=== PATIENT | female | born 1945 | race Caucasian/White ===

== ENCOUNTER 2018-02-19 10:26 | Emergency (ER) | payer OTHER, SELFPAY ==
[2018-02-19 10:33] VITALS: BP 135/74; PULSE 87; RESP 16; TEMP 36.6; O2SAT 93
--- NOTE | 2018-02-19 11:09 | W.ED.GENAD ---
Discharge Plan Disposition Patient Disposition: HOME Condition: Serious Discharge Details Chief Complaint: EyeProblem Clinical Impression: Herpes zoster ophthalmicus of right eye Primary Care Provider: Destiney Motley ED Provider: Lovely Downey Home Meds and New Rx's Prescriptions: New valacyclovir 500 mg tablet 1,000 mg PO TID Qty: 42 RF: 0 Continue acetaminophen [Tylenol Extra Strength] 500 MG tablet 1,000 mg PO Q6H PRN RF: 0 CPAP RF: 0 cholecalciferol (vitamin D3) 5,000 UNIT capsule 5,000 unit PO DAILY Qty: 100 RF: 4 inhalational spacing device [Aerochamber Mini] 1 EACH spacer 1 ea Miscellaneous as directed Qty: 1 RF: 1 alendronate 70 MG tablet 70 mg PO weekly Qty: 12 RF: 4 fluticasone-salmeterol [Advair Diskus] 1 EACH blister with device 1 puff Inhalation BID Qty: 3 RF: 4 amlodipine 10 MG tablet 10 mg PO QAM Qty: 90 RF: 4 clotrimazole-betamethasone 15 GM cream 1 applic Topical BID PRN Qty: 15 RF: 5 furosemide 20 MG tablet 20 mg PO DAILY Qty: 90 RF: 4 albuterol sulfate [ProAir HFA] 8.5 GM HFA aerosol inhaler 2 puff Inhalation Q4H PRN Qty: 3 RF: 4 lisinopril 40 MG tablet 40 mg PO DAILY Qty: 90 RF: 4 Discharge Instructions Instructions: Shingles (ED) Additional Instructions: Please take valacyclovir as prescribed, 1,000 milligrams 3 times per day. Please keep appointment with [facility] 3:10 PM today. Please follow-up with primary care in the beginning of next week for reevaluation. If you develop new or worsening symptoms please seek care urgently once again [facility]: Referrals: Destiney Motley, EDIE [Primary Care Provider] - Medical Decision Making Patient is a 72-year-old female, accompanied by significant other, with chief complaint of swelling and rash around the right eye that began yesterday evening. reports that he noted swelling around the right eye yesterday and the patient was having some mild discomfort in the lid. She denies any pain, particular no skin pain. She reports that she is been feeling fatigued for the past few days and overall fairly unwell. No fevers or chills. No upper respiratory symptoms. On exam, she is defined right-sided vesicular rash consistent with herpes zoster ophthalmicus. No Mabry sign. Despite the lack of this, as well as the lack of discomfort, I remain concerned that this is herpes zoster ophthalmicus as the rash just began today. I am concerned that as this progresses a Mabry sign will present. The eye is injected. I did the eye and evaluate with slit lamp, did not see any dendritic lesions at this point. She has full extraocular movements. No eye pain with these movements. No fevers or chills. Patient appears nontoxic. Patient is not immunocompromised. Will treat with valacyclovir, patient will be given her first dose here. I did contact [facility] eye today to schedule appointment and was able to obtain an appointment for this afternoon at 3 PM. I discussed this plan with the patient and her . We did discuss the risk associated with this diagnosis and my concerns. They voiced understanding and are in agreement with upcoming appointment and will take medication as prescribed. We discussed new/worsening symptoms once he care urgently once again. I also advised follow-up with primary care, they will contact primary care today. All the questions and concerns were addressed and they are in agreement with this plan. [facility] General Mode of arrival: ambulatory. Date/Time Provider Initiated Documentation: 02/19/18 10:27. Limitations to Documentation: no limitations. Information obtained by: patient and family. History of Present Illness 72 year old F presents to the emergency department with the chief complaint of right eye swelling, described as mild (denies any pain), and is localized to the head and face (notes rash on the right side of her upper face into her hair line. Rash is new as of this morning). Patient reports no radiation. Patient started experiencing this day(s) (began yesterday afternoon) and it has been constant. No relieving factors improve symptom(s), No exacerbating factors reported . Patient notes malaise and rash; denies confusion, chest pain, cough, fever/chills, headaches, nausea/vomiting, shortness of breath and weakness. Patient did receive the following treatments prior to arrival, cold therapy Related Data Home Medications Medication Instructions Recorded Confirmed acetaminophen [Tylenol Extra 1,000 mg PO Q6H PRN tab-cap 07/20/13 02/19/18 Strength] cholecalciferol (vitamin D3) 5,000 unit PO DAILY #100 tab-cap 07/06/15 02/19/18 inhalational spacing device #1 ea 08/10/15 [Aerochamber Mini] alendronate 70 mg PO weekly #12 tab-cap 05/18/17 02/19/18 albuterol sulfate [ProAir HFA] 2 puff INHALATION Q4H PRN #3 09/01/17 02/19/18 inhaler amlodipine 10 mg PO QAM #90 tab 09/01/17 02/19/18 clotrimazole-betamethasone 1 applic TOPICAL BID PRN #15 gm 09/01/17 02/19/18 fluticasone-salmeterol [Advair 1 puff INHALATION BID #3 disk 09/01/17 02/19/18 Diskus] furosemide 20 mg PO DAILY #90 tab-cap 09/01/17 02/19/18 lisinopril 40 mg PO DAILY #90 tab-cap 09/01/17 02/19/18 valacyclovir 1,000 mg PO TID #42 tab 02/19/18 Previous Rx's Medication Instructions Recorded alendronate 70 mg PO weekly #12 tab-cap 05/18/17 albuterol sulfate [ProAir HFA] 2 puff INHALATION Q4H PRN #3 09/01/17 inhaler amlodipine 10 mg PO QAM #90 tab 09/01/17 clotrimazole-betamethasone 1 applic TOPICAL BID PRN #15 gm 09/01/17 fluticasone-salmeterol [Advair 1 puff INHALATION BID #3 disk 09/01/17 Diskus] furosemide 20 mg PO DAILY #90 tab-cap 09/01/17 lisinopril 40 mg PO DAILY #90 tab-cap 09/01/17 valacyclovir 1,000 mg PO TID #42 tab 02/19/18 Allergies Allergy/AdvReac Type Severity Reaction Status Date / Time ibuprofen AdvReac Mild RECTAL Unverified 02/19/18 10:37 BLEEDING levothyroxine sodium AdvReac Unknown Unverified 02/19/18 10:37 General Stated Complaint: EyeProblem NEELAM: 3 Review of Systems Constitutional Reports as per HPI Eyes Reports as per HPI, Reports blurry vision (unable to see from the right eye secondary to swelling to the right lid), Denies diplopia, Reports eye discharge (has noted white discharge, none at this time), Denies dry eyes, Denies floaters, Denies itchy eyes, Denies eye pain and Denies photophobia Cardiovascular Reports as per HPI, Denies chest pain, Denies dyspnea and Denies dyspnea on exertion Respiratory Reports as per HPI, Denies chest congestion, Denies cough, Denies dyspnea and Denies dyspnea on exertion Gastrointestinal Denies abdominal pain, Denies nausea and Denies vomiting Integumentary/Breasts Reports as per HPI, Reports new lesions, Reports erythema, Reports rash and Denies skin swelling Allergic/Immunologic Denies itchy eyes PFSH Family History Mother Diabetes Essential hypertension Neoplasm Asthma Father MVA (motor vehicle accident) Sister Neoplasm Sister Essential hypertension Neoplasm Grandfather Diabetes Essential hypertension Heart disease Cerebrovascular accident Asthma Grandfather Heart disease Cerebrovascular accident Grandmother Heart disease Asthma Grandmother Neoplasm Son No problems noted. Daughter No problems noted. Social History Smoking/Tobacco Use Status: Former Tobacco Use Surgical History Breast, Lumpectomy (~09/2012) Cholecystectomy (~1994) Fracture, Open Treatment (~05/2005) Exam Const General: cooperative, healthy appearing, comfortable, no acute distress, well developed and well groomed Nutritional Appearance: well nourished and overweight Orientation: alert, awake and oriented x3 HENMT Head: abnormal to inspection (Patient has a vesicular rash on the right side of her forehead with definitive demarcation down the midline consistent with shingles. Negative Mabry sign. Right eye is swollen and lid is nearly closed secondary to swelling), no palpable skull fracture and not normocephalic (Rash extends into the right side of the hairline over the right ear.) Ears: hearing grossly normal bilaterally, external ears normal (Rash does not extend into the canal), TM's normal bilaterally and mastoids normal General nose exam: external nose normal and nares normal Face and sinus: abnormal facial exam (Rash as above) Face images: 1. area of rash Mouth: oral mucosae normal, lip normal, tongue normal, oropharynx normal and moist mucous membranes Eyes Alignment and Position: alignment normal Periorbital: periorbital findings abnormal (Right eyelid is erythematous and swollen both upper and lower lid to the point the patient is unable to open her eye) Conjunctivae: conjunctival abnormality right conjunctival injection diffuse and discharge mucoid Pupils: PERRL EOM: EOM intact bilaterally (no pain with EOM) and No nystagmus Neck Neck: normal visual inspection and no lymphadenopathy Resp Effort & Inspection: normal respiratory effort, able to speak in complete sentences and no respiratory distress Auscultation: clear to auscultation bilaterally, no rales, no rhonchi and no wheezes Cardio Rate: regular rate Rhythm: regular rhythm Heart Sounds: S1 normal and S2 normal Skin General skin exam: erythema (erythema and rash as above) Hair: hair abnormal (rash extends into hair) Neuro General: alert, awake and oriented x3 Cranial Nerves: no nystagmus Cognition: normal cognition Speech: speech normal Gait: normal gait Extrem General: normal to inspection Psych Appearance: grossly normal and well kempt Mental Status: mental status grossly normal Speech and Movement: speech and movement normal Mood: congruent mood Course Vital Signs Temperature 36.6 C 02/19/18 10:33 Pulse 87 02/19/18 10:33 Respiratory Rate 16 02/19/18 10:33 Blood Pressure 135/74 02/19/18 10:33 Pulse Oximetry 93 L 02/19/18 10:33 Temperature 36.6 C 02/19/18 10:33 Temperature Source Skin 02/19/18 10:33 Pulse 87 02/19/18 10:33 Respiratory Rate 16 02/19/18 10:33 Respiratory Effort Short of Breath 02/19/18 10:33 Blood Pressure 135/74 02/19/18 10:33 Blood Pressure Position Sitting 02/19/18 10:33 Pulse Oximetry 93 L 02/19/18 10:33 Oxygen Delivery Method Room Air 02/19/18 10:33 Oxygen Flow Rate 0 02/19/18 10:33 Pain Level 0 02/19/18 10:33
--- NOTE | 2018-02-19 12:13 | ED.GENADUL_ITS ---
Discharge Plan Disposition Patient Disposition: HOME Condition: Serious Discharge Details Chief Complaint: EyeProblem Clinical Impression: Herpes zoster ophthalmicus of right eye Primary Care Provider: Destiney Motley ED Provider: Lovely Downey Home Meds and New Rx's Prescriptions: New valacyclovir 500 mg tablet 1,000 mg PO TID Qty: 42 RF: 0 Continue acetaminophen [Tylenol Extra Strength] 500 MG tablet 1,000 mg PO Q6H PRN RF: 0 CPAP RF: 0 cholecalciferol (vitamin D3) 5,000 UNIT capsule 5,000 unit PO DAILY Qty: 100 RF: 4 inhalational spacing device [Aerochamber Mini] 1 EACH spacer 1 ea Miscellaneous as directed Qty: 1 RF: 1 alendronate 70 MG tablet 70 mg PO weekly Qty: 12 RF: 4 fluticasone-salmeterol [Advair Diskus] 1 EACH blister with device 1 puff Inhalation BID Qty: 3 RF: 4 amlodipine 10 MG tablet 10 mg PO QAM Qty: 90 RF: 4 clotrimazole-betamethasone 15 GM cream 1 applic Topical BID PRN Qty: 15 RF: 5 furosemide 20 MG tablet 20 mg PO DAILY Qty: 90 RF: 4 albuterol sulfate [ProAir HFA] 8.5 GM HFA aerosol inhaler 2 puff Inhalation Q4H PRN Qty: 3 RF: 4 lisinopril 40 MG tablet 40 mg PO DAILY Qty: 90 RF: 4 Discharge Instructions Instructions: Shingles (ED) Additional Instructions: Please take valacyclovir as prescribed, 1,000 milligrams 3 times per day. Please keep appointment with [facility] 3:10 PM today. Please follow- up with primary care in the beginning of next week for reevaluation. If you develop new or worsening symptoms please seek care urgently once again [facility]: Referrals: Destiney Motley, EDIE [Primary Care Provider] - Medical Decision Making Patient is a 72-year-old female, accompanied by significant other, with chief complaint of swelling and rash around the right eye that began yesterday evening. reports that he noted swelling around the right eye yesterday and the patient was having some mild discomfort in the lid. She denies any pain , particular no skin pain. She reports that she is been feeling fatigued for the past few days and overall fairly unwell. No fevers or chills. No upper respiratory symptoms. On exam, she is defined right-sided vesicular rash consistent with herpes zoster ophthalmicus. No Mabry sign. Despite the lack of this, as well as the lack of discomfort, I remain concerned that this is herpes zoster ophthalmicus as the rash just began today. I am concerned that as this progresses a Mabry sign will present. The eye is injected. I did the eye and evaluate with slit lamp, did not see any dendritic lesions at this point. She has full extraocular movements. No eye pain with these movements. No fevers or chills. Patient appears nontoxic. Patient is not immunocompromised. Will treat with valacyclovir, patient will be given her first dose here. I did contact [facility] today to schedule appointment and was able to obtain an appointment for this afternoon at 3 PM. I discussed this plan with the patient and her . We did discuss the risk associated with this diagnosis and my concerns. They voiced understanding and are in agreement with upcoming appointment and will take medication as prescribed. We discussed new/worsening symptoms once he care urgently once again. I also advised follow-up with primary care, they will contact primary care today. All the questions and concerns were addressed and they are in agreement with this plan. [facility] General Mode of arrival: ambulatory . Date/Time Provider Initiated Documentation: 02/19/18 10:27 . Limitations to Documentation: no limitations . Information obtained by: patient and family . History of Present Illness 72 year old F presents to the emergency department with the chief complaint of right eye swelling, described as mild (denies any pain), and is localized to the head and face (notes rash on the right side of her upper face into her hair line. Rash is new as of this morning). Patient reports no radiation. Patient started experiencing this day(s) (began yesterday afternoon) and it has been constant. No relieving factors improve symptom(s), No exacerbating factors reported . Patient notes malaise and rash; denies confusion, chest pain, cough, fever/chills, headaches, nausea/vomiting, shortness of breath and weakness. Patient did receive the following treatments prior to arrival, cold therapy Related Data Home Medications Medication Instructions Recorded Confirmed acetaminophen [Tylenol Extra 1,000 mg PO Q6H PRN tab-cap 07/20/13 02/19/18 Strength] cholecalciferol (vitamin D3) 5,000 unit PO DAILY #100 tab-cap 07/06/15 02/19/18 inhalational spacing device #1 ea 08/10/15 [Aerochamber Mini] alendronate 70 mg PO weekly #12 tab-cap 05/18/17 02/19/18 albuterol sulfate [ProAir HFA] 2 puff INHALATION Q4H PRN #3 09/01/17 02/19/18 inhaler amlodipine 10 mg PO QAM #90 tab 09/01/17 02/19/18 clotrimazole-betamethasone 1 applic TOPICAL BID PRN #15 gm 09/01/17 02/19/18 fluticasone-salmeterol [Advair 1 puff INHALATION BID #3 disk 09/01/17 02/19/18 Diskus] furosemide 20 mg PO DAILY #90 tab-cap 09/01/17 02/19/18 lisinopril 40 mg PO DAILY #90 tab-cap 09/01/17 02/19/18 valacyclovir 1,000 mg PO TID #42 tab 02/19/18 Previous Rx's Medication Instructions Recorded alendronate 70 mg PO weekly #12 tab-cap 05/18/17 albuterol sulfate [ProAir HFA] 2 puff INHALATION Q4H PRN #3 09/01/17 inhaler amlodipine 10 mg PO QAM #90 tab 09/01/17 clotrimazole-betamethasone 1 applic TOPICAL BID PRN #15 gm 09/01/17 fluticasone-salmeterol [Advair 1 puff INHALATION BID #3 disk 09/01/17 Diskus] furosemide 20 mg PO DAILY #90 tab-cap 09/01/17 lisinopril 40 mg PO DAILY #90 tab-cap 09/01/17 valacyclovir 1,000 mg PO TID #42 tab 02/19/18 Allergies Allergy/AdvReac Type Severity Reaction Status Date / Time ibuprofen AdvReac Mild RECTAL Unverified 02/19/18 10:37 BLEEDING levothyroxine sodium AdvReac Unknown Unverified 02/19/18 10:37 General Stated Complaint: EyeProblem NEELAM: 3 Review of Systems Constitutional Reports as per HPI Eyes Reports as per HPI, Reports blurry vision (unable to see from the right eye secondary to swelling to the right lid), Denies diplopia, Reports eye discharge (has noted white discharge, none at this time), Denies dry eyes, Denies floaters , Denies itchy eyes, Denies eye pain and Denies photophobia Cardiovascular Reports as per HPI, Denies chest pain, Denies dyspnea and Denies dyspnea on exertion Respiratory Reports as per HPI, Denies chest congestion, Denies cough, Denies dyspnea and Denies dyspnea on exertion Gastrointestinal Denies abdominal pain, Denies nausea and Denies vomiting Integumentary/Breasts Reports as per HPI, Reports new lesions, Reports erythema, Reports rash and Denies skin swelling Allergic/Immunologic Denies itchy eyes PFSH Family History Mother Diabetes Essential hypertension Neoplasm Asthma Father MVA (motor vehicle accident) Sister Neoplasm Sister Essential hypertension Neoplasm Grandfather Diabetes Essential hypertension Heart disease Cerebrovascular accident Asthma Grandfather Heart disease Cerebrovascular accident Grandmother Heart disease Asthma Grandmother Neoplasm Son No problems noted. Daughter No problems noted. Social History Smoking/Tobacco Use Status: Former Tobacco Use Surgical History Breast, Lumpectomy (~09/2012) Cholecystectomy (~1994) Fracture, Open Treatment (~05/2005) Exam Const General: cooperative, healthy appearing, comfortable, no acute distress, well developed and well groomed Nutritional Appearance: well nourished and overweight Orientation: alert, awake and oriented x3 HENMT Head: abnormal to inspection (Patient has a vesicular rash on the right side of her forehead with definitive demarcation down the midline consistent with shingles. Negative Mabry sign. Right eye is swollen and lid is nearly closed secondary to swelling), no palpable skull fracture and not normocephalic (Rash extends into the right side of the hairline over the right ear.) Ears: hearing grossly normal bilaterally, external ears normal (Rash does not extend into the canal), TM's normal bilaterally and mastoids normal General nose exam: external nose normal and nares normal Face and sinus: abnormal facial exam (Rash as above) Face images: 2 1. area of rash Mouth: oral mucosae normal, lip normal, tongue normal, oropharynx normal and moist mucous membranes Eyes Alignment and Position: alignment normal Periorbital: periorbital findings abnormal (Right eyelid is erythematous and swollen both upper and lower lid to the point the patient is unable to open her eye) Conjunctivae: conjunctival abnormality right conjunctival injection diffuse and discharge mucoid Pupils: PERRL EOM: EOM intact bilaterally (no pain with EOM) and No nystagmus Neck Neck: normal visual inspection and no lymphadenopathy Resp Effort & Inspection: normal respiratory effort, able to speak in complete sentences and no respiratory distress Auscultation: clear to auscultation bilaterally, no rales, no rhonchi and no wheezes Cardio Rate: regular rate Rhythm: regular rhythm Heart Sounds: S1 normal and S2 normal Skin General skin exam: erythema (erythema and rash as above) Hair: hair abnormal (rash extends into hair) Neuro General: alert, awake and oriented x3 Cranial Nerves: no nystagmus Cognition: normal cognition Speech: speech normal Gait: normal gait Extrem General: normal to inspection Psych Appearance: grossly normal and well kempt Mental Status: mental status grossly normal Speech and Movement: speech and movement normal Mood: congruent mood Course Vital Signs Temperature 36.6 C 02/19/18 10:33 Pulse 87 02/19/18 10:33 Respiratory Rate 16 02/19/18 10:33 Blood Pressure 135/74 02/19/18 10:33 Pulse Oximetry 93 L 02/19/18 10:33 Temperature 36.6 C 02/19/18 10:33 Temperature Source Skin 02/19/18 10:33 Pulse 87 02/19/18 10:33 Respiratory Rate 16 02/19/18 10:33 Respiratory Effort Short of Breath 02/19/18 10:33 Blood Pressure 135/74 02/19/18 10:33 Blood Pressure Position Sitting 02/19/18 10:33 Pulse Oximetry 93 L 02/19/18 10:33 Oxygen Delivery Method Room Air 02/19/18 10:33 Oxygen Flow Rate 0 02/19/18 10:33 Pain Level 0 02/19/18 10:33
== END 2018-02-19 11:22 | disposition home or self-care (01) ==
PROVIDERS: Emergency Provider Physician Assistant; PCP Nurse Practitioner Family
DX: B02.39 Other herpes zoster eye disease (principal)
CPT/HCPCS: 99283

== ENCOUNTER 2018-06-12 16:36 | Outpatient (CLI) | payer OTHER, SELFPAY ==
--- NOTE | 2018-06-12 15:45 | DI.RAD_ITS ---
SYMPTOM/DIAGNOSIS: WORSENING SOB, PNEUMONIA ON EXAM, ? PULMONARY EDEMA, EXAC OF COPD, J18.9, J44.1 PA AND LATERAL CHEST: Comparison is made with 08/30/17. Heart size is within normal limits. Pulmonary vasculature appears stable. No focal consolidating infiltrates or effusions are seen. The lungs appear hyperinflated consistent with underlying COPD. The bones show degenerative changes. There is an old compression fracture of the L 1 vertebral bodym IMPRESSION: No acute pulmonary process.
--- NOTE | 2018-06-12 16:18 | DI.VRAD_ITS ---
EXAM: XR Chest, 2 Views EXAM DATE/TIME: 06/12/2018 4:07 PM CLINICAL HISTORY: 72 years old, female; Signs and symptoms; Shortness of breath; Patient HX: SOB x1 week, increasing SOB upon exertion. Ex smoker, HX of copd. TECHNIQUE: XR of the chest, 2 views. COMPARISON: CR CHEST 2 VIEWS PA,LAT 08/30/2017 4:37 PM FINDINGS: Lungs: There is no new airspace consolidation or overt CHF. Pleural space: There is possible trace left pleural fluid or pleural thickening. Large effusion or pneumothorax is not seen. Heart/Mediastinum: Heart is upper limits of normal in size. Vasculature: The aorta is mildly ectatic and tortuous. Bones/joints: The bony structures are osteopenic. Degenerative changes are seen in the spine. There is no acute bony abnormality. IMPRESSION: No lobar consolidation or overt CHF Dictated and Authenticated by: Liliya Cifuentes MD. Ordering:ANAI Cabello MD
[2018-06-12 16:40] LABS: Abs Immature Grans 0.02 k/cumm (0.0-0.09); Absolute Basophil Count 0.06 k/cumm (0.0-0.2); Absolute Eosinophil Count 0.56 k/cumm (0.0-0.7); Absolute Lymphocyte Count 2.31 k/cumm (1.2-3.4); Basophils % 0.5; Eosinophils % 4.7; HCT 48.6 % (36.0-46.0); HGB 16.1 g/dL (12.0-15.5); Immature Grans % 0.2; Lymphocytes % 19.4; Mean Corp. HGB Concentration 33.1 g/dL (32.0-36.0); Mean Corpuscular Hemoglobin 32.2 pg (27.0-33.0); Mean Corpuscular Volume 97.2 fL (80-95); Mean Platelet Volume 8.8 fL (8.0-11.0); Monocytes % 9.1; Neutrophils % 66.1; Platelet Count 302 x1000/uL (130-400); RBC Distribution Width 13.9 % (11.7-14.6); White Blood Cell Count 11.93 k/cumm (4.4-10.8)
[2018-06-12 16:42] LABS: Absolute Monocyte Count 1.09 k/cumm (0.11-0.7); Absolute Neutrophil Count 7.89 k/cumm (1.2-6.7)
[2018-06-12 17:20] LABS: D-Dimer 821 ng/mlFEU (<500)
[2018-06-12 17:31] LABS: ALT 56 U/L (12-78); AST 41 U/L (15-37); Albumin 3.9 g/dL (3.4-5.0); Alkaline Phosphatase 64 U/L (46-116); Anion Gap 13.2 mmol/L (3-11); BUN 20 mg/dL (7-18); Bilirubin, Total 1.7 mg/dL (0.2-1.0); CO2 25.8 mmol/L (21.0-32.0); Calcium 11.1 mg/dL (8.5-10.1); Chloride 104 mmol/L (98-107); Estimated GFR 40.04 (mL/min/1.73m2); Glucose 105 mg/dL (70-100); NT-proBNP 91 pg/mL; Sodium 143 mmol/L (136-145); Total Protein 7.7 g/dL (6.4-8.2)
== END 2018-06-12 16:56 ==
PROVIDERS: PCP Nurse Practitioner Family; Visit Provider Nurse Practitioner Family
DX: R06.02 Shortness of breath (principal); J44.1 Chronic obstructive pulmonary disease with (acute) exacerbation; J18.9 Pneumonia, unspecified organism
CPT/HCPCS: 36415; 80053; 71046; 83880; 85025; 85379

== ENCOUNTER 2018-07-03 07:16 | Day surgery (SDC) | payer OTHER, SELFPAY ==
--- NOTE | 2018-07-02 19:01 | W.PIPPEYE ---
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 She has noted progressive decreased vision over the past several years. She notes glare with headlights and bright sunlight. On examination she was noted to have visual acuity of 20/50 in the right eye, 20/400 in the left eye and the presence of moderate nuclear cataract in the right eye with more advanced nuclear cataract in the left eye. Moderate cortical cataracts are present OU. In addition, she has evidence of atrophic macular degeneration. The option of cataract surgery was offered to the patient including that postoperative visual acuity is likely to be limited by the pre-existing retinopathy. She wished to proceed. NOTE: The Chief Complaint, HPI, Past Medical History, Past Surgical History, Family History, Social History, Medications, and complete Ophthalmic Exam with detailed Assessment and Plan have already been documented in the patient's outpatient ophthalmic record and are not covered again in detail here. [facility] Social History household members: spouse current occupational status: retired frequency: does not exercise Smoking and Tabacco status: Former Tobacco Use quit date: 04/28/99 alcohol intake: never substance use type: does not use macie/muslim: Pentecostal special macie needs: No Female Reproductive History Menstrual Menopause type: natural Date of menopause: 04/28/93 History History 3 Para Hx # Term Pregnancies Multiple births Hx # Pregnancies Ectopic pregnancies AB induced Hx Number of Living Children 2 AB spontaneous 1 Meds Home Medications Medication Instructions Recorded Confirmed Type cholecalciferol (vitamin D3) 5,000 unit PO DAILY #100 tab-cap 07/06/15 06/30/18 History Advair Diskus 1 puff INHALATION BID #3 disk 09/01/17 06/30/18 Rx albuterol sulfate [ProAir HFA] 2 puff INHALATION Q4H PRN #3 09/01/17 06/30/18 Rx inhaler amlodipine 10 mg PO QAM #90 tab 09/01/17 06/30/18 Rx clotrimazole-betamethasone 1 applic TOPICAL BID PRN #15 gm 09/01/17 06/30/18 Rx lisinopril 40 mg PO DAILY #90 tab-cap 09/01/17 06/30/18 Rx alendronate 70 mg tablet 70 mg PO weekly #12 tab-cap 06/07/18 06/30/18 Rx furosemide 20 mg tablet 40 mg PO DAILY #180 tab-cap 06/19/18 06/30/18 Rx Allergies Allergy/AdvReac Type Severity Reaction Status Date / Time ibuprofen AdvReac Mild RECTAL Verified 06/19/18 14:25 BLEEDING levothyroxine sodium AdvReac Unknown Verified 06/19/18 14:25 Exam OCULAR EXAM:: Most recent ocular examination is significant for best corrected vision of 20/40 OD, 2400 OS. Intraocular pressure is 13 OD, 14 OS. Extraocular motility is normal. Pupils equal, round, and reactive without afferent pupillary defect slit-lamp examination is significant for pupils dilating to 6 mm OU. 2-3+ nuclear with 1+ cortical cataract OD. 3+ yellow brown nuclear cataract OS with 2+ cortical cataract. Funduscopic examination is significant for disc cupping of 0.4 OU with good color. RPE changes and drusen are present OU. There is some patchy geographic atrophy in the left macula. Peripheral retina and vitreous is normal. BRIGHTNESS ACUITY TESTING (BAT):: Brightness acuity testing of the left eye off is 20/400. Low is 20/400. Medium is less than 20/400. High is less than 20/400. Assessment and Plan (1) Nuclear sclerotic cataract of left eye: Current visit: No Status: Acute Assessment: Visually significant cataract, left eye. Plan: Cataract extraction with intraocular lens implantation, left eye (2) Cortical cataract of left eye: Current visit: No Status: Acute Assessment: Visually significant cataract, left eye. Plan: Cataract extraction with intraocular lens implantation, left eye Note: NOTE:: The details of the planned surgery, including the risks, indications,limitations,expectations,outcome and possible complications were explained to the patient. The patient understands the complications including, but not limited to: infection, hemorrhage, posterior dislocation of the lens or nuclear fragments which may require the intervention of a vitreoretinal surgeon, possible loss of the eye, or from anesthetic complications. The patient has been made aware of the option of not having surgery, that vision following surgery may not be equal to that prior to surgery, and that the planned surgery may not achieve the intended results. Following this discussion, which the patient appeared to understand, the patient wishes to proceed with cataract surgery with lens implantation of the affected eye to improve and maximize vision.
--- NOTE | 2018-07-03 07:12 | W.PM.DSUDISC ---
Discharge Plan Disposition Patient Disposition: HOME Condition: Stable Discharge Details Attending Provider: Mohsen Sorenson Primary Care Provider: Destiney Motley Home Meds and New Rx's Prescriptions: No Action alendronate 70 mg tablet 70 mg PO weekly Qty: 12 RF: 4 furosemide 20 mg tablet 40 mg PO DAILY Qty: 180 RF: 4 cholecalciferol (vitamin D3) 5,000 UNIT capsule 5,000 unit PO DAILY Qty: 100 RF: 4 fluticasone propion-salmeterol [Advair Diskus] 1 EACH blister with device 1 puff Inhalation BID Qty: 3 RF: 4 amlodipine 10 MG tablet 10 mg PO QAM Qty: 90 RF: 4 clotrimazole-betamethasone 15 GM cream 1 applic Topical BID PRN Qty: 15 RF: 5 albuterol sulfate [ProAir HFA] 8.5 GM HFA aerosol inhaler 2 puff Inhalation Q4H PRN Qty: 3 RF: 4 lisinopril 40 MG tablet 40 mg PO DAILY Qty: 90 RF: 4 Discharge Instructions Stand Alone Forms: Post-op Topical Cataract, Nick Websterey (DSU) Discharge Orders Discharge Orders: Discharge Order (Routine); Ordered 07/03/18 Ordered By: Mohsen Sorenson DS: Diagnosis Discharge Diagnosis (1) Status post cataract extraction and insertion of intraocular lens of left eye: Status: Chronic
[2018-07-03 07:57] VITALS: BP 134/61; PULSE 69; RESP 16; TEMP 36.1; O2SAT 94
[2018-07-03] MEDS: Tropicam./Phenyleph. (1/2.5%) 5 ML BTL OS ×3 (08:05→08:18)
[2018-07-03] MEDS: Tetracaine 0.5% 4 ML BTL OS ×4 (08:05→09:01)
[2018-07-03] MEDS: Trypan Blue 0.06% 0.5 ML SYR (09:01)
[2018-07-03] MEDS: Lidocaine 2% Jelly 6 ML SYR (09:01)
[2018-07-03] MEDS: Balanced Salt Soln.-PLUS 500 ML BAG (09:05)
[2018-07-03] MEDS: Lidocaine 1% Pres-Free 5 ML VIAL (09:05)
[2018-07-03] MEDS: Duovisc Viscoelastic System EACH 1 EACH (09:05)
[2018-07-03] MEDS: Povidone-Iodine Ophth 30 ML BTL (09:30)
--- NOTE | 2018-07-03 09:37 | W.PM.OP ---
Date of service: 07/03/18 Time of Service: 09:38 Operative Note PRE-OP DIAGNOSIS: Cataract, left eye, with poor red reflex POST-OP DIAGNOSIS: same PROCEDURE: Cataract extraction using phacoemulsification with intraocular lens implant, left eye, using capsular staining with Vision Blue SURGEON: Mohsen Sorenson ANESTHESIA: MAC (with local sub-tenon's anesthetic injection) COMPLICATIONS: None Patient was transported to: same day Patient's condition: stable Implants: Alin and Alin / [employer] Tecnis [id number] Indications: Progressive decreased vision due to cataract, left eye, with poor red reflex Procedure Description: CATARACT SURGERY OPERATIVE REPORT PREOPERATIVE DIAGNOSIS: 1. Dense nuclear/cortical cataract, left eye 2. Poor red reflex secondary to #1 POSTOPERATIVE DIAGNOSIS: Same OPERATION: 1. Cataract extraction using phacoemulsification with posterior chamber intraocular lens implant, left eye. 2. Capsular staining with Vision Blue IOL: IOL Newspaper Clipper/Model: Alin & Alin / JESUS Tecnis [id number] IOL Power: + 22.0 diopters IOL Serial Number: [id number] Optic Diameter: 6.0 mm Haptic/Overall Diameter: 13.0 mm PHACO INFO: James Friendemicurion Vision System with OZil and Active Fluidics Cumulative Dispersed Energy (CDE): 24.94 seconds SURGEON: Mohsen Sorenson MD, GILSON ANESTHESIA: Monitored A [facility] Care (MAC), with local sub-tenon's anesthetic infiltration COMPLICATIONS: None SPECIMENS: None INDICATIONS FOR PROCEDURE: Patient is a 72-year-old lady with history of macular degeneration who has developed significant bilateral nuclear and cortical cataracts, left eye greater than right. The option of cataract surgery was offered to the patient and she wished to proceed. She understands that postoperative visual acuity will be limited by the presence of her pre-existing maculopathy PROCEDURE: The correct surgical eye was identified and marked as the left eye and the pupil was dilated in the preoperative area using mydriatics and cycloplegics. The dilated pupil size was 7.0 mm. No oral sedation was given. The patient was brought to the operating room where cardiopulmonary monitoring was instituted and surgical time-out was performed, confirming the correct operative eye and IOL power. Topical anesthesia was administered and ophthalmic povidone-iodine 5% was instilled into the conjunctival fornices. Lidocaine gel was applied to the cornea and the gasper-ocular area was prepped with Betadine 10% solution and draped in the usual sterile fashion for intraocular surgery, including an aperture drape. A Tegaderm transparent film dressing was cut in half and used to cover the lashes and lid margins. Care was taken to sequester the lashes and lid margins under the Tegaderm dressing. A lid speculum was placed between the lids of the operative eye and the Isabel-Adriana operating microscope was maneuvered into position. Pedro scissors were then used to make a conjunctival buttonhole approximately 6mm posterior to the limbus in the inferonasal quadrant. Blunt dissection was carried out to expose bare sclera, and a blunt-tipped sub-tenon?s anesthesia cannula was introduced and passed posteriorly along the globe where non-preserved plain lidocaine was injected into posterior sub-Tenon?s space. A sideport knife was used to make a paracentesis port at the 12:00 position. Air was injected into the anterior chamber, followed by Vision Blue, which was painted over the anterior capsule and then irrigated out using BSS. The anterior chamber was filled with Viscoat. A 2.4mm keratome knife was used to create a half-thickness groove at the limbus and then to construct a three-plane near-clear corneal tunnel extending 2.0mm into clear cornea at the 3:00 position. A flap was raised on the anterior capsule and capsulorhexis forceps were used to complete a continuous curvilinear capsulorhexis of 5.5 mm. Balanced salt solution was then used to perform cortical cleaving hydrodissection and nuclear hydrodelineation until the lens could be freely rotated within the capsular bag. The lens nucleus was then disassembled and removed within the capsular bag and iris plane using phacoemulsification. Residual cortical material was removed using the 45-degree angled silicone I/A tip with 0.3mm port. The posterior capsule was carefully polished to remove as much residual lens epithelial cells as safely possible. The capsular bag was then inflated and the anterior chamber deepened with Provisc. The lens implant described above was inserted into the capsular bag using the JESUS [place] Injector. A Kuglen hook was used to dial the IOL into position. Residual viscoelastic was then removed first from posterior to the IOL, then from the anterior chamber using the I/A handpiece. The lens implant was noted to center nicely within the capsular bag. The incisions were stromally hydrated, and the anterior chamber was reformed using BSS. Then 0.4cc of moxifloxacin 1.5mg/ml were injected into the capsular bag and anterior chamber. The incisions were checked with a Weck spear and found to be secure. Several drops of ophthalmic povidone-iodine 5% were then applied to the eye followed by two drops of Imprimis combination moxifloxacin/dexamethasone solution. The drapes were removed and a clear plastic protective eye shield was placed over the eye. The patient was then returned to Same Day Surgery in stable condition.
--- NOTE | 2018-07-03 09:40 | ROE_ITS ---
Date of service: 07/03/18 Time of Service: 09:38 Operative Note PRE-OP DIAGNOSIS: Cataract, left eye, with poor red reflex POST-OP DIAGNOSIS: same PROCEDURE: Cataract extraction using phacoemulsification with intraocular lens implant, left eye, using capsular staining with Vision Blue SURGEON: Mohsen Sorenson ANESTHESIA: MAC (with local sub-tenon's anesthetic injection) COMPLICATIONS: None Patient was transported to: same day Patient's condition: stable Implants: Alin and Alin / [employer] Opt[employer] Tecnis [id number] Indications: Progressive decreased vision due to cataract, left eye, with poor red reflex Procedure Description: CATARACT SURGERY OPERATIVE REPORT PREOPERATIVE DIAGNOSIS: 1. Dense nuclear/cortical cataract, left eye 2. Poor red reflex secondary to #1 POSTOPERATIVE DIAGNOSIS: Same OPERATION: 1. Cataract extraction using phacoemulsification with posterior chamber intraocular lens implant, left eye. 2. Capsular staining with Vision Blue IOL: IOL Recycling Director/Model: Alin & Alin / JESUS Tecnis [id number] IOL Power: + 22.0 diopters IOL Serial Number: [id number] Optic Diameter: 6.0 mm Haptic/Overall Diameter: 13.0 mm PHACO INFO: James Retslyurion Vision System with OZil and Active Fluidics Cumulative Dispersed Energy (CDE): 24.94 seconds SURGEON: Mohsen Sorenson MD, GILSON ANESTHESIA: Monitored [facility] (MAC), with local sub-tenon's anesthetic infiltration COMPLICATIONS: None SPECIMENS: None INDICATIONS FOR PROCEDURE: Patient is a 72-year-old lady with history of macular degeneration who has developed significant bilateral nuclear and cortical cataracts, left eye greater than right. The option of cataract surgery was offered to the patient and she wished to proceed. She understands that postoperative visual acuity will be limited by the presence of her pre-existing maculopathy PROCEDURE: The correct surgical eye was identified and marked as the left eye and the pupil was dilated in the preoperative area using mydriatics and cycloplegics. The dilated pupil size was 7.0 mm. No oral sedation was given. The patient was brought to the operating room where cardiopulmonary monitoring was instituted and surgical time-out was performed, confirming the correct operative eye and IOL power. Topical anesthesia was administered and ophthalmic povidone-iodine 5% was instilled into the conjunctival fornices. Lidocaine gel was applied to the cornea and the gasper-ocular area was prepped with Betadine 10% solution and draped in the usual sterile fashion for intraocular surgery, including an aperture drape. A Tegaderm transparent film dressing was cut in half and used to cover the lashes and lid margins. Care was taken to sequester the lashes and lid margins under the Tegaderm dressing. A lid speculum was placed between the lids of the operative eye and the Isabel-Adriana operating microscope was maneuvered into position. Pedro scissors were then used to make a conjunctival buttonhole approximately 6mm posterior to the limbus in the inferonasal quadrant. Blunt dissection was carried out to expose bare sclera, and a blunt-tipped sub-tenon?s anesthesia cannula was introduced and passed posteriorly along the globe where non- preserved plain lidocaine was injected into posterior sub-Tenon?s space. A sideport knife was used to make a paracentesis port at the 12:00 position. Air was injected into the anterior chamber, followed by Vision Blue, which was painted over the anterior capsule and then irrigated out using BSS. The anterior chamber was filled with Viscoat. A 2.4mm keratome knife was used to create a half-thickness groove at the limbus and then to construct a three-plane near-clear corneal tunnel extending 2.0mm into clear cornea at the 3:00 position. A flap was raised on the anterior capsule and capsulorhexis forceps were used to complete a continuous curvilinear capsulorhexis of 5.5 mm. Balanced salt solution was then used to perform cortical cleaving hydrodissection and nuclear hydrodelineation until the lens could be freely rotated within the capsular bag. The lens nucleus was then disassembled and removed within the capsular bag and iris plane using phacoemulsification. Residual cortical material was removed using the 45-degree angled silicone I/A tip with 0.3mm port. The posterior capsule was carefully polished to remove as much residual lens epithelial cells as safely possible. The capsular bag was then inflated and the anterior chamber deepened with Provisc. The lens implant described above was inserted into the capsular bag using the JESUS [place] Injector. A Kuglen hook was used to dial the IOL into position. Residual viscoelastic was then removed first from posterior to the IOL, then from the anterior chamber using the I/A handpiece. The lens implant was noted to center nicely within the capsular bag. The incisions were stromally hydrated, and the anterior chamber was reformed using BSS. Then 0.4cc of moxifloxacin 1.5mg/ml were injected into the capsular bag and anterior chamber. The incisions were checked with a Weck spear and found to be secure. Several drops of ophthalmic povidone-iodine 5% were then applied to the eye followed by two drops of Imprimis combination moxifloxacin/dexamethasone solution. The drapes were removed and a clear plastic protective eye shield was placed over the eye. The patient was then returned to Same Day Surgery in stable condition.
== END 2018-07-03 10:00 | disposition home or self-care (01) ==
LOC: SUR 07:17
PROVIDERS: PCP Nurse Practitioner Family; Visit Provider Ophthalmology
PROC: (CPT 66982; principal; 2018-07-03 10:00)
DX: H25.812 Combined forms of age-related cataract, left eye (principal); H35.89 Other specified retinal disorders; J44.9 Chronic obstructive pulmonary disease, unspecified; I10 Essential (primary) hypertension; G47.33 Obstructive sleep apnea (adult) (pediatric)
CPT/HCPCS: 66982; V2632

== ENCOUNTER 2018-07-17 06:52 | Day surgery (SDC) | payer OTHER, SELFPAY ==
--- NOTE | 2018-07-16 12:46 | POEE_ITS ---
History of Present Illness Chief Complaint: Progressive decreased vision, right eye Narrative: The patient is a 72-year old lady with history of diminished visual acuity in both eyes at both distance and near, right eye worse than left. On examination she was noted to have significant bilateral nuclear and cortical cataracts with visual acuity of 20/50 OD, 2400 OS. The option of cataract surgery was offered to the patient and she underwent surgery OS on 07/03/2018. Postoperatively she has regained best corrected vision of 20/80 in the left eye, limited by the presence of pre-existing atrophic macular degeneration. She is happy with the improvement in her vision in the left eye and now presents for cataract surgery in the right eye. NOTE: The Chief Complaint, HPI, Past Medical History, Past Surgical History, Family History, Social History, Medications, and complete Ophthalmic Exam with detailed Assessment and Plan have already been documented in the patient's outpatient ophthalmic record and are not covered again in detail here. PFSH Medical History Essential hypertension (Chronic 07/19/13) Obstructive sleep apnea (Chronic 02/03/14) CKD (chronic kidney disease) (Chronic) COPD (chronic obstructive pulmonary disease) (Chronic) Hyperparathyroidism (Chronic) Varicose veins of lower extremity (Chronic) Osteoporosis (Chronic 03/04/14) Obesity (Chronic) Cortical cataract of left eye (Resolved) Herpes zoster ophthalmicus of right eye (Resolved ~01/2018) Nuclear sclerotic cataract of left eye (Resolved) Subclinical hypothyroidism (Resolved) Vitamin D deficiency (Resolved 03/30/15) Tubular adenoma of colon (Inactive ~2012) Surgical History Status post cataract extraction and insertion of intraocular lens of left eye (Chronic 07/03/18) Breast, Lumpectomy (~09/2012) Cholecystectomy (~1994) Fracture, Open Treatment (~05/2005) Social History Smoking/Tobacco Use Status: Former Tobacco Use Quit Date: 04/28/99 Alcohol Intake: never Drug use: Never Substance use type: does not use Household members: spouse Frequency: does not exercise Luz/Voodoo: Jehovah'S Witness Special luz needs: No Do you feel safe in your relationship?: Yes Female Reproductive History Menstrual Menopause type: natural Date of menopause: 04/28/93 History History 3 Para Hx # Term Pregnancies Multiple births Hx # Pregnancies Ectopic pregnancies AB induced Hx Number of Living Children 2 AB spontaneous 1 Meds Home Medications Medication Instructions Recorded Confirmed Type cholecalciferol (vitamin D3) 5,000 unit PO DAILY #100 tab-cap 07/06/15 07/03/18 History albuterol sulfate [ProAir HFA] 2 puff INHALATION Q4H PRN #3 09/01/17 06/30/18 Rx inhaler amlodipine 10 mg PO QAM #90 tab 09/01/17 07/03/18 Rx clotrimazole-betamethasone 1 applic TOPICAL BID PRN #15 gm 09/01/17 07/03/18 Rx fluticasone propion-salmeterol 1 puff INHALATION BID #3 disk 09/01/17 07/03/18 Rx [Advair Diskus] lisinopril 40 mg PO DAILY #90 tab-cap 09/01/17 07/03/18 Rx alendronate 70 mg tablet 70 mg PO weekly #12 tab-cap 06/07/18 07/03/18 Rx furosemide 20 mg tablet 40 mg PO DAILY #180 tab-cap 06/19/18 07/03/18 Rx Allergies Allergy/AdvReac Type Severity Reaction Status Date / Time ibuprofen AdvReac Mild RECTAL Verified 07/03/18 07:48 BLEEDING levothyroxine sodium AdvReac Unknown Verified 07/03/18 07:48 Exam OCULAR EXAM:: Most recent ocular examination revealed best corrected vision of 20/40 OD, 20/80 OS. Intraocular pressure is 13 OD, 14 OS. Extraocular motility is normal. Pupils equal, round, and reactive without afferent pupillary defect slit-lamp examination is significant for 2-3+ nuclear with 1+ cortical cataract OD. Pupils dilate to 6 mm OU. Well-positioned PCIOL OS with clear posterior capsule. Dilated funduscopic examination shows disc cupping of 0.4 OU with normal vessels. In the right macula there are pigmentary changes and drusen. In the left eye there are RPE changes with patchy geographic atrophy. Peripheral retina and vitreous are normal. BRIGHTNESS ACUITY TESTING (BAT):: Brightness acuity testing of the right eye off is 20/40. Low is 20/60. Medium is 20/100. High is less than 20/400 Assessment and Plan (1) Nuclear sclerotic cataract of right eye: Current visit: No Status: Acute Assessment: Visually significant cataract, right eye. Plan: Cataract extraction with intraocular lens implantation, right eye (2) Cortical cataract of right eye: Current visit: No Status: Acute Assessment: Visually significant cataract, right eye. Plan: Cataract extraction with intraocular lens implantation, right eye Note: NOTE:: The details of the planned surgery, including the risks, ind ications,limitations,expectations,outcome and possible complications were explained to the patient. The patient understands the complications including, but not limited to: infection, hemorrhage, posterior dislocation of the lens or nuclear fragments which may require the intervention of a vitreoretinal surgeon, possible loss of the eye, or from anesthetic complications. The patient has been made aware of the option of not having surgery, that vision following surgery may not be equal to that prior to surgery, and that the planned surgery may not achieve the intended results. Following this discussion, which the patient appeared to understand, the patient wishes to proceed with cataract surgery with lens implantation of the affected eye to improve and maximize vision.
[2018-07-17 07:27] VITALS: BP 131/68; PULSE 63; RESP 16; TEMP 26.4; O2SAT 92
[2018-07-17 07:34] VITALS: BP 131/68; PULSE 63; RESP 16; TEMP 26.4; O2SAT 92
[2018-07-17] MEDS: Tetracaine 0.5% 4 ML BTL OD ×4 (07:44→08:48)
[2018-07-17] MEDS: Tropicam./Phenyleph. (1/2.5%) 5 ML BTL OD ×3 (07:44→07:50)
[2018-07-17] MEDS: Balanced Salt Soln.-PLUS 500 ML BAG (08:48)
[2018-07-17] MEDS: Duovisc Viscoelastic System EACH 1 EACH (08:48)
[2018-07-17] MEDS: Lidocaine 1% Pres-Free 5 ML VIAL (08:48)
[2018-07-17] MEDS: Povidone-Iodine Ophth 30 ML BTL (08:48)
[2018-07-17] MEDS: Lidocaine 2% Jelly 6 ML SYR (08:48)
--- NOTE | 2018-07-17 09:19 | W.PM.DSUDISC ---
Discharge Plan Disposition Patient Disposition: HOME Condition: Stable Discharge Details Attending Provider: Mohsen Sorenson Primary Care Provider: Destiney Motley Home Meds and New Rx's Prescriptions: No Action alendronate 70 mg tablet 70 mg PO weekly Qty: 12 RF: 4 furosemide 20 mg tablet 40 mg PO DAILY Qty: 180 RF: 4 cholecalciferol (vitamin D3) 5,000 UNIT capsule 5,000 unit PO DAILY Qty: 100 RF: 4 fluticasone propion-salmeterol [Advair Diskus] 1 EACH blister with device 1 puff Inhalation BID Qty: 3 RF: 4 amlodipine 10 MG tablet 10 mg PO QAM Qty: 90 RF: 4 clotrimazole-betamethasone 15 GM cream 1 applic Topical BID PRN Qty: 15 RF: 5 albuterol sulfate [ProAir HFA] 8.5 GM HFA aerosol inhaler 2 puff Inhalation Q4H PRN Qty: 3 RF: 4 lisinopril 40 MG tablet 40 mg PO DAILY Qty: 90 RF: 4 Discharge Instructions Stand Alone Forms: Post-op Topical Cataract, Nick Angela ([facility]U) Discharge Orders Discharge Orders: Discharge Order (Routine); Ordered 07/17/18 Ordered By: Mohsen Sorenson DS: Diagnosis Discharge Diagnosis (1) Nuclear sclerotic cataract of right eye: Status: Acute (2) Cortical cataract of right eye: Status: Resolved (3) Status post cataract extraction and insertion of intraocular lens of right eye: Status: Chronic
--- NOTE | 2018-07-17 09:21 | W.PM.OP ---
Date of service: 07/17/18 Time of Service: 09:21 Operative Note PRE-OP DIAGNOSIS: Cataract, right eye PROCEDURE: Cataract extraction using phacoemulsification with intraocular lens implant, right eye SURGEON: Mohsen Sorenson ANESTHESIA: MAC and local (sub-tenon's anesthetic infiltration) ESTIMATED BLOOD LOSS: 0 PATHOLOGY: none sent COMPLICATIONS: None Patient was transported to: same day Patient's condition: stable Implants: [employer] / [employer] Tecnis ZCB00 intraocular lens Indications: Progressive decreased vision due to cataract, right eye Procedure Description: CATARACT SURGERY OPERATIVE REPORT PREOPERATIVE DIAGNOSIS: Nuclear cataract, right eye POSTOPERATIVE DIAGNOSIS: Same OPERATION: Cataract extraction using phacoemulsification with posterior chamber intraocular lens implant, right eye. IOL: IOL Ammonia Operator/Model: [employer] / JESUS Tecnis ZCB00 IOL Power: + 22.0 diopters IOL Serial Number: [id number] Optic Diameter: 6.0mm Haptic/Overall Diameter: 13.0mm PHACO INFO: James Enomalyurion Vision System with OZil and [employer] Cumulative Dispersed Energy (CDE): 11.45 seconds SURGEON: Mohsen Sorenson MD, GILSON ANESTHESIA: Monitored Anesthesia Care (MAC), with local sub-tenon's anesthetic infiltration COMPLICATIONS: None SPECIMENS: None INDICATIONS FOR PROCEDURE: The patient is a 72-year-old lady with history of diminished visual acuity in both eyes secondary to the development of bilateral nuclear and cortical cataracts. She has already undergone cataract surgery in her left eye on 07/03/2018 and is doing well postoperatively. She now presents for cataract surgery of the right eye. PROCEDURE: The correct surgical eye was identified and marked as the right eye and the pupil was dilated in the preoperative area using mydriatics and cycloplegics. The dilated pupil size was 7.0 mm. No sedation was given. The patient was brought to the operating room where cardiopulmonary monitoring was instituted and surgical time-out was performed, confirming the correct operative eye and IOL power. Topical anesthesia was administered and ophthalmic povidone-iodine 5% was instilled into the conjunctival fornices. Lidocaine gel was applied to the cornea and the gasper-ocular area was prepped with Betadine 10% solution and draped in the usual sterile fashion for intraocular surgery, including an aperture drape. A Tegaderm transparent film dressing was cut in half and used to cover the lashes and lid margins. Care was taken to sequester the lashes and lid margins under the Tegaderm dressing. A lid speculum was placed between the lids of the operative eye and the Isabel-Adriana operating microscope was maneuvered into position. Pedro scissors were then used to make a conjunctival buttonhole approximately 6mm posterior to the limbus in the inferonasal quadrant. Blunt dissection was carried out to expose bare sclera, and a blunt-tipped sub-tenon?s anesthesia cannula was introduced and passed posteriorly along the globe where non-preserved plain lidocaine was injected into posterior sub-Tenon?s space. A sideport knife was used to make a paracentesis port inferiortemporally, and the anterior chamber was filled with Healon GV. A 2.4mm keratome knife was used to create a half-thickness groove at the limbus and then to construct a three-plane near-clear corneal tunnel extending 2.0mm into clear cornea in the superiortemporal position. . A flap was raised on the anterior capsule and capsulorhexis forceps were used to complete a continuous curvilinear capsulorhexis of 5.0 mm. The eye was fixated with forceps during capsulorrhexis due to constant eye movement. Balanced salt solution was then used to perform cortical cleaving hydrodissection and nuclear hydrodelineation until the lens could be freely rotated within the capsular bag. The lens nucleus was then disassembled and removed within the capsular bag and iris plane using phacoemulsification. Residual cortical material was removed using the I/A handpiece. The posterior capsule was carefully polished to remove as much residual lens epithelial cells as safely possible. The capsular bag was then inflated and the anterior chamber deepened with viscoelastic. The lens implant described above was inserted into the capsular bag using the JESUS [place] Injector. A Kuglen hook was used to dial the IOL into position. Residual viscoelastic was then removed first from posterior to the IOL, then from the anterior chamber using the I/A handpiece. The lens implant was noted to center nicely within the capsular bag. The incisions were stromally hydrated, and the anterior chamber was reformed using BSS. Then 0.4cc of moxifloxacin 1.5mg/ml were injected into the capsular bag and anterior chamber. The incisions were checked with a Weck spear and found to be secure. Several drops of ophthalmic povidone-iodine 5% were then applied to the eye followed by two drops of Imprimis combination moxifloxacin/dexamethasone solution. The drapes were removed and a clear plastic protective eye shield was placed over the eye. The patient was then returned to [facility] in stable condition.
== END 2018-07-17 09:50 | disposition home or self-care (01) ==
PROVIDERS: PCP Nurse Practitioner Family; Visit Provider Ophthalmology
PROC: (CPT 66984; principal; 2018-07-17 08:30)
DX: H25.11 Age-related nuclear cataract, right eye (principal); Z98.42 Cataract extraction status, left eye; Z96.1 Presence of intraocular lens; J44.9 Chronic obstructive pulmonary disease, unspecified; I10 Essential (primary) hypertension; G47.33 Obstructive sleep apnea (adult) (pediatric)
CPT/HCPCS: 66984; V2632

== ENCOUNTER 2018-09-29 07:47 | Outpatient (CLI) | payer OTHER, SELFPAY ==
[2018-09-29 08:56] LABS: ALT 42 U/L (12-78); AST 33 U/L (15-37); Albumin 3.7 g/dL (3.4-5.0); Alkaline Phosphatase 63 U/L (46-116); Anion Gap 9.9 mmol/L (3-11); BUN 15 mg/dL (7-18); Bilirubin, Total 2.3 mg/dL (0.2-1.0); CO2 27.1 mmol/L (21.0-32.0); CREATININE 1.13 mg/dL (0.55-1.02); Calculated LDL 89; Chloride 105 mmol/L (98-107); Cholesterol 154 mg/dL (50-200); Estimated GFR 47.07 (mL/min/1.73m2); Glucose 87 mg/dL (70-100); HDL Cholesterol 52 mg/dL (40-60); Potassium 3.7 mmol/L (3.5-5.1); Sodium 142 mmol/L (136-145); Total Protein 7.4 g/dL (6.4-8.2); Triglyceride 65 mg/dL (30-150)
[2018-09-30 15:35] LABS: Parathyroid Hormone,Intact 266 pg/ml (19-88)
[2018-10-01 06:24] LABS: Vitamin D 25 Total 66.2 ng/ml (30-100)
== END 2018-09-29 08:07 ==
PROVIDERS: PCP Nurse Practitioner Family; Visit Provider Nurse Practitioner Family
DX: E21.3 Hyperparathyroidism, unspecified (principal); I10 Essential (primary) hypertension
CPT/HCPCS: 36415; 80053; 80061; 82306; 83721; 83970

== ENCOUNTER 2018-10-06 00:49 | Outpatient (CLI) | payer OTHER, SELFPAY ==
--- NOTE | 2018-10-06 13:57 | DI.RAD_ITS ---
SYMPTOMS/DIAGNOSIS: OSTEOPOROSIS, ON 5 YEARS OF ALENDRONATE, M81.0 DEXA SCAN: Routine examination. There is an old compression deformity of L1 noted on the lateral view of the spine. Evaluation of the left hip shows a total T score of -2.0 and a Z score of -0.3. This is consistent with osteopenia and an increased fracture risk. This compares with a total T score of -1.2 from 2014. Evaluation of the lumbar spine shows a total T score of -2.1 and Z score of 0.4. This is consistent with osteopenia and an increased fracture risk. This compares with a total T score of -2.5 from 2014. IMPRESSION: Osteopenia in the lumbar spine and left hip.
--- NOTE | 2018-10-06 15:23 | DI.MAMMO_ITS ---
SYMPTOMS/DIAGNOSIS: SCREENING, Z12.31 MAMMOGRAMS: Mammograms were interpreted according to the usual protocol including computer analysis with CAD system, tomosynthesis and C view imaging. The breast tissue is primarily of fatty radiodensity. There is no dominant mass. There are no suspicious calcifications and there has been no significant interval change when compared with the prior images. SUMMARY: No evidence of malignancy, category 1. Yearly screening mammography is recommended. Breast density category A. MQSA ASSESSMENT OF FINDINGS: Negative. Category 1. Patient will receive a letter notifying them of these results. BI-RAD category A. The breasts are almost entirely fatty.
== END 2018-10-06 01:09 ==
PROVIDERS: PCP Nurse Practitioner Family; Visit Provider Nurse Practitioner Family
DX: Z12.31 Encounter for screening mammogram for malignant neoplasm of breast (principal); M85.852 Other specified disorders of bone density and structure, left thigh; M85.88 Other specified disorders of bone density and structure, other site
CPT/HCPCS: 77063; 77067; 77080

== ENCOUNTER 2019-09-10 19:23 | Outpatient (REF) | payer OTHER, SELFPAY ==
[2019-09-10 19:53] LABS: Anion Gap 8.4 mmol/L (3-11); BUN 27 mg/dL (7-18); CO2 26.6 mmol/L (21.0-32.0); Chloride 103 mmol/L (98-107); Estimated GFR 31.42 (mL/min/1.73m2); Glucose 118 mg/dL (74-106); Potassium 3.5 mmol/L (3.5-5.1); Sodium 138 mmol/L (136-145)
[2019-09-10 20:05] LABS: Calcium 12.3 mg/dL (8.5-10.1)
== END 2019-09-10 19:43 ==
LOC: LBN 19:23
PROVIDERS: PCP Nurse Practitioner Family; Visit Provider Nurse Practitioner Family
DX: N18.9 Chronic kidney disease, unspecified (principal)
CPT/HCPCS: 80048

== ENCOUNTER 2019-09-14 03:05 | Outpatient (CLI) | payer OTHER, SELFPAY ==
[2019-09-14 13:52] LABS: Bilirubin Negative (Negative); Blood Moderate (Negative); Clarity Clear (Clear); Glucose Negative (Negative); Ketones Negative (Negative); Leukocyte Esterase Small (Negative); Nitrite Negative (Negative); Urobilinogen 0.2 EU/dL (Up TO 0.2)
[2019-09-14 14:04] LABS: Bacteria Rare HPF (Negative); C & S Indicated? Yes; Casts Negative LPF (Negative); Crystals Negative HPF (Negative); Epithelial Cells Few HPF (Negative); Mucus Negative (Negative); Other Cells Rare Renal (Negative); WBC 20-50 HPF (0-5)
[2019-09-14 14:40] LABS: COMMENT (LAB VIEW ONLY) 105.63 mg/dL
[2019-09-14 14:41] LABS: Microalb ug/mg Crea 160.9 ug/mg Cr
[2019-09-14 15:08] LABS: ALT 86 U/L (14-59); AST 59 U/L (15-37); Albumin 3.9 g/dL (3.4-5.0); Alkaline Phosphatase 64 U/L (46-116); Anion Gap 10.6 mmol/L (3-11); BUN 21 mg/dL (7-18); Bilirubin, Total 1.8 mg/dL (0.2-1.0); CO2 28.4 mmol/L (21.0-32.0); CREATININE 1.61 mg/dL (0.55-1.02); Chloride 102 mmol/L (98-107); Glucose 109 mg/dL (74-106); Sodium 141 mmol/L (136-145); Total Protein 7.5 g/dL (6.4-8.2)
[2019-09-14 15:25] LABS: Calcium 12.7 mg/dL (8.5-10.1)
[2019-09-15 12:23] LABS: Parathyroid Hormone,Intact 315 pg/mL (19-88)
[2019-09-16 06:44] LABS: Vitamin D 25 Total 78.4 ng/ml (30-100)
== END 2019-09-14 03:25 ==
PROVIDERS: PCP Nurse Practitioner Family; Visit Provider Nurse Practitioner Family
DX: E21.3 Hyperparathyroidism, unspecified (principal); N18.9 Chronic kidney disease, unspecified; R82.998 Other abnormal findings in urine
CPT/HCPCS: 36415; 80053; 82306; 81003; 81015; 82043; 82570; 83970; 87086

== ENCOUNTER 2019-09-21 01:53 | Outpatient (CLI) | payer OTHER, SELFPAY ==
[2019-09-21 14:53] LABS: ALT 92 U/L (14-59); AST 66 U/L (15-37); Albumin 3.8 g/dL (3.4-5.0); Alkaline Phosphatase 51 U/L (46-116); Anion Gap 6.2 mmol/L (3-11); BUN 31 mg/dL (7-18); Bilirubin, Total 1.9 mg/dL (0.2-1.0); CO2 30.8 mmol/L (21.0-32.0); CREATININE 1.66 mg/dL (0.55-1.02); Chloride 101 mmol/L (98-107); Estimated GFR 30.12 (mL/min/1.73m2); Glucose 99 mg/dL (74-106); Potassium 3.2 mmol/L (3.5-5.1); Sodium 138 mmol/L (136-145)
[2019-09-21 14:57] LABS: Calcium 11.9 mg/dL (8.5-10.1)
== END 2019-09-21 02:13 ==
PROVIDERS: PCP Nurse Practitioner Family; Visit Provider Family Medicine
DX: E21.3 Hyperparathyroidism, unspecified (principal)
CPT/HCPCS: 36415; 80053

== ENCOUNTER 2019-10-08 02:17 | Outpatient (CLI) | payer OTHER, SELFPAY ==
--- NOTE | 2019-10-08 08:45 | DI.NM_ITS ---
CLINICAL HISTORY: PRIMARY HYPERPARARATHYROIDISM,E21.0. COMPARISON: No exams were available for comparison EXAMINATION: Injected Dose: 25 mCi Tc-99m sestamibi Initial Images: 15 minutes Delayed images: 2.5 hours SPECT imaging was performed. FINDINGS: Initial imaging demonstrates symmetric thyroid uptake. Delayed images show persistent uptake bilatera lly in the thyroid bed. The uptake appears to lie over the inferior portions of the thyroid gland. No ectopic parathyroid uptake is identified. IMPRESSION: 1. Persistent uptake over the inferior aspect of the thyroid gland suspicious for bilateral parathyro id adenomas.
== END 2019-10-08 02:37 ==
PROVIDERS: PCP Nurse Practitioner Family; Visit Provider Internal Medicine Endocrinology, Diabetes & Metabolism
DX: E21.0 Primary hyperparathyroidism (principal); D34 Benign neoplasm of thyroid gland
CPT/HCPCS: 78070

== ENCOUNTER 2019-10-11 01:05 | Outpatient (CLI) | payer OTHER, SELFPAY ==
--- NOTE | 2019-10-11 12:45 | DI.MAMMO_ITS ---
EXAM: MAMMO SCREENING CLINICAL HISTORY: screening, Z12.39 TECHNIQUE: Mammograms were interpreted according to the usual protocol including computer analysis w ith CAD system, tomosynthesis and C-view imaging. COMPARISON: 2011 through 2018 FINDINGS: The breasts are composed of scattered fibroglandular densities, Breast Density category B. No suspicious masses or suspicious microcalcifications are seen. No skin thickening or abnormal axillary lymph nodes are seen. There has been no significant change from prior exams. IMPRESSION: BI-RADS category 1, yearly screening mammography is recommended. Breast density category B, scattered fibroglandular densities.
== END 2019-10-11 01:25 ==
PROVIDERS: PCP Nurse Practitioner Family; Visit Provider Nurse Practitioner Family
DX: Z12.31 Encounter for screening mammogram for malignant neoplasm of breast (principal)
CPT/HCPCS: 77063; 77067

== ENCOUNTER 2019-11-01 02:12 | Outpatient (CLI) | payer OTHER, SELFPAY ==
[2019-11-01 10:58] LABS: ALT 43 U/L (14-59); AST 33 U/L (15-37); Albumin 3.6 g/dL (3.4-5.0); Alkaline Phosphatase 55 U/L (46-116); Anion Gap 11.1 mmol/L (3-11); BUN 16 mg/dL (7-18); Bilirubin, Total 1.7 mg/dL (0.2-1.0); CO2 29.9 mmol/L (21.0-32.0); CREATININE 1.47 mg/dL (0.55-1.02); Chloride 101 mmol/L (98-107); Estimated GFR 34.65 (mL/min/1.73m2); Glucose 104 mg/dL (74-106); Potassium 3.6 mmol/L (3.5-5.1); Sodium 142 mmol/L (136-145); Total Protein 6.9 g/dL (6.4-8.2)
[2019-11-02 10:43] LABS: Parathyroid Hormone,Intact 158 pg/mL (19-88)
== END 2019-11-01 02:32 ==
PROVIDERS: PCP Nurse Practitioner Family; Visit Provider Nurse Practitioner Family
DX: E21.3 Hyperparathyroidism, unspecified (principal)
CPT/HCPCS: 36415; 80053; 83970

== ENCOUNTER 2020-04-14 02:33 | Outpatient (CLI) | payer OTHER, SELFPAY ==
[2020-04-14 10:38] LABS: Calcium 8.9 mg/dL (8.5-10.1)
[2020-04-17 09:41] LABS: Parathyroid Hormone,Intact 57 pg/mL (19-88)
== END 2020-04-14 02:53 ==
PROVIDERS: PCP Nurse Practitioner Family; Visit Provider Surgery
DX: E21.0 Primary hyperparathyroidism (principal)
CPT/HCPCS: 36415; 82310; 83970

== ENCOUNTER 2020-09-11 03:30 | Outpatient (CLI) | payer OTHER, SELFPAY ==
[2020-09-11 08:28] LABS: HCT 45.1 % (36.0-46.0); HGB 15.7 g/dL (11.2-15.7); MCH 33.3 pg (27.0-33.0); MCHC 34.8 % (32.0-36.0); MCV 95.6 fL (80-95); MPV 8.5 fL (8.0-11.0); Platelet Count 299 10^3/uL (130-400); RBC 4.72 10^6/uL (3.93-5.22); RDW 12.5 % (11.7-14.6); RDW-SD 44.5 fL; WBC 12.18 10^3/uL (4.4-10.8)
[2020-09-11 09:10] LABS: ALT 45 U/L (14-59); AST 32 U/L (15-37); Albumin 3.6 g/dL (3.4-5.0); Alkaline Phosphatase 67 U/L (46-116); Anion Gap 10.3 mmol/L (3-11); BUN 27 mg/dL (7-18); Bilirubin, Total 2.2 mg/dL (0.2-1.0); CO2 29.7 mmol/L (21.0-32.0); CREATININE 1.4 mg/dL (0.55-1.02); Calcium 9.5 mg/dL (8.5-10.1); Calculated LDL 85 mg/dL (<100); Chloride 103 mmol/L (98-107); Cholesterol 152 mg/dL (<200); Estimated GFR 36.56 (mL/min/1.73m2); Glucose 115 mg/dL (74-106); HDL Cholesterol 49 mg/dL (40-60); Potassium 3.6 mmol/L (3.5-5.1); Sodium 143 mmol/L (136-145); Total Protein 7.3 g/dL (6.4-8.2); Triglyceride 92 mg/dL (<150)
[2020-09-12 09:03] LABS: Parathyroid Hormone,Intact 43 pg/mL (19-88)
== END 2020-09-11 03:31 | disposition home or self-care (01) ==
LOC: LBO 03:30
PROVIDERS: PCP Nurse Practitioner Family; Visit Provider Nurse Practitioner Family
DX: I10 Essential (primary) hypertension (principal); N18.9 Chronic kidney disease, unspecified; E05.90 Thyrotoxicosis, unspecified without thyrotoxic crisis or storm; G47.33 Obstructive sleep apnea (adult) (pediatric)
CPT/HCPCS: 36415; 80053; 80061; 85027; 83970

== ENCOUNTER 2020-09-26 02:56 | Outpatient (CLI) | payer OTHER, SELFPAY ==
[2020-09-26 11:32] LABS: Bilirubin, Direct 0.3 mg/dL (0.0-0.2)
== END 2020-09-26 02:57 | disposition home or self-care (01) ==
LOC: LBO 02:56
PROVIDERS: PCP Nurse Practitioner Family; Visit Provider Nurse Practitioner Family
DX: E80.6 Other disorders of bilirubin metabolism (principal)
CPT/HCPCS: 36415; 82248

== ENCOUNTER 2020-10-12 00:36 | Outpatient (CLI) | payer OTHER, SELFPAY ==
--- NOTE | 2020-10-12 11:10 | DI.MAMMO_ITS ---
Exam(s) MAMMO SCREENING EXAM: MAMMO SCREENING CLINICAL HISTORY: screening,Z12.39. TECHNIQUE: Bilateral full field digital CC and MLO mammographic images were obtained with 3D tomosyn thesis and utilizing computer aided detection (CAD). COMPARISON: Prior mammograms dating back to 2011, the most recent being September 2019. FINDINGS: There are no new significant radiograph findings in the right breast. Small partially calcified nodu le in the right breast remains unchanged. In the left breast there is a small stable group of microcalcifications located posteriorly. However , anterior to this on the CC view is another group of microcalcifications which was not previously pr esent. Spot Mag view recommended. There is no significant architectural distortion nor skin thickening-retraction. IMPRESSION: No radiographic evidence of malignancy in the right breast. Left breast microcalcification group which require 2D spot Mag view. This is located 16 cm in from t he nipple on the CC view. BI-RADS Category 0 - Assessment Incomplete: Need additional imaging evaluation Breast Density - Category B - Scattered areas of fibroglandular density Breast density Category C or D implies that the patient has dense breast tissue. Dense breast tissue can make it harder to find cancer on a mammogram. Dense breast tissue is also associated with an incr eased risk of breast cancer. This information about the result of the mammogram report was provided to the patient to raise their awareness. Use this report when you speak with the patient about their risks for breast cancer, which includes their family history. At that time, you may recommend additional screening tests (Ultrasoun d or MRI) as these tests may add significant information. A negative radiographic report should not delay biopsy if a dominant or clinically suspicious mass is present. Up to ten percent of cancers are not identified on mammography. A negative report may reinforce clinical impression. Adenosis and dense breasts may obscure an underlying neoplasm. False positive reports average 6 to 10%. Patient will receive a letter notifying them of these results.
== END 2020-10-12 00:56 ==
PROVIDERS: PCP Nurse Practitioner Family; Visit Provider Nurse Practitioner Family
DX: Z12.31 Encounter for screening mammogram for malignant neoplasm of breast (principal); R92.0 Mammographic microcalcification found on diagnostic imaging of breast; R92.8 Other abnormal and inconclusive findings on diagnostic imaging of breast
CPT/HCPCS: 77063; 77067

== ENCOUNTER 2020-10-20 04:03 | Outpatient (CLI) | payer OTHER, SELFPAY ==
--- NOTE | 2020-10-20 | DI.MAMMO_ITS ---
Exam(s) MAMMO SCREEN CALL BACK UNI EXAM: MAMMO SCREEN CALL BACK UNI CLINICAL HISTORY: F/U MAMMO, NEW GROUP OF MICROCALCIFICATIONS ANTERIORLY ON CC VIEW TECHNIQUE: Spot compression magnification CC view was performed. COMPARISON: 12 October 2020 and exams back to 2014 FINDINGS: The calcifications in question have a rounded, benign appearance. There is no associated mass or arc hitectural distortion. IMPRESSION: BI-RADS Category 2 - Benign Findings Yearly screening mammography is recommended. Breast Density - Category B, scattered fibroglandular densities.
== END 2020-10-20 04:23 ==
PROVIDERS: PCP Nurse Practitioner Family; Visit Provider Nurse Practitioner Family
DX: Z12.31 Encounter for screening mammogram for malignant neoplasm of breast (principal); R92.8 Other abnormal and inconclusive findings on diagnostic imaging of breast; R92.0 Mammographic microcalcification found on diagnostic imaging of breast
CPT/HCPCS: 77063; 77067

== ENCOUNTER 2020-11-08 18:17 | Emergency (ER) | payer OTHER, SELFPAY ==
[2020-11-08 18:24] VITALS: BP 136/69; PULSE 88; RESP 16; TEMP 36.7; O2SAT 94
[2020-11-08 19:08] LABS: Abs Immature Grans 0.04 10^3/uL (0.0-0.06); Absolute Eosinophil Count 0.29 10^3/uL (0.0-0.7); Absolute Lymphocyte Count 1.96 10^3/uL (1.2-3.4); Absolute Monocyte Count 1.04 10^3/uL (0.1-0.8); Basophils % 0.6; Eosinophils % 2.7; HCT 45.6 % (36.0-46.0); HGB 15.4 g/dL (11.2-15.7); Immature Grans % 0.4; Lymphocytes % 18.1; MCH 32.6 pg (27.0-33.0); MCHC 33.8 % (32.0-36.0); MCV 96.4 fL (80-95); MPV 8.5 fL (8.0-11.0); Monocytes % 9.6; Neutrophils % 68.6; Nucleated RBC 0 %; Platelet Count 293 10^3/uL (130-400); RBC 4.73 10^6/uL (3.93-5.22); RDW 12.2 % (11.7-14.6); RDW-SD 43.7 fL; WBC 10.81 10^3/uL (4.4-10.8)
[2020-11-08 19:09] LABS: Absolute Basophil Count 0.06 10^3/uL (0.0-0.2); Absolute Neutrophil Count 7.42 10^3/uL (1.2-6.7)
[2020-11-08 19:27] LABS: ALT 36 U/L (14-59); AST 30 U/L (15-37); Albumin 3.4 g/dL (3.4-5.0); Alkaline Phosphatase 59 U/L (46-116); Anion Gap 9.3 mmol/L (3-11); BUN 23 mg/dL (7-18); Bilirubin, Total 2.2 mg/dL (0.2-1.0); CO2 28.7 mmol/L (21.0-32.0); CREATININE 1.3 mg/dL (0.55-1.02); Calcium 9.1 mg/dL (8.5-10.1); Chloride 102 mmol/L (98-107); Estimated GFR 39.82 (mL/min/1.73m2); Glucose 110 mg/dL (74-106); Potassium 3.5 mmol/L (3.5-5.1); Sodium 140 mmol/L (136-145); Total Protein 7.7 g/dL (6.4-8.2)
--- NOTE | 2020-11-08 19:39 | DI.RAD_ITS ---
Exam(s) XR FOOT LT COMPLETE EXAM: XR FOOT LT COMPLETE CLINICAL HISTORY: pain/swelling. TECHNIQUE: 2D digital imaging was performed. COMPARISON: No exams were available for comparison FINDINGS: There is generalized osteopenia. No evidence of acute fracture or diastasis of the Lisfranc joint. Soft tissue swelling is noted dorsally but no obvious fracture sites. No radiographic evidence of os teomyelitis. No radiopaque foreign bodies seen. Some degenerative changes at the midfoot level join ts between the metatarsal bases and cuneiform is are noted. Also noted is calcification in the soft tissues immediately adjacent to the medial aspect of the head of the great toe metatarsal. Possibly related to prior trauma or gout. However, there are no erosions. Small inferior calcaneal spur is noted. IMPRESSION: DATA REPOSITORY: RADIATION DOSE DELIVERED:
--- NOTE | 2020-11-08 19:59 | W.ED.GENAD ---
Discharge Plan Disposition Patient Disposition: HOME Condition: Stable Discharge Details Clinical Impression: Foot pain, left Primary Care Provider: Destiney Motley ED Provider: Thierry Gary Home Meds and New Rx's Prescriptions: New cephalexin 500 mg capsule 500 mg PO TID 10 Days Qty: 30 RF: 0 Continued Restore Eye Supplement 1 cap PO DAILY RF: 0 cholecalciferol (vitamin D3) 5,000 UNIT capsule 5,000 unit PO DAILY Qty: 100 RF: 4 lisinopril 40 mg tablet 40 mg PO DAILY Qty: 90 RF: 4 Spiriva with HandiHaler 18 mcg capsule, w/inhalation device 1 cap IH DAILY Qty: 360 RF: 4 hydrochlorothiazide 25 mg tablet 25 mg PO DAILY Qty: 90 RF: 4 albuterol sulfate [ProAir HFA] 90 mcg/actuation HFA aerosol inhaler 2 puff Inhalation Q4H PRN Qty: 54 RF: 4 clotrimazole-betamethasone 1-0.05 % cream 1 applic Topical BID PRN Qty: 15 RF: 5 fluticasone propion-salmeterol [Advair Diskus] 250-50 mcg/dose blister with device 1 inh Inhalation BID Qty: 180 RF: 4 triamcinolone acetonide 0.5 % ointment 1 applic TP DAILY PRN (Reason: dermatitis) Qty: 80 RF: 2 magnesium 500 mg Tablet 500 mg PO DAILY RF: 0 Discharge Instructions Instructions: Cellulitis (ED) Additional Instructions: At this time I am providing a prescription of Keflex to treat you for a mild cellulitis. I am setting you up for an ultrasound tomorrow morning, contact the radiology department first thing when they open to set up your appointment. After the ultrasound you will return to the ER for results. Rest, elevate, continue your compression stockings as you typically would, warm soaks and/or compresses every 2 hours for 20 minutes. Please watch for new or worsening symptoms and return to the ER for any concerns. I do recommend reaching out your primary care provider tomorrow to discuss your symptoms and need for outpatient reevaluation Discharge Data Discharge Date/Time-TO BE ENTERED AT DEPARTURE: 11/08/20 20:19 Medical Decision Making 74-year-old female with chronic bilateral lower extremity edema presents complaining of slightly worse edema and discomfort on the left side. This is been present since Mohan, denies obvious injury, fever, illness. Examination is not consistent with any bony point tenderness, gout, and based upon the presentation, low suspicion for DVT. Minimal erythema is present, patient reports this feels similar to previous cellulitis. There is no point tenderness that would be consistent with a bone spur nor is the examination consistent with plantar fasciitis. Would like to obtain CBC, CMP, x-ray, and we will set the patient up for ultrasound tomorrow morning. X-ray read by radiology as There is generalized osteopenia. No evidence of acute fracture or diastasis of the Lisfranc joint. Soft tissue swelling is noted dorsally but no obvious fracture sites. No radiographic evidence of osteomyelitis. No radiopaque foreign bodies seen. Some degenerative changes at the midfoot level joints between the metatarsal bases and cuneiform is are noted. Also noted is calcification in the soft tissues immediately adjacent to the medial aspect of the head of the great toe metatarsal. Possibly related to prior trauma or gout. However, there are no erosions. Small inferior calcaneal spur is noted White blood cell count minimally elevated at 10.81, absolute neutrophils 7.42, creatinine 1.3 with a GFR of 39.82, this appears to be baseline. At this time plan is to treat for presumptive early cellulitis, will give a single dose of Keflex now and provide a prescription. We will set the patient up for an ultrasound tomorrow of the left lower extremity, venous, to rule out DVT. We did discuss if her symptoms persist then eventual follow-up with either a case preparer and liner or orthopedic is likely necessary. Patient was offered a cane or walker, she declined states that she has both of these at home, but does not feel as though she needs them, feels as though she can ambulate steadily. Patient and family are comfortable with this plan and have no additional questions or concerns. This documentation was generated using [employer]ikonation system, please disregard any oddities of phrase or misspellings. Medical Records Medical records reviewed: Yes I reviewed the patient's medical records. Imaging Data Radiologic Study: Attestation: I personally reviewed and interpreted this imaging study as follows: Imaging: X-Ray Radiologist's impression: Exam: XR Left Foot Exam date and time: 11/08/2020 6:46 PM Age: 74 years old Clinical indication: Pain; Foot; Left TECHNIQUE: Imaging protocol: XR Left foot. Views: 3 or more views. COMPARISON: No relevant studies available. FINDINGS: Bones/joints: The bones are demineralized. No evidence for a fracture or other osseous lesion. Alignment is anatomic. There is joint space narrowing of the interphalangeal joints. There is mild hallux valgus. Soft tissues: Mild soft tissue swelling. IMPRESSION: 1. Mild soft tissue swelling. 2. Osteoarthritis. 3. Mild hallux valgus. Lab Data Lab results reviewed: Yes I reviewed the patient's lab results. Labs: Laboratory Tests Range/Units 11/08/20 11/08/20 19:05 19:05 WBC (4.4-10.8) 10^3/uL 10.81 H RBC (3.93-5.22) 10^6/uL 4.73 Hgb (11.2-15.7) g/dL 15.4 Hct (36.0-46.0) % 45.6 MCV (80-95) fL 96.4 H MCH (27.0-33.0) pg 32.6 MCHC (32.0-36.0) % 33.8 RDW (11.7-14.6) % 12.2 Plt Count (130-400) 10^3/uL 293 MPV (8.0-11.0) fL 8.5 Immature Gran % 0.4 Neutrophils % 68.6 Lymphocytes % 18.1 Monocytes % 9.6 Eosinophils % 2.7 Basophils % 0.6 Nucleated RBC % % 0 Absolute Neutrophils (1.2-6.7) 10^3/uL 7.42 H Absolute Lymphocytes (1.2-3.4) 10^3/uL 1.96 Absolute Monocytes (0.1-0.8) 10^3/uL 1.04 H Absolute Eosinophils (0.0-0.7) 10^3/uL 0.29 Absolute Basophils (0.0-0.2) 10^3/uL 0.06 Sodium (136-145) mmol/L 140 Potassium (3.5-5.1) mmol/L 3.5 Chloride (98-107) mmol/L 102 Carbon Dioxide (21.0-32.0) mmol/L 28.7 Anion Gap (3-11) mmol/L 9.3 BUN (7-18) mg/dL 23 H Creatinine (0.55-1.02) mg/dL 1.3 H Estimated GFR/1.73 m2 (mL/min/1.73m2) 39.82 Glucose (74-106) mg/dL 110 H Calcium (8.5-10.1) mg/dL 9.1 Total Bilirubin (0.2-1.0) mg/dL 2.2 H AST (15-37) U/L 30 ALT (14-59) U/L 36 Alkaline Phosphatase (46-116) U/L 59 Total Protein (6.4-8.2) g/dL 7.7 Albumin (3.4-5.0) g/dL 3.4 HPI General Mode of arrival: ambulatory. Date/Time Provider Initiated Documentation: 11/08/20 18:29. Limitations to Documentation: no limitations. Information obtained by: patient. HPI Narrative: This is a 74-year-old female with past medical history of osteopenia, hypothyroidism, hypertension, CKD, COPD, varicose veins of lower extremities, chronic bilateral lower extremity edema, obesity, presented to the ER for left foot pain. Patient states that on Friday she had pain with ambulation across the arch of her foot, felt as though the top of her foot was slightly more swollen than baseline, and may be even slightly warm. She feels that her legs are the same size, denies additional pain or swelling in her legs. Patient denies history of DVT, chest pain, shortness of breath, fever. Patient states that several years ago she had a similar episode in her right foot, had a mild infection was placed on antibiotics. Patient states that she typically ambulates on her own without assistance but does have a walker and cane at home if needed. Patient cannot recall anything on Friday such as overt trauma, stepping awkwardly, or overuse. Related Data Home Medications Medication Instructions Recorded Confirmed cholecalciferol (vitamin D3) 5,000 unit PO DAILY #100 tab-cap 07/06/15 11/08/20 Restore Eye Supplement 1 cap PO DAILY 01/27/19 11/08/20 lisinopril 40 mg tablet 40 mg PO DAILY #90 tab-cap 10/05/19 11/08/20 tiotropium bromide 18 mcg capsule 1 cap IH DAILY #360 inh 12/14/19 11/08/20 with inhalation device hydrochlorothiazide 25 mg tablet 25 mg PO DAILY #90 tab 12/22/19 11/08/20 albuterol sulfate 90 mcg/actuation 2 puff INHALATION Q4H PRN #54 gm 05/17/20 11/08/20 aerosol inhaler clotrimazole-betamethasone 1 1 applic TOPICAL BID PRN #15 gm 05/17/20 11/08/20 %-0.05 % topical cream fluticasone 250 mcg-salmeterol 50 1 inh INHALATION BID #180 each 05/17/20 11/08/20 mcg/dose blistr powdr for inhalation triamcinolone acetonide 0.5 % 1 applic TP DAILY PRN #80 gm 05/17/20 11/08/20 topical ointment cephalexin 500 mg PO TID 10 Days #30 cap 11/08/20 magnesium 500 mg PO DAILY 11/08/20 11/08/20 Previous Rx's Medication Instructions Recorded lisinopril 40 mg tablet 40 mg PO DAILY #90 tab-cap 10/05/19 tiotropium bromide 18 mcg capsule 1 cap IH DAILY #360 inh 12/14/19 with inhalation device hydrochlorothiazide 25 mg tablet 25 mg PO DAILY #90 tab 12/22/19 albuterol sulfate 90 mcg/actuation 2 puff INHALATION Q4H PRN #54 gm 05/17/20 aerosol inhaler clotrimazole-betamethasone 1 1 applic TOPICAL BID PRN #15 gm 05/17/20 %-0.05 % topical cream fluticasone 250 mcg-salmeterol 50 1 inh INHALATION BID #180 each 05/17/20 mcg/dose blistr powdr for inhalation triamcinolone acetonide 0.5 % 1 applic TP DAILY PRN #80 gm 05/17/20 topical ointment cephalexin 500 mg PO TID 10 Days #30 cap 11/08/20 Allergies Allergy/AdvReac Type Severity Reaction Status Date / Time ibuprofen AdvReac Mild RECTAL Verified 11/08/20 18:28 BLEEDING levothyroxine sodium AdvReac Unknown Verified 11/08/20 18:28 General Stated Complaint: Orthopedic NEELAM: 3 Review of Systems Constitutional Constitutional: Denies fever(s) and Denies weakness Cardiovascular Cardiovascular: Denies chest pain and Denies dyspnea Respiratory Respiratory: Denies dyspnea Musculoskeletal Musculoskeletal: Denies arthralgias, Denies numbness, Reports stiffness and Denies tingling Integumentary/Breasts Skin/Breast: Reports erythema Neurologic Neurologic: Denies numbness, Denies tingling and Denies weakness [facility] Medical History 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 S/p mitch 1994. Negative ERCP 2011. No hemolytic anemia or jaundice episodes Hyperparathyroidism S/p left upper parathyroidectomy Obesity Obstructive sleep apnea Declines CPAP therapy and further sleep study consults Osteopenia Dexa 2018. Fosamax 2013 to 2020 Osteoporosis Fosamax 2013 -2020 Subclinical hypothyroidism Tubular adenoma of colon Varicose veins of lower extremity Vitamin D deficiency (03/30/15) Surgical History S/P cholecystectomy (~1994) S/P ERCP (10/14/11) S/P ORIF (open reduction internal fixation) fracture (~05/2005) Right wrist S/P parathyroidectomy (03/20/20) Left upper parathyroidectomy Status post cataract extraction and insertion of intraocular lens of left eye (07/03/18) Status post cataract extraction and insertion of intraocular lens of right eye (07/17/18) Status post left breast lumpectomy (~09/2012) Family History Mother , At 88 Diabetes Essential hypertension Asthma Uterine cancer In her 80s Father , of 56 of MVA MVA (motor vehicle accident) Sister , at 54 of uterine cancer Uterine cancer Sister Essential hypertension Skin cancer Atrial fibrillation Son No problems noted. Daughter No problems noted. Maternal Grandfather Essential hypertension Heart disease Diabetes Asthma Stroke Maternal Grandmother Heart disease Asthma Paternal Grandfather , at 65 Heart disease Stroke Paternal Grandmother Breast cancer Social History Smoking/Tobacco Use Status: Former Tobacco Use Quit Date: 04/28/99 Smoking risk assessment performed?: Yes Alcohol Intake: never Drug use: Never Substance use type: does not use Caregiver/Support person: No Household members: spouse Housing: house Communication Needs: None Do you need help understanding health information?: Rarely Pets and animals: No Sexually active: No Do you think of yourself as: straight/heterosexual Current gender identity: female What is your relationship status?: How often do you talk on the phone with friends or family?: decline to answer How often do you get together with friends or relatives?: decline to answer How often do you attend roman catholic or yarsani services?: decline to answer Do you belong to any clubs or organized social groups?: no Panel score (0-1 are the most socially isolated patients): 1 What type of physical activity do you participate in: none Frequency: does not exercise Luz/Shinto: Pentecostalism Special luz needs: No Seatbelt use: always Helmet use: No Drive intox or ride w/intox motor coach bus driver: No Do you feel safe in your relationship?: Yes Female Reproductive History Menstrual Menopause type: natural Date of menopause: 04/28/93 History History 3 Para Hx # Term Pregnancies Multiple births Hx # Pregnancies Ectopic pregnancies AB induced Hx Number of Living Children 2 AB spontaneous 1 Exam Const General: cooperative, healthy appearing, comfortable and no acute distress Orientation: alert and awake HENMT Head: normal to inspection, normocephalic and atraumatic Eyes General: appearance normal, both eyes and all related structures Conjunctivae: conjunctivae normal Neck Neck: normal visual inspection, trachea midline and supple Resp Effort & Inspection: normal respiratory effort and able to speak in complete sentences Auscultation: clear to auscultation bilaterally Cardio Rate: regular rate Rhythm: regular rhythm Skin Lesions: no lesions Neuro General: patient alert, patient awake, moves all extremities and no focal motor deficits Cognition: normal cognition Speech: speech normal Gait: normal gait Motor: muscle tone normal throughout Sensory Exam: no sensory deficits noted Extrem General: full ROM, capillary refill normal, no calf tenderness, normal gait and pedal edema bilaterally pitting and 2+ Other: Bilateral lower extremities with what appears to be chronic venous stasis changes. Negative Homans' sign bilaterally. When comparing the 2 feet, specifically across the dorsal aspect the left foot has slightly more edema and has a small amount of erythema over the central metatarsal region. Skin is intact. There is no discomfort to palpation across the plantar aspect, patient reports increased pain with ambulation. There is no bony point tenderness, weeping, drainage, lymphangitic streaking. Normal capillary refill and dorsalis pedal pulses bilaterally Psych Appearance: grossly normal Mental Status: mental status grossly normal Course Vital Signs Vital signs: Vital Signs Temperature 36.7 C 11/08/20 18:24 Pulse 88 11/08/20 18:24 Respiratory Rate 16 11/08/20 18:24 Blood Pressure 136/69 11/08/20 18:24 Pulse Oximetry 94 11/08/20 18:24 Temperature 36.7 C 11/08/20 18:24 Temperature Source Skin 11/08/20 18:24 Pulse 88 11/08/20 18:24 Respiratory Rate 16 11/08/20 18:24 Respiratory Effort 11/08/20 18:24 Blood Pressure 136/69 11/08/20 18:24 Blood Pressure Position Sitting 11/08/20 18:24 Pulse Oximetry 94 11/08/20 18:24 Oxygen Delivery Method Room Air 11/08/20 18:24 Oxygen Flow Rate 0 11/08/20 18:24 Pain Level 5 11/08/20 18:32 Lab/Test Results Lab/Test Results: Laboratory Tests Range/Units 11/08/20 11/08/20 19:05 19:05 WBC (4.4-10.8) 10^3/uL 10.81 H RBC (3.93-5.22) 10^6/uL 4.73 Hgb (11.2-15.7) g/dL 15.4 Hct (36.0-46.0) % 45.6 MCV (80-95) fL 96.4 H MCH (27.0-33.0) pg 32.6 MCHC (32.0-36.0) % 33.8 RDW (11.7-14.6) % 12.2 Plt Count (130-400) 10^3/uL 293 MPV (8.0-11.0) fL 8.5 Immature Gran % 0.4 Neutrophils % 68.6 Lymphocytes % 18.1 Monocytes % 9.6 Eosinophils % 2.7 Basophils % 0.6 Nucleated RBC % % 0 Absolute Neutrophils (1.2-6.7) 10^3/uL 7.42 H Absolute Lymphocytes (1.2-3.4) 10^3/uL 1.96 Absolute Monocytes (0.1-0.8) 10^3/uL 1.04 H Absolute Eosinophils (0.0-0.7) 10^3/uL 0.29 Absolute Basophils (0.0-0.2) 10^3/uL 0.06 Sodium (136-145) mmol/L 140 Potassium (3.5-5.1) mmol/L 3.5 Chloride (98-107) mmol/L 102 Carbon Dioxide (21.0-32.0) mmol/L 28.7 Anion Gap (3-11) mmol/L 9.3 BUN (7-18) mg/dL 23 H Creatinine (0.55-1.02) mg/dL 1.3 H Estimated GFR/1.73 m2 (mL/min/1.73m2) 39.82 Glucose (74-106) mg/dL 110 H Calcium (8.5-10.1) mg/dL 9.1 Total Bilirubin (0.2-1.0) mg/dL 2.2 H AST (15-37) U/L 30 ALT (14-59) U/L 36 Alkaline Phosphatase (46-116) U/L 59 Total Protein (6.4-8.2) g/dL 7.7 Albumin (3.4-5.0) g/dL 3.4
--- NOTE | 2020-11-08 20:02 | DI.VRAD_ITS ---
PROCEDURE INFORMATION: Exam: XR Left Foot Exam date and time: 11/08/2020 6:46 PM Age: 74 years old Clinical indication: Pain; Foot; Left TECHNIQUE: Imaging protocol: XR Left foot. Views: 3 or more views. COMPARISON: No relevant studies available. FINDINGS: Bones/joints: The bones are demineralized. No evidence for a fracture or other osseous lesion. Alignment is anatomic. There is joint space narrowing of the interphalangeal joints. There is mild hallux valgus. Soft tissues: Mild soft tissue swelling. IMPRESSION: 1. Mild soft tissue swelling. 2. Osteoarthritis. 3. Mild hallux valgus. Dictated and Authenticated by: Geoffrey Pritchett MD. Ordering:SARAVANAN Guadarrama MD
[2020-11-08] MEDS: Cephalexin 500 MG CAP PO (20:06)
[2020-11-08 20:18] VITALS: BP 136/69; PULSE 88; RESP 16; TEMP 36.7; O2SAT 94
== END 2020-11-08 20:19 | disposition home or self-care (01) ==
PROVIDERS: Emergency Provider Physician Assistant; PCP Nurse Practitioner Family
DX: M25.572 Pain in left ankle and joints of left foot (principal); L03.116 Cellulitis of left lower limb; R60.0 Localized edema
CPT/HCPCS: 36415; 80053; 99284; 73630; 85025

== ENCOUNTER 2020-11-09 11:50 | Emergency (ER) | payer OTHER, SELFPAY ==
[2020-11-09 11:53] VITALS: BP 131/78; PULSE 72; RESP 18; TEMP 36.4; O2SAT 98
--- NOTE | 2020-11-09 12:29 | ED.GENADUL_ITS ---
Discharge Plan Disposition Patient Disposition: HOME Condition: Good Discharge Details Clinical Impression: Foot pain, left Primary Care Provider: Destiney Motley ED Provider: An Falcon Home Meds and New Rx's Prescriptions: Continued Restore Eye Supplement 1 cap PO DAILY RF: 0 cholecalciferol (vitamin D3) 5,000 UNIT capsule 5,000 unit PO DAILY Qty: 100 RF: 4 lisinopril 40 mg tablet 40 mg PO DAILY Qty: 90 RF: 4 Spiriva with HandiHaler 18 mcg capsule, w/inhalation device 1 cap IH DAILY Qty: 360 RF: 4 hydrochlorothiazide 25 mg tablet 25 mg PO DAILY Qty: 90 RF: 4 albuterol sulfate [ProAir HFA] 90 mcg/actuation HFA aerosol inhaler 2 puff Inhalation Q4H PRN Qty: 54 RF: 4 clotrimazole-betamethasone 1-0.05 % cream 1 applic Topical BID PRN Qty: 15 RF: 5 fluticasone propion-salmeterol [Advair Diskus] 250-50 mcg/dose blister with device 1 inh Inhalation BID Qty: 180 RF: 4 triamcinolone acetonide 0.5 % ointment 1 applic TP DAILY PRN (Reason: dermatitis) Qty: 80 RF: 2 magnesium 500 mg Tablet 500 mg PO DAILY RF: 0 cephalexin 500 mg capsule 500 mg PO TID 10 Days Qty: 30 RF: 0 Discharge Instructions Instructions: Leg Pain (ED) Additional Instructions: Complete your antibiotic Elevate, compression stocking Follow-up with primary care physician in 48 to 72 hours Return earlier should you develop streaking redness, fever, chills, or with any new or worsening complaints Your ultrasound today does not show evidence of blood clot, should you have persistent swelling in your leg that is changed, recommend repeat ultrasound in 1 week Discharge Data Discharge Date/Time-TO BE ENTERED AT DEPARTURE: 11/09/20 12:41 Medical Decision Making I reviewed patient's x-ray and ultrasound, x-rays from yesterday does not show acute abnormality Ultrasound does not show evidence of DVT Repeat ultrasound in 1 week recommended if persistent symptoms Should patient have spreading redness, fever, worsening pain, she is instructed to return to the emergency room She is also instructed to use her compression stocking Patient discharged home on Keflex Return precautions discussed and patient expressed understanding Medical Records Medical records reviewed: Yes I reviewed the patient's medical records. HPI General Mode of arrival: ambulatory . Date/Time Provider Initiated Documentation: 11/09/20 11:59 . Limitations to Documentation: no limitations . Information obtained by: patient . HPI Narrative: This 74-year-old female presents for follow-up on her ultrasound. Patient denies any chest pain or shortness of breath. She denies any dizziness or weakness. She had her foot ev aluated yesterday and was told that she likely has cellulitis but because of her peripheral edema a ultrasound was ordered. States the redness and pain have improved since initiating antibiotics. Related Data Home Medications Medication Instructions Recorded Confirmed cholecalciferol (vitamin D3) 5,000 unit PO DAILY #100 tab-cap 07/06/15 11/09/20 Restore Eye Supplement 1 cap PO DAILY 01/27/19 11/09/20 lisinopril 40 mg tablet 40 mg PO DAILY #90 tab-cap 10/05/19 11/09/20 tiotropium bromide 18 mcg capsule 1 cap IH DAILY #360 inh 12/14/19 11/09/20 with inhalation device hydrochlorothiazide 25 mg tablet 25 mg PO DAILY #90 tab 12/22/19 11/09/20 albuterol sulfate 90 mcg/actuation 2 puff INHALATION Q4H PRN #54 gm 05/17/20 11/09/20 aerosol inhaler clotrimazole-betamethasone 1 1 applic TOPICAL BID PRN #15 gm 05/17/20 11/09/20 %-0.05 % topical cream fluticasone 250 mcg-salmeterol 50 1 inh INHALATION BID #180 each 05/17/20 11/09/20 mcg/dose blistr powdr for inhalation triamcinolone acetonide 0.5 % 1 applic TP DAILY PRN #80 gm 05/17/20 11/09/20 topical ointment cephalexin 500 mg PO TID 10 Days #30 cap 11/08/20 11/09/20 magnesium 500 mg PO DAILY 11/08/20 11/09/20 Previous Rx's Medication Instructions Recorded lisinopril 40 mg tablet 40 mg PO DAILY #90 tab-cap 10/05/19 tiotropium bromide 18 mcg capsule 1 cap IH DAILY #360 inh 12/14/19 with inhalation device hydrochlorothiazide 25 mg tablet 25 mg PO DAILY #90 tab 12/22/19 albuterol sulfate 90 mcg/actuation 2 puff INHALATION Q4H PRN #54 gm 05/17/20 aerosol inhaler clotrimazole-betamethasone 1 1 applic TOPICAL BID PRN #15 gm 05/17/20 %-0.05 % topical cream fluticasone 250 mcg-salmeterol 50 1 inh INHALATION BID #180 each 05/17/20 mcg/dose blistr powdr for inhalation triamcinolone acetonide 0.5 % 1 applic TP DAILY PRN #80 gm 05/17/20 topical ointment cephalexin 500 mg PO TID 10 Days #30 cap 11/08/20 Allergies Allergy/AdvReac Type Severity Reaction Status Date / Time ibuprofen AdvReac Mild RECTAL Verified 11/09/20 11:59 BLEEDING levothyroxine sodium AdvReac Unknown Verified 11/09/20 11:59 General Stated Complaint: Recheck NEELAM: 5 Review of Systems All systems reviewed & are unremarkable except as noted in HPI and below PFSH Medical History 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 S/p mitch 1994. Negative ERCP 2011. No hemolytic anemia or jaundice episodes Hyperparathyroidism S/p left upper parathyroidectomy Obesity Obstructive sleep apnea Declines CPAP therapy and further sleep study consults Osteopenia Dexa 2018. Fosamax 2013 to 2020 Osteoporosis Fosamax 2013 -2020 Subclinical hypothyroidism Tubular adenoma of colon Varicose veins of lower extremity Vitamin D deficiency (03/30/15) Surgical History S/P cholecystectomy (~1994) S/P ERCP (10/14/11) S/P ORIF (open reduction internal fixation) fracture (~05/2005) Right wrist S/P parathyroidectomy (03/20/20) Left upper parathyroidectomy Status post cataract extraction and insertion of intraocular lens of left eye ( 07/03/18) Status post cataract extraction and insertion of intraocular lens of right eye (07/17/18) Status post left breast lumpectomy (~09/2012) Family History Mother , At 88 Diabetes Essential hypertension Asthma Uterine cancer In her 80s Father , of 56 of MVA MVA (motor vehicle accident) Sister , at 54 of uterine cancer Uterine cancer Sister Essential hypertension Skin cancer Atrial fibrillation Son No problems noted. Daughter No problems noted. Maternal Grandfather Essential hypertension Heart disease Diabetes Asthma Stroke Maternal Grandmother Heart disease Asthma Paternal Grandfather , at 65 Heart disease Stroke Paternal Grandmother Breast cancer Social History Smoking/Tobacco Use Status: Former Tobacco Use Quit Date: 04/28/99 Smoking risk assessment performed?: Yes Alcohol Intake: never Drug use: Never Substance use type: does not use Caregiver/Support person: No Household members: spouse Housing: house Communication Needs: None Do you need help understanding health information?: Rarely Pets and animals: No Sexually active: No Do you think of yourself as: straight/heterosexual Current gender identity: female What is your relationship status?: How often do you talk on the phone with friends or family?: decline to answer How often do you get together with friends or relatives?: decline to answer How often do you attend buddhist or restorationist services?: decline to answer Do you belong to any clubs or organized social groups?: no Panel score (0-1 are the most socially isolated patients): 1 What type of physical activity do you participate in: none Frequency: does not exercise Luz/Sabianist: Christianity Special luz needs: No Seatbelt use: always Helmet use: No Drive intox or ride w/intox vibratory pile driver: No Do you feel safe in your relationship?: Yes Female Reproductive History Menstrual Menopause type: natural Date of menopause: 04/28/93 History History 3 Para Hx # Term Pregnancies Multiple births Hx # Pregnancies Ectopic pregnancies AB induced Hx Number of Living Children 2 AB spontaneous 1 Exam Const General: cooperative Other: Chronically ill-appearing Resp Effort & Inspection: normal respiratory effort Cardio Rate: regular rate Skin Other: Mild erythema to the left distal great toe, no crepitus, neurovascularly intact, no tenderness to affected, no evidence of metatarsophalangeal involvement, no clinical evidence of septic joint Neuro General: patient alert and patient oriented x3 Course Vital Signs Vital signs: Vital Signs Temperature 36.4 C L 11/09/20 11:53 Pulse 72 11/09/20 11:53 Respiratory Rate 18 11/09/20 11:53 Blood Pressure 131/78 11/09/20 11:53 Pulse Oximetry 98 11/09/20 11:53 Temperature 36.4 C L 11/09/20 11:53 Temperature Source Temporal Artery Scan 11/09/20 11:53 Pulse 72 11/09/20 11:53 Respiratory Rate 18 11/09/20 11:53 Respiratory Effort Non-Labored 11/09/20 11:58 Blood Pressure 131/78 11/09/20 11:53 Blood Pressure Position Sitting 11/09/20 11:53 Pulse Oximetry 98 11/09/20 11:53 Oxygen Delivery Method Room Air 11/09/20 11:53 Oxygen Flow Rate 0 11/09/20 11:53 Pain Level 0 11/09/20 11:53
== END 2020-11-09 12:41 | disposition home or self-care (01) ==
PROVIDERS: Emergency Provider Physician Assistant; PCP Nurse Practitioner Family
DX: Z71.2 Person consulting for explanation of examination or test findings (principal); M79.672 Pain in left foot

== ENCOUNTER 2020-11-09 13:52 | Outpatient (CLI) | payer OTHER, SELFPAY ==
--- NOTE | 2020-11-09 | DI.US_ITS ---
Exam(s) US LOWER EXTREMITY VENOUS LT EXAM: US LOWER EXTREMITY VENOUS LT CLINICAL HISTORY: LT FOOT PAIN TECHNIQUE: Grayscale, color, and doppler imaging of the deep venous system of the left lower extremi ty was performed. COMPARISON: US LEFT BREAST ULTRASOUND from 09/26/2016 FINDINGS: There is no evidence of intraluminal thrombus and there is normal compression and augmentation demons trated within the common femoral vein, femoral vein, and popliteal vein. In the ipsilateral calf the interrogated veins also exhibit normal compression/ augmentation properti es. The ipsilateral saphenofemoral junction is patent. IMPRESSION: 1. No evidence of DVT in the left lower extremity. 2. DATA REPOSITORY:
== END 2020-11-09 14:12 ==
PROVIDERS: PCP Nurse Practitioner Family; Visit Provider Physician Assistant
DX: M79.672 Pain in left foot (principal)
CPT/HCPCS: 93971

== ENCOUNTER → 2022-02-22 00:59 | Outpatient (CLI) | payer OTHER, SELFPAY ==
--- OUTSIDE RECORDS SUMMARY | 2022-02-22 01:01 | XMS_ITS | Encounter Summary ---
:1945 Author Organization [facility] [place] [address] Care Team Providers Name Role Phone Violeta Rivera MD Primary Care Provider Reason for Visit Reason Onset Date Comments Results 10/18/2011 Encounter Details Date Type Department Care Team Description 10/18/2011 Telephone [place]ology [place] [facility] [place] Ese Lazaro APRN Results [facility] [place] [id number] GASTROENTEROLOGY [phone] DEPT. [place], [place] [address] Social History Tobacco Use Types Packs/Day Years Used Date Former Smoker 1 42 Quit: 01/25/20 00 Smokeless Tobacco: Former User Alcohol Use Standard Drinks/Week Comments No 0 (1 standard drink = 0.6 oz pure alcoho l) rare use Alcohol Habits Answer Date Recorded How often do you have a drink containing alcohol? Not asked How many drinks containing alcohol do you have on a typical Not asked day when you are drinking? How often do you have six or more drinks on one occasion? No t asked Comment: rare use 01/24/2011 Sex Assigned at Date Recorded Not on file documented as of this encounter Miscellaneous Notes Telephone Encounter - Ese Lazaro APRN - 10/18/2011 10:05 AM EDT Spoke with patient who is feeling well, her EUS was negative and revealed a mild dilatation of the CBD likely secondary to cholecystomy She continues to have evidence of fatty infiltration of the liver Will plan to follow up with her next year in liver clinic in regards to the fatty liver documented in this encounter Plan of Treatment Not on filedocumented as of this encounter Visit Diagnoses Not on filedocumented in this encounter Care Teams Editing Clerk Relationship Specialty Start Date End Date Violeta Rivera MD PCP - General 10/05/11 09/15/19 [address] [place] [address] documented as of this encounter
--- OUTSIDE RECORDS SUMMARY | 2022-02-22 01:01 | XMS_ITS | Encounter Summary ---
:1945 [place] [address] Care Team Providers Name Role Phone Sarah Gregory APRN Primary Care Provider Encounter Details Date Type Department Care Team Description 08/26/[address] Scan [place] [facility] DR GALINA Aviles liver [facility] Yves Juarez MD [facility] [place] [address] [place] [address] Social History Tobacco Use Types Packs/Day Years [...] on file documented as of this encounter Medications at Time of Discharge Medication Sig Dispensed Refills Start Date End Date lisinopril Take 40 mg by mouth 0 (PRINIVIL;ZESTRIL) 40 mg daily. tablet albuterol (PROVENTIL Inhale 2 puffs into 0 HFA;VENTOLIN HFA) 90 the lungs every 4 mcg/Actuation inhaler hours as needed. Use with spacer acetaminophen (TYLENOL) Take 1,000 mg by 0 500 mg tablet mouth every 6 hours as needed. fluticasone-salmeterol 1 Disk(s), Inh, 0 06/24/19 07 (ADVAIR DISKUS) 250-50 Twice daily mcg/dose diskus inhaler furosemide (LASIX) 20 mg Take 20 mg by mouth 0 01/13/2020 tablet daily as needed. amlodipine (NORVASC) 5 mg Take 5 mg by mouth 0 01/13/2020 tablet daily as needed. diphenoxylate-atropine Take 1 tablet by 0 01/13/2020 (LOMOTIL) 2.5-0.025 mg per mouth daily as tablet needed. documented as of this encounter Plan of Treatment Not on filedocumented as of this encounter Procedures Procedure Name Priority Date/Time Associated Diagnosis Comme nts CT ABDOMEN W Routine 08/26/2011 2:49 PM Other abnormal blood R esults for this CONTRAST EDT chemistry procedure are i n the results section. documented in this encounter Results CT ABDOMEN WITH CONTRAST (08/26/2011 2:49 PM EDT) Anatomical Region Laterality Modality Abdomen Computed Tomography Specimen (Source) Anatomical Collection Method Collection Time Re ceived Time Location / / Volume Laterality 08/26/2011 2:49 PM EDT Narrative 08/26/2011 5:[address] ABDOMEN WITH CONTRAST, 08/26/11: CLINICAL INDICATION: ??Dilated biliary d uct/pancreatic protocol. COMPARISON: ??Prior ultrasound, 08/26/11 . TECHNIQUE: ??CT scan of the abdomen was performed following the intravenous administration of 110 cc of Omnipaque-35 0 in both the arterial and portal venous phases. Coronal and sagittal refo rmatted images in both phases were also reviewed. CONTRAST: ??110 cc of Omnipaque-350. FINDINGS: ??The intrahepatic and extrahe patic bile ducts are abnormally dilated measuring up to 14 mm in greatest diamet er. The cystic duct remnant in this post cholecystectomy patient is also dil ated. There are no radiopaque intraductal filling defects. ??Pancreati c head appears normal and no pancreatic ductal dilitation is present. Numerous hepatic hypodensities are prese nt, many of which are subcentimeter and too small to characterize. Other small h epatic hypodensities measuring just over 1 cm are consistent with hepatic cy sts, the largest measures 2 cm in the right hepatic lobe (series #2, image #12 3). ??No abdominal ascites or abdominal lymphadenopathy. There is a nodular appe arance to the left adrenal gland. The right adrenal gland is normal. Multiple bilateral renal hypodensities are noted, many of which are subcentimeter a nd too small to characterize. Several other hypodensities measure simple fluid measuring just over 1 cm representing renal cysts. The largest is present with in the left renal mid pole measuring 13 mm in greatest diameter. Left renal para pelvic cysts are also noted. Kidneys are otherwise normal. The abdominal aort a has a normal caliber with scattered atherosclerotic calcifications. There ar e numerous diverticula along the transverse through distal descending col on, but no adjacent inflammatory changes. The stomach and visualized smal l bowel in the upper abdomen are normal. Degenerative disc disease is not ed within the lower thoracic and upper lumbar spine. IMPRESSIONS: 1. Biliary ductal dilatation described i n detail above. Exact etiology is uncertain but the differential considera tions include distal biliary stricture, non-radiopaque choledocholith, or small periampullary mass not able to be resolved on CT. 2. Multiple small hepatic hypodensities, some of which are consistent with simple cysts, others of which are too sm all to characterize. 3. Bilateral small renal hypodensities, many of which likely represent small cysts, others of which are too small to accurately characterize. 4. Nodular appearance to the left adrena l gland. 5. Post cholecystectomy changes. 6. Colonic diverticulosis. Film and interpretation reviewed by the attending Procedure Note Mylene Colorado MD - 08/26/2011Formatt ing of this note might be different from the original. CT ABDOMEN WITH CONTRAST, 08/26/11: CLINICAL INDICATION: Dilated biliary dharmesh t/pancreatic protocol. COMPARISON: Prior ultrasound, 08/26/11. TECHNIQUE: CT scan of the abdomen was pe rformed following the intravenous administration of 110 cc of Omnipaque-35 0 in both the arterial and portal venous phases. Coronal and sagittal refo rmatted images in both phases were also reviewed. CONTRAST: 110 cc of Omnipaque-350. FINDINGS: The intrahepatic and extrahepa tic bile ducts are abnormally dilated measuring up to 14 mm in greatest diamet er. The cystic duct remnant in this post cholecystectomy patient is also dil ated. There are no radiopaque intraductal filling defects. Pancreatic head appears normal and no pancreatic ductal dilitation is present. Numerous hepatic hypodensities are prese nt, many of which are subcentimeter and too small to characterize. Other small h epatic hypodensities measuring just over 1 cm are consistent with hepatic cy sts, the largest measures 2 cm in the right hepatic lobe (series #2, image #12 3). No abdominal ascites or abdominal lymphadenopathy. There is a nodular appe arance to the left adrenal gland. The right adrenal gland is normal. Multiple bilateral renal hypodensities are noted, many of which are subcentimeter a nd too small to characterize. Several other hypodensities measure simple fluid measuring just over 1 cm representing renal cysts. The largest is present with in the left renal mid pole measuring 13 mm in greatest diameter. Left renal para pelvic cysts are also noted. Kidneys are otherwise normal. The abdominal aort a has a normal caliber with scattered atherosclerotic calcifications. There ar e numerous diverticula along the transverse through distal descending col on, but no adjacent inflammatory changes. The stomach and visualized smal l bowel in the upper abdomen are normal. Degenerative disc disease is not ed within the lower thoracic and upper lumbar spine. IMPRESSIONS: 1. Biliary ductal dilatation described i n detail above. Exact etiology is uncertain but the differential considera tions include distal biliary stricture, non-radiopaque choledocholith, or small periampullary mass not able to be resolved on CT. 2. Multiple small hepatic hypodensities, some of which are consistent with simple cysts, others of which are too sm all to characterize. 3. Bilateral small renal hypodensities, many of which likely represent small cysts, others of which are too small to accurately characterize. 4. Nodular appearance to the left adrena l gland. 5. Post cholecystectomy changes. 6. Colonic diverticulosis. Film and interpretation reviewed by the attending Yves Juarez MD IMG CT ORDERABLES documented in this encounter Visit Diagnoses Diagnosis Elevated liver function tests Other abnormal blood chemistry documented in this encounter Administered Medications Inactive Administered Medications - up to 3 most recent administrations Medication Order MAR Action Action Date Dose Rate Site iohexol (OMNIPAQUE) 350 mg/mL Given 08/26/2011 2:38 PM EDT 38,50 0 mg injection 38,500 mg 38,500 mg (110 mL), Intravenous, ONCE PRN, 1 dose, Starting on 08/26/11 at 1437, Until Fri08/26/11 at 1438, Per Protocol, Routine documented in this encounter Care Teams Clinical Program Director Relationship Specialty Start Date End Date Koshowski, Sarah, COOK DESSERT PCP - General 01/29/11 10/04/11 [address] [place] [address] documented as of this encounter
--- OUTSIDE RECORDS SUMMARY | 2022-02-22 01:01 | XMS_ITS | Encounter Summary ---
:1945 Author Organization [facility] [place] [address] Care Team Providers Name Role Phone Violeta Rivera MD Primary Care Provider Encounter Details Date Type Department Care Team Description 08/13/2012 External Results [place]Ray at [facility] [place] Violeta Rivera MD [address] [place] [address] Dr [address] [place] [address] [place], [place] [phone] (Wo rk) Social History Tobacco Use Types Packs/Day Years [...] on file documented as of this encounter Plan of Treatment Not on filedocumented as of this encounter Procedures Procedure Name Priority Date/Time Associated Diagnosis Comme nts MAMMOGRAM SCAN Routine 08/11/2012 MAMMOGRAM SCAN Routine 08/03/2012 MAMMOGRAM SCAN Routine 08/01/2011 MAMMOGRAM SCAN Routine 02/15/2009 MAMMOGRAM SCAN Routine 09/14/2003 documented in this encounter Results Scan Doc: Mammogram (08/11/2012) Anatomical Region Laterality Modality Other Narrative This result has an attachment that is no t available. Violeta Rivera MD MEDIA MGR SCAN EXT ORDR/RSLT Scan Doc: Mammogram (08/03/2012) Anatomical Region Laterality Modality Other Narrative This result has an attachment that is no t available. Violeta Rivera MD MEDIA MGR SCAN EXT ORDR/RSLT Scan Doc: Mammogram (08/01/2011) Anatomical Region Laterality Modality Other Narrative This result has an attachment that is no t available. Violeta Rivera MD MEDIA MGR SCAN EXT ORDR/RSLT Scan Doc: Mammogram (02/15/2009) Anatomical Region Laterality Modality Other Narrative This result has an attachment that is no t available. Scanning Provider MEDIA MGR SCAN EXT ORDR/RSLT Scan Doc: Mammogram (09/14/2003) Anatomical Region Laterality Modality Other Narrative This result has an attachment that is no t available. Scanning Provider MEDIA MGR SCAN EXT ORDR/RSLT documented in this encounter Visit Diagnoses Not on filedocumented in this encounter Care Teams Director Of Events Relationship Specialty Start Date End Date Violeta Rivera MD PCP - General 10/05/11 09/15/19 [address] [place] [address] documented as of this encounter
--- OUTSIDE RECORDS SUMMARY | 2022-02-22 01:01 | XMS_ITS | Encounter Summary ---
:1945 Author Organization [facility] [place] [address] Care Team Providers Name Role Phone Violeta Rivera MD Primary Care Provider Reason for Visit Reason Comments Benign Breast Encounter Details Date Type Department Care Team Description 10/07/2012 Office Visit Hematology and Valentino Mcnally Abnormal mammogram Oncology at [facility] MD Kaylin (Primary Dx) [facility] [address] [place] [facility] [address] [place] [address] [phone] Social History Tobacco Use Types Packs/Day Years Used Date Former Smoker 1 42 Quit: 01/25/20 Smokeless Tobacco: Former User Alcohol Use Standard [...] on file documented as of this encounter Last Filed Vital Signs Vital Sign Reading Time Taken Comments Blood Pressure 137/63 10/07/2012 9:23 AM EDT Pulse 61 10/07/2012 9:23 AM EDT Temperature 36.4 ??C (97.5 ??F) 10/07/2012 9:23 AM EDT Respiratory Rate 16 10/07/2012 9:23 AM EDT Oxygen Saturation - - Inhaled Oxygen Concentration - - Weight 111.7 kg (246 lb 4.1 oz) 10/07/2012 9:23 AM EDT Height 167.6 cm (5' 5.98) 10/07/2012 9:23 AM EDT Body Mass Index 39.77 10/07/2012 9:23 AM EDT documented in this encounter Progress Notes Valentino Mcnally MD - 10/07/2012 9:50 AM EDT Diagnosis: Abnormal left breast mammogram. Reason for Evaluation: This patient was referred for surgical opinion regarding above by her primary care physician, Violeta Rivera M.D. History of Present Illness: The patient is a 66-year-old woman with no prior history of any breast complaints. She came in for her routine screening mammography, which was done elsewhere and I reviewed all of her films today with Radiology. She has an abnormality in her left breast that is characterized by a density with some internal microcalcifications. This appeared to be somewhat new in terms of her previous mammograms and measured approximately 11 mm at 2 o'clock position in the upper outer quadrant of the left breast, approximately 5 cm from the nipple. Because this was new and mildly suspicious she underwent a stereotactic left breast biopsy performed here. 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 The recommendation was for wide excision for more definitive diagnosis. The patient denies any self-palpated breast abnormalities. Of note, she also has a density in the right breast approximately 7 mm at 8 o'clock; however this appears to be stable over the last several years and was not deemed to be radiographically suspicious. Of note, in the patient's history, she has had a previously cholecystectomy approximately 10 years ago. She also was noted to have slightly abnormal liver function tests with elevated transaminases. She has been worked up extensively for this. It does not appear to be associated with hepatitis B chronic infection. She also had an endoscopic ultrasound which showed some mildly dilated extra hepatic bile ducts, probably consistent with postcholecystectomy situation. Her bilirubin has been normal, as well as coags. The only other surgical history is a repair of a fracture of the wrist. On examination she is a well-developed, well-nourished female in no apparent distress. She is oriented x3. Vital signs are per the nursing notes. Examination of the head and neck: Pupils are equal and reactive. Sclerae are nonicteric. No gross abnormalities of ear, nose, or throat. Lymphatics: No palpable cervical, supraclavicular, or axillary adenopathy. Upper extremities have full range of motion without evidence of lymphedema. Breast exam: The breasts are pendulous. There are no skin or nipple changes noted. There is no palpable abnormality noted in either breast. 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 Plan: I spent approximately 35 out of the 40 minutes today going over the patient's options for diagnostic procedures at this point including my review of her pathology and her mammograms. We discussed wire localized left breast biopsy and the possibility of finding any additional significant pathologic features. The patient agrees to undergo a wire localized left breast biopsy. This will be done as an outpatient under MAC anesthesia. She does not require any PATs. She is aware of potential complications of surgery including bleeding, infection, and seroma. Pending the final pathology report further workup and evaluation may be indicated. documented in this encounter Plan of Treatment Not on filedocumented as of this encounter Visit Diagnoses Diagnosis Abnormal mammogram - Primary Abnormal mammogram, unspecified documented in this encounter Care Teams Mds Rn Relationship Specialty Start Date End Date Violeta Rivera MD PCP - General 10/05/11 09/15/19 [address] [place] [address] documented as of this encounter
--- OUTSIDE RECORDS SUMMARY | 2022-02-22 01:01 | XMS_ITS | Clinical Summary ---
:1945 Author Organization [facility] [place] [address] Care Team Providers Name Role Phone Solisaiden Destiney ALSTON Primary Care Provider Allergies Active Allergy Reactions Severity Noted Date Comments Adhesive Tape 01/13/2020 Red, burning s kin Levothyroxine Sodium Other (See Comments) 09/10/2019 Hair fell out Ibuprofen 01/24/2011 Rectal bleeding Rice Medium 01/13/2020 vomiting Medications Medication Sig Dispensed Refills Start Date End Date Status fluticasone-salmeterol 1 Disk(s), Inh, 0 06/24/2006 Active (ADVAIR DISKUS) 250-50 Twice daily mcg/dose diskus inhaler lisinopril Take 40 mg by 0 Activ e (PRINIVIL;ZESTRIL) 40 mg mouth daily. tablet albuterol (PROVENTIL Inhale 2 puffs 0 Active HFA;VENTOLIN HFA) 90 into the lungs mcg/Actuation inhaler every 4 hours as needed. Use with spacer acetaminophen (TYLENOL) Take 1,000 mg 0 Active 500 mg tablet by mouth every 6 hours as needed. hydroCHLOROthiazide Take 25 mg by 0 07/20/2019 Active (Hydrodiuril) 25 mg mouth daily. Tablet Spiriva with HandiHaler 0 07/20/2019 Active 18 mcg Capsule, w/Inhalation Device UNABLE TO FIND Take 1 capsule 0 01/27/2019 Active by mouth daily. Medication: Restore capsules alendronate (Fosamax) 70 Take 70 mg by 0 09/10/2019 Active mg Tablet mouth once a week. Cholecalciferol, Vitamin Take 5,000 0 07/06/2015 Active D3, 125 mcg (5,000 unit) Units by mouth Capsule daily. clotrimazole-betamethason Apply to 0 12/07/2018 Active e (LOTRISONE) 1-0.05 % affected area Cream as needed triamcinolone Apply to 0 01/27/2019 Activ e (ARISTOCORT) 0.5 % bilateral legs Ointment once a day as needed loperamide (IMODIUM A-D) Take 4 mg by 0 Active 2 mg Tablet mouth as needed for Diarrhea. Maximum 16 mg in 24 hours polysorbate 80/glycerin Apply to eye as 0 Active (REFRESH DRY EYE THERAPY needed. OPHT) Active Problems Problem Noted Date Morbid obesity with BMI of 40.0-44.9, adult 03/16/2020 Osteoporosis 03/16/2020 Former smoker, stopped smoking many years ago 03/16/20 Hypertension COPD (chronic obstructive pulmonary disease) Resolved Problems Problem Noted Date Resolved Date Abnormal mammogram 10/07/2012 03/16/2020 Overview: Left breast Elevated liver function tests 01/24/2011 03/16/2020 Family History Medical History Relation Comments Cancer Mother uterine Diabetes Mother Hypertension Mother Thyroid Disease Mother Cancer Sister 3 uterine Hypertension Sister 4 Relation Status Comments Father Mother Sister 1 Sister 2 Alive Sister 3 Sister 4 Social History Tobacco Use Types Packs/Day Years Used Date Former Smoker 1 42 Quit: 01/25/20 00 Smokeless Tobacco: Never Used Alcohol Use Standard Drinks/Week Comments No 0 [...] Assigned at Date Recorded Not on file Last Filed Vital Signs Vital Sign Reading Time Taken Comments Blood Pressure 122/76 03/20/2020 2:00 PM EST Pulse 75 03/20/2020 1:20 PM EST Temperature 36.2 ??C (97.2 ??F) 03/20/2020 12:00 PM EST Respiratory Rate 18 03/20/2020 2:00 PM EST Oxygen Saturation 92% 03/20/2020 2:00 PM EST Inhaled Oxygen Concentration - - Weight 110.2 kg (243 lb) 03/20/2020 8:57 AM EST Height 160 cm (5' 3) 03/20/2020 8:57 AM EST Body Mass Index 43.05 03/20/2020 8:57 AM EST Plan of Treatment Health Maintenance Due Date Last Done Comments Covid-19 Vaccine (#1) 06/25/1946 Pneumoccocal Vaccine: 65+ (1 - PCV) 12/23/1949 Hepatitis C Screening 12/23/1961 Tdap adult 12/23/1962 Tetanus vaccine 12/23/1962 Zoster vaccine (1 of 2) 12/23/1993 Bone Density Scan 12/23/2008 Influenza (Flu) vaccine (1 of 1 - Influenza standard 12/27/2021 series) Insurance Payer Benefit Plan Subscriber ID Effective Dates Phone Address Type / Group [place] [id number] 2019-Minesh [phone] [address] [address] [address] [place] [address] Advance Directives Documents on File Type Date Recorded 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
--- OUTSIDE RECORDS SUMMARY | 2022-02-22 01:01 | XMS_ITS | Encounter Summary ---
:1945 Author Organization [place] [address] Care Team Providers Name Role Phone Sarah Gregory GAMALIEL Primary Care Provider Reason for Visit Reason Onset Date Comments Follow-up 09/12/2011 Encounter Details Date Type Department Care Team Description 09/12/2011 Telephone Gastroenterology at [facility] Ese Lazaro APRN Follow-up [facility] [place] [address] GASTROENTEROLOGY [phone] DEPT. 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 She is agreeable. Will plan to schedule this test and follow up in clinicafter the EUS. documented in this encounter Plan of Treatment Not on filedocumented as of this encounter Visit Diagnoses Not on filedocumented in this encounter Care Teams Medicaid Analyst Relationship Specialty Start Date End Date Sarah Gregory APRN PCP - General 01/29/11 10/04/11 [place] [address] documented as of this encounter
--- OUTSIDE RECORDS SUMMARY | 2022-02-22 01:01 | XMS_ITS | Encounter Summary ---
:1945 [place] [address] Care Team Providers Name Role Phone Destiney Motley APRN Primary Care Provider Encounter Details Date Type Department Care Team Description 09/24/2019 Orders Only Endocrinology at [facility] Fabrizio Tristan, [facility] hyperparathyroidism [facility] [address] ENDOCRINOLOGY [phone] [place] [address] Social History Tobacco Use Types Packs/Day Years [...] as of this encounter Visit Diagnoses Diagnosis Primary hyperparathyroidism documented in this encounter Care Teams Import Export Coordinator Relationship Specialty Start Date End Date Destiney Motley APRN PCP - General Family Medicine 09/16/[address] [place] [address] documented as of this encounter
--- OUTSIDE RECORDS SUMMARY | 2022-02-22 01:01 | XMS_ITS | Encounter Summary ---
:1945 Author Organization [facility] Address [facility] [place] [address] Care Team Providers Name Role Phone Violeta Rivera MD Primary Care Provider Encounter Details Date Type Department Care Team Description 09/16/2012 Hospital Encounter Mammography at [facility] Abnormal mammogram, [facility] unspecifi ed (Primary Drive Dx) [place] [address] Social History Tobacco Use Types Packs/Day Years [...] Name Priority Date/Time Associated Diagnosis Comme nts MAMMO US VACUUM Routine 09/16/2012 11:13 AM Resul ts for this ASSISTED BIOPSY EDT procedure ar e in the results section. SPECIMEN TO Routine 09/16/2012 10:48 AM Abnormal mammogram, R esults for this PATHOLOGY EDT unspecified procedure are i n the results section. documented in this encounter Results Mammo- US vacuum assisted biopsy (09/16/2012 11:13 AM EDT) Anatomical Region Laterality Modality Breast N/A Mammography Specimen (Source) Anatomical Collection Method Collection Time Re ceived Time Location / / Volume Laterality 09/16/2012 11:13 AM EDT Impressions 09/17/2012 5:16 PM EDT Impression: ??Concordant result Recommendation: Sugical excision ?? I was present with the resident, Dr. Ivonne ramey, for the taylor component(s) of the procedure and otherwise remained immedia tely available for the duration of the procedure. I attest to having personally viewed the images/test and approve the above interpretation. Home phone: [phone] Film and interpretation reviewed by the attending Narrative 09/17/2012 5:16 PM EDT VACUUM ASSISTED ULTRASOUND GUIDED BIOPSY OF THE LEFT BREAST ON 09/16/12: Informed consent was obtained. Using briseida rile technique and 1% Lidocaine used for local anesthesia, a skin incision wa s made and a biopsy was performed using Ultrasound for image guidance. Clinical indication: Left breast 11mm ma ss in the upper, outer quadrant at 0200, 5cm from the nipple. 13-gauge Mammotome Elite device 5 core biopsy specimens obtained. ?? A 14-gauge Mammo Star 1402 marker clip w as placed. Cranio-caudal and lateral digital mammography performed to determi ne biopsy marker placement, which was shown to be at the biopsy site. Satisfactory sampling was obtained. There were no procedural complications. Imaging diagnosis: Fibroadenoma versus I DC versus papilloma. Pathologic diagnosis: Fibroadenoma with ADH and ALH Procedure Note Aimee Islas MD - 09/17/2012Formattin g of this note might be different from the original. VACUUM ASSISTED ULTRASOUND GUIDED BIOPSY OF THE LEFT BREAST ON 09/16/12: Informed consent was obtained. Using briseida rile technique and 1% Lidocaine used for local anesthesia, a skin incision wa s made and a biopsy was performed using Ultrasound for image guidance. Clinical indication: Left breast 11mm ma ss in the upper, outer quadrant at 0200, 5cm from the nipple. 13-gauge Mammotome Elite device 5 core biopsy specimens obtained. A 14-gauge Mammo Star 1402 marker clip w as placed. Cranio-caudal and lateral digital mammography performed to determi ne biopsy marker placement, which was shown to be at the biopsy site. Satisfactory sampling was obtained. There were no procedural complications. Imaging diagnosis: Fibroadenoma versus I DC versus papilloma. Pathologic diagnosis: Fibroadenoma with ADH and ALH IMPRESSION Impression: Concordant result Recommendation: Sugical excision I was present with the resident, Dr. Ivonne ramey, for the taylor component(s) of the procedure and otherwise remained immedia tely available for the duration of the procedure. I attest to having personally viewed the images/test and approve the above interpretation. Home phone: [phone] Film and interpretation reviewed by the attending Aimee Islas MD IMG MAMMO ORDERABLES Specimen to Pathology (surgical or derm) (09/16/2012 10:48 AM EDT) Specimen Anatomical Collection Method Collection Time Receive d Time (Source) Location / / Volume Laterality AP Specimen 09/16/2012 10:48 09/16/2012 AM EDT 10:48 AM EDT Narrative [facility] - 09/16/2012 10:48 AM EDT Specimen requisition ordered. ??Separate Pathology report to follow Aimee Islas MD PATHOLOGY/CYTOLOGY ORDERABLE S Performing Organization Address City/State/[place] [address] [facility] documented in this encounter Visit Diagnoses Diagnosis Abnormal mammogram, unspecified - Primar y documented in this encounter Care Teams Mosaic Tiler Relationship Specialty Start Date End Date Violeta Rivera MD PCP - General 10/05/11 09/15/19 [address] [place] [address] documented as of this encounter
--- OUTSIDE RECORDS SUMMARY | 2022-02-22 01:01 | XMS_ITS | Encounter Summary ---
:1945 Author Organization [facility] [place] [address] Care Team Providers Name Role Phone Violeta Rivera MD Primary Care Provider Encounter Details Date Type Department Care Team Description 10/14/2011 Hospital Encounter Gastroenterology at [facility] Kristopher Cade, [facility] [place] [address] [facility] [phone] CENTER GASTROENTEROLOGY DEPT. [place], [place] [address] Social History Tobacco Use Types [...] Sign Reading Time Taken Comments Blood Pressure 144/84 10/14/2011 4:51 PM EDT Pulse 80 10/14/2011 4:51 PM EDT Temperature - - Respiratory Rate 16 10/14/2011 4:51 PM EDT Oxygen Saturation 95% 10/14/2011 4:51 PM EDT Inhaled Oxygen Concentration - - Weight - - Height - - Body Mass Index - - documented in this encounter Discharge Instructions Patient InstructionsKristopher Cade MD - 10/14/2011 4:57 PM EDT Please see Recommendations in the Provation procedure report which is documented in the procedural note in E-DH. AttachmentsThe following attachments cannot be sent through Care Everywhere. ENDOSCOPIC ULTRASOUND (ORAL): WHAT TO EXPECT AT HOME (YAKUT)documented in this encounter Medications at Time of Discharge [...] tablet needed. documented as of this encounter Progress Notes Nikki Chacon RN - 10/14/2011 5:[address] cade in to explain findings and plan. documented in this encounter H&P Notes Kristopher Cade MD - 10/14/2011 4:02 PM EDT Gastroenterology and Hepatology Pre-Procedure History and Physical Exam Procedure: EUS: /ERCP Indication: Dilated CBD on USG and CT. See OPD notes. Patient Active Problem List Diagnoses Code ??? Elevated liver function tests 790.6AZ EXAM: HEENT: Airway examined, oropharynx clear LUNGS: Clear to auscultation HEART: Regular rate and rhythm, normal S1, S2 ABDOMEN: Normal bowel sounds, soft, non tender, non distended, A/P Proceed with the planned endoscopic procedure. Risks and benefits of the procedure explained to the patient. Consent signed. documented in this encounter Miscellaneous Notes Miscellaneous - Provider, Scanning - 10/15/2011 3:11 AM EDT Op Note - Kristopher Cade MD - 10/14/2011 4:42 PM EDT [facility] Operative Note Patient Name: Dominique Robbins : [id number] MR#: [id number] Case Date: 10/14/2011 Surgeon: Surgeon(s) and Role: * KRISTOPHER CADE MD - Primary Preoperative diagnosis: ductal dilatation Postoperative diagnosis: * No post-op diagnosis entered * Procedure(s): UPPER EUS- ENDOSCOPIC ULTRASOUND ERCP Full procedure note is documented under the Procedure section of eDH. Miscellaneous - Provider, Scanning - 10/14/2011 2:52 PM EDT documented in this encounter Plan of Treatment Not on filedocumented as of this encounter Procedures Procedure Name Priority Date/Time Associated Comments Diagnosis ERCP 10/14/2011 4:18 PM Biliary disease EDT UPPER EUS- 10/14/2011 4:18 PM Biliary disease ENDOSCOPIC EDT ULTRASOUND UPPER EUS-ENDOSCOPIC Routine 10/14/2011 4:07 PM R esults for this ULTRASOUND EDT procedure are i n the results section. documented in this encounter Results UPPER EUS-ENDOSCOPIC ULTRASOUND (10/14/2011 4:07 PM EDT) Component Value Ref Test Analysis Performed At [facility] Method Time Signature UPPER [facility] ENDOSCOPIC Endoscopy ULTRASOUND _ Patient Name: Doimnique Itzel ? Procedure Date: 10/14/2011 4:07 PM ? Date of : 1945 ? Age: 65 ? Order #: [id number] ? Procedure: ? Upper EUS Indications: ? Common bile duct dilation (acquired ) ? seen on CT scan Providers: ? Kristopher Cade MD, Liz Noguera ? Sherly, RN, Barrington Ortiz, Camille Rosen MD: ?Violeta Rivera MD, Ese robert, ? MD Medicines: ? Midazolam 4.5 mg IV, Meperidine 12 5 ? mg IV Complications: ? No immediate complications. Procedure: ? Pre-Anesthesia Assessment: ? - Prior to the procedure, a H istory ? and Physical was performed, a nd ? patient medications, allergie s and ? sensitivities have been revie wed. The ? patient's tolerance of previo us ? anesthesia has been reviewed. ? - The risks and benefits of t he ? procedure and the sedation op tions ? and risks were discussed with the ? patient. All questions were a nswered ? and informed consent was obta ined. ? - ASA Grade Assessment: II - A ? patient with mild systemic di sease. ? The procedure, indications, b enefits, ? risks and alternatives were e xplained ? to the patient. Specifically ? discussed were potential ? complications including, but not ? limited to, bleeding, perfora tion, ? infection, missing a cancer, and ? adverse medication reactions. The ? Endosonoscope was introduced through ? the mouth, and advanced to th e second ? part of duodenum. The patient ? tolerated the procedure fairl y well. ? Findings: ? The examined esophagus was endoscopically normal. The ? entire examined stomach was endoscopically normal. ? The examined duodenum was endoscopically normal. The ? ampulla was normal. There was dilation in the common ? bile duct which measured up to 10 mm at CHD but ? tapered normally at ampulla. There was no evidence ? for stricture, mass or stoneThe gallbladder is ? surgically absent.There was no sign of significant ? endosonographic abnormality in the entire pancreas. ? No lymphadenopathy seen. There was abnormal ? echogenicity in the entire examined liver (limited ? exam). This area was hyperechoic. ? Impression: ?- Mild CBD dilation without strict ure ? or stone. This is likely rela dusty to ? prior cholecystectomy and is ? clinically insignificant ? - Probable fatty liver. Recommendation: ?- Observe patient's clinical course. ? Kristopher Cade MD 10/14/2011 4:56 PM ? Number of Addenda: 0 Note Initiated On: 10/14/2011 4:07 PM Specimen (Source) Anatomical Collection Method Collection Time Re ceived Time Location / / Volume Laterality 10/14/2011 4:07 PM EDT Violeta Rivera MD GENERAL SURGICAL ORDERABLES Performing Organization Address City/State/ZIP Code Phon e Number [employer] documented in this encounter Visit Diagnoses Not on filedocumented in this encounter Active and Recently Administered Medications Times are shown in EDT. PRN Medication Order 10/12/2011 10/13/2011 10/14/2011 meperidine (PF) (DEMEROL) 100 mg/mL carpuject (CANCELED) 1621 (Given - Provider: Liz Dubois RN)1627 (Given - Provider: Liz Dubois, JOHN)1634 (Given - Provider: Liz Dubois RN) ONCE PRN, Starting 10/14/11 at 1621, Until Fri10/14/11 at 1956, Pain, Intra- Operative (Intra-Procedure), Routine midazolam (VERSED) injection (CANCELED) 1621 (Given - Provider: Liz Dubois RN)1627 (Given - Provider: Liz Dubois RN)1634 (Given - Provider: Liz Dubois RN)1635 (Given - Provider: Liz Dubois RN) ONCE PRN, Starting 10/14/11 at 1621, Until Fri10/14/11 at 1956, Sleep, Intra- Operative (Intra-Procedure), Routine documented in this encounter Care Teams Air Cargo Agent Relationship Specialty Start Date End Date Violeta Rivera MD PCP - General 10/05/11 09/15/19 [address] [place] [address] documented as of this encounter
--- OUTSIDE RECORDS SUMMARY | 2022-02-22 01:01 | XMS_ITS | Encounter Summary ---
:1945 [place] [address] Care Team Providers Name Role Phone Violeta Rivera MD Primary Care Provider Encounter Details Date Type Department Care Team Description 10/12/2012 Hospital Encounter Same Day Program at [facility] normal mammogram Lazara Ewing MD [facility] [address] [facility] [place] [phone] Social History Tobacco Use Types Packs/Day Years Used Date Former Smoker 1 42 Quit: 01/25/20 Smokeless Tobacco: Never Used Alcohol Use Standard [...] Sign Reading Time Taken Comments Blood Pressure 131/65 10/12/2012 10:48 AM EDT Pulse 58 10/12/2012 11:00 AM EDT Temperature 37.1 ??C (98.8 ??F) 10/12/2012 10:18 AM EDT Respiratory Rate 18 10/12/2012 11:00 AM EDT Oxygen Saturation 95% 10/12/2012 8:56 AM EDT Inhaled Oxygen Concentration - - Weight 111.6 kg (246 lb) 10/12/2012 8:56 AM EDT Height 167.6 cm (5' 6) 10/12/2012 8:56 AM EDT Body Mass Index 39.71 10/12/2012 8:56 AM EDT documented in this encounter Discharge Instructions Discharge InstructionsBeverly Prather RN - 10/12/2012 10:28 AM EDT Wound infection may occur at any time, but it is evident more often 4-7 days after surgery. Signs and symptoms may involve one or more of the followin. Temperature elevation of more than 2 degrees or greater than 100.5 degrees F 2. Swelling and redness in or around the incision. 3. Increasing pain or discomfort in or around the incision. 4. Red streaks in the skin near the incision. 5. Pus or other foul drainage from the incision. 6. Foul smell from the incision. 7. Generalized body chills or fever. 8. Severe pain. If you suspect an incisional infection is present, are having problems, or have additional questionsor concerns, please call. POST ANESTHESIA INSTRUCTIONS Go home, rest, use caution on stairs. Change positions slowly. Do not smoke if you are alone. Diet light to regular as tolerated today. If nausea occurs start with clear liquids and progress slowly. No driving, operating machinery, alcoholic beverages and no important decisions for 24 hours. Monitor IV site for signs and symptoms of infection: increasing redness, swelling, foul drainage, ifoccurs contact M.D. Patients who have had endotrachial tubes (this tube, used by anesthesia department, is passed down your throat after you are asleep, to ensure safe air passage during your operation). A sore throat is normal due to the tube. Cold liquids or soothing lozenges will help ease the discomfort. The generalized muscle aches are due to the medication given to you just before the tube is inserted. As the medication wears off, you may develop muscle soreness, which usually goes away in 12-24 hours. Patient InstructionsApoorva Posey MD - 10/12/2012 9:03 AM EDT Instructions following Breast Surgery Wound Care: Keep dressing on incision for the next 3-4 days, then you may remove and leave open to air. You may shower tomorrow morning, but do not scrub area vigorously for the next 2 weeks. Do not soak incision(s) under water for the next 2 weeks (i.e. soaking in bath or swimming) as this may promote a wound infection. You may remove dressing if it becomes saturated/wet and replace with dry gauze as needed for seepage/comfort. If there are pieces of tape directly on the incision (steri-strips or butterflys), please leave them on until they fall off on their own. You may trim them back as they begin to peel up. ICE: You may apply ice to incision during the first 48 hours following surgery to help limit swelling, bruising, and discomfort. You may also find wearing a bra for the first two days following surgerywill help with discomfort, although this is not absolutely necessary. Your stitches will dissolve and do not need to be removed. Activity: As tolerated by your comfort level. Call Doctor for: Please call if you notice worsening redness or drainage from incision(s) lasting longer than 5 days after your surgery, any foul-smelling drainage from the incision, pain not controlled by pain medications, persistent nausea and vomiting, or for any fevers greater than 101.3 F. The number for questions is [phone] before 5 PM weekdays and [phone] after 5 PM and weekends. Pain Medication: No driving for 8 hours after any dose of opioid pain medication if one was prescribed for you. You may use ibuprofen (motrin, advil) in addition to this medication if your pain is not totally controlled by the opioid. Follow-up: Follow-up appointment will be scheduled with Dr. Valdez in 1-2 weeks. Appointment willbe mailed to you. Please call [phone] (clinic number for appointments) to confirm date and timeof your appointment if you do not receive your apointment in 1 week. documented in this encounter Medications at Time of [...] DISKUS) 250-50 Twice daily mcg/dose diskus inhaler hydroCODone-acetaminophen Take 1 tablet by 15 tablet 0 09/2601/13/2020 (VICODIN ES) 7.5-750 mg mouth every 6 hours per tablet as needed for Pain. furosemide (LASIX) 20 mg Take 20 mg by mouth 0 01/13/2020 tablet daily as needed. amlodipine (NORVASC) 5 mg Take 5 mg by mouth 0 01/13/2020 tablet daily as needed. diphenoxylate-atropine Take 1 tablet by 0 01/13/2020 (LOMOTIL) 2.5-0.025 mg per mouth daily as tablet needed. documented as of this encounter Progress Notes Beverly Prather RN - 10/12/2012 11:32 AM EDT Patient denies any pain or nausea.Given script for po vicodin and told to tear up if she didn't needany pain medication. Beverly Prather RN - 10/12/2012 11:13 AM EDT Patient doing well taking clears and eating crackers. documented in this encounter H&P Notes Apoorva Posey MD - 10/12/2012 9:00 AM EDT Patient Name: Zack Robbins Patient Age: 66 y.o. Birthdate: 1945 Admit date: 10/12/2012 Attending Physician: Vonnie Valdez MD No interval change in history since clinic visit on 10/07. Mammography assisted needle localization completed this morning. Has been NPO since MN OK to proceed with procedure. APOORVA POSEY MD documented in this encounter Miscellaneous Notes Miscellaneous - Provider, Scanning - 10/12/2012 10:02 PM EDT Op Note - Vonnie Valdez MD - 10/12/2012 10:[address] [facility] Operative Note Patient Name: Zack Robbins : [id number] MR#: [id number] Case Date: 10/12/2012 Surgeon: Surgeon(s) and Role: * Vonnie Valdez MD - Primary * Apoorva Posey MD - Resident-Surgeon Fransisco Preoperative diagnosis: ABNORMAL MAMMO Postoperative diagnosis: ABNORMAL MAMMO Procedure(s): EXCISION LESION, BREAST W/ PREOP.MARKER (NEEDLE LOC.) MAC Estimated Blood Loss: minimal Drains: none HPI/Surgical Indications: Surgical Indications: The patient presented to the clinic with an abnormal left breast mammogram characterized by a density in the lateral aspect of the left breast. 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 The recommendation was for a more complete breast biopsy. Therefore, she was scheduled for a wire localized left breast biopsy. Procedure Description:Surgical Procedure: The patient was taken initially to mammography where a wire was placed in the lateral aspect of the left breast for the purpose of a needle localized left breast biopsy. She was then taken to the operating room and placed supine on the operating table. MAC anesthesia was induced. The preoperative time-out checklist was performed. The patient received 2 grams of IV Ancef as a prophylactic antibiotic. The left breast was then prepped and draped in the usual sterile manner. After adequate local anesthesia with 1% plain Xylocaine, a transverse incision was made in the upper outer portion of the left breast corresponding to the wire insertion site. This was taken down sharply through skin and through subcutaneous fat. Electrocautery was then used to take a wide area around the entire wire, and this specimen was removed from the breast and painted for orientation. The specimen was sent for specimen radiography, which revealed the presence of the abnormality, the previously placed biopsy clip, and the intact wire. The incision was then thoroughly irrigated with sterile saline. Any noted bleeding was controlled with electrocautery, and the incision was closed in two layers with an interrupted 3-0 Vicryl dermal layer and a running 4-0 subcuticular Monocryl for skin reapproximation. Steri-Strips were applied. The patient tolerated the procedure well. Brief Op Note - Vonnie Valdez MD - 10/12/2012 10:12 AM EDT Brief Operative Note Patient Name: Zack Robbins : [id number] MR#: [id number] Case Date: 10/12/2012 Surgeon: Surgeon(s) and Role: * Vonnie Valdez MD - Primary * Apoorva Posey MD - Resident-Surgeon Fransisco Preoperative diagnosis: ABNORMAL MAMMO Postoperative diagnosis: ABNORMAL MAMMO Procedure(s): EXCISION LESION, BREAST W/ PREOP.MARKER (NEEDLE LOC.) Anesthesia: MAC Findings: Complications: none Fluids: Estimated Blood Loss: minimal Drains: none OR Attestation - Vonnie Valdez MD - 10/12/2012 10:11 AM EDT Attestation: Case Date: 10/12/2012 I was present and I participated during the entire procedure (does not need to include opening and closing). VONNIE VALDEZ MD 10/12/2012 Miscellaneous - Provider, Scanning - 10/12/2012 6:32 AM EDT documented in this encounter Plan of Treatment Not on filedocumented as of this encounter Procedures Procedure Name Priority Date/Time Associated Diagnosis Comme nts SURGICAL PATHOLOGY Routine 10/12/2012 10:17 Resul ts for this REPORT AM EDT procedure are i n the results section. SPECIMEN TO PATHOLOGY Routine 10/12/2012 10:17 Re sults for this AM EDT procedure are i n the results section. MAMMO US GUIDANCE FOR Routine 10/12/2012 9:26 AM Abnormal mamm ogram, Results for this NEEDLE LOCALIZATION EDT unspecified procedur e are in the results section. MAMMO DIRECT DIGITAL Routine 10/12/2012 9:25 AM R esults for this UNILATERAL EDT procedure are i n the results section. EXCISION LESION, Yes 10/12/2012 9:07 AM ABNORMAL MAMMO BREAST W/ EDT PREOP.MARKER (NEEDLE LOC.) (WRVU 6.69) documented in this encounter Results Surgical Pathology Report (10/12/2012 10:17 AM EDT) Component Value Ref Test Analysis Performed At [facility] Range Method Time Signature Surgical CERNER Pathology ? [facility] Report ? Provider: ?? VONNIE VALDEZ Pt. Name: ?? ZACK ROBBINS ? Acc #: ?[id number] ?Pt. MRN: ?[id number] ? Col Date: ?? 3 ? /Sex: ?1945,(66 years),Female ? Rec Date: ?? 10/12/2012 ? LOC: ?SDP ? SURGICAL PATHOLOGY ? ---Pathologic Diagnosis--- ? A - Left breast, excisional biopsy: ? 1. Residual fibroadenoma. ? 2. Fibrocystic disease, including focal sclerosing adenosis, cysts, ? ectatic ducts, and benign ductal hyperplasia. ? 3. Previous bio psy site changes ([id number]), including granulation ? tissue and fat necrosis. ? 10/14/12 ? VAM ? 06/19/13 Verified by: ? Memoli MD, Cyrus Elliott ? Pathologist ? (Electronic Si gnature) ? The attending pathologist whose signature appears o n this report has ? reviewed all diagnostic slides and has edited the ludmila ss and/or ? microscopic portion of the report in rendering the fi nal pathologic ? diagnosis. ? ---Gross Description--- ? A - Labeled/Fixative: Wire-localized left breast biop sy, fresh. ? SPECIMEN DESCRIPTION ? Resection Specimen: Left breast, partial mastectomy. ? Qty/Size/Weight: Single, 6.5 x 3.8 x 1.3 cm, 28 grams . ? Radiograph: Radiograp h on e-DH is reviewed, the mass, clip, and wire tip ? are identified in the specimen. ? Specimen Description: According to the established pr otocol the ink ? designations are red (medial), yellow (lateral), epifanio ge(cranial), ? green(caudal), black (deep) and blue (superficial). ? Tissue Sections: The specimen is serially sectioned perpendicular to the ? long axis from red to yellow margin into nine slices, each averaging 0.7 cm ? in thickness. ? LESION ? Description: Mass. ? Size: 1.1 x 0.9 x 0.7 cm. ? Color: White-yellow. ? Consistency: Firm. ? Location: Slice and VII. ? Nearest Margin: 0.3 cm to blue margin and 0.5 cm to o range margin. ? Other Margins: At least 1.0 cm to other margins. ? OTHER ? Parenchyma: Yellow fibrofatty tissue. ? Wire/Clip: Wire tip i s identified in slice and clip is found in slice ? VII. ? [facility] ? Provider: ?? VONNIE VALDEZ Pt. Name: ?? ZACK ROBBINS ? Acc #: ?[id number] ?Pt. MRN: ?[id number] ? Col Date: ?? 3 ? /Sex: ?1945,(66 years),Female ? Rec Date: ?? 10/12/2012 ? LOC: ?SDP ? SURGICAL PATHOLOGY ? SECTIONS/PROCESSING: (A1) perpendicular section of red margin (slice I); ? (A2) section of fibro us tissue (slice III); (A3) section of fibrous tissue ? (slice IV); (A4-A5) s ections of lesion to blue and orange margins (slice ? ); (A6) section of the lesion to blue and orange margins (slice ??VII); ? (A7) section of slice VIII; (A8) perpendicular section of yellow margin ? (slice IX). (R8) ??rylan ? ---Clinical Information--- ? Specimen Submitted: ? A - Wire localized left breast biopsy ? Clinical History: ? Abnormal mammogram. ? Clinical Diagnosis: ? None provided. Specimen (Source) Anatomical Collection Method Collection Time Re ceived Time Location / / Volume Laterality 10/12/2012 10:17 AM EDT Vonnie Valdez MD PATHOLOGY/CYTOLOGY ORDERABLE S Performing Organization Address City/State/[place] [address] [facility] Specimen to Pathology (surgical or derm) (10/12/2012 10:17 AM EDT) Specimen Anatomical Collection Method Collection Time Receive d Time (Source) Location / / Volume Laterality AP Specimen 10/12/2012 10:17 10/12/2012 AM EDT 10:17 AM EDT Narrative CERJIMMY ARNETTENNIUM - 10/12/2012 10:17 AM EDT Specimen requisition ordered. ??Separate Pathology report to follow Vonnie Valdez MD PATHOLOGY/CYTOLOGY ORDERABLE S Performing Organization Address City/State/[place] [address] CERJIMMY STERLING Mammo-US guidance for needle localization (10/12/2012 9:26 AM EDT) Anatomical Region Laterality Modality Breast N/A Mammography Specimen (Source) Anatomical Collection Method Collection Time Re ceived Time Location / / Volume Laterality 10/12/2012 9:26 AM EDT Narrative 10/12/2012 5:04 PM EDT ULTRASOUND GUIDED NEEDLE LOCALIZATION OF THE LEFT BREAST ON 10/12/12: ?? CLINICAL INDICATION: Left breast 11mm ma ss at 0200 in the upper, outer quadrant, approximately 5cm from the nip ple. ?? Needle localization of the suspicious ar ea (mass) in the Left breast was performed with ultrasound guidance. ?? Cranio-caudal and 90&ordm; digital mammo graphy views were obtained following localization to document wire position. ?? Specimen mammography was performed. The suspicious area (mass/clip) is included in the specimen. ?? The specimen arrived in the Radiology De partment at 10:05am. ?? Report of specimen called to the OR at 1 0:09am. ?? I was present with the resident for the taylor component(s) of the procedure and otherwise remained immediately available for the duration of the procedure. I attest to having personally viewed the i mages/test and approve the above interpretation. ? Film and interpretation reviewed by the attending Procedure Note Aimee Islas MD - 10/12/2012Formattin g of this note might be different from the original. ULTRASOUND GUIDED NEEDLE LOCALIZATION OF THE LEFT BREAST ON 10/12/12: CLINICAL INDICATION: Left breast 11mm ma ss at 0200 in the upper, outer quadrant, approximately 5cm from the nip ple. Needle localization of the suspicious ar ea (mass) in the Left breast was performed with ultrasound guidance. Cranio-caudal and 90&ordm; digital mammo graphy views were obtained following localization to document wire position. Specimen mammography was performed. The suspicious area (mass/clip) is included in the specimen. The specimen arrived in the Radiology De partment at 10:05am. Report of specimen called to the OR at 1 0:09am. I was present with the resident for the taylor component(s) of the procedure and otherwise remained immediately available for the duration of the procedure. I attest to having personally viewed the i mages/test and approve the above interpretation. Film and interpretation reviewed by the attending Vonnie Valdez MD IMG MAMMO ORDERABLES Mammo direct digital unilateral (10/12/2012 9:25 AM EDT) Anatomical Region Laterality Modality Breast N/A Mammography Specimen (Source) Anatomical Collection Method Collection Time Re ceived Time Location / / Volume Laterality 10/12/2012 9:25 AM EDT Narrative 10/12/2012 5:04 PM EDT ULTRASOUND GUIDED NEEDLE LOCALIZATION OF THE LEFT BREAST ON 10/12/12: ?? CLINICAL INDICATION: Left breast 11mm ma ss at 0200 in the upper, outer quadrant, approximately 5cm from the nip ple. ?? Needle localization of the suspicious ar ea (mass) in the Left breast was performed with ultrasound guidance. ?? Cranio-caudal and 90&ordm; digital mammo graphy views were obtained following localization to document wire position. ?? Specimen mammography was performed. The suspicious area (mass/clip) is included in the specimen. ?? The specimen arrived in the Radiology De partment at 10:05am. ?? Report of specimen called to the OR at 1 0:09am. ?? I was present with the resident for the taylor component(s) of the procedure and otherwise remained immediately available for the duration of the procedure. I attest to having personally viewed the i mages/test and approve the above interpretation. ? Film and interpretation reviewed by the attending Procedure Note Aimee Islas MD - 10/12/2012Formattin g of this note might be different from the original. ULTRASOUND GUIDED NEEDLE LOCALIZATION OF THE LEFT BREAST ON 10/12/12: CLINICAL INDICATION: Left breast 11mm ma ss at 0200 in the upper, outer quadrant, approximately 5cm from the nip ple. Needle localization of the suspicious ar ea (mass) in the Left breast was performed with ultrasound guidance. Cranio-caudal and 90&ordm; digital mammo graphy views were obtained following localization to document wire position. Specimen mammography was performed. The suspicious area (mass/clip) is included in the specimen. The specimen arrived in the Radiology De partment at 10:05am. Report of specimen called to the OR at 1 0:09am. I was present with the resident for the taylor component(s) of the procedure and otherwise remained immediately available for the duration of the procedure. I attest to having personally viewed the i mages/test and approve the above interpretation. Film and interpretation reviewed by the attending Vonnie Valdez MD IMG MAMMO ORDERABLES documented in this encounter Visit Diagnoses Diagnosis Abnormal mammogram Abnormal mammogram, unspecified documented in this encounter Administered Medications Inactive Administered Medications - up to 3 most recent administrations Medication Order MAR Action Action Date Dose Rate Site lactated ringers infusion New Bag 10/12/2012 9:30 AM EDT 1,000 mLs 100 mL/hr 1,000 mL 1,000 mL, at 100 mL/hr, Intravenous, CONTINUOUS, Starting on Fri10/12/12 at 0930, Until Fri10/12/12 at 1347, Day of Surgery (Day of Procedure) documented in this encounter Active and Recently Administered Medications Times are shown in EDT. Continuous Medication Order 10/10/2012 10/11/2012 10/12/2012 lactated ringers infusion 1,000 mL (CANCELED) 0930 (New Bag - Provider: Liz Sweeney RN) 1,000 mL, at 100 mL/hr, Intravenous, CON TINUOUS, Starting Fri10/12/12 at 0930, Until Fri10/12/12 at 1347, Day of Surgery (Day of Procedure) PRN Medication Order 10/10/2012 10/11/2012 10/12/2012 lidocaine (PF) (XYLOCAINE) 10 mg/mL (1 %) injection (CANCELED) 0956 (Given - Provider: Vonnie Valdez MD - Comment: 24 ml) ONCE PRN, Starting Fri10/12/12 at 0956, Until Fri10/12/12 at 1347, Intra- Operative (Intra-Procedure), Routine documented in this encounter Care Teams Finishing Room Supervisor Relationship Specialty Start Date End Date Violeta Rivera MD PCP - General 10/05/11 09/15/19 [address] [place] [address] documented as of this encounter
--- OUTSIDE RECORDS SUMMARY | 2022-02-22 01:01 | XMS_ITS | Encounter Summary ---
:1945 Author Organization [facility] [place] [address] Care Team Providers Name Role Phone Destiney Motley APRN Primary Care Provider Encounter Details Date Type Department Care Team Description 10/28/2019 Telephone Endocrinology at [facility] [place] [address] Social History Tobacco Use Types Packs/Day [...] this encounter Miscellaneous Notes Telephone Encounter - Bogdan Gandhi RN - 11/05/2019 11:44 AM EDT Letter from Dr Harrell faxed to PCP and mailed to pt. Telephone Encounter - Bogdan Gandhi RN - 10/28/2019 12:50 PM EDT Pt left voicemail that she had scan done at [facility] and would like to knowif we received it (we did). And if so, what is the plan now? documented in this encounter Plan of Treatment Not on filedocumented as of this encounter Visit Diagnoses Not on filedocumented in this encounter Care Teams Nurse Discharge Planner Relationship Specialty Start Date End Date Destiney Motley APRN PCP - General Family Medicine 09/16/[address] [place] [address] documented as of this encounter
--- OUTSIDE RECORDS SUMMARY | 2022-02-22 01:01 | XMS_ITS | Encounter Summary ---
:1945 [place] [address] Care Team Providers Name Role Phone Violeta Rivera MD Primary Care Provider Encounter Details Date Type Department Care Team Description 08/11/2012 Orders Only Radiology Kavon Palomino MD [facility] [place] [address] DIAGNOSTIC RADIOLOGY [phone] [place], [place] [address] (Wo rk) Social History Tobacco Use Types [...] on filedocumented in this encounter Care Teams Analytics Developer Relationship Specialty Start Date End Date Violeta Rivera MD PCP - General 10/05/11 09/15/19 [address] [place] [address] documented as of this encounter
--- OUTSIDE RECORDS SUMMARY | 2022-02-22 01:01 | XMS_ITS | Encounter Summary ---
:1945 Author Organization [facility] [place] [address] Care Team Providers Name Role Phone Violeta Rivera MD Primary Care Provider Encounter Details Date Type Department Care Team Description 09/16/2012 Hospital Encounter Mammography at [facility] DR MOJICA Abnormal mammogram, [facility] Violeta Rivera MD [address] [place], [place] [address] [place] [address] Social History Tobacco Use Types [...] documented as of this encounter Progress Notes Marcy Islas MD - 09/15/2012 7:52 PM EDT Patient Name: Dominique Robbins Patient Age: 66 y.o. Birthdate: 1945 Admit date: (Not on file) Attending Physician: Campbell, Dr Jacque MD Procedure date: scheduled for tomorrow Procedure type: left Breast stereo biopsy Special Instructions: none Allergies: Motrin Medications: Current outpatient prescriptions:furosemide (LASIX) 20 mg tablet, Take 20 mg by mouth daily as needed., Disp: , Rfl: ; lisinopril (PRINIVIL;ZESTRIL) 40 mg tablet, Take 40 mg by mouth daily., Disp: , Rfl: ; amlodipine (NORVASC) 5 mg tablet, Take 5 mg by mouth daily as needed., Disp: , Rfl:; albuterol (PROVENTIL HFA;VENTOLIN HFA) 90 mcg/Actuation inhaler, Inhale 2 puffs into the lungs every 4 hours as needed. Use with spacer , Disp: , Rfl: acetaminophen (TYLENOL) 500 mg tablet, Take 1,000 mg by mouth every 6 hours as needed., Disp: , Rfl:; diphenoxylate-atropine (LOMOTIL) 2.5-0.025 mg per tablet, Take 1 tablet by mouth daily as needed.,Disp: , Rfl: ; fluticasone-salmeterol (ADVAIR DISKUS) 250-50 mcg/dose diskus inhaler, 1 Disk(s), Inh, Twice daily, Disp: , Rfl: Anticoagulation status: none Imaging reviewed and procedural plan approved by Dr. MARCY ISLAS MD documented in this encounter Miscellaneous Notes Miscellaneous - Provider, Scanning - 11/06/2012 9:23 AM EDT documented in this encounter Plan of Treatment Not on filedocumented as of this encounter Procedures Procedure Name Priority Date/Time Associated Diagnosis Comme nts MAMMO DIRECT DIGITAL Routine 09/16/2012 11:17 Abnormal mammogr am, Results for this UNILATERAL AM EDT unspecified procedure are i n the results section. documented in this encounter Results Mammo direct digital unilateral (09/16/2012 11:17 AM EDT) Anatomical Region Laterality Modality Breast N/A Mammography Specimen (Source) Anatomical Collection Method Collection Time Re ceived Time Location / / Volume Laterality 09/16/2012 11:17 AM EDT Impressions 09/17/2012 11:40 AM EDT IMPRESSION: The Right breast is BENIGN (BIRADS Categ ory 2) for stable 7mm mass in the 0800 position, approximately 7cm from the nip ple. As this has been stable for at least four years this is felt to be jolynn gn and no further work-up is necessary. The patient may return for routine scree juve regarding her Right breast as indicated by patient age and breast canc er risk factors. ??The left breast biopsy performed the same day is reporte d separately and further follow up regarding the left breast will be determ ined based on biopsy results. Film and interpretation reviewed by the attending Narrative 09/17/2012 11:40 AM EDT RIGHT DIAGNOSTIC MAMMOGRAM ON 09/16/12: CLINICAL INDICATION: Calcifications and question of a mass in the lower, outer Right breast noted on recent interpretat ion of outside mammograms. TECHNIQUE: ML, mag CC and mag ML views o f the Right breast were obtained with direct digital capture. COMPARISON: CC and MLO views of both erma asts 08/03/12, ML and coned MLO views of the Right breast 08/11/12, and screening mammograms 08/01/11 and 12/16/08. FINDINGS: Within the Right breast at symone roximately the 0800 position, 7cm from the nipple there is an ovoid, well-circu mscribed mass with associated microcalcifications. This has been prese nt since 2008. No additional mass or abnormal calcifications were identified. Procedure Note Marcy Islas MD - 09/17/2012Formattin g of this note might be different from the original. RIGHT DIAGNOSTIC MAMMOGRAM ON 09/16/12: CLINICAL INDICATION: Calcifications and question of a mass in the lower, outer Right breast noted on recent interpretat ion of outside mammograms. TECHNIQUE: ML, mag CC and mag ML views o f the Right breast were obtained with direct digital capture. COMPARISON: CC and MLO views of both erma asts 08/03/12, ML and coned MLO views of the Right breast 08/11/12, and screening mammograms 08/01/11 and 12/16/08. FINDINGS: Within the Right breast at symone roximately the 0800 position, 7cm from the nipple there is an ovoid, well-circu mscribed mass with associated microcalcifications. This has been prese nt since 2008. No additional mass or abnormal calcifications were identified. IMPRESSION IMPRESSION: The Right breast is BENIGN (BIRADS Categ ory 2) for stable 7mm mass in the 0800 position, approximately 7cm from the nip ple. As this has been stable for at least four years this is felt to be jolynn gn and no further work-up is necessary. The patient may return for routine scree juve regarding her Right breast as indicated by patient age and breast canc er risk factors. The left breast biopsy performed the same day is reporte d separately and further follow up regarding the left breast will be determ ined based on biopsy results. Film and interpretation reviewed by the attending Marcy Islas MD IMG MAMMO ORDERABLES documented in this encounter Visit Diagnoses Diagnosis Abnormal mammogram, unspecified documented in this encounter Care Teams Associate Agent Insurance Sales Relationship Specialty Start Date End Date Violeta Rivera MD PCP - General 10/05/11 09/15/19 [address] [place] [address] documented as of this encounter
--- OUTSIDE RECORDS SUMMARY | 2022-02-22 01:01 | XMS_ITS | Encounter Summary ---
:1945 Author Organization [facility] [place] [address] Care Team Providers Name Role Phone Destiney Motley APRN Primary Care Provider Encounter Details Date Type Department Care Team Description 11/08/2019 Orders Only General Surgery at [facility] Hyperparathyroidism, [facility] [address] [place] GENER[place] SURGERY [address] [place] [address] [phone] (Wo rk) Social History Tobacco Use Types [...] Not on filedocumented as of this encounter Results Request for 2nd read Nuclear Medicine (11/08/2019 8:25 PM EDT) Anatomical Region Laterality Modality SO Specimen (Source) Anatomical Location Collection Method / Collectio n Time Received Time / Laterality Volume Impressions 11/09/2019 10:11 AM EDT Above findings are suspicious for bilateral parathyroid adenomas or glandular hyperplasia. Thank you for letting us participate in the care of this patient. For questions regarding this report, please contact [facility] number below. ? Electronically signed by: SABRA Reaves [facility] ([phone]), at 11/09/2019 10:11 AM Narrative 11/09/2019 10:11 AM EDT EXAMINATION: REQUEST FOR 2ND READ NUCLEAR MEDICINE CLINICAL HISTORY: Hyperparathyroidism; P atient with hypercalcemia; What Modality is the exam? Nuc Med; Body Part (please add comments as necessary): Sestamibi parathyroid scan; Sending Institution [facility]; Date of exam 20191008; I believe a reinterpretation of this exam may alter care of Patient. Yes TECHNIQUE: Early and delayed planar sestamibi image s and delayed SPECT sestamibi images are reviewed. Reported technetium 99m sestamibi dose i s 25 mCi. COMPARISON: None FINDINGS: Early and delayed planar sestamibi image s show persistent focal sestamibi uptake in the bilateral lower pole regions. Delayed SPECT sestamibi images show foca l sestamibi uptake in the bilateral lower pole regions. Procedure Note Faisal Gandhi MD - 11/09/2019Formatti ng of this note might be different from the original. EXAMINATION: REQUEST FOR 2ND READ NUCLEA R MEDICINE CLINICAL HISTORY: Hyperparathyroidism; P atient with hypercalcemia; What Modality is the exam? Nuc Med; Body Part (please add comments as necessary): Sestamibi parathyroid scan; Sending Institution [facility]; Date of exam 20191008; I believe a reinterpretation of this exam may alter care of Patient. Yes TECHNIQUE: Early and delayed planar sestamibi image s and delayed SPECT sestamibi images are reviewed. Reported technetium 99m sestamibi dose i s 25 mCi. COMPARISON: None FINDINGS: Early and delayed planar sestamibi image s show persistent focal sestamibi uptake in the bilateral lower pole regions. Delayed SPECT sestamibi images show foca l sestamibi uptake in the bilateral lower pole regions. IMPRESSION Above findings are suspicious for bilate ral parathyroid adenomas or glandular hyperplasia. Thank you for letting us participate in the care of this patient. For questions regarding this report, please contact e number below. Radha Montez MD IMG OUTSIDE INTERPRETATION O RDERABLES documented in this encounter Visit Diagnoses Diagnosis Hyperparathyroidism, primary Primary hyperparathyroidism Hyperparathyroidism, primary Primary hyperparathyroidism documented in this encounter Care Teams Stablehand Relationship Specialty Start Date End Date Destiney Motley APRN PCP - General Family Medicine 09/16/19 [address] [place] [address] documented as of this encounter
--- OUTSIDE RECORDS SUMMARY | 2022-02-22 01:01 | XMS_ITS | Encounter Summary ---
:1945 Author Organization [facility] [place] [address] Care Team Providers Name Role Phone Sarah Gregory GAMALIEL Primary Care Provider Reason for Visit Reason Comments GI Problem Encounter Details Date Type Department Care Team Description 08/26/2011 Follow-Up Gastroenterology at [facility], CON[facility] Elevated liver [facility] Ese Mays APRN [facility] [place] [address] [place] [address] (Primary Dx) [phone] Social History Tobacco Use Types Packs/Day Years [...] Sign Reading Time Taken Comments Blood Pressure 138/87 08/26/2011 11:34 AM EDT Pulse 67 08/26/2011 11:34 AM EDT Temperature - - Respiratory Rate - - Oxygen Saturation - - Inhaled Oxygen Concentration - - Weight 112 kg (247 lb) 08/26/2011 11:34 AM EDT Height 167.6 cm (5' 6) 08/26/2011 11:34 AM EDT Body Mass Index 39.87 08/26/2011 11:34 AM EDT documented in this encounter Progress Notes Ese Lazaro, MUSEUM GUIDE - 08/26/2011 11:38 AM EDT Subjective: Patient ID: Zack Robbins is a 65 y.o. female. GI Problem The primary symptoms include fatigue. Primary symptoms do not include fever, abdominal pain, nausea or vomiting. The illness does not include chills. Ms. Robbins is a 65 year old female with elevated liver tests for several years. She recently had a hepatitis panel checked at her last PCP visit and was found to have a positive sag and cab to hepatitis B. 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 She does not believe that she has ever been tested in the past but she did receive the vaccines at some point due to her occupation. Overall she feels well without complaints referable to her liver. She reports an icteric illness prior to having her gallbladder removed several years ago. She has had some post prandial diarrhea intermittently since this surgery. She also is noted to have a dilated CBD on abdominal ultrasound. She had repeat abdominal ultrasound today which showed both intrahepatic and extrahepatic ductal dilatation. She denies nausea, vomiting, change of appetite or weight, no early satiety, no abdominal pain. Due to the high lower level of detection of her first HBV DNA test this was repeated to exclude verylow level replication and this has been negative now on two occasions with a more sensitive assay with a lower level of detection of 20 iu's. This is more re-assuring that she does not have chronic hepatitis B infection. 01/24/11 04/30/11 08/01/11 HBV DNA <357 <20 <20 HBV Eab neg HBV Eag neg AST 45 33 ALT 53 62 08/26/2011 Ultrasound - Abdomen Complete - Summary 1. Fatty liver with multiple cysts. 2. Intra and extra-hepatic duct dilation, s/p cholecystectomy. CBD 1.1 cm. Duct within the pancreatic 1.4 cm. favor further evaluation with Abdominal CT scan. 3. Right upper pole renal cyst and stone. Left kidney multiple peripelvic cysts4. Normal caliber aorta, and IVC. Results for ZACK ROBBINS ( ) as of 02/25/2011 13:55 Ref. Range 01/24/2011 14:09 WBC Latest Range: 4.0-10.0 x10(3)/mcL 8.5 RBC Latest Range: 3.93-5.22 x10(6)/mcL 4.96 Hemoglobin Latest Range: 11.2-15.7 gm/dL 16.6 (H) Hematocrit Latest Range: 34.0-45.0 % 46.3 (H) MCV Latest Range: 79.0-94.0 fL 93.3 MCH Latest Range: 26.6-32.2 pg 33.5 (H) MCHC Latest Range: 32.0-36.5 gm/dL 35.9 RDWSD Latest Range: 35.0-46.0 fL 45.6 RDWCV Latest Range: 10.9-14.4 % 13.4 Platelets Latest Range: 145-370 x10(3)/mcL 301 MPV Latest Range: 9.0-12.0 fL 9.6 Neutr Abs (ANC) Latest Range: 1.50-6.30 x10(3)/mcL 5.40 Neutrophils % Latest Range: 34.0-71.0 % 63.6 Immature Gran % Latest Range: 0.00-0.66 % 0.10 Lymphocytes % Latest Range: 19.0-53.0 % 21.6 Monocytes % Latest Range: 4.0-13.0 % 8.0 Eosinophils % Latest Range: 0.0-7.0 % 5.6 Basophils % Latest Range: 0.0-2.0 % 1.1 Katheryn Gran Abs Latest Range: 0.00-0.05 x10(3)/mcL 0.01 Lymphocytes Abs Latest Range: 1.0-3.6 x10(3)/mcL 1.8 Monocyte Abs Latest Range: 0.2-1.0 x10(3)/mcL 0.7 Eosinophils Abs Latest Range: 0.0-0.5 x10(3)/mcL 0.5 Basophils Abs Latest Range: 0.0-0.2 x10(3)/mcL 0.1 Total Bilirubin Latest Range: 0.2-1.3 mg/dL 1.2 Bili, Direct Latest Range: 0.0-0.3 mg/dL 0.2 Alk Phos Latest Range: 40-104 unit/L 68 AST Latest Range: 0-30 unit/L 45 (H) ALT Latest Range: 0-30 unit/L 53 (H) PT Latest Range: 12.3-14.7 sec 13.9 INR Latest Range: 0.9-1.1 1.0 Sodium Latest Range: 135-145 mmol/L 141 Potassium Latest Range: 3.5-5.0 mmol/L 3.6 Chloride Latest Range: 98-107 mmol/L 104 CO2 Latest Range: 22-31 mmol/L 26 Anion Gap Latest Range: 5-15 mmol/L 11 BUN Latest Range: 8-18 mg/dL 16 Creatinine Latest Range: 0.70-1.20 mg/dL 0.93 Estimated GFR Latest Range: >=60 60 Glucose Lvl Latest Range: 60-199 mg/dL 98 Calcium Latest Range: 8.5-10.5 mg/dL 10.7 (H) Total Protein Latest Range: 6.4-8.3 gm/dL 7.4 Albumin Latest Range: 3.2-5.2 gm/dL 4.2 JAY Latest Range: Neg Pos Titer TF (A) JAY Titer No range found Positive DNA Ab (DS) Latest Range: Neg Neg Hepatitis A Ab Latest Range: Negative Negative Hep B DNA Quant-Harriet Latest Range: <357 IU/mL <357 Hep B E Ab-Harriet Latest Range: Negative Negative Hep B E Ag-Harriet Latest Range: Negative Negative Review of Systems Constitutional: Positive for fatigue. Negative for fever and chills. Respiratory: Positive for cough and shortness of breath. Gastrointestinal: Negative for nausea, vomiting, abdominal pain and blood in stool. Objective: Physical Exam Constitutional: She appears well-developed and well-nourished. + hirsutism HENT: Head: Normocephalic and atraumatic. Cardiovascular: Normal rate, regular rhythm and normal heart sounds. No murmur heard. Pulmonary/Chest: She has no wheezes. Abdominal: Soft. She exhibits no ascites and no mass. There is no hepatosplenomegaly. No tenderness.She has no rebound. Skin: Skin is warm and dry. Psychiatric: She has a normal mood and affect. Her behavior is normal. Assessment and Plan: Ms Robbins is a pleasant 65 year old female with elevated liver tests and some intrahepatic and extrahepatic ductal dilatation on imaging. Will plan to get a pancreatic protocal CT to look for a mass or some other cause of this dilatation. Will plan to contact Zack with the results of the imaging via the phone. In so far as her hepatitis B is concerned she does not appear to have active chronic Hepatitis B. Nofurther testing at this time is recommended. documented in this encounter Plan of Treatment Not on filedocumented as of this encounter Visit Diagnoses Diagnosis Elevated liver function tests - Primary Other abnormal blood chemistry documented in this encounter Care Teams Coffee Host Relationship Specialty Start Date End Date Sarah Gregory APRN PCP - General 01/29/11 10/04/11 [address] [place] [address] documented as of this encounter
--- OUTSIDE RECORDS SUMMARY | 2022-02-22 01:01 | XMS_ITS | Encounter Summary ---
:1945 Author Organization [facility] [place] [address] Care Team Providers Name Role Phone Destiney Motley GAMALIEL Primary Care Provider Encounter Details Date Type Department Care Team Description 04/18/2020 TH Visit General Surgery at [facility], S/P parathyroidectomy (TeleHealth) [facility] [address] GENERAL SURGERY [address] [place] [address] [phone] Social History Tobacco Use Types Packs/Day Years [...] on file documented as of this encounter Progress Notes [facility] Garza APRN - 04/18/2020 2:40 PM EST Parathyroidectomy Tele health Post-Op Visit Subjective: Ms. Dominique Robbins is a very pleasant 74 y.o. year old female who is 6 weeks s/p left upper parathyroidectomy for primary hyperparathyroidism. She is doing very well without complaints. She is not having hypocalcemic symptoms or issues with pain or difficulty swallowing. She states her incision looks good. No concerns. Exam: No data found. She reports a healed anterior neck incision. No hematoma or seroma. Voice appears normal. Pathology results: Left upper parathyroid, excision: Parathyroid adenoma. Labs: Calcium 8.9 PTH 56 Assessment and Plan: Ms. Dominique Robbins is a very pleasant 74 y.o. year old female s/p targeted parathyroidectomy for primary hyperparathyroidism who is doing very well post- operatively without evidence of complications.I discussed the pathology results with the patient and recommended no further treatment. Calcium was checked today and was normal. She is not taking post-operative supplemental doses of calcium and vitamin D. I did encourage her to discuss calcium supplementation for general bone health purposes with her PCP. I explained that she should have her serum calcium checked annually, and that wedo not need to follow PTH levels unless her calcium level rises again. I discussed scar massage with vitamin E to aid in incisional appearance and discussed the importanceof UV light protection on scar healing. Overall, she is doing very well post-operatively and I recommended follow up with me on an as neededbasis hereafter. [facility]za APRN documented in this encounter Plan of Treatment Not on filedocumented as of this encounter Visit Diagnoses Diagnosis S/P parathyroidectomy Other postprocedural status documented in this encounter Care Teams Sales Counselor Relationship Specialty Start Date End Date Destiney Motley APRN PCP - General Family Medicine 09/16/[address] [place] [address] [address] [place] [address] documented as of this encounter
--- OUTSIDE RECORDS SUMMARY | 2022-02-22 01:01 | XMS_ITS | Encounter Summary ---
:1945 Author Organization [facility] [place] [address] Care Team Providers Name Role Phone Destiney Motley APRN Primary Care Provider Encounter Details Date Type Department Care Team Description 09/23/2019 TH Visit Endocrinology at [facility] Fabrizio Tristan, Primary (TeleHealth) [facility] hyperparathyroidism [facility][note 3] [address] ENDOCRINOLOGY [phone] [place] [address] Social History Tobacco Use Types Packs/Day Years [...] documented as of this encounter Progress Notes Fabrizio Harrell MD - 09/23/2019 1:00 PM EDT Due to the coronavirus outbreak Kary and her agreed to do a tele- med/video consultation concerning her history of what appears to be primary hyperparathyroidism. Dominique says that she is a healthy 73-year-old who does not have any major medical problems. She apparently has known primary hyperparathyroidism dating back approximately 8 years. At that time she had decided not to pursue surgery, but now has been told that her calcium levels are getting higher and she should consider treating the situation. Of note is the fact that she does have osteoporosis according to her and did have a fracture in 2006when she fell and broke her wrist. She has had no fractures since then. Her review of systems is negative for any heart disease other than some high blood pressure she alsosays she has had some COPD because she was a smoker but is not at this time. She has never had any kidney stones and as far she knows has normal kidney function. She has been taking some vitamin D supplements but it is unclear just how much. When I looked back in her chart in 2010 I noted she had a serum calcium of 10.7 mg percent. She alsowas started on alendronate 70 mg a week in 2013 for osteoporosis. Recently in August 2019 her serum calcium was 12.7 mg percent her creatinine was 1.61 and her PTH levelwas 315 pg/mL. At the present time she is not having any HOSPITAL RECRUITER complaints. She does, however, seem more inclined to pursue further evaluation and possible parathyroidectomy atthis point. I explained to Dominique that she almost undoubtedly has primary hyperparathyroidism and has significant hypercalcemia. I explained to her the fact that she most likely has a parathyroid adenoma as a cause of her hyperparathyroidism and that relatively simple surgery could cure the situation. I told her that before making any final recommendations I would suggest she have a parathyroid scan which she was interested in doing. We will try to see if we can arrange for it to be done at [facility] in [place] or if not at [facility] in [place]. If the parathyroid scan is positive I will then refer her to Dr. Radha Montez to discuss the possibility of a parathyroidectomy. Of note is the fact that she had a PTH level that was extremely elevated. Her calcium also was also quite elevated. It is possible that her mild renal insufficiency could be pushing the PTH level up higher. The other possibility is that she has vitamin D deficiency which would also cause the PTH to bemore elevated than normally seen in someone with primary hyperparathyroidism. Much less likely is the possibility of parathyroid carcinoma. This would seem especially unlikely since she has a well-documented long history of primary hyperparathyroidism. If she does have surgery will need to make sure we watch and treat closely the possibility of significant post parathyroidectomy hypocalcemia due to hungry bone syndrome. The reason I say this is because patients that have very high PTH and calcium levels and you have had long-term hypoparathyroidism, more likely to have significant postoperative hypocalcemia. documented in this encounter Plan of Treatment Not on filedocumented as of this encounter Visit Diagnoses Diagnosis Primary hyperparathyroidism documented in this encounter Care Teams Skiving Machine Operator Relationship Specialty Start Date End Date Destiney Motley APRN PCP - General Family Medicine 09/16/[address] [place] [address] [address] [place] [address] documented as of this encounter
--- OUTSIDE RECORDS SUMMARY | 2022-02-22 01:01 | XMS_ITS | Encounter Summary ---
:1945 [place] [address] Care Team Providers Name Role Phone Violeta Rivera MD Primary Care Provider Encounter Details Date Type Department Care Team Description 08/01/2011 Orders Only Radiology Kavon Palomino MD [facility] [place] [address] DIAGNOSTIC RADIOLOGY [phone] [place], [place] [address] (Wo rk) Social History Tobacco [...] Name Priority Date/Time Associated Diagnosis Comme nts FILM LIBRARY Routine 08/01/2011 9:00 AM Results f or this STORAGE ONLY MAMMO EDT procedure are in the results section. documented in this encounter Results Film Library- Storage only Mammo (08/01/2011 9:00 AM EDT) Specimen (Source) Anatomical Collection Method Collection Time Re ceived Time Location / / Volume Laterality 08/01/2011 9:00 AM EDT Narrative DH RAD - 10/22/2013 1:54 AM EDT This is a non-reportable exam. Procedure Note Jean Pierre Hopkins - 10/22/2013Formatting of t his note might be different from the original. This is a non-reportable exam. Kavon Palomino MD IM FILM LIBRARY ORDERABLES Performing Organization Address City/State/ZIP Code Phon e Number DH RAD [facility] [address] [facility] [place] [address] documented in this encounter Visit Diagnoses Not on filedocumented in this encounter Care Teams Drier And Pulverizer Tender Relationship Specialty Start Date End Date Violeta Rivera MD PCP - General 10/05/11 09/15/19 [address] [place] [address] documented as of this encounter
--- OUTSIDE RECORDS SUMMARY | 2022-02-22 01:01 | XMS_ITS | Encounter Summary ---
:1945 [place] [address] Care Team Providers Name Role Phone Violeta Rivera MD Primary Care Provider Encounter Details Date Type Department Care Team Description 10/12/2012 Anesthesia Event Main Operating Room Leobardo Nash MD [facility] [place] [address] [facility] Fariba Alfonso MD [facility] [place] [address] [place] [address] Anesthesia Record Procedure Summary Procedure Name Responsible Anesthesia Start Anesthesia Stop Time Anesthesiologist Time EXCISION LESION, Leobardo Winslow MD 10/12/12 0913 10/12/12 10 20 BREAST W/ PREOP.MARKER (NEEDLE LOC.) (WRVU 6.69) (Left Breast) Events Date Time Event Comment 10/12/2012 0812 0913 Start 0917 AN Verify 0918 An Start Data 0924 Anesthesia Ready 0950 Break/Relief In MITA GILLESPIE , BRIDGET 1003 Break/Relief Out MITA Hutchison, PORTFOLIO DIRECTOR 1013 an stop data 1020 Stop Name Total Midazolam 4 mg fentaNYL 100 mcg Propofol 40 mg Propofol INF 94.86 mg Lidocaine 1% 10 mL Lactated Ringers 400 mL Agents Name O2 N2O O2 Auxiliary Flowmeter 1 Blood No blood administrations on file. Lines, Drains, and Airways Type Details Placement Removal Incision 10/12/12; breast; 10/12/12 0000 by Jessica, 12/24 1715 by Jessica 12/24/21 (LDA cleanup JOHN Tirado L utility RA#[id number]); 1715 ([facility] cleanup utility RA#[id number]) PIV 10/12/12; 0910; 10/12/12; 10/12/12 0910 by Catrachita valdovinos, 10/12/12 1131 by Crescencio, 1131 JOHN Merrill RN documented in this encounter Social History Tobacco Use Types Packs/Day Years [...] on file documented as of this encounter OR Notes Anesthesia Postprocedure Evaluation - Leobardo Winslow MD - 10/12/2012 1:34 PM EDT Patient: Dominique Magallon Itzel Procedure(s) Performed: Procedure(s): EXCISION LESION, BREAST W/ PREOP.MARKER (NEEDLE LOC.) Actual Anesthetic: No value filed. Patient location: PACU Post-op pain: Adequate analgesia Post-op nausea: no nausea or vomiting Last Vitals: Filed Vitals: 10/12/12 1100 BP: Pulse: 58 Temp: Resp: 18 Post-op cardiovascular and respiratory status: is stable Level of consciousness: awake, alert and oriented Complications: no apparent complications and tolerated the procedure well Fluid Status: normal Anesthesia Postprocedure Evaluation - Fariba Alfonso - 10/12/2012 10:21 AM EDT Patient: Dominique F Itzel Procedure(s) Performed: Procedure(s): EXCISION LESION, BREAST W/ PREOP.MARKER (NEEDLE LOC.) Actual Anesthetic: No value filed. Patient location: PACU Post-op pain: Adequate analgesia Post-op nausea: no nausea or vomiting Last Vitals: Filed Vitals: 10/12/12 0856 BP: 145/86 Pulse: 67 Temp: 36.4 ??C (97.5 ??F) Resp: 15 Post-op cardiovascular and respiratory status: is stable Level of consciousness: awake, alert and oriented Complications: no apparent complications and tolerated the procedure well Fluid Status: normal Anesthesia Preprocedure Evaluation - Leobardo Winslow MD - 10/10/2012 10:05 AM EDT Pre-Anesthesia Evaluation for: Dominique Robbins a 66 y.o. female. Procedure(s): EXCISION LESION, BREAST W/ PREOP.MARKER (NEEDLE LOC.) Patient Active Problem List Diagnoses ??? Abnormal mammogram Left breast ??? Elevated liver function tests Past Medical History Diagnosis Date ??? Hypertension ??? Obesity ??? Osteoporosis ??? COPD (chronic obstructive pulmonary disease) Past Surgical History Procedure Date ??? Cholecystectomy, laparoscopic ??? Wrist surgery ??? Endoscopic us exam, esoph 10/14/2011 UPPER EUS- ENDOSCOPIC ULTRASOUND performed by DARION BAILEY at [facility] ??? Ercp,diagnostic 10/14/2011 ERCP performed by DARION BAILEY at [facility] History Substance Use Topics ??? Smoking status: Former Smoker -- 1.0 packs/day for 42 years Quit date: 01/25/2000 ??? Smokeless tobacco: Former User ??? Alcohol Use: No rare use Allergies Allergen Reactions ??? Motrin (Ibuprofen) Rectal bleeding Medications: MAR and/or home medications have been reviewed. Physical Exam: There were no vitals filed for this visit. There is no height or weight on file to calculate BMI. Airway Assessment: Mallampati: II TM distance: >3 FB Neck ROM: full Cardiovascular Assessment: Rhythm: regular Rate: normal (-) murmur Pulmonary Assessment: breath sounds clear to auscultation Dental Assessment: (+) upper dentures Comment: Poor dentition Misc Assessment: Patient is wearing No contact(s). IV access: Peripheral line Anesthesia Plan: ASA 2 MAC, with a(n) intravenous induction 66F with PMHx significant for COPD (controlled, no h/o exacerbations, no h/o hospitalization, no steroid use, used inhaler today), breast lump (left), HTN (controlled, 120s/80s), chronic diverticulosis, benign appearing hepatic and renal cysts, nodular adrenal gland, biliary dilitation, and chronic LEedema here for breast lesion excision. All: motrin: lower GI bleed Meds: furosemide (LE edema), lisinopril, amlodipine, albuterol, ventolin, tylenol, lomotil, advair SocHx: > 50 pkyr smoking, quit 10/1999, no alcohol, possibly 4 METs No prior c/w GA (had cholecystectomy), no h/o family c/w GA NPO: solid 17:00, liquid 05:00 ROS: no cp, syncope, presyncope, no GERD +chronic dyspnea on exertion, nonprogressive Exam: alert, lungs clear, obese, no murmurs/r/g appreciated, top dentures, Mal 2, TM >3, full cervical ROM Plan: MAC with GA backup. R/B discussed, consent signed. Region - Other Informed Consent: Anesthetic plan and risks discussed with patient. Use of blood products discussed with patient whom. [facility]. Assessment: documented in this encounter Plan of Treatment Not on filedocumented as of this encounter Visit Diagnoses Not on filedocumented in this encounter Administered Medications Inactive Administered Medications - up to 3 most recent administrations Medication Order MAR Action Action Date Dose Rate Site fentaNYL 50mcg/mL injection Given 10/12/2012 9:43 AM EDT 25 mcg PRN, Starting on Fri10/12/12 at 0925, Until Fri10/12/12 at 1020, Pain, Anesthesia Intra-op, Routine Given 10/12/2012 9:33 AM EDT 25 mcg Given 10/12/2012 9:31 AM EDT 25 mcg lactated ringers infusion New Bag 10/12/2012 9:13 AM EDT mL CONTINUOUS PRN, Starting on Fri10/12/12 at 0913, Until Fri10/12/12 at 1020, Anesthesia Intra-op lidocaine (PF) (XYLOCAINE) 10 mg/mL (1 %) Given 10/12/2012 9:39 AM EDT 10 mLs injection PRN, Starting on Fri10/12/12 at 0939, Until Fri10/12/12 at 1020, Anesthesia Intra-op, Routine midazolam (VERSED) injection Given 10/12/2012 9:39 AM EDT 1 mg PRN, Starting on Fri10/12/12 at 0913, Until Fri10/12/12 at 1020, Sleep, Anesthesia Intra-op, Routine Given 10/12/2012 9:35 AM EDT 1 mg Given 10/12/2012 9:20 AM EDT 1 mg propofol (DIPRIVAN) 10 mg/mL bolus injection Given 3 9:48 AM EDT 20 mg (Anesthesia) PRN, Starting on Fri10/12/12 at 0948, Until Fri10/12/12 at 1020, Anesthesia Intra-op Given 10/12/2012 9:45 AM EDT 20 mg propofol (DIPRIVAN) Rate/Dose 10/12/2012 10:00 20 mcg/kg/min 13.4 mL /hr infusion Change AM EDT CONTINUOUS PRN, Starting on Fri10/12/12 at 0935, Until Fri10/12/12 at 1020, Anesthesia Intra-op, Routine New Bag 10/12/2012 9:35 AM EDT 30 mcg/kg/min 20.1 mL/hr documented in this encounter Care Teams Chief Creative Officer Relationship Specialty Start Date End Date Violeta Rivera MD PCP - General 10/05/11 09/15/19 [address] [place] [address] documented as of this encounter
--- OUTSIDE RECORDS SUMMARY | 2022-02-22 01:01 | XMS_ITS | Encounter Summary ---
:1945 Author Organization [facility] Address [facility] [place] [address] Care Team Providers Name Role Phone Violeta Rivera MD Primary Care Provider Encounter Details Date Type Department Care Team Description 08/14/2012 Orders Only Radiology Aimee Islas MD Abnormal mammogram, [facility] uns pecified ([address] Drive [address]) [place] [address] NUCLEAR MEDICINE [phone] [place] [address] Social History Tobacco Use Types Packs/Day Years [...] on filedocumented as of this encounter Results Mammo direct digital unilateral [...] or abnormal calcifications were identified. Procedure Note Aimee Islas MD - 09/17/2012Formattin [...] attending Aimee Islas MD IMG MAMMO ORDERABLES Mammo direct digital unilateral (09/16/2012 11:17 AM EDT) Anatomical Region Laterality Modality Breast N/A Mammography Specimen (Source) Anatomical Collection Method Collection Time Re ceived Time Location / / Volume Laterality 09/16/2012 11:17 AM EDT Impressions 09/17/2012 5:16 PM EDT Impression: ??Concordant result Recommendation: Sugical excision ?? I was present with the resident, Dr. Ivonne ramey, for the taylor component(s) of the procedure and otherwise remained immedia tely available for the duration of the procedure. I attest to having personally viewed the images/test and approve the above interpretation. Home phone: [phone] Film and interpretation reviewed by the attending [...] and approve the above interpretation. Home phone: [phone] Film and interpretation reviewed by the attending Aimee Islas MD IMG MAMMO ORDERABLES documented in this encounter Visit Diagnoses Diagnosis Abnormal mammogram, unspecified - Primar y Abnormal mammogram, unspecified Abnormal mammogram, unspecified documented in this encounter Care Teams Modeling Agency Manager Relationship Specialty Start Date End Date Violeta Rivera MD PCP - General 10/05/11 09/15/19 [address] [place] [address] documented as of this encounter
--- OUTSIDE RECORDS SUMMARY | 2022-02-22 01:01 | XMS_ITS | Encounter Summary ---
:1945 [place] [address] Care Team Providers Name Role Phone Sarah Gregory APRN Primary Care Provider Reason for Visit Reason Comments GI Problem Encounter Details Date Type Department Care Team Description 02/25/2011 Follow-Up Gastroenterology at [facility] Ese Lazaro Elevated liver [facility] Gael johnson [place] [address] [facility] (Primary Dx) [phone] [facility] [place], [place] [address] Social History Tobacco Use Types [...] Sign Reading Time Taken Comments Blood Pressure 153/95 02/25/2011 1:30 PM EDT Pulse 66 02/25/2011 1:30 PM EDT Temperature - - Respiratory Rate - - Oxygen Saturation - - Inhaled Oxygen Concentration - - Weight 112.9 kg (249 lb) 02/25/2011 1:30 PM EDT Height 167.6 cm (5' 6) 02/25/2011 1:30 PM EDT Body Mass Index 40.19 02/25/2011 1:30 PM EDT documented in this encounter Progress Notes Ese Lazaro APRN - 02/25/2011 1:55 PM EDT Subjective: Patient ID: Zack Robbins is a 65 y.o. female. HPI Ms. Robbins is a 65 year old [...] a dilated CBD on abdominal ultrasound. She is currently feeling well except for some fatigue. She is not having abdominal pain, fevers or chills. She denies gi tract bleeding. Her was screened for hepatitis B and was negative. Results for ZACK ROBBINS ( ) as [...] Latest Range: Negative Negative Hep B DNA Quant[facility] Latest Range: <357 IU/mL <357 Hep B E Ab[facility] Latest Range: Negative Negative Hep B E Ag[facility] Latest Range: Negative Negative Review of Systems Constitutional: Positive for fatigue. Negative for fever and chills. Respiratory: Positive for cough and shortness of breath. Gastrointestinal: Negative for nausea, vomiting, abdominal pain and blood in stool. Objective: Physical Exam Constitutional: She appears well-developed and well-nourished. Cardiovascular: Normal rate, regular rhythm and normal heart sounds. No murmur heard. Pulmonary/Chest: She has no wheezes. Abdominal: There is no hepatosplenomegaly. Assessment and Plan: Ms Robbins has elevated liver tests with out active hepatitis B infection although she has been exposed to the virus in the past as evidenced by her positive cab and positive sag. It is possible that she has a low level of detectable virus which is not picked up by this test as the lower level of detec tion of the test is 357 iu. In any event at this time I think it is best to monitor her blood tests for a few months, will plan to check hepatic panel and HBV DNA level every three months for the next six months and have her return at that time for follow up. I am also suspicious that she may have fatcontributing to her elevated liver tests, she will get a repeat abdominal ultrasound in six months at the time of her return appointment. documented in this encounter Plan of Treatment Not on filedocumented as of this encounter Results US abdomen complete (08/26/2011 11:00 AM EDT) Anatomical Region Laterality Modality Abdomen, Vascular Ultrasound Specimen (Source) Anatomical Collection Method Collection Time Re ceived Time Location / / Volume Laterality 08/26/2011 11:00 AM EDT Narrative 08/26/2011 11:12 AM EDT ?Abdominal ? (Signed Final 08/26/2011 11 :12 am) Patient Info ID: ? [id number] ? : ??[birth year] (65 yrs) Name: ? ZACK ROBBINS ?Visit Date: 08/26/2011 10:54 am Performed By Performed By: ?Sushma SINGH, Ronni Associate: ? Estefany VARGAS, Bryant Penaloza Attending: ? Rachael VARGAS, Marcela Broussard Referred By: ? ESE LAZARO PASTE MIXER Service(s) Provided [facility] - Abdominal Complete Survey - 002 [id number] ? [id number] Indications Elevated liver function test, question steatosis ----- Liver ----- Right Lobe Length: ?? 16.9 ?? cm Echogenicity/Echotexture: ?? Fatty live r ------- Lesions ------- # ?Date ?Location ?Description ? L ? AP ? TV (cm) 1 ?08/26/11 ?Left Lobe ? Si mple cyst ?1.1 2 ?08/26/11 ?Left Lobe ? Si mple cyst ? 1 3 ?08/26/11 ?Right lobe ?Si mple cyst ?1.2 ?1.4 ?1.5 4 ?08/26/11 ?Right lobe ?Si mple cyst ?2.1 ?1.8 ? 2 5 ?08/26/11 ?Right lobe ?Si mple cyst ?1.3 ? 1 ? 1.5 Comment: ?Multiple cysts Gallbladder Comment: ?Cholecystectomy Biliary Tract Intrahepatic Ducts: ?? Moderate dilatat ion Extrahepatic Ducts: ?? Mild dilatation Common Duct Size: ? 11 ?mm -------- Pancreas -------- Head: ? Normal Tail: ? Poorly visua lized due to overlying bowel Body: ? Normal Comment: ?CBD Dilated in the pancre atic head measuring 1.4 ? cm ------ Spleen ------ Size (cm) ?L: ??9.4 ? AP: ?? 8.9 ? TV: ??3.8 Vol (ml): ?166.5 Comment: ?Normal appearance Right Kidney Size (cm) ?L: ??10.8 Cortical Thickness: ?Normal Cortical Echogenicity: ?? Normal Hydronephrosis: ?No sonogr aphic evidence ------- Lesions ------- # ?Date ?Location ?Description ? L ? AP ? TV (cm) 1 ?08/26/11 ?Upper pole ?Si mple cyst ?0.9 ? 1 ? 1.1 Comment: ?Stone mid pole 9 mm Left Kidney Cortical Thickness: ?Normal Cortical Echogenicity: ?? Normal Hydronephrosis: ?No sonogr aphic evidence ------- Lesions ------- # ?Date ?Location ?Description ? L ? AP ? TV (cm) 1 ?08/26/11 ?Kitty-pelvic ?? Sim ple cyst ?2.1 ? 2 ? 1.7 2 ?08/26/11 ?Kitty-pelvic ?? Sim ple cysts ? 0.8 Comment: ?Multiple peripelvic cysts ----- Aorta ----- Measurements (cm): Proximal ? AP: ?? 2.5 Mid ?AP: ?? 1.5 Distal ? AP: ?? 1.7 Comment: ?Normal in caliber --- IVC --- Normal in caliber, where visualized Impression Ultrasound - Abdomen Complete - Summary 1. ??Fatty liver with multiple cysts. 2. ??Intra and extra-hepatic duct dilat ion, s/p cholecystectomy. ?CBD 1.1 cm. ??Ata t within the pancreatic 1.4 cm. ??favor further eval uation with Abdominal CT scan. 3. ??Right upper pole renal cyst and st one. ??Left kidney multiple peripelvic cysts4. ??Normal ca liber aorta, and IVC. I ??viewed the images and agree with oz miguel above interpretation. Thank you for allowing us to participat lamont in the care of ZACK ROBBINS. Please do not hesitat e to call if you have any questions. ?Marcela Cano MD Electronically Signed Final Report ?? 11:12 am Film and interpretation reviewed by the attending Procedure Note Marcela Cano MD - 08/26/2011Forma tting of this note might be different from the original. Abdominal (Signed Final 08/26/2011 11:12 am) Patient Info ID: [id number] : [birth year] (65 yrs ) Name: ZACK ROBBINS Visit Date: 07/29 10:54 am Performed By Performed By: Ronni Ordaz RDMS Associate: Estefany VARGAS, Bryant Penaloza Attending: Marcela Cano MD Referred By: ESE LAZARO APRN Service(s) Provided [facility] - Abdominal Complete Survey - [phone] Indications Elevated liver function test, question steatosis ----- Liver ----- Right Lobe Length: 16.9 cm Echogenicity/Echotexture: Fatty liver ------- Lesions ------- # Date Location Description L AP TV (cm ) 1 08/26/11 Left Lobe Simple cyst 1.1 2 08/26/11 Left Lobe Simple cyst 1 3 08/26/11 Right lobe Simple cyst 1.2 1 .4 1.5 4 08/26/11 Right lobe Simple cyst 2.1 1 .8 2 5 08/26/11 Right lobe Simple cyst 1.3 1 1.5 Comment: Multiple cysts Gallbladder Comment: Cholecystectomy Biliary Tract Intrahepatic Ducts: Moderate dilatation Extrahepatic Ducts: Mild dilatation Common Duct Size: 11 mm -------- Pancreas -------- Head: Normal Tail: Poorly visualized due to overlyin g bowel Body: Normal Comment: CBD Dilated in the pancreatic head measuring 1.4 cm ------ Spleen ------ Size (cm) L: 9.4 AP: 8.9 TV: 3.8 Vol (ml): 166.5 Comment: Normal appearance Right Kidney Size (cm) L: 10.8 Cortical Thickness: Normal Cortical Echogenicity: Normal Hydronephrosis: No sonographic evidence ------- Lesions ------- # Date Location Description L AP TV (cm ) 1 08/26/11 Upper pole Simple cyst 0.9 1 1.1 Comment: Stone mid pole 9 mm Left Kidney Cortical Thickness: Normal Cortical Echogenicity: Normal Hydronephrosis: No sonographic evidence ------- Lesions ------- # Date Location Description L AP TV (cm ) 1 08/26/11 Kitty-pelvic Simple cyst 2.1 2 1.7 2 08/26/11 Kitty-pelvic Simple cysts 0.8 Comment: Multiple peripelvic cysts ----- Aorta ----- Measurements (cm): Proximal AP: 2.5 Mid AP: 1.5 Distal AP: 1.7 Comment: Normal in caliber --- IVC --- Normal in caliber, where visualized Impression Ultrasound - Abdomen Complete - Summary 1. Fatty liver with multiple cysts. 2. Intra and extra-hepatic duct dilatio n, s/p cholecystectomy. CBD 1.1 cm. Duct withi n the pancreatic 1.4 cm. favor further evalua tion with Abdominal CT scan. 3. Right upper pole renal cyst and ston e. Left kidney multiple peripelvic cysts4. Normal bon se aorta, and IVC. I viewed the images and agree with the above interpretation. Thank you for allowing us to participat e in the care of ZACK ROBBINS. Please do not hesitat e to call if you have any questions. Marcela Cano MD Electronically Signed Final Report 08/25 11:12 am Film and interpretation reviewed by the attending Yves Juarez MD IMG US GEN ORDERABLES documented in this encounter Visit Diagnoses Diagnosis Elevated liver function tests - Primary Other abnormal blood chemistry Elevated liver function tests Other abnormal blood chemistry documented in this encounter Care Teams Home Security Professional Relationship Specialty Start Date End Date Sarah Gregory APRN PCP - General 01/29/11 10/04/11 [address] [place] [address] documented as of this encounter
--- OUTSIDE RECORDS SUMMARY | 2022-02-22 01:01 | XMS_ITS | Encounter Summary ---
:1945 Author Organization [facility] [place] [address] Care Team Providers Name Role Phone Sarah Gregory GAMALIEL Primary Care Provider Encounter Details Date Type Department Care Team Description 08/26/2011 Hospital En[place] [facility] Elevated liver function [facility] [place] [address] Social History Tobacco Use Types Packs/Day [...] tablet needed. documented as of this encounter Miscellaneous Notes Miscellaneous - Provider, Scanning - 08/29/2011 11:19 AM EDT documented in this encounter Plan of Treatment Not on filedocumented as of this encounter Procedures Procedure Name Priority Date/Time Associated Diagnosis Comme nts US ABDOMEN COMPLETE Routine 08/26/2011 11:00 AM Elevated liver Results for this EDT function tests procedure are in the results section. documented in this encounter Results US abdomen complete (08/26/2011 11:00 AM EDT) Anatomical Region Laterality Modality Abdomen, Vascular Ultrasound Specimen (Source) Anatomical Collection Method Collection Time Re ceived Time Location / / Volume Laterality 08/26/2011 11:00 AM EDT Narrative 08/26/2011 11:12 AM EDT ?Abdominal ? (Signed Final 08/26/2011 11 :12 am) Patient Info ID: ? [id number] ? : ??[birth year] (65 yrs) Name: ? ZACK ROBBINS ?Visit Date: 08/26/2011 10:54 am Performed By Performed By: ?Ronni Ordaz RDMS Associate: ? Estefany VARGAS, Bryant Pnealoza Attending: ? Rachael VARGAS, Marcela Broussard Referred By: ? RADHA MALAVE APRN Service(s) Provided [facility] - Abdominal Complete Survey - 002 [id number] ? [id number] Indications Elevated liver function test, question steatosis [...] ?2.1 ? 2 ? 1.7 2 ?08/26/11 ?Ktity-pelvic ?? Sim ple cysts ? 0.8 Comment: [...] Final 08/26/2011 11:12 am) Patient Info ID: [id number] : [birth year] (65 yrs ) Name: ZACK ROBBINS Visit Date: 07/29 10:54 am Performed By Performed By: Ronni Ordaz RDMS Associate: Bryant Allison MD Attending: Marcela Cano MD Referred By: RADHA MALAVE APRN Service(s) Provided [facility] - Abdominal Complete Survey - [phone] Indications Elevated liver function test, question steatosis [...] chemistry documented in this encounter Care Teams Research Attorney Relationship Specialty Start Date End Date Sarah Gregory APRN PCP - General 01/29/11 10/04/11 [address] [place] [address] documented as of this encounter
--- OUTSIDE RECORDS SUMMARY | 2022-02-22 01:01 | XMS_ITS | Encounter Summary ---
:1945 Author Organization [facility] [place] [address] Care Team Providers Name Role Phone Sarah Gregory APRN Primary Care Provider Encounter Details Date Type Department Care Team Description 09/18/2011 Orders Only [place] [facility] Ese Lazaro, Biliary disease [facility] Gael johnson APRN (Primary Dx) [place] [address] [facility] [phone] [facility] [place] [address] Social History Tobacco Use Types Packs/Day Years [...] Name Priority Date/Time Associated Diagnosis Comme nts UPPER EUS-ENDOSCOPIC Routine 09/18/2011 4:19 PM EDT Biliary di sease ULTRASOUND ERCP Routine 09/18/2011 4:19 PM EDT Biliary disease documented in this encounter Visit Diagnoses Diagnosis Biliary disease - Primary Unspecified disorder of biliary tract documented in this encounter Care Teams Biofuels Plant Manager Relationship Specialty Start Date End Date Sarah Gregory APRN PCP - General 01/29/11 10/04/11 [place] [address] documented as of this encounter
--- OUTSIDE RECORDS SUMMARY | 2022-02-22 01:01 | XMS_ITS | Encounter Summary ---
:1945 Author Organization [facility] [place] [address] Care Team Providers Name Role Phone Destiney Motley APRN Primary Care Provider Reason for Referral Consultation (Routine) - Closed Specialty Diagnoses / Procedures Referred By Contact Refer red To Contact General Surgery Diagnoses Primary hyperparathyroidism Hyperparathyroidism Fabrizio Harrell MD Sorensen, Meredith J, Procedures Hyperparathyroidism [facility] [address] VARGAS ENDOCRINOLOGY [facility] [place] [address] [place] [address] Phone: Fax: Referral ID Status Reason Start Date Expiration Date Visits V isits Requested Authorized [id number] Closed Consult, 11/05/2019 11/04/2020 1 1 Test & Treat Encounter Details Date Type Department Care Team Description 11/05/2019 Orders Only Endocrinology at [facility] Fabrizio Harrell, [facility] hyperparathyroidism [facility] [id number] ENDOCRINOLOGY [phone] [place] [address] Social History Tobacco Use Types Packs/Day Years [...] as of this encounter Plan of Treatment Scheduled Referrals Name Type Priority Associated Diagnoses Order S chedule Referral to Outpatient Routine Primary hyperparathyroidism Ordered: General Surgery Referral 11/05/2019 documented as of this encounter Visit Diagnoses Diagnosis Primary hyperparathyroidism documented in this encounter Care Teams Clerical Support Specialist Relationship Specialty Start Date End Date Destiney Motley APRN PCP - General Family Medicine 09/16/19 [facility] [address] [place] [address] documented as of this encounter
--- OUTSIDE RECORDS SUMMARY | 2022-02-22 01:01 | XMS_ITS | Encounter Summary ---
:1945 Author Organization [place] [address] Care Team Providers Name Role Phone NimaberkleyaidenDestiney GAMALIEL Primary Care Provider Reason for Visit Reason Comments Establish Care Hyperparathyroidism Consultation (Routine) - Closed Specialty Diagnoses / Procedures Referred By Contact Refer red To Contact General Surgery Diagnoses Primary hyperparathyroidism Hyperparathyroidism Fabrizio Harrell MD Sorensen, Meredith J, Procedures Hyperparathyroidism [facility] DR VARGAS ENDOCRINOLOGY [facility] [address] [place] [id number] [place] [address] Phone: Fax: Referral ID Status Reason Start Date Expiration Date Visits V isits Requested Authorized [id number] Closed Consult, 11/05/2019 11/04/2020 1 1 Test & Treat Encounter Details Date Type Department Care Team Description 01/13/2020 Office Visit General Surgery at Makayla Montez MD [facility] [place] [address] Hyperparathyroidism, [facility] Gardenia Garza APRN [facility] [place] [address] [place] [phone] Social History Tobacco Use Types Packs/Day Years [...] Sign Reading Time Taken Comments Blood Pressure 153/87 01/13/2020 12:49 PM EDT Pulse 96 01/13/2020 12:49 PM EDT Temperature 35.9 ??C (96.7 ??F) 01/13/2020 12:49 PM EDT Respiratory Rate 18 01/13/2020 12:49 PM EDT Oxygen Saturation 95% 01/13/2020 12:49 PM EDT Inhaled Oxygen Concentration - - Weight 110.8 kg (244 lb 4.8 oz) 01/13/2020 12:49 PM EDT Height 160 cm (5' 3) 01/13/2020 12:49 PM EDT Body Mass Index 43.28 01/13/2020 12:49 PM EDT documented in this encounter Progress Notes Radha Montez MD - 01/13/2020 1:00 PM EDT Endocrine Surgery Initial Consultation HPI: Ms. Dominique Robbins is a very pleasant 74 y.o. year old female who presents for evaluation of primary hyperparathyroidism as a referral from Dr. Harrell. Her hypercalcemia was initially detected on routine labs. She is taking sensipar since August of this year. There is not a history of nephrolithiasis. She does have a history of osteoporosis. She is on Fosamax, and she tells me recent DEXA scan improvedto osteopenia. There is a history of fractures in 2003 (compression fracture) and 2005 (wrist after a fall). No recent fractures. She denies symptoms of hyperparathyroidism includingfatigue, memory loss and bone pain. There is not a history of previous anterior neck surgery. She does not have a familyhistory of endocrinopathies, hypercalcemia or endocrine malignancy. She presents today for consideration of surgical management of her hyperparathyroidism. Recent labs: Serum calcium Lab Results Component Value Date CALCIUM 12.7 (H) 09/13/ mg/dL PTH 315 pg/mL 25-OH Vitamin D 78.4 ng/mL Ionized Calcium mmol/L Phosphorus mg/dL 24 hour urine calcium mg/24hr Recent studies: Recent DEXA scan: osteopenia (downgraded from osteoporosis per PCP recent note). 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 Past Medical History: Diagnosis Date ??? COPD (chronic obstructive pulmonary disease) ??? Hypertension ??? Obesity ??? Osteoporosis Past Surgical History: Procedure Laterality Date ??? CHOLECYSTECTOMY, LAPAROSCOPIC ??? PRO ENDOSCOPIC US EXAM, ESOPH 10/14/2011 UPPER EUS- ENDOSCOPIC ULTRASOUND performed by DARION BAILEY at [facility] ENDOSCOPY ??? PRO ERCP,DIAGNOSTIC 10/14/2011 ERCP performed by DARION BAILEY at [facility] ENDOSCOPY ??? PRO EXCISE BREAST LES W XRAY MARKER 10/12/2012 EXCISION LESION, BREAST W/ PREOP.MARKER (NEEDLE LOC.) performed by Valentino Mcnally MD at [facility] MAIN OR ??? WRIST SURGERY Current Outpatient Medications on File Prior to Visit Medication Sig Dispense Refill ??? UNABLE TO FIND Take 1 capsule by mouth daily. Medication: Restore capsules ??? alendronate (Fosamax) 70 mg Tablet Take 70 mg by mouth once a week. ??? Cholecalciferol, Vitamin D3, 125 mcg (5,000 unit) Capsule Take 5,000 Units by mouth daily. ??? clotrimazole-betamethasone (LOTRISONE) 1-0.05 % Cream Apply to affected area as needed ??? triamcinolone (ARISTOCORT) 0.5 % Ointment Apply to bilateral legs once a day as needed ??? loperamide (IMODIUM A-D) 2 mg Tablet Take 4 mg by mouth as needed for Diarrhea. Maximum 16 mg in24 hours ??? polysorbate 80/glycerin (REFRESH DRY EYE THERAPY OPHT) Apply to eye as needed. ??? hydroCHLOROthiazide (Hydrodiuril) 25 mg Tablet Take 25 mg by mouth daily. ??? Spiriva with HandiHaler 18 mcg Capsule, w/Inhalation Device ??? lisinopril (PRINIVIL;ZESTRIL) 40 mg tablet Take 40 mg by mouth daily. ??? albuterol (PROVENTIL HFA;VENTOLIN HFA) 90 mcg/Actuation inhaler Inhale 2 puffs into the lungs every 4 hours as needed. Use with spacer ??? acetaminophen (TYLENOL) 500 mg tablet Take 1,000 mg by mouth every 6 hours as needed. ??? fluticasone-salmeterol (ADVAIR DISKUS) 250-50 mcg/dose diskus inhaler 1 Disk(s), Inh, Twice daily ??? [DISCONTINUED] cinacalcet (Sensipar) 30 mg Tablet TK 1 T PO BID ??? [DISCONTINUED] potassium chloride 20 mEq Tablet Sustained Release ??? [DISCONTINUED] hydroCODone-acetaminophen (VICODIN ES) 7.5-750 mg per tablet Take 1 tablet by mouth every 6 hours as needed for Pain. 15 tablet 0 ??? [DISCONTINUED] furosemide (LASIX) 20 mg tablet Take 20 mg by mouth daily as needed. ??? [DISCONTINUED] amlodipine (NORVASC) 5 mg tablet Take 5 mg by mouth daily as needed. ??? [DISCONTINUED] diphenoxylate-atropine (LOMOTIL) 2.5-0.025 mg per tablet Take 1 tablet by mouth daily as needed. No current facility-administered medications on file prior to visit. Allergies as of 01/13/2020 - Review Complete 01/13/2020 Allergen Reaction Noted ??? Rice 01/13/2020 ??? Adhesive tape 01/13/2020 ??? Levothyroxine sodium Other (See Comments) 09/10/2019 ??? Motrin [ibuprofen] 01/24/2011 Family History: No thyroid cancer. No pituitary, pancreas or adrenal tumors. No parathyroid disease. Social History: She lives with her , they have been for 55 years. They have two children and two grandchildren. She is a retired [employer]. Quit smoking in 1999. No professional public speaking or singing. Review of Systems: 10 of 14 systems reviewed and all negative except as per HPI Encounter Vitals: BP 153/87 Pulse 96 Temp 35.9 ??C (96.7 ??F) (Skin) Comment (Src): forehead Resp 18 Ht 160 cm(5' 3) Wt 110.8 kg (244 lb 4.8 oz) SpO2 95% BMI 43.28 kg/m?? Physical Exam: System Normal Abnl Findings General [x] [] Well nourished, appears well Skin [x] [] Warm and dry Neck [x] [] No thyromegaly, no masses, trachea midline Lymph Nodes [x] [] No cervical lymphadenopathy Lungs [x] [] Normal respiratory effort, clear to auscultation bilaterally Cardiovascular [x] [] Regular rate and rhythm, no murmurs Extremities [x] [] Warm, no edema, full ROM Neuro [x] [] Motor intact, voice normal Psych [x] [] Normal mood and affect; responds to questions appropriately Procedures performed this visit: Thyroid, Parathyroid and Cervical Ultrasound I performed a thyroid, parathyroid and cervical ultrasound at the time of the clinic visit today using the 12 mHz linear ultrasound transducer. The thyroid, parathyroid and central and bilateral lateral neck lymph node basins were evaluated. The findings include: Thyroid Isthmus: Thickness: 0.22 cm Nodules: none Right lobe: Lobe: 4.64 x 2.20 x 2.29 cm Nodules: none Left lobe: Lobe: 4.52 x 1.39 x 1.33 cm Nodules: Scattered subcentimeter spongiform nodules In the right upper parathyroid location is a hypoechoic nodule measuring 1.66 x 1.18 x 1.02cm In the left lower parathyroid location is a hypoechoic nodule 1.68 x 1.32 x 0.97cm Cervical lymph nodes Central neck: Normal ultrasonographic appearing lymph nodes Right lateral neck: Normal ultrasonographic appearing lymph nodes Left lateral neck: Normal ultrasonographic appearing lymph nodes Assessment and Plan: Ms. Dominique Robbins is a 74 y.o. year old female with asymptomatic biochemical primary hyperparathyroidism and a history of osteoporosis , serum calcium > 1mg/dl above normal and reduced GFR. 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 We discussed the typical work up and management of primary hyperparathyroidism. I let her know that it is unusual to have two glands abnormal and two glands normal, so I suspect she will need a subtotal parathyroidectomy. I therefore recommended bilateral exploration with intraop erative parathyroid hormone monitoring +/- IOPTH. I discussed the risks of parathyroidectomy with the patient including, but not limited to, nerve injury resulting in voice changes or hoarseness of voice, low calcium related to removal of parathyroid tissue, bleeding which may require reoperation, infection and complications related to anesthesia. She confirmed understanding of these risks and consent was obtained today. Surgery will be scheduled for the soonest mutually convenient date. CESQIP Data Patient Characteristics Body mass index is 43.28 kg/m??. Patient Ethnicity & Race Ethnic Group Patient Race Not nor White Prior neck irradiation: no Prior anterior neck surgery: no Pre-operative laryngoscopy: no Anti-coagulation meds (aspirin, warfarin, clopidogrel, heparin, oral thrombin or factor Xa inhibitors): no Disease Characteristics Primary Pre-Operative Diagnosis: sporadic primary hyperparathyroidism Persistent/Recurrent Hyperparathyroidism: No Calcium: high 24-hour Urine calcium: not examined GFR decreased: Yes, 34.6 Ionized calcium: not examined PTH: high 70-CA-Dldavzh D: normal Subjective Symptoms: no Objective Symptoms: yes Imaging Studies: Localization studies performed: yes Localization study type: ultrasound and sestamibi Ultrasound result: Multi-gland disease Sestamibi result: Multi-gland disease documented in this encounter Plan of Treatment Not on filedocumented as of this encounter Visit Diagnoses Diagnosis Hyperparathyroidism, primary Primary hyperparathyroidism documented in this encounter Care Teams Pyridine Operator Relationship Specialty Start Date End Date Destiney Motley APRN PCP - General Family Medicine 09/16/[address] [place] [address] [address] [place] [address] documented as of this encounter
--- OUTSIDE RECORDS SUMMARY | 2022-02-22 01:01 | XMS_ITS | Encounter Summary ---
:1945 [place] [address] Care Team Providers Name Role Phone Destiney Motley APRN Primary Care Provider Reason for Visit Auth/Cert Specialty Diagnoses / Procedures Referred By Contact Refer red To Contact Diagnoses HYPERPARATHYROIDISM Procedures PRO EXPLORE PARATHYROID GLANDS PRG EMG, LARYNX PARATHYROIDECTOMY OR EXPLORATION OF PARATHYROID(S) (WRVU 15.6) FACIAL NERVE MONITORING, SETUP LARYNGEAL (WRVU 1.57) Referral ID Status Reason Start Date Expiration Date Visits Requ ested Visits Authorized [id number] 1 1 Encounter Details Date Type Department Care Team Description 03/20/2020 Anesthesia Event Main Operating Room Keagan Montes MD [facility] [place] [address] [place] [address] [phone] Anesthesia Record Procedure Summary Procedure Name Responsible Anesthesia Start Anesthesia Stop Anesthesiologist Time Time PARATHYROIDECTOMY OR Keagan Claros MD 03/20/20 1015 0 1216 EXPLORATION OF PARATHYROID(S) (WRVU 15.6) (N/A Neck) Events Date Time Event Comment 03/20/2020 0951 1015 AN Verify 1015 Start 1015 An Start Data 1019 An Induction 1023 An Intubation 1031 Anesthesia Ready 1045 Skin Incision 1137 Break/Relief In I assumed care f or Break Relief before which we: 1. Identifie d the patient 2. Identified the responsible provider(s) 3. Reviewed the pertinent medica l history 4. Discussed the surgical plan an d course 5. Reviewed intra-op anesthesia manag ement and issues during anesthesia 6. Se t expectations for the relief (and/or post-pro cedure) period 7. Allowed opportunity for questions and acknowledgement of understanding BRIDGET Davis 1209 Extubation/LMA Out 1209 an stop data 1216 Recovery or ICU Handoff Patient care was transferred to the destination unit staff after review of the patient's medica l history, current anesthetic/surgi rangel status and plan, according to the Provider Handoff Checklist. 1216 Stop Name Total fentaNYL 100 mcg IV Lidocaine 100 mg Propofol 250 mg PHENYLephrine 560 mcg Ondansetron 4 mg Dexamethasone 8 mg Succinylcholine 100 mg Dexmedetomidine 12 mcg Propofol INF 545.49 mg PHENYLephrine INF 1,925 mcg lactated ringers infusion 600 mL Lactated Ringers 200 mL Agents Name O2 Air N2O Sevoflurane (et) Blood No blood administrations on file. Lines, Drains, and Airways Type Details Placement Removal Incision 10/12/12; breast; 12/24/21 10/12/12 0000 by Mark er, 12/24/21 1715 by (LDA cleanup utility JOHN Tirado Die rdre L RA#[id number]); 1715 (LDA cleanup utility RA#[id number]) PIV 03/20/20; 0919; median 03/20/20 0919 by 03/20/20 1446 by cubital vein (antecubital Jayla Onofre RN Curtis, Gladys F, RN fossa), left; amqg-uro-ceilkn catheter system; 20 gauge; Varun Onofre RN; distraction, tolerated well, appears comfortable; 03/20/20; 1446 ETT Mask Ventilation: Not 03/20/20 1023 by Iva, 03/20/20 1209 by Attempted (0); ETT Type: Cielo R, LINSEED OIL REFINER Iva , Cielo R, LINSEED OIL REFINER Cuffed, Oral, NIM; ETT Size: 7 mm; Indirect:Video; Notes: Asleep, Pre-O2, Stylette; Attempts: 1; Laryngoscopy Grade: 1; ETT Placement Verified By: Auscultation, Capnometry, Visual PIV 03/20/20; 1035; median 03/20/20 1035 by Iva, 03/20/20 1446 by cubital vein (antecubital Cielo RBRIDGET Gladys F, JOHN fossa), left; xgth-qpa-ngrcme catheter system; 18 gauge; 03/20/20; 1446 Incision 03/20/20; 1045; neck; 03/20/20 1045 by 12/24/21 1715 by 12/24/21 (LDA cleanup Allison Talavera RN Mu ller, Marileerdre L utility RA#[id number]); 1715 (LDA cleanup utility RA#[id number]) documented in this encounter Social History Tobacco [...] encounter OR Notes Anesthesia Postprocedure Evaluation - Keagan Claros MD - 03/20/2020 1:06 PM EST Department of Anesthesiology Post-procedure Note Patient: Dominique Robbins Procedure Summary Date: 03/20/20 Room / Location: [address] MAIN OR Anesthesia Start: 1015 Anesthesia Stop: 1216 Procedures: PARATHYROIDECTOMY OR EXPLORATION OF PARATHYROID(S) (WRVU 15.6) (N/A Neck) FACIAL NERVE MONITORING, SETUP LARYNGEAL (WRVU 1.57) (N/A Neck) Diagnosis: (HYPERPARATHYROIDISM) Surgeon: Radha Montez MD Responsible Provider: Keagan Claros MD Anesthesia Type: general ASA Status: 3 All Anesthesia Providers: Anesthesiologist: Keagan Claros MD LINSEED OIL REFINER: Cielo Enrique CRNA Vitals Value Taken Time BP 119/59 03/20/20 1215 Temp Pulse 76 03/20/20 1300 Resp 18 03/20/20 1300 SpO2 96 % 03/20/20 1300 Pain Level Patient Location: PACU/[facility] Level of Consciousness: Awake and Alert Pain Management: Satisfactory Analgesia PONV: None Cardiovascular Status: Hemodynamically Stable and At Baseline Respiratory Status: Stable Respiratory Status and Supplemental O2 (NC or FM) Postoperative Fluid Status: Intravascular EUvolemia Possible Anesthetic Complications: NONE apparent at time of evaluation Final Primary Anesthesia Type: General (The anesthetic type performed was the same as planned.) Comments: Anesthesia Preprocedure Evaluation - Keagan Claros MD - 03/20/2020 9:49 AM EST Pre-Anesthesia Evaluation for: Dominique Robbins a 74 y.o. female. Procedure(s): PARATHYROIDECTOMY OR EXPLORATION OF PARATHYROID(S) (WRVU 15.6) FACIAL NERVE MONITORING, SETUP LARYNGEAL (WRVU 1.57) Patient Active Problem List Diagnosis ??? Morbid obesity with BMI of 40.0-44.9, adult ??? Osteoporosis ??? Former smoker, stopped smoking many years ago ??? Hypertension ??? COPD (chronic obstructive pulmonary disease) Past Medical History: Diagnosis Date ??? Abnormal mammogram 10/07/2012 Left breast ??? COPD (chronic obstructive pulmonary disease) ??? Elevated liver function tests 01/24/2011 ??? Hypertension ??? Obesity ??? Osteoporosis ??? Sleep apnea-like behavior Past Surgical History: Procedure Laterality Date ??? CHOLECYSTECTOMY, LAPAROSCOPIC ??? PRO ENDOSCOPIC US EXAM, ESOPH 10/14/2011 UPPER EUS- ENDOSCOPIC ULTRASOUND performed by DARION BAILEY at [facility] ENDOSCOPY ??? PRO ERCP,DIAGNOSTIC 10/14/2011 ERCP performed by DARION BAILEY at [facility] ENDOSCOPY ??? PRO EXCISE BREAST LES W XRAY MARKER 10/12/2012 EXCISION LESION, BREAST W/ PREOP.MARKER (NEEDLE LOC.) performed by Valentino Mcnally MD at [facility] MAIN OR ??? WRIST SURGERY Social History Tobacco Use ??? Smoking status: Former Smoker Packs/day: 1.00 Years: 42.00 Pack years: 42.00 Quit date: 01/25/2000 Years since quittin.1 ??? Smokeless tobacco: Never Used Substance Use Topics ??? Alcohol use: No Comment: rare use Social History Substance and Sexual Activity Drug Use No Allergies Allergen Reactions ??? Rice vomiting ??? Adhesive Tape Red, burning skin ??? Levothyroxine Sodium Other (See Comments) Hair fell out ??? Motrin [Ibuprofen] Rectal bleeding Medications: MAR and/or home medications have been reviewed. Physical Exam: Patient Vitals for the past 24 hrs: Temp Pulse Resp BP SpO2 O2 Device 03/20/20 0857 36.3 ??C (97.3 ??F) 97 20 134/74 99 % RA Body mass index is 43.05 kg/m??. Height: 160 cm (5' 3) Weight: 110.2 kg (243 lb) Airway Assessment: Mallampati: III TM distance: >3 FB Neck ROM: full Cardiovascular Assessment: Rhythm: regular Rate: normal Pulmonary Assessment: unlabored breathing PE comment: Mild tachypnea. Dental Assessment: (+) edentulous Misc Assessment: IV access: Peripheral line Anesthesia Plan: ASA 3 general, with a(n) intravenous induction 74 y/o woman with a PMH of obesity, COPD, JOYCE, HTN, hyperparathyroidism here for parathyroidectomy. Tolerated GA in the past. NPO. Plan for GA, NIM tube. Region - Other Informed Consent: Anesthetic plan and risks discussed with patient and spouse. Plan discussed with LINSEED OIL REFINER. PAT Clinic Note documented in this encounter Plan of Treatment Not on filedocumented as of this encounter Visit Diagnoses Not on filedocumented in this encounter Administered Medications Inactive Administered Medications - up to 3 most recent administrations Medication Order MAR Action Action Date Dose Rate Site dexamethasone (Decadron) injection Given 03/20/2020 10:27 AM EST 8 mg PRN, Starting on Fri03/20/20 at 1027, Until Fri03/20/20 at 1216, Anesthesia Intra-op, Routine dexmedetomidine (PRECEDEX) injection Given 03/20/2020 10:51 AM EST 4 mcg PRN, Starting on Fri03/20/20 at 1043, Until Fri03/20/20 at 1216, Anesthesia Intra-op, Routine Given 03/20/2020 10:43 AM EST 8 mcg fentaNYL 50 mcg/mL multi-dose injection Given 03/20/2020 10:43 AM EST 50 mcg PRN, Starting on Fri03/20/20 at 1019, Until Fri03/20/20 at 1216, Anesthesia Intra-op, Routine Given 03/20/2020 10:19 AM EST 50 mcg lactated ringers infusion New Bag 03/20/2020 10:15 AM EST 1,000 mL, at 100 mL/hr, Intravenous, CONTINUOUS, Starting on Fri03/20/20 at 0915, Until Fri03/20/20 at 1446, Day of Surgery (Day of Procedure) New Bag 03/20/2020 9:20 AM EST 1,000 mLs 100 mL/hr lactated ringers infusion New Bag 03/20/2020 10:31 AM EST CONTINUOUS PRN, Starting on Fri03/20/20 at 1031, Until Fri03/20/20 at 1216, Anesthesia Intra-op lidocaine (PF) (XYLOCAINE) 100 mg/5 mL (2 %) Given 10:19 AM EST 100 mg injection PRN, Starting on Fri03/20/20 at 1019, Until Fri03/20/20 at 1216, Anesthesia Intra-op, Routine ondansetron (ZOFRAN) injection Given 03/20/2020 11:43 AM EST 4 mg PRN, Starting on Fri03/20/20 at 1143, Until Fri03/20/20 at 1216, Anesthesia Intra-op, Routine PHENYLephrine Rate/Dose Change 03/20/2020 11:12 50 mcg/min 37.5 mL/hr (PIERRE-SYNEPHRINE) 20 mg in AM EST sodium chloride 250 mL (standard ADULT & Pedi greater than 20kg) infusion CONTINUOUS PRN, Starting on Fri03/20/20 at 1057, Until Fri03/20/20 at 1216, Anesthesia Intra-op, Routine New Bag 03/20/2020 10:57 AM EST 25 mcg/min 18.8 mL/hr PHENYLephrine in NS (PF) (PIERRE-SYNEPHRINE) Given 03/20/2020 1 1:58 AM EST 160 mcg 0.8 mg/10 mL (80 mcg/mL) multi-dose injection Syrg PRN, Starting on Fri03/20/20 at 1047, Until Fri03/20/20 at 1216, Anesthesia Intra-op, Routine Given 03/20/2020 11:45 AM EST 160 mcg Given 03/20/2020 10:54 AM EST 80 mcg propofoL (Diprivan) 10 mg/mL bolus injection Given 10:43 AM EST 50 mg (Anesthesia) PRN, Starting on Fri03/20/20 at 1019, Until Fri03/20/20 at 1216, Anesthesia Intra-op Given 03/20/2020 10:31 AM EST 50 mg Given 03/20/2020 10:19 AM EST 150 mg propofoL (Diprivan) Rate/Dose 03/20/2020 11:37 75 mcg/kg/min 49.6 mL /hr infusion Change AM EST CONTINUOUS PRN, Starting on Fri03/20/20 at 1019, Until Fri03/20/20 at 1216, Anesthesia Intra-op, Routine New Bag 03/20/2020 10:19 AM EST 50 mcg/kg/min 33.1 mL/hr succinylcholine chloride (Quelicin) Given 03/20/2020 10:19 AM ES T 100 mg injection PRN, Starting on Fri03/20/20 at 1019, Until Fri03/20/20 at 1216, Anesthesia Intra-op, Routine documented in this encounter Care Teams Branch Operations Coordinator Relationship Specialty Start Date End Date Destiney Motley APRN PCP - General Family Medicine 09/16/[address] [place] [address] documented as of this encounter
--- OUTSIDE RECORDS SUMMARY | 2022-02-22 01:01 | XMS_ITS | Encounter Summary ---
:1945 Author Organization [facility] [place] [address] Care Team Providers Name Role Phone Violeta Rivera MD Primary Care Provider Encounter Details Date Type Department Care Team Description 08/13/2012 Hospital Encounter XRay at [facility] [address] [place] [address] [place] [address] [place] [address] Social History Tobacco Use Types Packs/Day [...] Name Priority Date/Time Associated Diagnosis Comme nts REQUEST FOR 2ND Routine 08/13/2012 9:38 AM Result s for this READ MAMMO EDT procedure are i n the results section. documented in this encounter Results Request for 2nd read Mammo (08/13/2012 9:38 AM EDT) Anatomical Region Laterality Modality Other Specimen (Source) Anatomical Collection Method Collection Time Re ceived Time Location / / Volume Laterality 08/13/2012 9:38 AM EDT Narrative 08/17/2012 4:47 PM EDT INTERPRETATION OF OUTSIDE MAMMOGRAMS (PERFORMED ON 08/03/12 AND 08/11/12) FROM [facility] DATED 08/13/12: ?? DIAGNOSTIC IMAGING SUMMARY: ?? LEFT BREAST LESION 1: SUSPICIOUS (BIRADS Category 4). ?? Finding: Mass. ?? Size: 11mm. ?? Location: 7619-1741 in the Left breast, 5cm from the nipple. ?? Recommendation: Ultrasound guided biopsy is recommended. ?? RIGHT BREAST: ASSESSMENT IS INCOMPLETE ( BIRADS Category 0). ?? Finding: Mass, possibly with microcalcif ications. ? Size: 7mm. ?? Location: Approximately 0800 in the Righ t breast, 12cm from the nipple. ?? Recommendation: Additional magnification views and ultrasound. ?? NARRATIVE: ?? CLINICAL INDICATION: I have been asked t o consult on this patient by Dr. Violeta Rivera because she believes a review of this study may change or alter the care of this patient. ?? TECHNIQUE: Outside bilateral screening m ammograms from [facility] dated 08/03/12 with additional diagnostic images of both erma asts dated 08/11/12 and comparison images from 2003, 2008 and 2011 are avai lable. ?? FINDINGS: The breasts are of scattered f ibroglandular density. ?? RIGHT BREAST: There is a 7mm lobular opa city possibly with some associated microcalcifications in the lower, outer aspect of the Right breast. Although these spot compression views were report ed to have compressed the abnormality I feel it is actually on the edge of the f ield of view and is still apparent on the spot compression MLO and the CC. Thi s required further evaluation. ?? LEFT BREAST: In the Left breast above an d, I believe, lateral to the nipple is an 11mm lobulated mass not clearly seen on the patient's prior imaging although direct comparison is limited due to the patient's large breast size and variable positioning. Appearance is most clearly seen on the Left true lateral anterior view. ?? Ultrasound of this mass shows it to be a n 11mm lobulated, hypoechoic mass with no internal vascularity and some posteri or acoustic shadowing. This is indeterminate and biopsy is recommended. Procedure Note Aimee Islas MD - 08/17/2012Formattin g of this note might be different from the original. INTERPRETATION OF OUTSIDE MAMMOGRAMS (PE RFORMED ON 08/03/12 AND 08/11/12) FROM [facility] DATED 08/13/12: DIAGNOSTIC IMAGING SUMMARY: LEFT BREAST LESION 1: SUSPICIOUS (BIRADS Category 4). Finding: Mass. Size: 11mm. Location: 9976-2642 in the Left breast, 5cm from the nipple. Recommendation: Ultrasound guided biopsy is recommended. RIGHT BREAST: ASSESSMENT IS INCOMPLETE ( BIRADS Category 0). Finding: Mass, possibly with microcalcif ications. Size: 7mm. Location: Approximately 0800 in the Righ t breast, 12cm from the nipple. Recommendation: Additional magnification views and ultrasound. NARRATIVE: CLINICAL INDICATION: I have been asked t o consult on this patient by Dr. Violeta Rivera because she believes a review of this study may change or alter the care of this patient. TECHNIQUE: Outside bilateral screening m ammograms from [facility] dated 08/03/12 with additional diagnostic images of both erma asts dated 08/11/12 and comparison images from 2003, 2008 and 2011 are avai lable. FINDINGS: The breasts are of scattered f ibroglandular density. RIGHT BREAST: There is a 7mm lobular opa city possibly with some associated microcalcifications in the lower, outer aspect of the Right breast. Although these spot compression views were report ed to have compressed the abnormality I feel it is actually on the edge of the f ield of view and is still apparent on the spot compression MLO and the CC. Thi s required further evaluation. LEFT BREAST: In the Left breast above an d, I believe, lateral to the nipple is an 11mm lobulated mass not clearly seen on the patient's prior imaging although direct comparison is limited due to the patient's large breast size and variable positioning. Appearance is most clearly seen on the Left true lateral anterior view. Ultrasound of this mass shows it to be a n 11mm lobulated, hypoechoic mass with no internal vascularity and some posteri or acoustic shadowing. This is indeterminate and biopsy is recommended. Violeta Rivera MD IMG OUTSIDE INTERPRETATION O RDERABLES documented in this encounter Visit Diagnoses Not on filedocumented in this encounter Care Teams Certified Court Interpreter Relationship Specialty Start Date End Date Violeta Rivera MD PCP - General 10/05/11 09/15/19 [address] [place] [address] documented as of this encounter
--- OUTSIDE RECORDS SUMMARY | 2022-02-22 01:01 | XMS_ITS | Encounter Summary ---
:1945 Author Organization [facility] [place] [address] Care Team Providers Name Role Phone Violeta Rivera MD Primary Care Provider Encounter Details Date Type Department Care Team Description 10/14/2011 Surgery G[place]ology [place] [facility] [place] Cade, UPPER EUS- ENDOSCOPIC [facility] Gael [place] [address] [facility] [phone] GASTROENTEROLOGY DEPT. [place], [place] [address] Social History Tobacco Use Types [...] ULTRASOUND (ORAL): WHAT TO EXPECT AT HOME ([place]HAL[place])documented in this encounter Medications at Time of [...] Cade MD - 10/14/2011 4:42 PM EDT [facility] Operative Note Patient Name: Dominique Robbins : [id number] MR#: [id number] Case Date: 10/14/2011 Surgeon: Surgeon(s) and Role: [...] Component Value Ref Test [facility] Method Time Signature UPPER [facility] PROVATION ENDOSCOPIC Endoscopy ULTRASOUND _ Patient Name: Dominique Robbins ? Procedure Date: 10/14/2011 4:07 PM ? Date of : 1945 ? Age: 65 ? Order #: [id number] ? Procedure: ? Upper EUS Indications: ? Common bile duct dilation (acquired ) ? seen on CT scan Providers: ? Kristopher Cade MD, Liz Noguera ? Sherly, RN, Barrington Ortiz, Camille del rosario Referring : ?Violeta Rivera MD, Ese robert, ? MD [...] PROVATION documented in this encounter Visit Diagnoses Diagnosis Biliary disease Unspecified disorder of biliary tract documented in this encounter Administered Medications Inactive Administered Medications - up to 3 most recent administrations Medication Order MAR Action Action Date Dose Rate Site meperidine (PF) (DEMEROL) 100 Given 10/14/2011 4:34 PM EDT 25 mg Right Arm mg/mL carpuject ONCE PRN, Starting on 10/14/11 at 1621, Until 10/14/11 at 1956, Pain, Intra-Operative (Intra-Procedure), Routine Given 10/14/2011 4:27 PM EDT 25 mg Right Arm Given 10/14/2011 4:21 PM EDT 50 mg Right Arm midazolam (VERSED) injection Given 10/14/2011 4:35 PM EDT 0.5 mg Right Arm ONCE PRN, Starting on 10/14/11 at 1621, Until 10/14/11 at 1956, Sleep, Intra-Operative (Intra-Procedure), Routine Given 10/14/2011 4:34 PM EDT 0.5 mg Right Arm Given 10/14/2011 4:27 PM EDT 1 mg Right Arm documented in this encounter Active and Recently Administered Medications Times are shown in EDT. PRN Medication Order 10/12/2011 10/13/2011 10/14/2011 meperidine (PF) (DEMEROL) 100 mg/mL carpuject (CANCELED) 1621 (Given - Provider: Liz Dubois RN)1627 (Given - Provider: Liz Dubois RN)1634 (Given - Provider: Liz Dubois RN) ONCE PRN, Starting 10/14/11 at 1621, Until 10/14/11 at 1956, Pain, Intra- Operative (Intra-Procedure), Routine midazolam (VERSED) injection (CANCELED) 1621 (Given - Provider: Liz Dubois RN)1627 (Given - Provider: Liz Dubois RN)1634 (Given - Provider: Liz Dubois RN)1635 (Given - Provider: Liz Dubois RN) ONCE PRN, Starting 10/14/11 at 1621, Until 10/14/11 at 1956, Sleep, Intra- Operative (Intra-Procedure), Routine documented in this encounter Care Teams Fuse Cup Expander Relationship Specialty Start Date End Date Violeta Rivera MD PCP - General 10/05/11 09/15/19 [address] [place] [address] documented as of this encounter
--- OUTSIDE RECORDS SUMMARY | 2022-02-22 01:01 | XMS_ITS | Encounter Summary ---
:1945 Author Organization [place] [id number] Care Team Providers Name Role Phone Destiney Motley APRN Primary Care Provider Encounter Details Date Type Department Care Team Description 11/08/2019 Ancillary Radiology Library [place], Hyperparat hyroidism, [place] [facility] [place]ha Machado MD primary [facility] [address] [place] [address] [place] [address] [phone] Social History Tobacco Use Types Packs/Day Years [...] Diagnosis Comme nts REQUEST FOR 2ND Routine 11/08/2019 8:25 PM Hyperparathyroidism , Results for this READ NUCLEAR EDT primary procedure are i n MEDICINE the results section. documented in this encounter [...] this report, please contact e number below. ? Narrative 11/09/2019 10:11 AM EDT EXAMINATION: REQUEST FOR 2ND READ NUCLEAR MEDICINE CLINICAL HISTORY: Hyperparathyroidism; P atient with hypercalcemia; What Modality is the exam? Nuc Med; Body Part (please add comments as necessary): Sestamibi parathyroid scan; Sending Institution [facility]; Date of exam 20191008; I believe a [...] as necessary): Sestamibi parathyroid scan; Sending Institution [facility]; Date of exam 20191008; I believe a [...] hyperparathyroidism documented in this encounter Care Teams Hydro Generation Supervisor Relationship Specialty Start Date End Date Destiney Motley APRN PCP - General Family Medicine 09/16/[address] [place] [address] documented as of this encounter
--- OUTSIDE RECORDS SUMMARY | 2022-02-22 01:01 | XMS_ITS | Encounter Summary ---
:1945 [place] [address] Care Team Providers Name Role Phone Destiney Motley APRN Primary Care Provider Encounter Details Date Type Department Care Team Description 09/22/2019 Telephone Endocrinology at [facility] [address], [place] [address] Social History Tobacco Use Types Packs/Day [...] this encounter Miscellaneous Notes Telephone Encounter - Mulu Meier Lexi - 09/22/2019 2:17 PM EDT GAP K 12 Principal Pre-Telemedicine Phone Note [] Patient not reached [x] Patient reached and the following information was reviewed/obtained per protocol: [x] Confirmed patient name and date of [x] Confirmed telemedicine symone ([employer] and Virtual Visit) is downloaded and functioning [x] Confirmed location of patient - TeleVisit is taking place in [x] [place] [] [place] [] If not on [facility], working on signing up for [facility] [] Confirmed has completed any pre-visit questionnaires [] If has not received required pre-visit questionnaires, send via [facility] [x] Reviewed patient medications [x] Documented self-reported vitals: [x] Weight: 235lbs [x] Height 52.5 [] pulse recorded: [] Other information or concerns documented in this encounter Plan of Treatment Not on filedocumented as of this encounter Visit Diagnoses Not on filedocumented in this encounter Care Teams Aircraft Pneudraulic Systems Mechanic Relationship Specialty Start Date End Date Destiney Motley APRN PCP - General Family Medicine 09/16/[address] [place] [address] [address] [place] [address] documented as of this encounter
--- OUTSIDE RECORDS SUMMARY | 2022-02-22 01:01 | XMS_ITS | Encounter Summary ---
:1945 Author Organization [facility] Address [address] [place] [address] Care Team Providers Name Role Phone Violeta Rivera MD Primary Care Provider Encounter Details Date Type Department Care Team Description 11/04/2012 Office Visit Hematology and Valentino Mcnally Post-ope rative state Oncology at [facility] [place] Kaylin (Primary Dx) [facility], [facility] [address] [place] GENERAL SURGERY [address] [place] [address] [phone] Social History Tobacco Use Types Packs/Day Years [...] documented as of this encounter Progress Notes Valentino Mcnally MD - 11/04/2012 9:19 AM EDT Patient returns status post wire localized left breast biopsy. 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 Initially she had ADH. There was no evidence of any malignancy within the specimen. She is recovering well from surgery. The incision is healing well. She has no complaints at this time. She was advised to continue her screening mammogram on a yearly basis. I will see her on a p.r.n. basis. documented in this encounter Plan of Treatment Not on filedocumented as of this encounter Visit Diagnoses Diagnosis Post-operative state - Primary Other postprocedural status documented in this encounter Care Teams Jewel Bearing Polisher Relationship Specialty Start Date End Date Violeta Rivera MD PCP - General 10/05/11 09/15/[address] [place] [address] documented as of this encounter
--- OUTSIDE RECORDS SUMMARY | 2022-02-22 01:01 | XMS_ITS | Encounter Summary ---
:1945 Author Organization [facility] [place] [address] Care Team Providers Name Role Phone Violeta Rivera MD Primary Care Provider Encounter Details Date Type Department Care Team Description 10/12/2012 Hospital Encounter Mammography at [facility] Abnormal mammogram [facility] [place] [address] Social History Tobacco Use Types Packs/Day [...] documented as of this encounter Progress Notes Maritza Santillan MD - 10/09/2012 11:28 AM EDT Procedure date: scheduled for 10/12/12 Procedure type: left Breast NLOC Special Instructions: none Allergies: Motrin Medications: Current [...] reviewed and procedural plan approved by Dr. MARITZA SANTILLAN MD documented in this encounter Plan of Treatment Not on filedocumented as of this encounter Procedures Procedure Name Priority Date/Time Associated Diagnosis Comme nts MAMMO SPECIMEN Routine 10/12/2012 10:15 AM Abnormal mammogram Results for this EDT procedure are i n the results section . documented in this encounter Results Mammo specimen (10/12/2012 10:15 AM EDT) Anatomical Region Laterality Modality Breast N/A Mammography Specimen (Source) Anatomical Collection Method Collection Time Re ceived Time Location / / Volume Laterality 10/12/2012 10:15 AM EDT Narrative 10/12/2012 5:04 PM EDT [...] Film and interpretation reviewed by the attending Valentino Mcnally MD IMG MAMMO ORDERABLES documented in this encounter Visit Diagnoses Diagnosis Abnormal mammogram Abnormal mammogram, unspecified documented in this encounter Care Teams Hospital Ward Clerk Relationship Specialty Start Date End Date Violeta Rivera MD PCP - General 10/05/11 09/15/19 [address] [place] [address] documented as of this encounter
--- OUTSIDE RECORDS SUMMARY | 2022-02-22 01:01 | XMS_ITS | Encounter Summary ---
:1945 [place] [address] Care Team Providers Name Role Phone Violeta Rivera MD Primary Care Provider Encounter Details Date Type Department Care Team Description 10/07/2012 Orders Only Main Operating Room Valentino Mcnally ormal mammogram Lazara Ewing MD (Primary Dx) [facility] [address] [address] [place] [address] [phone] Social History Tobacco Use Types Packs/Day Years [...] filedocumented as of this encounter Results Mammo specimen (10/12/2012 10:15 [...] Abnormal mammogram - Primary Abnormal mammogram, unspecified Abnormal mammogram Abnormal mammogram, unspecified documented in this encounter Care Teams Interventional Radiology Rn Relationship Specialty Start Date End Date Violeta Rivera MD PCP - General 10/05/11 09/15/19 [address] [place] [address] documented as of this encounter
--- OUTSIDE RECORDS SUMMARY | 2022-02-22 01:01 | XMS_ITS | Encounter Summary ---
:1945 [place] [address] Care Team Providers Name Role Phone Destiney Motley GAMALIEL Primary Care Provider Encounter Details Date Type Department Care Team Description 03/28/2020 Telephone General Surgery at [facility] Gardenia Garza APRN [facility] [place] [address] GENERAL SURGERY [phone] [place], [place] [address] (Wo rk) Social History Tobacco [...] this encounter Miscellaneous Notes Telephone Encounter - Gardenia Garza APRN - 03/28/2020 4:00 PM EST I called Ms. Dominique Robbins today to discuss the results of her pathology. Specifically, this demonstrated: Left upper parathyroid, excision: Parathyroid adenoma. She is doing well. Her voice sounds normal. She is not complaining of perioral numbness/tingling, numbness/tingling in the hands, or muscle spasms. She will taper off her calcium supplementation. I answered her questions, and we will discuss further at her regularly-scheduled postoperative follow up appointment. Gardenia Garza APRN documented in this encounter Plan of Treatment Not on filedocumented as of this encounter Visit Diagnoses Not on filedocumented in this encounter Care Teams Director Of Restaurant Relationship Specialty Start Date End Date Destiney Motley APRN PCP - General Family Medicine 09/16/[address] [place] [address] [address] [place] [address] documented as of this encounter
--- OUTSIDE RECORDS SUMMARY | 2022-02-22 01:01 | XMS_ITS | Encounter Summary ---
:1945 [place] [address] Care Team Providers Name Role Phone Violeta Rivera MD Primary Care Provider Encounter Details Date Type Department Care Team Description 10/12/2012 Surgery Main Operating Room Vonnie Valdez, EXCISION LESION, BREAST Lazara Syed MD W/ PREOP.MARKER ([facility] LOC.) (WRVU 6.69) [facility] [address] [address] [place] [address] [phone] (Wo rk) Social History Tobacco Use Types [...] Sign Reading Time Taken Comments Blood Pressure 141/64 10/12/2012 10:18 AM EDT Pulse 61 10/12/2012 10:18 AM EDT Temperature 37.1 ??C (98.8 ??F) 10/12/2012 10:18 AM EDT Respiratory Rate 18 10/12/2012 10:18 AM EDT Oxygen Saturation 95% 10/12/2012 8:56 [...] 101.3 F. The number for questions is [phone] before 5 PM weekdays and [phone] after 5 PM and weekends. Pain Medication: [...] Appointment willbe mailed to you. Please call [phone] (clinic number for appointments) to confirm date [...] 10/12/2012 9:00 AM EDT Patient Name: Zack Rosales Patient Age: 66 y.o. Birthdate: 1945 Admit [...] Valdez MD - 10/12/2012 10:13 AM EDT [facility] Operative Note Patient Name: Zack Rosales : [id number] MR#: [id number] Case Date: 10/12/2012 Surgeon: Surgeon(s) and Role: [...] EDT Brief Operative Note Patient Name: Zack Rosales : [id number] MR#: [id number] Case Date: 10/12/2012 Surgeon: Surgeon(s) and Role: [...] Component Value Ref Test Analysis Performed At [facility] Range Method Time Signature Surgical CERNER Pathology ? [facility] Report ? Provider: ?? VONNIE VALDEZ Pt. Name: ?? ZACK ROSALES ? Acc #: ?[id number] ?Pt. MRN: ?[id number] ? Col Date: ?? 3 ? /Sex: ?1945,(66 years),Female ? Rec Date: ?? 10/12/2012 ? LOC: ?SDP ? SURGICAL PATHOLOGY ? ---Pathologic Diagnosis--- ? A - Left breast, excisional biopsy: ? 1. Residual fibroadenoma. ? 2. Fibrocystic disease, including focal sclerosing adenosis, cysts, ? ectatic ducts, and benign ductal hyperplasia. ? 3. Previous bio psy site changes ([id number]), including granulation ? tissue and fat necrosis. ? 10/14/12 ? VAM ? 10/14/12 Verified by: ? Fely VARGAS, Cyrus Elliott ? Pathologist ? (Electronic Si [...] is found in slice ? VII. ? [facility] ? Provider: ?? VONNIE VALDEZ Pt. Name: ?? ZACK ROSALES ? Acc #: ?[id number] ?Pt. MRN: ?[id number] ? Col Date: ?? 3 ? /Sex: [...] Organization Address City/State/ZIP [place] [address] [facility] Specimen to Pathology (surgical or derm) (10/12/2012 10:17 AM EDT) Specimen Anatomical Collection Method Collection Time Receive d Time (Source) Location / / Volume Laterality AP Specimen 10/12/2012 10:17 10/12/2012 AM EDT 10:17 AM EDT Narrative CERNER MILLENNIUM - 10/12/2012 10:17 AM EDT Specimen requisition ordered. ??Separate Pathology report to follow Vonnie Valdez MD PATHOLOGY/CYTOLOGY ORDERABLE S Performing Organization Address City/State/ZIP Code Phon e Number [place] [phone] [place] ARNETTENNI[facility] Mammo-US guidance for needle localization (10/12/2012 9:26 [...] attending Procedure Note Aimee Islas MD - 10/12/2012Formsilvestre ocampo of this note might be different from [...] ORDERABLES documented in this encounter Visit Diagnoses Not [...] 1347, Day of Surgery (Day of Procedure) lidocaine (PF) (XYLOCAINE) 10 Given 10/12/2012 9:56 AM EDT 240 m g 19- Surgical Site mg/mL (1 %) injection ONCE PRN, Starting on Fri10/12/12 at 0956, Until Fri10/12/12 at 1347, Intra-Operative (Intra-Procedure), Routine documented in this encounter Active and Recently [...] - Comment: 24 ml) ONCE PRN, Starting Fri13 at 0956, Until Fri10/12/12 at 1347, Intra- Operative (Intra-Procedure), Routine documented in this encounter Care Teams Chip Bin Conveyor Tender Relationship Specialty Start Date End Date Violeta Rivera MD PCP - General 10/05/11 09/15/19 [address] [place] [address] documented as of this encounter
--- OUTSIDE RECORDS SUMMARY | 2022-02-22 01:01 | XMS_ITS | Encounter Summary ---
:1945 Author Organization [facility] [place] [address] Care Team Providers Name Role Phone Destiney [...] Expiration Date Visits Requ ested Visits Authorized [id number] 1 1 Encounter Details Date Type Department Care Team Description 03/20/2020 Surgery Main Operating Room Nahum Tabares RATHYROIDECTOMY OR Lazara Machado MD EXPLORATION OF [facility] PARATHYROID(S) (WRVU 15.6) [facility] DR [place] GENERAL SURGERY [place] [phone] Social History Tobacco Use Types Packs/Day Years [...] Sign Reading Time Taken Comments Blood Pressure 119/59 03/20/2020 12:15 PM EST Pulse 76 03/20/2020 1:00 PM EST Temperature 36.2 ??C (97.2 ??F) 03/20/2020 12:00 PM EST Respiratory Rate 18 03/20/2020 1:00 PM EST Oxygen Saturation 96% 03/20/2020 1:00 PM EST Inhaled Oxygen Concentration - - Weight 110.2 kg (243 lb) 03/20/2020 8:57 AM EST Height 160 cm (5' 3) 03/20/2020 8:57 AM EST Body Mass Index 43.05 03/20/2020 8:57 AM EST documented in this encounter Discharge Instructions Discharge InstructionsPrecious Jay RN - 03/20/2020 1:43 PM EST POST ANESTHESIA INSTRUCTIONS Go home, rest, use [...] usually goes away in 12-24 hours. Patient InstructionsLee Cadena MD - 03/20/2020 9:45 AM EST PARATHYROIDECTOMY PATIENT DISCHARGE INSTRUCTIONS What to Expect Following Surgery: Swelling and/or bruising under and around the incision is normal. It is usually greatest on the second or third day following surgery. You may also feel the sensation of swelling or firmness that can last for a month or more Your scar will be most visible for 1-2 months following your operation and will gradually fade over the next 6-8 months. As it heals, a scar often looks more pink or red than the skin around it. You may feel a ???healing ridge?? directly under the incision. This is completely normal and is theresult of swelling, healing, and scar formation. Usually, this will go away when healing is completein 3-6 months. The skin just above and below your incision will feel numb. This will improve over several months but some patients may have long-term decrease in sensation over these areas. You may notice minor difficulty in swallowing which will improve over time. Your voice may be hoarse or weak at first--this is normal and does not mean there was damage done tothe nerves that make the vocal cords move. Your voice will usually go back to normal after several days to a few weeks. Incision Care: Neck incisions heal rapidly--usually within a week or two. The incision can get wet in the shower 24 hours after surgery. However, do not submerge the incisionunderwater (i.e. bath tub, swimming pool, hot tub, etc.) for at least 2 weeks after your operation. Pat the incision dry immediately following your shower. Do not scrub the area vigorously for the next2 weeks. You have a skin glue closure, and you may notice tiny pieces of yellow/white/marmolejo material on your washcloth or there may be a thin clear or purplish/marmolejo crust around the edges of the incision. This is normal. The glue will start to come off about a week after surgery. Do not pull off the skin glue in order to allow time for the incision to heal completely. If there is still some glue on your skin 2weeks after surgery, you may gently wash it away. Do not use any ointments/salves/Vitamin E on the incision for 2 weeks as these may impair early wound healing. After 2 weeks (and after the skin glue is gone), you may apply vitamin E oil or scar creams to the incision. Gentle massage may help soften your scar tissue. Incisions are sensitive to sunlight. For at least 1 year after surgery you should use sunscreen whenoutdoors for long periods of time to prevent permanent darkening of the scar. This includes tanning booths. Pain Management: You may apply ice or cold packs to the incision for 15-20 minutes several times a day for the first 2-3 days following surgery to help with discomfort. You may feel some stiffness/soreness in your shoulders, back, and neck. This may take a few days or weeks to go away completely. You may use moist warm heat, a heating pad, or massage to these areas for 15-20 minutes several times a day. Do not be afraid to move your neck - gently flexing and stretching your neck muscles and light massage will help prevent stiffness NSAIDs (non-steroidal anti-inflammatory drugs) such as ibuprofen (Motrin, Advil) and naproxen (Naprosyn, Aleve) or acetaminophen (Tylenol) are most helpful for the pain experienced after surgery. Generally, these are even more effective than the stronger pain medications (narcotics or opioids) after parathyroid surgery. Take NSAIDS or Tylenol every 6 hours cylaei-nrz-[id number] for the first 3-5 days following surgery to help minimize pain. It is unusual to require opioid pain medications after parathyroid surgery. If you were prescribed oxycodone, use only for severe pain, and never take with alcohol. Opioid medications typically cause constipation, so we suggest using a stool softener in addition (metamucil, colace...etc.). Diet & Activity: No restrictions in your diet are necessary. Activity as tolerated by your comfort level. You may return to work as soon as you would like. However, if your job requires heavy lifting or strenuous physical activity, your surgeon may ask you to wait to return to work for two weeks. NO DRIVING for at least 8 hours following any dose of an opioid pain medication if one was prescribed for you. Pathology Report: All specimens removed at surgery are analyzed by a pathologist. This report usually takes approximately 5-7 business days to be ready. Dr. Tabares will call you with this report as soon as it is available. Follow-up Appointment: Will be scheduled with Dr. Tabares in 6 weeks with a lab appointment to check your calcium Date and time will be mailed to you Please call [phone] to confirm the date and time of your appointment if you do not hear from usin the next 2 weeks Call Doctor for: Call if you have trouble talking or breathing (call [phone] if this is severe) Call if you develop numbness or tingling around your mouth/lips or on the tips of your fingers or your hands, as this may mean your calcium is low. This may also be related to pain medication, where the breathing tube was positioned against your lips, the positioning of your arms and hands in the operating room, or how you were positioned when sleeping. If the sensation does not go away within a halfhour, or if it worsens prior to that, call us immediately so we can discuss increasing your calcium if we think you need it. Call if your incision becomes red or begins to drain fluid. Call if you have fevers greater than 101 degrees F Call if you have persistent nausea or vomiting (this may be related to opioid pain medications). Call if you begin feeling worse, rather than better, several days after surgery. Information about Calcium Supplementation WHAT IS THE EFFECT OF SURGERY ON MY CALCIUM LEVELS? The parathyroid glands are responsible for controlling the body???s calcium levels, and you probably needed parathyroid surgery because your calcium level was too high. However, after we remove theabnormal gland(s), the remaining parathyroids frequently do not work perfectly right away. This can result in a decrease in blood calcium levels. This is usually temporary and the remaining parathyroidglands almost always make a full recovery. ??? WHAT ARE THE SYMPTOMS OF LOW CALCIUM? If the calcium level in the blood stream decreases after surgery, you may experience symptoms ofnumbness, tingling, or cramps in the fingers, toes, legs, or around the mouth. ??? WHAT ARE CALCIUM SUPPLEMENTS? Each over the counter calcium supplement tablet is approximately 500-600 mg. ??? There are several different types of calcium sold over the counter. Some of the more common brands you will see include: Tums, Viactiv, Citracal, Caltrate. ??? The two main forms of calcium in supplements are carbonate and citrate. Calcium carbonate (Tums,Viactiv) is absorbed most efficiently when taken with food, whereas calcium citrate (Citracal) is absorbed equally well when taken with or without food. ??? HOW MUCH CALCIUM SHOULD I TAKE AFTER SURGERY? The exact dose of calcium that is right for you after surgery depends on several factors including the type and extent of surgery. ??? Most patients will temporarily require some extra calcium as the parathyroid glands recover. ??? You probably already purchased calcium supplements after reviewing your preoperative handout. ??? A good guideline is to start with 600-1200 mg (1-2 over the counter supplements) twice a day. Ifyou notice symptoms of numbness/tingling, you may need to take it more frequently (up to 3-4 times per day). If you have no symptoms, the dose can be gradually decreased and the extra calcium stopped al together within a few days of surgery. ??? WHAT ABOUT VITAMIN D? Vitamin D can be very helpful with calcium levels, as adequate vitamin D stores in the body helpyour body absorb calcium. ??? If you were on Vitamin D prior to surgery, this can be resumed post-operatively. ??? Additional Vitamin D may be included in your calcium supplement, this is fine as well. ??? If you are not on Vitamin D and would like to start after surgery, an over the counter supplement of 400-800 IU is the usual recommended dosage, however, if you are on other medications or have other health issues, you will want to discuss this with your PCP. ??? If your surgeon is concerned about your calcium levels, (s)he may prescribe a different form of vitamin D called Rocaltrol (Calcitriol). This should be taken as instructed. Note that this is not a replacement for calcium, it should be taken in addition to the recommended calcium supplements to help with absorption. COMMONLY ASKED QUESTIONS: ??? Are there side effects to calcium supplements? The most common side effect is constipation and stomach upset. If you are taking high doses of calcium after surgery, be sure to include a stool softener or laxative as needed. Minimize narcotics, as these can also cause constipation. Finally, decrease your calcium supplements if you note no symptoms of low calcium as noted above. Do I need a blood test after surgery to check my calcium levels? Your calcium level will be checkedat your routine follow up visit to make sure it has returned to normal. You will most likely be off the postoperative supplements by then. Our bodies will signal us that the calcium level is low with the symptoms noted above. If you do not have these symptoms, then most likely your calcium level is just fine. Should I take a long-term calcium supplement? Routine calcium supplements can be good for general bone health, especially if you have osteoporosis as a result of your hyperparathyroidism. We recommendthat you discuss long-term supplementation with your PCP. Phone number for questions: [phone] before 5 PM on weekdays [phone] after 5 PM and on weekends/holidays. 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 documented in this encounter Medications at Time of Discharge Medication Sig Dispensed Refills Start Date End Date UNABLE TO FIND Take 1 capsule by 0 01/27/2019 mouth daily. Medication: Restore capsules alendronate (Fosamax) 70 mg Take 70 mg by 0 09/09 Tablet mouth once a week. Cholecalciferol, Vitamin D3, Take 5,000 Units 0 0 07/06/2015 125 mcg (5,000 unit) Capsule by mouth daily. clotrimazole-betamethasone Apply to affected 0 (LOTRISONE) 1-0.05 % Cream area as needed triamcinolone (ARISTOCORT) Apply to bilateral 0 1 0.5 % Ointment legs once a day as needed loperamide (IMODIUM A-D) 2 mg Take 4 mg by mouth 0 Tablet as needed for Diarrhea. Maximum 16 mg in 24 hours polysorbate 80/glycerin Apply to eye as 0 (REFRESH DRY EYE THERAPY needed. OPHT) hydroCHLOROthiazide Take 25 mg by 0 07/20/2019 (Hydrodiuril) 25 mg Tablet mouth daily. Spiriva with HandiHaler 18 0 0 mcg Capsule, w/Inhalation Device lisinopril (PRINIVIL;ZESTRIL) Take 40 mg by 0 40 mg tablet mouth daily. albuterol (PROVENTIL Inhale 2 puffs 0 HFA;VENTOLIN HFA) 90 into the lungs mcg/Actuation inhaler every 4 hours as needed. Use with spacer acetaminophen (TYLENOL) 500 Take 1,000 mg by 0 mg tablet mouth every 6 hours as needed. fluticasone-salmeterol 1 Disk(s), Inh, 0 06/24/19 07 (ADVAIR DISKUS) 250-50 Twice daily mcg/dose diskus inhaler documented as of this encounter Progress Notes Precious Jay RN - 03/20/2020 2:47 PM EST Patient alert and oriented, vital signs stable. Reviewed discharge instructions; patient and Al verbalized understanding. Copy of instruction sheet with contact numbers for questions/concerns. Pain assessment documented. Patient escorted out of department via wheelchair with RUFINO Lovell_. documented in this encounter H&P Notes Lee Cadena MD - 03/20/2020 9:42 AM EST Patient Name: Dominique Robbins Patient Age: 74 y.o. Birthdate: 1945 Admit date: 03/20/2020 Attending Physician: Nahum Tabares MD H&P 24hr interval update/Pre-operative note Please see Dr. Tabares's note from clinic on 01/13/20 for further information. ID: Dominique Robbins is a 74 y.o. female with a hx of PHPT who presents to [facility] for likely subtotal parathyroidectomy - she has abnormal parathyroid glands in the right upper and left lower locations. S: Dominique Robbins endorses no recent change in health. Denies any fever, chills, cough, congestion, change in bowel habits. Prior to arrival today, Dominique Robbins was in a normal state of health. O: Physical Exam: Patient Vitals for the past 24 hrs: Temp Pulse Resp BP SpO2 O2 Device 03/20/20 0857 36.3 ??C (97.3 ??F) 97 20 134/74 99 % RA Gen: NAD CVS: RRR Pulm: breathing comfortably on RA Abd: soft, nt/nd Ext: wwp A/P: Dominique Robbins is a 74 y.o. female who presents for planned parathyroidectomy. Will proceed with planned operation. Lee Cadena MD 03/20/2020 General Surgery Pgr. [id number] documented in this encounter Miscellaneous Notes Op Note - Nahum Tabares MD - 03/20/2020 11:54 AM EST [facility] Operative Note Patient Name: Dominique Robbins : [id number] MR#: [id number] Case Date: 03/20/2020 Surgeon: Surgeon(s) and Role: * Nahum Tabares MD - Primary * Lee Cadena MD - Resident * Christine Soler MD - Resident Preoperative diagnosis: HYPERPARATHYROIDISM Postoperative diagnosis: HYPERPARATHYROIDISM Procedure(s) (LRB): PARATHYROIDECTOMY OR EXPLORATION OF PARATHYROID(S) (WRVU 15.6) (N/A) FACIAL NERVE MONITORING, SETUP LARYNGEAL (WRVU 1.57) (N/A) Anesthesia: General Estimated Blood Loss: 20 mL Specimens removed during surgery: Order Name Source Comment Collection Info Order Time SPECIMEN TO PATHOLOGY HYPERPARATHYROIDISM left upper parathyroid excision 03/20/2020 11:14 AM Time specimen removed from patient: 11:14 AM Number of tissue samples (in container) 1 Drains: * No LDAs found * Surgical Closure: Primary Closure - skin incision is completely closed without any wires, boris, drains or other devices Disposition: awakened from anesthesia, extubated and taken to the recovery room in a stable condition, having suffered no apparent untoward event. Condition: doing well without problems (Please see the Surgical Encounter Summary for any Implant and Specimen details pertinent to this patient.) HPI/Surgical Indications: Ms. Dominique Robbins is a 74 y.o. year old female with asymptomatic biochemical primary hyperparathyroidism and a history of osteoporosis , serum calcium > 1mg/dl above normal and reduced GFR. Localization studies including ultrasound and sestamibi scan indicate multiglanddisease with one adenoma described on each side. We discussed the typical work up and management of primary hyperparathyroidism. I let her know that it is unusual to have two glands abnormal and two glands normal, so I suspect she will need a subtotal parathyroidectomy. I therefore recommended bilateral exploration with intraoperative parathyroid hormone monitoring +/- IOPTH. Procedure Description: The patient was taken to the operating room and placed on the operating tablein the supine position. Adequate general anesthesia was completed by anesthesiology with the [employer] recurrent laryngeal nerve monitoring system. A crease on the anterior neck was identified and marked, and this area was infiltrated with 10 cc 0.25% marcaine with epinephrine. She was then prepped and draped in the usual sterile fashion over the anterior neck. A timeout procedure was done, and all members of the OR team were in agreement. The procedure began by making a curvilinear incision along the lower anterior neck along the previously marked skin crease with a scalpel. Electrocautery was used to continue dissection through the subcutaneous tissue and through the platysma muscle. Subplatysmal flaps were created in cranial and caudal directions. The median raphe of the strap muscles was divided with electrocautery. We mehrdad a baseline PTH from a right anterior jugular vein. IOPTH levels are noted in the table below. We then dissected the strap muscles off the right thyroid lobe out to its lateral aspect. We dissected into the paratracheal and paraesophageal space and identified the recurrent laryngeal nerve as it ran into the tracheoesophageal groove and carefully preserved this. We identified a right lower parathyroid gland in the normal anatomic position which was completely normal in appearance. We then explored in the area where we expected the right upper parathyroid gland to be. We encountered a thyroid nodule that matched the measurements that had been described on both the sestamibi scan and the ultrasound. We did not encounter a parathyroid gland that was markedly enlarged. We therefore decided to turn our attention to the left side. There was a markedly enlarged left upper parathyroid gland that was dissected up onto its vascular pedicle. In the process of doing this, the vascular pedicle avulsed. It was controlled with a small clip. The left upper parathyroid gland waspreserved on the back table while we continued our exploration. There was a normal- appearing left lower parathyroid gland seen. The left recurrent laryngeal nerve was intact throughout. We therefore decided to draw post excision levels at 10 and 15 minutes after excising the left upperparathyroid gland since we had visualized both lower parathyroid glands both appeared normal. While we waited to draw the levels and while we waited for them to result, we explored for the right upper parathyroid gland. There were a few small thyroid nodules on that side in addition to the larger one that is described above, but we did not ultimately visualize a right upper parathyroid gland. The decreasing values and kinetics of the IOPTH suggested a biochemical cure. We then irrigated the operative field. A Valsalva to 30 millimeters of mercury was accomplished by Anesthesia. Hemostasis was assured. The recurrent laryngeal nerves were tested again, and both were fully functional on the nerve monitor. We placed Surgicel in the paratracheal spaces bilaterally, closed the strap muscles using running 3-0 Vicryl suture, the platysma with interrupted 3-0 Vicryl suture,and the skin with running 5-0 Prolene subcuticular suture. We then placed Dermabond on the incision and removed the Prolene suture. IOPTH findings: Baseline: 137 pg/mL 10-min post-excision 49 pg/mL 15-min post-excision 42 pg/mL Infection Bundle used? N/A Attestation: Case Date: 03/20/2020 I was present and I participated during the entire procedure (does not need to include opening and closing). NAHUM TABARES MD 03/20/2020 Brief Op Note - Nahum Tabares MD - 03/20/2020 11:52 AM EST Brief Operative Note Patient Name: Dominique Robbins : [id number] MR#: [id number] Case Date: 03/20/2020 Surgeon: Surgeon(s) and Role: * Nahum Tabares MD - Primary * Lee Cadena MD - Resident * Christine Soler MD - Resident Preoperative diagnosis: HYPERPARATHYROIDISM Postoperative diagnosis: HYPERPARATHYROIDISM Procedure(s) (LRB): PARATHYROIDECTOMY OR EXPLORATION OF PARATHYROID(S) (WRVU 15.6) (N/A) FACIAL NERVE MONITORING, SETUP LARYNGEAL (WRVU 1.57) (N/A) Anesthesia: General Findings: markedly enlarged left upper parathyroid. Normal bilateral lower parathyroids. Right upperparathyroid not definitively visualized. Bilateral RLNs intact throughout. IOPTH findings: Baseline: 137 pg/mL 10-min post-excision 49 pg/mL 15-min post-excision 42 pg/mL Complications: none apparent Intake: Intraprocedure Crystalloid Total Intake Lactated Ringers 200.00 mL lactated ringers infusion 600.00 mL Total Intake 800 mL Output Blood Loss 20 mL Total Output 20 mL Net Net Volume 780 mL Transfusion No data found in the last 1 encounters. Output: Estimated Blood Loss: 20 mL Urine Output:: (no urine output recorded) Other Output: (no other output recorded) Drains: none Specimens removed during surgery: Order Name Source Comment Collection Info Order Time SPECIMEN TO PATHOLOGY HYPERPARATHYROIDISM left upper parathyroid excision 03/20/2020 11:14 AM Time specimen removed from patient: 11:14 AM Number of tissue samples (in container) 1 Disposition: awakened from anesthesia, extubated and taken to the recovery room in a stable condition, having suffered no apparent untoward event. Condition: doing well without problems Attestation: Case Date: 03/20/2020 I was present and I participated during the entire procedure (does not need to include opening and closing). (Please see the Surgical Encounter Summary for any Implant and Specimen details pertinent to this patient.) Infection Bundle used? N/A documented in this encounter Plan of Treatment Not on filedocumented as of this encounter Procedures Procedure Name Priority Date/Time Associated Diagnosis Comme nts HC INTRAOPERATIVE PTH Routine 03/20/2020 11:31 Re sults for AM EST this procedure are in the results section. HC INTRAOPERATIVE PTH Routine 03/20/2020 11:24 Re sults for AM EST this procedure are in the results section. SURGICAL PATHOLOGY Routine 03/20/2020 11:14 Resul ts for REPORT AM EST this procedure are in the results section. SPECIMEN TO PATHOLOGY Routine 03/20/2020 11:14 Re sults for AM EST this procedure are in the results section. HC INTRAOPERATIVE PTH Routine 03/20/2020 10:56 Re sults for AM EST this procedure are in the results section. FACIAL NERVE MONITORING, 03/20/2020 10:14 HYPERPARATHY ROIDISM SETUP LARYNGEAL (WRVU AM EST 1.57) PARATHYROIDECTOMY OR 03/20/2020 10:14 HYPERPARATHYROID ISM EXPLORATION OF AM EST PARATHYROID(S) (WRVU 15.6) documented in this encounter Results Intraoperative PTH ([facility]) (03/20/2020 11:31 AM EST) P athologist Signature Intraoper PTH 42 15 - 65 [facility] pg/mL [facility] Comment: 15 minute post-excision Called by: , Read back by: Nahum lucas, Date/Time:03/20/20 11:55. A 50 % decrease in venous iPTH levels at 10 min post adenoma excision is expected if all the hypersecreting parat hyroid tissue has been removed (Julien GL et al. Surgery 1993:114; [id number]) As of 12/24/19, ioPTH testing has moved f rom the [place] [employer] to the Sheri Jesus. Please note the updated reference intervals. Specimen Anatomical Collection Method Collection Time Receive d Time (Source) Location / / Volume Laterality Blood specimen 03/20/2020 11:31 0 (specimen) AM EST 11:35 AM EST Resulting Agency Comment Spec In Lab Nahum Tabares MD CHEMISTRY ORDERABLES Performing Organization Address [facility] Phon e Number [address] Intraoperative PTH ([facility]) (03/20/2020 11:24 AM EST) athologist Signature Intraoper PTH 49 15 - 65 [facility] pg/mL [facility] Comment: 10 minute post-excision Called by: , Read back by: Echo Torres, Date/Time:03/20/20 11:47. A 50 % decrease in venous iPTH levels at 10 min post adenoma excision is expected if all the hypersecreting parat hyroid tissue has been removed (Julien GL et al. Surgery 1993:114; [id number]) As of 12/24/19, ioPTH testing has moved f rom the [place] Baggagemaster to the Sheri Jesus. Please note the updated reference intervals. Specimen Anatomical Collection Method Collection Time Receive d Time (Source) Location / / Volume Laterality Blood specimen 03/20/2020 11:24 0 (specimen) AM EST 11:28 AM EST Resulting Agency Comment Spec In Lab Nahum Tabares MD CHEMISTRY ORDERABLES Performing Organization Address [facility] Phon e Number [address] Surgical Pathology Report (03/20/2020 11:14 AM EST) Component Value Ref Test Analysis Performed At [facility] gist Range Method Time Signature Surgical [id number] ? Location: [facility]; [facility]; A [facility] Report The signing pathologist has (i) examined the relevant preparation(s) for the [facility] specimen(s) and (ii) rendered or confirmed the diagnosis(es) . HOSPITAL LABORATORY . ?Surgic al Pathology DIAGNOSIS Left upper parathyroid, excision: Parathyroid adenoma. Electronically signed by: ??Efrain VARGAS, Madonna Machado Verified: ??03/22/2020 ?Pathologist Performed at: ??-[facility] Dept. of Pathology, [place], [place] DISCUSSION The intraoperative PTH decreased from 137 pg/mL to 42 pg/mL. SPECIMEN(S) SUBMITTED A - left upper parathyroid, excision (1) CLINICAL INFORMATION Hyperparathyroidism SPECIMEN PROCESSING A - Labeled/Fixative: Left upper parathyroid, fresh. Quantity/Size/Weight: Single, 2.5 x 1.8 x 0.8 cm, 2.14 g. Tissue Description: Soft, ta n elliptoid nodule with central gelatinous degeneration.. Sections/Processing: Store Clerk Checker sections in 1 cassette labeled A1. ??rlr Specimen (Source) Anatomical Collection Method Collection Time Re ceived Time Location / / Volume Laterality 03/20/2020 11:14 AM EST Nahum Tabares MD PATHOLOGY/CYTOLOGY ORDERABLE S Performing Organization Address City/[facility]/ZIP Code Phon e Number [address] Specimen to Pathology (03/20/2020 11:14 AM EST) Specimen Anatomical Collection Method Collection Time Receive d Time (Source) Location / / Volume Laterality AP Specimen 03/20/2020 11:14 03/20/2020 AM EST 11:[address] [facility] - 03/20/2020 11:14 AM EST Specimen requisition ordered. ??Separate Pathology report to follow Nahum Tabares MD PATHOLOGY/CYTOLOGY ORDERABLE S Performing Organization Address City/[facility]/ZIP Code Phon e Number [address] (ABNORMAL) Intraoperative PTH ([facility]/CGP) (03/20/2020 10:56 AM EST) P athologist Signature Intraoper PTH 137 (H) 15 - 65 [facility] [place] pg/mL [facility] LABORATORY Comment: Baseline Called by: , Read back by: Allison yoon, Date/Time:03/20/20 11:28. A 50 % decrease in venous iPTH levels at 10 min post adenoma excision is expected if all the hypersecreting parat hyroid tissue has been removed (Julien GL et al. Surgery 1993:114; [id number]) As of 12/24/19, ioPTH testing has moved f rom the [place] Baggagemaster to the Sheri Jesus. Please note the updated reference intervals. Specimen Anatomical Collection Method Collection Time Receive d Time (Source) Location / / Volume Laterality Blood specimen 03/20/2020 10:56 0 (specimen) AM EST 11:00 AM EST Resulting Agency Comment Spec In Lab Nahum Tabares MD CHEMISTRY ORDERABLES Performing Organization Address City/State/[place] [address] documented in this encounter Visit Diagnoses Not on filedocumented in this encounter Administered Medications Inactive Administered Medications - up to 3 most recent administrations Medication Order MAR Action Action Date Dose Rate Site acetaminophen (Tylenol) tablet Given 03/20/2020 9:20 AM EST 1,00 0 mg 1,000 mg 1,000 mg, Oral, ONCE, 1 dose, On Fri03/20/20 at 0915, Day of Surgery (Day of Procedure), Routine BUpivacaine-EPINEPHrine 0.25 %-1:200,000 Given 03/20/2020 10:49 AM EST 10 mLs injection ONCE PRN, Starting on Fri03/20/20 at 1049, Until Fri03/20/20 at 1649, Intra-Operative (Intra-Procedure), Routine lactated ringers infusion New Bag 03/20/2020 10:15 AM EST 1,000 mL, at 100 mL/hr, Intravenous, CONTINUOUS, Starting on Fri03/20/20 at 0915, Until Fri03/20/20 at 1446, Day of Surgery (Day of Procedure) New Bag 03/20/2020 9:20 AM EST 1,000 mLs 100 mL/hr documented in this encounter Active and Recently Administered Medications Times are shown in EST. Scheduled Medication Order 03/18/2020 03/19/2020 03/20/2020 acetaminophen (Tylenol) tablet 1,000 mg (COMPLETED) 09 (Given - Provider: Jayla Onofre RN) 1,000 mg, Oral, ONCE, 1 dose, Fri at 0915, Day of Surgery (Day of Procedure), Routine ketorolac (Toradol) (15 mg/mL) injection 15 mg 1330 (Due) 15 mg, Intravenous, ONCE, 1 dose, 03/20/20 at 1330, Routine Continuous Medication Order 03/18/2020 03/19/2020 03/20/2020 lactated ringers infusion (CANCELED) 0920 (New Bag - Provider: Jayla Onofre RN)1015 (New Bag - Provider: Cielo Enrique CRNA)1152 (Stopped - Provider: Cielo Enrique CRNA) 1,000 mL, at 100 mL/hr, Intravenous, CON TINUOUS, Starting Fri03/20/20 at 0915, Until Fri03/20/20 at 1446, Day of Surgery (Day of Procedure) PRN Medication Order 03/18/2020 03/19/2020 03/20/2020 BUpivacaine-EPINEPHrine 0.25 %-1:200,000 injection (CANCELED) 1049 (Given - Provider: Lee Cadena MD) ONCE PRN, Starting Fri03/20/20 at 1049, Until Fri03/20/20 at 1649, Intra- Operative (Intra-Procedure), Routine documented in this encounter Care Teams Medical Research Tech Relationship Specialty Start Date End Date Destiney Motley APRN PCP - General Family Medicine 09/16/[address] [place] [address] documented as of this encounter
--- OUTSIDE RECORDS SUMMARY | 2022-02-22 01:01 | XMS_ITS | Encounter Summary ---
:1945 Author Organization [facility] [place] [address] Care Team Providers Name Role Phone Violeta Rivera MD Primary Care Provider Encounter Details Date Type Department Care Team Description 09/16/2012 Hospital En[place] [facility] [place] [facility] [place]normal [place], [facility] [place] [address] Social History Tobacco Use Types Packs/Day [...] procedure are i n the results section. SURGICAL PATHOLOGY Routine 09/16/2012 11:13 Resul ts for this REPORT AM EDT [...] and approve the above interpretation. Home phone: [phone] Film and interpretation reviewed by the attending [...] Fibroadenoma with ADH and ALH Procedure Note Marcy Islas MD - 09/17/2012Formattin [...] and approve the above interpretation. Home phone: [phone] Film and interpretation reviewed by the attending Marcy Islas MD [facility] [place]AM[facility] ORDERABLES Surgical Pathology Report (09/16/2012 11:13 AM EDT) Component Value Ref Test Analysis Performed At [facility] Method Time Signature Surgical CERNER Pathology ? [facility] Report ? Provider: ?? MARCY ISLAS ?Pt. Name: ?? LANI ZACK HANNA ? Acc #: ?[id number] ?Pt. MRN: ?[id number] ? Col Date: ?? 3 ? /Sex: ?1945,(66 years),Female ? Rec Date: ?? 09/16/2012 ? LOC: ?[facility] ? SURGICAL PATHOLOGY ? ---Pathologic Diagnosis--- ? Needle biopsies: ?? Left breast ? Diagnosis: ? 1. Fibroadenoma ?2. Focal atypical ductal hyperplasia (present in the ? fibroadenoma) ?3. Atypical lobular hyperplasia (predominantly present ? in fibroadenoma; focally outside of fibroadenoma) ? Microcalcifications: ??Few calcifications within fibr oadenoma ? CR-0 ? 09/17/12 ? [facility] ? 09/17/12 Verified by: ? Jeet VARGAS, Joe aMyo ? Pathologist ? (Electronic Si gnature) ? The attending pathologist whose signature appears o n this report has ? reviewed all diagnostic slides and has edited the ludmila ss and/or ? microscopic portion of the report in rendering the fi nal pathologic ? diagnosis. ? ---Comment--- ? Additional levels (A2) were examined. ? ---Microscopic Description--- ? Immunohistochemistry Studies: ? Formalin-fixed, paraf fin-embedded tissue sections are studied using the B- ? SA system technique w ith appropriate positive and negative controls. ??These ? IHC studies provide [facility] pathologist with adjunctive diagnostic information. ? Antibody specificity has been verified by testing antibodies on a series of ? in-house tissues with known immunohistochemical perfo rmance ? characteristics. The clinical interpretation of any antibody positive ? staining or its absence is evaluated within the katerina xt of clinical ? presentation, morphol ogy, histopathological criteria and other diagnostic ? tests. ? Block ?Antibody ? Result (Posi tive/Negative) ? A1,A2 ?E-cadherin ? Negative membranous staining in atypical ? lobul ar hyperplasia ? ---Gross Description--- ? A - Labeled/Fixative: Left breast ultrasound biopsy, formalin. ? Quantity/Size: Multiple, ranging from 0.4-1.3 cm. ? Tissue Description: Fragmented, fibrofatty needle cor e biopsies. ? [facility] ? Provider: ?? MARCY ISLAS ?Pt. Name: ?? LANI GOELBRENNA, ZACK F ? Acc #: ?[id number] ?Pt. MRN: ?[id number] ? Col Date: ?? 3 ? /Sex: ?1945,(66 years),Female ? Rec Date: ?? 09/16/2012 ? LOC: ?[facility] ? SURGICAL PATHOLOGY ? Ischemic Time: 8 minutes. ? Sections/Processing: ??(T2) ??ejr ? ---Clinical Information--- ? Specimen Submitted: ? A - Left breast ultrasound biopsy ? Clinical History: ? Mass ? 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 Violeta Rivera MD ? [facility] ? [address] ? [place] [address] Specimen (Source) Anatomical Collection Method Collection Time Re ceived Time Location / / Volume Laterality 09/16/2012 11:13 AM EDT Marcy Islas MD PATHOLOGY/CYTOLOGY ORDERABLE S Performing Organization Address City/State/[place] [address] [facility] documented in this encounter Visit Diagnoses Diagnosis Abnormal mammogram, unspecified documented in this encounter Care Teams Compensation Director Relationship Specialty Start Date End Date Violeta Rivera MD PCP - General 10/05/11 09/15/19 [address] [place] [address] documented as of this encounter
--- OUTSIDE RECORDS SUMMARY | 2022-02-22 01:01 | XMS_ITS | Encounter Summary ---
:1945 [place] [address] Care Team Providers Name Role Phone Destiney [...] Expiration Date Visits Requ ested Visits Authorized [id number] 1 1 Encounter Details Date Type Department Care Team Description 03/20/2020 Hospital Same Day Program [place], Primary Encounter at [facility] Nahum Machado MD [facility] [address] [phone] Social History Tobacco Use Types Packs/Day Years [...] Take NSAIDS or Tylenol every 6 hours [id number] for the first 3-5 days following surgery [...] will be mailed to you Please call [phone] to confirm the date and time of your appointment if you do not hear from usin the next 2 weeks Call Doctor for: Call if you have trouble talking or breathing (call [phone] if this is severe) Call if you [...] with your PCP. Phone number for questions: [phone] before 5 PM on weekdays [phone] after 5 PM and on weekends/holidays. Ask for the general surgery resident flooring salesperson. documented in this encounter Medications at Time [...] escorted out of department via wheelchair with OPERATIONS LEAD Liliya_. 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 A crease [...] Operative Note Patient Name: Dominique Robbins : [id number] MR#: [id number] Case Date: 03/20/2020 Surgeon: Surgeon(s) and Role: * Nahum Tabares MD - Primary * eLe Cadena MD - Resident * Christine Soler [...] documented in this encounter Results Intraoperative PTH ([facility]P) (03/20/2020 11:31 AM EST) P athologist Signature Intraoper PTH 42 15 - [address] [facility] pg/mL [facility] LABORATORY Comment: 15 minute post-excision Called by: , Read back by: Nahum lucas, Date/Time:03/20/20 11:55. A 50 % decrease in venous iPTH levels at 10 min post adenoma excision is expected if all the hypersecreting parat hyroid tissue has been removed (Julien GL et al. Surgery 1993:114; 5189-5278) As of 12/24/19, ioPTH testing has moved f rom the [place] Lead Nuclear Medicine Technologist to the Sheri Jesus. Please note the updated reference intervals. Specimen Anatomical Collection Method Collection Time Receive d Time (Source) Location / / Volume Laterality Blood specimen 03/20/2020 11:31 0 (specimen) AM EST 11:35 AM EST Resulting Agency Comment Spec In Lab Nahum Tabares MD CHEMISTRY ORDERABLES Performing Organization Address [facility] Phon e Number [address] Intraoperative PTH ([facility]P) (03/20/2020 11:24 AM EST) athologist Signature Intraoper PTH 49 15 - [address] [facility] pg/mL [facility] LABORATORY Comment: 10 minute post-excision Called by: , Read back by: Echo Torres, Date/Time:03/20/20 11:47. A 50 % decrease in venous iPTH levels at 10 min post adenoma excision is expected if all the hypersecreting parat hyroid tissue has been removed (Julien GL et al. Surgery 1993:114; 0679-2831) As of 12/24/19, ioPTH testing has moved f rom the [place] Lead Nuclear Medicine Technologist to the Sheri Jesus. Please note the updated reference intervals. Specimen Anatomical Collection Method Collection Time Receive d Time (Source) Location / / Volume Laterality Blood specimen 03/20/2020 11:24 0 (specimen) AM EST 11:28 AM EST Resulting Agency Comment Spec In Lab Nahum Tabares MD CHEMISTRY ORDERABLES Performing Organization Address City/[facility] Code Phon e Number [place] [phone] HOSP[address] LAB[address]ORY [address] Surgical Pathology Report (03/20/2020 11:14 AM EST) Component Value Ref Test Analysis Performed At [facility] gist Range Method Time Signature Surgical [id number] ? Location: [facility]; [facility]; A [facility] Report The signing pathologist has (i) examined the relevant preparation(s) for the [facility] specimen(s) and (ii) rendered or confirmed the diagnosis(es) . HOSPITAL LABORATORY . ?Surgic al Pathology DIAGNOSIS Left upper parathyroid, excision: Parathyroid adenoma. Electronically signed by: ??Maodnna Zuniga MD Verified: ??03/22/2020 ?Pathologist Performed at: ??-[facility] Dept. of Pathology, [place], [place] DISCUSSION The intraoperative PTH decreased from 137 pg/mL to 42 pg/mL. SPECIMEN(S) SUBMITTED A - left upper parathyroid, excision (1) CLINICAL INFORMATION Hyperparathyroidism SPECIMEN PROCESSING A - Labeled/Fixative: Left upper parathyroid, fresh. Quantity/Size/Weight: Single, 2.5 x 1.8 x 0.8 cm, 2.14 g. Tissue Description: Soft, ta n elliptoid nodule with central gelatinous degeneration.. Sections/Processing: Tribunal Member sections in 1 cassette labeled A1. ??rlr Specimen (Source) Anatomical Collection Method Collection Time Re ceived Time Location / / Volume Laterality 03/20/2020 11:14 AM EST Nahum Tabares MD PATHOLOGY/CYTOLOGY ORDERABLE S Performing Organization Address City/[facility]/ZIP Code Phon e Number [address] Specimen to Pathology (03/20/2020 11:14 AM EST) Specimen Anatomical Collection Method Collection Time Receive d Time (Source) Location / / Volume Laterality AP Specimen 03/20/2020 11:14 03/20/2020 AM EST 11:14 AM EST Narrative [facility] LABORAT ORY - 03/20/2020 11:14 AM EST Specimen requisition ordered. ??Separate Pathology report to follow Nahum Tabares MD PATHOLOGY/CYTOLOGY ORDERABLE S Performing Organization Address City/[facility]/ZIP Code Phon e Number [address] (ABNORMAL) Intraoperative PTH ([facility]/CGP) (03/20/2020 10:56 AM EST) P athologist Signature Intraoper PTH 137 (H) 15 - [facility] LABORATORY Comment: Baseline Called by: , Read back by: Allison yoon, Date/Time:03/20/20 11:28. A 50 % decrease in venous iPTH levels at 10 min post adenoma excision is expected if all the hypersecreting parat hyroid tissue has been removed (Julien REINA et al. Surgery 1993:114; 2675-2198) As of 12/24/19, ioPTH testing has moved f rom the [place] Lead Nuclear Medicine Technologist to the Sheri Jesus. Please note the updated reference intervals. Specimen Anatomical Collection Method Collection Time Receive d Time (Source) Location / / Volume Laterality Blood specimen 03/20/2020 10:56 0 (specimen) AM EST 11:00 AM EST Resulting Agency Comment Spec In Lab Nahum Tabares MD CHEMISTRY ORDERABLES Performing Organization Address City/State/[facility] Code Phon e Number [place] [phone] HOSPITAL LAB[address] documented in this encounter Visit Diagnoses Diagnosis Primary hyperparathyroidism documented in this encounter Administered Medications Inactive Administered Medications - up to 3 most recent administrations Medication Order MAR Action Action Date Dose Rate Site acetaminophen (Tylenol) tablet Given 03/20/2020 9:20 AM EST 1,00 0 mg 1,000 mg 1,000 mg, Oral, ONCE, 1 dose, On Fri03/20/20 at 0915, Day of Surgery (Day of Procedure), Routine lactated ringers infusion New Bag 03/20/2020 [...] 03/20/2020 acetaminophen (Tylenol) tablet 1,000 mg (COMPLETED) 0920 (Given - Provider: Jayla Onofre RN) 1,000 mg, Oral, ONCE, 1 dose, Fri at 0915, Day of Surgery (Day of Procedure), Routine ketorolac (Toradol) (15 mg/mL) injection 15 mg 1330 (Due) 15 mg, Intravenous, ONCE, 1 dose, Fri03/20/20 at 1330, Routine Continuous Medication Order 03/18/2020 [...] Routine documented in this encounter Care Teams Blood Bank Specialist Relationship Specialty Start Date End Date Destiney Motley APRN PCP - General Family Medicine 09/16/[address] [place] [address] documented as of this encounter
--- OUTSIDE RECORDS SUMMARY | 2022-02-22 01:02 | XMS_ITS | Encounter Summary ---
:1945 Author Organization [place] [address] Care Team Providers Name Role Phone Valentin CORTES MD, Lloyd L Primary Care Provider [phone] Reason for Visit Reason Comments Hepatitis C Hepatitis B Encounter Details Date Type Department Care Team Description 01/24/2011 Office Visit Gastroenterology at [facility] Ese Lazaro, Hepatitis B, chronic [facility] Gael johnson APRN (Primary Dx) [place] [address] [facility] [phone] 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 She reports one episode of bright red blood per rectum on one occasion several years ago when she taking NSAIDs. She denies other episodes of gi tract bleeding. Outside labs: 11/21/2010 ast 46, alt 84, ap 87 tprot 7.1, alb 3.8, tbili 1.5, 01/01/2011 Hep B sag + Hep B cab IGM + Hep C ab neg Hep A ab IGM + Past Medical History Diagnosis Date ??? Hypertension ??? Obesity ??? Osteoporosis ??? COPD (chronic obstructive pulmonary disease) Past Surgical History Procedure Date ??? Cholecystectomy, laparoscopic ??? Wrist surgery History Social History ??? Marital Status: Spouse Name: N/A Number of Children: N/A ??? Years of Education: N/A Occupational History ??? Not on file. Social History Main Topics ??? Smoking status: Former Smoker -- 1.0 packs/day for 42 years Quit date: 01/25/2000 ??? Smokeless tobacco: Former User ??? Alcohol Use: No rare use ??? Drug Use: No ??? Sexually Active: Not on file Other Topics Concern ??? 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 Hypertension Mother ??? Diabetes Mother ??? Thyroid Disease Mother ??? Cancer Mother uterine ??? Cancer Sister uterine ??? Hypertension Sister Review of Systems Constitutional: Positive for fatigue. Negative for fever and chills. HENT: Negative. Eyes: Negative. Respiratory: Positive for cough and shortness of breath. Cardiovascular: Positive for leg swelling (ankle edema, lasix helps). Negative for chest pain. Gastrointestinal: Positive for diarrhea (this has been an issue since her cholecystectomy). Negativefor nausea, vomiting, abdominal pain, constipation and blood in stool. Genitourinary: Negative for dysuria, frequency and hematuria. Musculoskeletal: Positive for back pain. Skin: Negative for rash. Neurological: Negative for seizures. Hematological: Bruises/bleeds easily. Psychiatric/Behavioral: Negative for suicidal ideas. Objective: Physical Exam Constitutional: She is oriented to person, place, and time. She appears well- developed and well-nourished. Poor dentition hirsutism HENT: Head: Normocephalic and atraumatic. Eyes: No scleral icterus. Neck: No thyromegaly present. Cardiovascular: Normal rate, regular rhythm and normal heart sounds. No murmur heard. Pulmonary/Chest: Effort normal and breath sounds normal. She has no wheezes. Abdominal: Soft. She exhibits no ascites and no mass. There is no hepatosplenomegaly. Musculoskeletal: She exhibits no edema. Neurological: She is alert and oriented to person, place, and time. Skin: Skin is warm and dry. Rash (reddened areas scattered on her face) noted. Palmar erythema Psychiatric: She has a normal mood and affect. Her behavior is normal. Assessment and Plan: 1. Hepatitis B, will check a dna level and Eag and Eab to see if this is chronically active disease.She does have elevated liver tests and this could be from the hepatitis B, also she is at risk of having fatty liver however the abdominal imaging does not show increased echotexture of the liver. Depending on the results of today's tests the management plan will be determined. We discussed the possibility of a liver biopsy to stage and grade her disease if she is chronically infected. We also discussed the need for her spouse and children to be screened for Hepatitis B. Results for ZACK ROBBINS ( ) as of 01/29/2011 10:08 Ref. Range 01/24/2011 14:09 WBC Latest Range: [...] Latest Range: Negative Negative Hep B DNA [facility] Latest Range: <357 IU/mL <357 Hep B E Ab-[place] Latest Range: Negative Negative Hep B E Ag-[place] Latest Range: Negative Negative documented in this encounter Plan of Treatment Not on filedocumented as of this encounter Procedures Procedure Name Priority Date/Time Associated Comments Diagnosis HEPATITIS B VIRAL DNA Routine 01/24/2011 2:09 PM Hepatitis B, Results for this QUANT-FRIED EDT chronic procedure are i n the results section. DNA ANTIBODY Routine 01/24/2011 2:09 PM Results f or this (DOUBLE-STRANDED) EDT procedure are in the results section. DIFFERENTIAL, Routine 01/24/2011 2:09 PM Results for this AUTOMATED EDT procedure are i n the results section. HEPATITIS BE ANTIGEN Routine 01/24/2011 2:09 PM Hepatitis B, R esults for this AND ANTIBODY EDT chronic procedure are i n the results section. HEPATITIS A ANTIBODY, Routine 01/24/2011 2:09 PM Hepatitis B, Results for this TOTAL EDT chronic procedure are i n the results section. JAY TITER Routine 01/24/2011 2:09 PM Results f or this EDT procedure are i n the results section. PROTHROMBIN TIME Routine 01/24/2011 2:09 PM Hepatitis B, Resul ts for this EDT chronic procedure are i n the results section. CBC (WITH DIFF) Routine 01/24/2011 2:09 PM Hepatitis B, Result s for this EDT chronic procedure are i n the results section. JAY ANTIBODY SCREEN Routine 01/24/2011 2:09 PM Hepatitis B, Re sults for this EDT chronic procedure are i n the results section. COMPREHENSIVE Routine 01/24/2011 2:09 PM Hepatitis B, Results for this METABOLIC PANEL EDT chronic procedure ar e in (NON-FASTING) the results section. documented in this encounter Results JAY TITER (01/24/2011 2:09 PM EDT) athologist Signature JAY Titer Positive [facility] Comment: 1:160 Titer seen with Speckled pattern. ??Is suggestive of autoantibodies to Sm, SYRUP MAKER COOK, SCL-70, or SS-B. Specimen Anatomical Collection Method Collection Time Receive d Time (Source) Location / / Volume Laterality Blood specimen 01/24/2011 2:09 PM 011 8:16 (specimen) EDT AM EDT Yves Juarez MD IMMUNOLOGY ORDERABLES Performing Organization Address City/[facility]/ZIP Code Phon e Number [address] [facility] DNA ANTIBODY (DOUBLE-STRANDED) (01/24/2011 2:09 PM EDT) athologist Signature DNA Ab (DS) Neg Neg [facility] Specimen Anatomical Collection Method Collection Time Receive d Time (Source) Location / / Volume Laterality Blood specimen 01/24/2011 2:09 PM 011 8:16 (specimen) EDT AM EDT Yves Juarez MD CHEMISTRY ORDERABLES Performing Organization Address City/[facility]/[place] [address] [facility] A-DIFF (01/24/2011 2:09 PM EDT) athologist Signature Neutrophils % 63.6 34.0 - CERNER 71.0 % MILL[facility]NIUM Neutr Abs (ANC) 5.40 1.50 - CERNER 6.30 MILLENNIUM x10(3)/mcL Lymphocytes % 21.6 19.0 - CERNER 53.0 % MILLENNIUM Lymphocytes Abs 1.8 1.0 - 3.6 CERNER x10(3)/mcL MILLENNIUM Monocytes % 8.0 4.0 - 13.0 CERNER % MILLENNIUM Monocyte Abs 0.7 0.2 - 1.0 CERNER x10(3)/mcL MILLENNIUM Eosinophils % 5.6 0.0 - 7.0 CERNER % MILLENNIUM Eosinophils Abs 0.5 0.0 - 0.5 CERNER x10(3)/mcL MILLENNIUM Basophils % 1.1 0.0 - 2.0 CERNER % MILLENNIUM Basophils Abs 0.1 0.0 - 0.2 CERNER x10(3)/mcL M[facility]ENNIUM Immature Gran % 0.10 0.00 - CERNER 0.66 % [facility] Comment: Immature granulocytes(IG's)percentage an d absolute count will include metamyelocytes, myelocytes, and promyelo cytes. Blood smears from CBCs yielding IG's will be scanned manually for concor dance. If this scan disagrees with the automated IG or if promyelocytes are not ed, a manual differential will be performed. Katheryn Gran Abs 0.01 0.00 - 0.05 x10(3)/mcL CER NER MILLENNIUM Specimen Anatomical Collection Method Collection Time Receive d Time (Source) Location / / Volume Laterality Blood specimen 01/24/2011 2:09 PM 011 2:16 (specimen) EDT PM EDT Yves Juarez MD HEMATOLOGY ORDERABLES Performing Organization Address City/State/[facility] [place] [address] CERNER MILLENNIUM Hepatitis A Antibody, Total (01/24/2011 2:09 PM EDT) Analysis Performed At Patho logist Time Signature Hepatitis A Ab Negative Negative CERNER Total MILLENNIUM Specimen Anatomical Collection Method Collection Time Receive d Time (Source) Location / / Volume Laterality Blood specimen 01/24/2011 2:09 PM 011 2:26 (specimen) EDT PM EDT Yves Juarez MD IMMUNOLOGY ORDERABLES Performing Organization Address City/State/[facility] [place] [address] CERNER MILLENNIUM Prothrombin Time (01/24/2011 2:09 PM EDT) athologist Signature PT 13.9 12.3 - 14.7 CERNER sec MILLENNIUM Comment: [facility] Transfusion Committee Guidelines: I NR less than 2.0, PTT less than OR equal to 43.5 seconds, or Fibrinogen gre ater than or equal to 100 mg/dl indicate adequate procoagulant activity for hemostasis in patients without underlying bleeding disorders. INR 1.0 0.9 - 1.1 CERNER MILLENNIUM Specimen Anatomical Collection Method Collection Time Receive d Time (Source) Location / / Volume Laterality Blood specimen 01/24/2011 2:09 PM 011 2:16 (specimen) EDT PM EDT Yves Juarez MD HEMATOLOGY ORDERABLES Performing Organization Address City/[facility]/[place] [address] CERNER MILLENNIUM (ABNORMAL) JAY (01/24/2011 2:09 PM EDT) athologist Signature JAY Pos Titer Neg CERNER TF (A) MILLENNIUM Specimen Anatomical Collection Method Collection Time Receive d Time (Source) Location / / Volume Laterality Blood specimen 01/24/2011 2:09 PM 011 8:16 (specimen) EDT AM EDT Yves Juarez MD IMMUNOLOGY ORDERABLES Performing Organization Address [facility]/ZIP [facility] [place] [address] CERNER MILLENNIUM (ABNORMAL) CBC (with Diff) (01/24/2011 2:09 PM EDT) athologist Signature WBC 8.5 4.0 - 10.0 CERNER x10(3)/mcL MILLENNIUM RBC 4.96 3.93 - CERNER 5.22 MILLENNIUM x10(6)/mcL Hemoglobin 16.6 (H) 11.2 - CERNER 15.7 gm/dL MILLENNIUM Hematocrit 46.3 (H) 34.0 - CERNER 45.0 % MILLENNIUM MCV 93.3 79.0 - CERNER 94.0 fL MILLENNIUM MCH 33.5 (H) 26.6 - CERNER 32.2 pg MILLENNIUM MCHC 35.9 32.0 - CERNER 36.5 gm/dL MILLENNIUM Platelets 301 145 - 370 CERNER x10(3)/mcL MILLENNIUM RDWSD 45.6 35.0 - CERNER 46.0 fL MILLENNIUM RDWCV 13.4 10.9 - CERNER 14.4 % MILLENNIUM MPV 9.6 9.0 - 12.0 CERNER fL MILLENNIUM Specimen Anatomical Collection Method Collection Time Receive d Time (Source) Location / / Volume Laterality Blood specimen 01/24/2011 2:09 PM 011 2:16 (specimen) EDT PM EDT Yves Juarez MD HEMATOLOGY ORDERABLES Performing Organization Address City/State/[place] [address] CERNER MILLENNIUM (ABNORMAL) Comprehensive metabolic panel (non-fasting) (01/24/2011 2:09 PM EDT) P athologist Signature Glucose Lvl 98 60 - 199 CERNER mg/dL MILLENNIUM Comment: Diabetes: >=200 mg/dL plus symp toms BUN 16 8 - 18 mg/dL CERNER MILLENNIUM Creatinine 0.93 0.70 - 1.20 mg/dL CERNER MILL ENNIUM Sodium 141 135 - 145 mmol/L CERNER SOPHY NIUM Potassium 3.6 3.5 - 5.0 mmol/L CERNER SOPHY NIUM Comment: Please note: ??Patients with WBC >100,00 0 may have falsely elevated Potassium levels. ??For accurate Potassium quantif ication in these patients send serum separator tube (gold top) for subsequent determinations. ??Contact the Clinical Chemistry Laboratory if there are any qu estions. Chloride 104 98 - 107 mmol/L CERNER MILLENN IUM CO2 26 22 - 31 mmol/L CERNER MILLENNI UM Anion Gap 11 5 - 15 mmol/L CERNER MILLENNIU M Calcium 10.7 (H) 8.5 - 10.5 mg/dL CERNER SOPHY NIUM Total Protein 7.4 6.4 - 8.3 gm/dL CERNER MIL LENNIUM Albumin 4.2 3.2 - 5.2 gm/dL CERNER MILLENN IUM AST 45 (H) 0 - 30 unit/L CERNER MILLENNIU M ALT 53 (H) 0 - 30 unit/L CERNER MILLENNIU M Alk Phos 68 40 - 104 unit/L CERNER MILLENN IUM Total Bilirubin 1.2 0.2 - 1.3 mg/dL CERNER M ILLENNIUM Bili, Direct 0.2 0.0 - 0.3 mg/dL CERNER MILL ENNIUM Estimated GFR 60 >=60 CERNER MILLENNIU M Comment: The National Kidney Disease Education Pr ogram (NKDEP) has recommended all laboratories report estimated GFR (eGFR) along with plasma creatinine measurements to assist you with recognit ion of early kidney disease. Caveats: ??Plasma creatinine should be a t steady-state (unchanged within the past week). For patient s multiply eGFR by 1.2.MDRD equation has not been validated for pediatric pat ients and is only valid for patients with age >= 18 years. At present, NKDEP does NOT recommend usi ng the MDRD equation for drug dosing purposes and pharmacists should continue to use their current dosing methods. In addition, numerical eGFR values great er than 60 ml/min/1.73 square meters should be treated as > 60, and not an ex act number due to greater inaccuracies at these higher values. Per NKDEP, they classify normal renal function as any GFR >60ml/min/1.73 square meters; chronic kidney disease wh en GFR <60, and renal failure when GFR <15. ??This calculation may not be valid for patients with atypical muscle mass (very lean or obese), acute renal failur e, and in patients with diabetic kidney disease. References: http://nkdep.nih.gov/resources/NKDEP_Sug gestn4Labs_0606_508.pdf http://www.kidney.org/professionals/kls/ pdf/faq_gfr.pdf Specimen Anatomical Collection Method Collection Time Receive d Time (Source) Location / / Volume Laterality Blood specimen 01/24/2011 2:09 PM 011 2:16 (specimen) EDT PM EDT Yves Juarez MD CHEMISTRY ORDERABLES Performing Organization Address City/[facility]/ZIP Code Phon e Number [address] [facility] Hepatitis BE Antigen and Antibody (01/24/2011 2:09 PM EDT) athologist [facility] Hep B E Ag Negative Negative [facility] Comment: Test Performed by: [place] [address] Air And Hydronic Balancing Technician: An Shelton, Ph. D. Hep B E Ab Negative Negative [facility] Comment: Test Performed by: [place] [address] Air And Hydronic Balancing Technician: An Shelton, Ph. D. Specimen Anatomical Collection Method Collection Time Receive d Time (Source) Location / / Volume Laterality Blood specimen 01/24/2011 2:09 PM 011 3:26 (specimen) EDT PM EDT Yves Juarez MD IMMUNOLOGY ORDERABLES Performing Organization Address City/[facility] Code Phon e Number [address] [facility] Hepatitis B Viral DNA Quant-[place] (01/24/2011 2:09 PM EDT) [facility] Hep B DNA <357 <357 IU/mL [facility] Comment: This assay cannot determine an accurate HBV DNA level below this limit. Result in log IU/mL is <2.55 Quantification range of this assay is 35 7 to 17,900,000 IU/mL (2.55 to 7.25 log IU/mL). Testing was done by the [employer] HBV DNA 3.0 Assay (bDNA) ([employer] For research use only Test Performed by: [facility] Dpt of Lab Med and Pathology [address] [place], [place] [id number] Air And Hydronic Balancing Technician: Kaushik bledsoe III, M.D. Specimen Anatomical Collection Method Collection Time Receive d Time (Source) Location / / Volume Laterality Blood specimen 01/24/2011 2:09 PM 011 3:27 (specimen) EDT PM EDT Yves Juarez MD CHEMISTRY ORDERABLES Performing Organization Address City/State/ZIP Code Phon e Number [place] [phone] [facility] documented in this encounter Visit Diagnoses Diagnosis Hepatitis B, chronic - Primary Viral hepatitis B without mention of hep atic coma, chronic, without mention of hepatitis delta documented in this encounter Care Teams Gasoline Engine Inspector Relationship Specialty Start Date End Date Michael Hanson III, MD PCP - General 03/20/10 01/28/11 [address] [place] [address] documented as of this encounter
--- OUTSIDE RECORDS SUMMARY | 2022-02-22 01:03 | XMS_ITS | Clinical Summary ---
:1945 Author Organization [facility] Address [address] [place] [address] Care Team Providers Name Role Phone Violeta Rivera MD Primary Care Provider Social History Tobacco Use Types Packs/Day Years Used Date Never Assessed Sex Assigned at Date Recorded Not on file Plan of Treatment Health Maintenance Due Date Last Done Comments Fall Risk Screening 12/23/2008 Care Teams Outsole Handler Relationship Specialty Start Date End Date Violeta Rivera MD PCP - General 09/04/[address] [place] [address] [address] [place] [place], [place] [id number]
--- OUTSIDE RECORDS SUMMARY | 2022-02-22 01:03 | XMS_ITS | Encounter Summary ---
:1945 Author Organization Address [address] [place] [address] Care Team Providers Name Role Phone Unknown, Provider Primary Care Provider Encounter Details Date Type Department Care Team Description 09/01/2012 Results Only [facility] Jorgito Rodriguez , Laboratory Services - [address] MACEY SALDIVAR [address] [place] [address] [place] [address] [phone] Social History Tobacco Use Types Packs/Day Years Used Date Never Assessed Sex Assigned at Date Recorded Not on file documented as of this encounter Plan of Treatment Not on filedocumented as of this encounter Procedures Procedure Name Priority Date/Time Associated Diagnosis Comme [facility] SURGICAL PATHOLOGY Routine 09/01/2012 10:53 Resul ts for this EDT procedure are i n the results section. documented in this encounter Results SURGICAL PATHOLOGY (09/01/2012 10:53 EDT) Pathology Report: SURGICAL PATHOLOGY REPORT DANA GALINDO Reports generated via electronic interface contain kaycee ginal data; LAB however they are lacking the format of the original re port. Caution should be taken when reading/interpreting unfo rmatted reports. Name: ? ZACK ROBBINS F ? Accession #: ? [id number] ? : ? 1945 (Age: 66) ??F ? Collect Date: ? 09/01/2012 ? Location: ? [facility] ? Receive Date: ? 013 ? Provider: JORGITO RODRIGUEZ DO Copy to: CAITY VILLA MD ? Final Pathologic Diagnosis: A. ?Colon, hepatic flexure, polyp #1, bio psy: 1. ?Fragment of tubular adenoma. B. ?Colon, transverse, polyp #2, biopsy: 1. ?Fragments of tubular adenoma. Document reviewed and electronically signed by: ISATU TAO MD Report ??Date: 09/03/2012 18:36 By the signature above, the attending physician certif ies that he/she has personally conducted a gross and/or microscopic examin ation of the described specimens and rendered or confirmed the above diagnosi s. Specimen(s) Received: A. ?Hepatic flexure polyp (#1) B. ? Transverse colon polyp (#2) Clinical History: ? Colorectal screen Gross Description: ? Received in formalin labelled Zack Trimble and #1-hepatic flexure polyp. It is a 0.3 x 0.3 x 0.2 cm light holguin polyp. ??The specimen is submitted intact as (A1). Received in formalin ioana gricelda ItzelZack sullivan and #2-transverse colon polyps are two light holguin biopsy fragments, each measuring 0.3 x 0.2 x 0.2 cm. ??The specimen is submitted intact as (B1). ??(EMMA Sibley /dwain End of Report Specimen Performing Organization Address City/State/ZIP Code Phon e Number [facility] [address] [place] [address] SERVICES [facility] [address] [place] [address] documented in this encounter Visit Diagnoses Not on filedocumented in this encounter Care Teams Kinesiology Professor Relationship Specialty Start Date End Date Unknown, Provider, PCP - General 07/24/11 09/03/12 documented as of this encounter
--- OUTSIDE RECORDS SUMMARY | 2022-02-22 01:03 | XMS_ITS | Encounter Summary ---
:1945 Author Organization [facility] Address [address] [place] [address] Care Team Providers Name Role Phone Violeta Rivera MD Primary Care Provider Encounter Details Date Type Department Care Team Description 09/11/2020 Lab Requisition [facility] Outr Resulting Lab, Pathology & Laboratory Provider [facility] [address] [place], [place] [address] Social History Tobacco Use Types Packs/Day Years Used Date Never Assessed Sex Assigned at Date Recorded Not on file documented as of this encounter Plan of Treatment Not on filedocumented as of this encounter Procedures Procedure Name Priority Date/Time Associated Diagnosis Comme nts PTH INTACT Routine 09/11/2020 8:20 EDT Results for this procedure are i n the results section . documented in this encounter Results PTH INTACT (09/11/2020 8:20 EDT) Pathologist Sig nature Intact PTH 43 19 - 88 pg/mL [facility] Specimen Blood - Venous blood (substance) Performing Organization Address City/State/ZIP Code Phon e Number [facility] [address] [place] [address] SERVICES documented in this encounter Visit Diagnoses Not on filedocumented in this encounter Care Teams Teacher Visually Impaired Relationship Specialty Start Date End Date Violeta Rivera MD PCP - General 09/04/[address] [place] [address] [address] [place], [place] [id number] documented as of this encounter
--- OUTSIDE RECORDS SUMMARY | 2022-02-22 01:03 | XMS_ITS | Encounter Summary ---
:1945 Author Organization [facility] Address [address] [place] [address] Care Team Providers Name Role Phone Unknown, Provider Primary Care Provider Encounter Details Date Type Department Care Team Description 07/23/2011 Results Only [facility] Arianna Villa MD Laboratory Services - [address] [place] [address] [address] [facility] [place] [address] [phone] Social History Tobacco Use Types Packs/Day Years Used Date Never Assessed Sex Assigned at Date Recorded Not on file documented as of this encounter Plan of Treatment Not on filedocumented as of this encounter Procedures Procedure Name Priority Date/Time Associated Diagnosis Comme nts PAP TEST- RESULT Routine 07/23/2011 0:00 EDT Resu lts for this ONLY procedure are i n the results section. documented in this encounter Results PAP TEST- RESULT ONLY (07/23/2011 0:00 EDT) Pathology Report: CYTOPATHOLOGY REPORT [facility] Reports generated via electronic interface contain kaycee ginal data; however they are lacking the format of the original re port. Caution should be taken when reading/interpreting unfo rmatted reports. Name: ? ZACK ROBBINS ? Accession #: ? [id number] ? : ? 1945 (Age: 65) ??F ?Collect Da te: ? 07/23/2011 ? Location: ? [facility] ? Receive Date: ? 012 ? Provider: CAITY VILLA MD Copy to: ? Final Report SPECIMEN ADEQUACY ? Satisfactory for Evaluation - transformation zone component absent GENERAL CATEGORIZATION ? Negative for Intraepithelial Lesion or Malignan cy ?? Menstural/ Status: ??Post Menopausal Specimen/Source: ??Pap Test, Cervix/Endocervix, ThinPr ep Imaging System with manual evaluation Document reviewed and electronically signed by: ? RHIANNA Ambriz(ASCP) ? Report ??Date: 07/25/2011 12:57 HPV with Pap Test ? Date Ordered: ? 07/25/2011 ? Status: ?? Signed Out ?Date Complete: ? 07/30/2011 ? By: ??S ystem Interface ? Date Reported: ? 07/30/2011 ? Interpretation RESULT: Negative for HPV types 16, 18, 31, 33, 35, 39, 45, 51, 52, 56, 58, 59, and 68. Comments Document reviewed and electronically signed by: ? System Interface ? Report date: 07/30/2011 By the signature above, the attending physician certif ies that he/she has personally conducted a gross and/or microscopic examin ation of the described specimens and rendered or confirmed the above diagnosi s. End of Report Specimen Performing Organization Address City/State/ZIP Code Phon e Number [facility] [address] [place] [address] SERVICES [facility] [address] [place] [address] documented in this encounter Visit Diagnoses Not on filedocumented in this encounter Care Teams Collections Assistant Relationship Specialty Start Date End Date Unknown, Provider, PCP - General 07/24/11 09/03/12 documented as of this encounter
--- OUTSIDE RECORDS SUMMARY | 2022-02-22 01:03 | XMS_ITS | Encounter Summary ---
:1945 Author Organization Health system Address [address] [place] [address] Care Team Providers Name Role Phone Violeta Rivera MD Primary Care Provider Encounter Details Date Type Department Care Team Description 09/14/2019 Lab Requisition [facility] Outr Resulting Lab, Pathology & Laboratory Provider [facility] [address] [place], [place] [id number] Social History Tobacco Use Types Packs/Day Years Used Date Never Assessed Sex Assigned at Date Recorded Not on file documented as of this encounter Plan of Treatment Not on filedocumented as of this encounter Procedures Procedure Name Priority Date/Time Associated Diagnosis Comme nts PTH INTACT Routine 09/14/2019 13:45 EDT Results for this procedure are i n the results section . documented in this encounter Results (ABNORMAL) PTH INTACT (09/14/2019 13:45 EDT) Pathologist Sig nature Intact PTH 315 (H) 19 - 88 pg/mL [facility] Specimen Blood - Venous blood (substance) Performing Organization Address City/State/ZIP Code Phon e Number [facility] [address] [place] [address] SERVICES documented in this encounter Visit Diagnoses Not on filedocumented in this encounter Care Teams Tip Out Worker Relationship Specialty Start Date End Date Violeta Rivera MD PCP - General 09/04/[address] [place] [address] [address] [place] [id number] documented as of this encounter
--- OUTSIDE RECORDS SUMMARY | 2022-02-22 01:03 | XMS_ITS | Encounter Summary ---
:1945 Author Organization [facility] Address [address] [place] [address] Care Team Providers Name Role Phone Violeta Rivera MD Primary Care Provider Encounter Details Date Type Department Care Team Description 11/01/2019 Lab Requisition [facility] Outr Resulting Lab, Pathology & Laboratory Provider [facility] [address] [place] [address] Social History Tobacco Use Types Packs/Day Years Used Date Never Assessed Sex Assigned at Date Recorded Not on file documented as of this encounter Plan of Treatment Not on filedocumented as of this encounter Procedures Procedure Name Priority Date/Time Associated Diagnosis Comme nts PTH INTACT Routine 11/01/2019 9:37 EDT Results for this procedure are i n the results section . documented in this encounter Results (ABNORMAL) PTH INTACT (11/01/2019 9:37 EDT) Pathologist Sig nature Intact PTH 158 (H) 19 - 88 pg/mL [facility] Specimen Blood - Venous blood (substance) Performing Organization Address City/State/ZIP Code Phon e Number 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
--- NOTE | 2022-02-22 08:00 | DI.MAMMO_ITS ---
Exam(s) MAMMO SCREENING EXAM: MAMMO SCREENING CLINICAL HISTORY: screening,Z12.39 TECHNIQUE: Bilateral full field digital CC and MLO mammographic images were obtained with 3D tomosyn thesis and utilizing computer aided detection (CAD). COMPARISON: Available for comparison. FINDINGS: Masses/Architectural Distortion: None seen. Microcalcifications: No suspicious pleomorphic-type are seen. There are stable calcifications in the upper-outer quadrant of the right breast. Skin Thickening/Nipple Retraction: None. IMPRESSION: 1. No significant interval change with no specific features of malignancy noted. 2. Unless there is more urgent need, screening mammography is recommended, as per [employer] guidelines. BI-RADS Category 2 - Benign Findings Breast Density - Category B - Scattered areas of fibroglandular density Breast density category C or D implies that the patient has dense breast tissue. Dense breast tissue is very common and is not abnormal but dense breast tissue can make it harder to find cancer on a ma mmogram. Also, dense breast tissue may increase their breast cancer risk. This information about the result of the mammogram report was provided to the patient to raise their awareness. Use this report when you speak with the patient about their risks for breast cancer, which includes their family hist ory. At that time, you may recommend for more screening tests (Ultrasound or MRI) as they might be us eful based on their risk. A negative radiographic report should not delay biopsy if a dominant or clinically suspicious mass is present. Up to ten percent of cancers are not identified on mammography. A negative report may reinforce clinical impression. Adenosis and dense breasts may obscure an underlying neoplasm. False positive reports average 6 to 10%. Patient will receive a letter notifying them of these results.
== END ==
PROVIDERS: PCP Nurse Practitioner Family; Visit Provider Nurse Practitioner Family
DX: Z12.31 Encounter for screening mammogram for malignant neoplasm of breast (principal)
CPT/HCPCS: 77063; 77067

== ENCOUNTER 2022-02-22 02:17 | Outpatient (CLI) | payer OTHER, SELFPAY ==
[2022-02-22 11:59] LABS: Hemoglobin A1C 5.7 % (<5.7)
[2022-02-22 12:21] LABS: ALT 30 U/L (14-59); AST 25 U/L (15-37); Albumin 3.5 g/dL (3.4-5.0); Alkaline Phosphatase 65 U/L (46-116); Anion Gap 9.3 mmol/L (3-11); BUN 33 mg/dL (7-18); Bilirubin, Total 1.6 mg/dL (0.2-1.0); CO2 28.7 mmol/L (21.0-32.0); CREATININE 1.5 mg/dL (0.55-1.02); Calcium 9.6 mg/dL (8.5-10.1); Chloride 102 mmol/L (98-107); Estimated GFR 35.45 (mL/min/1.73m2); Glucose 95 mg/dL (74-106); Potassium 3.2 mmol/L (3.5-5.1); Sodium 140 mmol/L (136-145); TSH (W/Ref FT4) 1.53 uIU/mL (0.36-3.74); Total Protein 7.8 g/dL (6.4-8.2)
[2022-02-22 19:55] LABS: Parathyroid Hormone,Intact 46 pg/mL (19-88)
== END 2022-02-22 02:18 | disposition home or self-care (01) ==
LOC: LBO 02:17
PROVIDERS: PCP Nurse Practitioner Family; Visit Provider Nurse Practitioner Family
DX: I10 Essential (primary) hypertension (principal); E21.3 Hyperparathyroidism, unspecified; R73.01 Impaired fasting glucose
CPT/HCPCS: 36415; 80053; 83036; 83970; 84443

== ENCOUNTER 2022-03-27 03:31 | Outpatient (CLI) | payer OTHER, SELFPAY ==
[2022-03-27 10:36] LABS: Anion Gap 9.5 mmol/L (3-11); BUN 26 mg/dL (7-18); CO2 28.5 mmol/L (21.0-32.0); CREATININE 1.4 mg/dL (0.55-1.02); Calcium 9.8 mg/dL (8.5-10.1); Chloride 101 mmol/L (98-107); Estimated GFR 38.51 (mL/min/1.73m2); Glucose 107 mg/dL (74-106); Potassium 3.4 mmol/L (3.5-5.1); Sodium 139 mmol/L (136-145)
== END 2022-03-27 03:32 | disposition home or self-care (01) ==
LOC: LBO 03:31
PROVIDERS: PCP Nurse Practitioner Family; Visit Provider Nurse Practitioner Family
DX: E87.6 Hypokalemia (principal)
CPT/HCPCS: 36415; 80048

== ENCOUNTER 2023-02-21 01:20 | Outpatient (CLI) | payer OTHER, SELFPAY ==
[2023-02-21 07:23] LABS: HGB 15.7 g/dL (11.2-15.7); MCH 32.7 pg (27.0-33.0); MCHC 34.1 % (32.0-36.0); MCV 96 fL (80-95); MPV 8.5 fL (8.0-11.0); Platelet Count 320 10^3/uL (130-400); RDW 12.9 % (11.7-14.6); WBC 10.89 10^3/uL (4.4-10.8)
[2023-02-21 07:33] LABS: Hemoglobin A1C 5.3 % (<5.7)
[2023-02-21 08:42] LABS: Anion Gap 10.5 mmol/L (3-11); BUN 19 mg/dL (7-18); CO2 27.5 mmol/L (21.0-32.0); CREATININE 1.4 mg/dL (0.55-1.02); Calcium 9.5 mg/dL (8.5-10.1); Calculated LDL 88 mg/dL (<100); Chloride 105 mmol/L (98-107); Cholesterol 156 mg/dL (<200); Estimated GFR 38.27 (mL/min/1.73m2); Glucose 98 mg/dL (74-106); HDL Cholesterol 54 mg/dL (40-60); Potassium 3.6 mmol/L (3.5-5.1); Sodium 143 mmol/L (136-145); Triglyceride 72 mg/dL (<150)
== END 2023-02-21 01:21 | disposition home or self-care (01) ==
LOC: LBO 01:21
PROVIDERS: PCP Nurse Practitioner Family; Visit Provider Nurse Practitioner Family
DX: Z00.00 Encounter for general adult medical examination without abnormal findings (principal); R06.09 Other forms of dyspnea
CPT/HCPCS: 36415; 80048; 80061; 85027; 83036

== ENCOUNTER → 2023-02-27 00:58 | Outpatient (CLI) | payer OTHER, SELFPAY ==
--- NOTE | 2023-02-27 07:45 | DI.RAD_ITS ---
Exam(s) XR CHEST 2V PA LATERAL EXAM: XR CHEST 2V PA LATERAL CLINICAL HISTORY: DYSPNEA ON EXERTION,R06.09 TECHNIQUE: 2D digital imaging was performed of the chest. Two images were obtained. PA and lateral views were obtained. COMPARISON: CR XR CHEST 2V PA LATERAL from 06/12/2018 FINDINGS: MEDIASTINUM: Normal. HEART: Normal. PULMONARY VASCULATURE: Normal. LUNGS: Clear. PLEURAL SPACE: No pleural effusion or pneumothorax. BONE:Within normal limits for the patient's age. There is an old compression fracture deformity at L 1. OTHER FINDINGS:Normal. IMPRESSION: No acute pulmonary findings. DATA REPOSITORY: RADIATION DOSE DELIVERED:
== END ==
PROVIDERS: PCP Nurse Practitioner Family; Visit Provider Nurse Practitioner Family
DX: R06.09 Other forms of dyspnea (principal)
CPT/HCPCS: 71046

== ENCOUNTER 2023-02-27 03:25 | Outpatient (CLI) | payer OTHER, SELFPAY ==
[2023-02-27] MEDS: Levalbuterol HFA 15 GM INH 4 PUFF IH (09:02)
--- NOTE | 2023-02-28 10:27 | W.PFT ---
Date of service: 02/27/23 Time of Service: 07:54 Pulmonary Function Test Result Indications: Dyspnea Interpretation Spirometry: There is moderate airflow limitation. No significant bronchodilator response. Lung Volumes: There is air trapping and hyperinflation Diffusion Capacity: Decreased diffusion Airway Pressure: Increased airways resistance Impression Moderate airflow obstruction with a decreased diffusion and air trapping. This is consistent with COPD with emphysema Clinical Correlation therefore is recommended.
== END 2023-02-27 03:26 | disposition home or self-care (01) ==
LOC: RT 03:25
PROVIDERS: PCP Nurse Practitioner Family; Visit Provider Nurse Practitioner Family
DX: R06.09 Other forms of dyspnea (principal)
CPT/HCPCS: 94060; 94726; 94729

== ENCOUNTER 2023-07-30 20:27 | Emergency (ER) | payer OTHER, SELFPAY ==
--- NOTE | 2023-07-30 20:15 | RT.EKG_ITS ---
APPROVED REPORT Exam: Resting ECG Reason for Exam: SOB Patient Location: E HR:94 bpm ECG Measurements Heart Rate 94 AXIS VT 209 P 54 QRSd 96 QRS -30 QT 381 T 63 QTc 478 Conclusion Sinus rhythm...normal P axis, V-rate 60- 99 Borderline prolonged VT interval...VT >207, V-rate 91-120 Probable left atrial enlargement...P >50mS, <-0.10mV V1 Left axis deviation...QRS axis (-30,-90) Probable lateral infarct, old...Q>35mS, abnormal ST-T, V5-6 I aVL
--- NOTE | 2023-07-30 20:30 | DI.RAD_ITS ---
Exam(s) XR PORTABLE CHEST AP EXAM: XR PORTABLE CHEST AP CLINICAL HISTORY: cough, dyspnea. TECHNIQUE: 2D digital imaging was performed. COMPARISON: Prior chest x-ray 02/27/2023 FINDINGS: Single AP portable view. Heart size is upper normal. The mediastinum is not widened. Right lung is clear but there is now infiltrate in the left lower lobe and small left pleural effusio n. IMPRESSION: Left lower lobe infiltrate and small left pleural effusion. DATA REPOSITORY: RADIATION DOSE DELIVERED:
[2023-07-30 20:31] VITALS: BP 175/85; PULSE 101; RESP 29; TEMP 36.2; O2SAT 94
--- NOTE | 2023-07-30 20:45 | W.ED.GENAD ---
Discharge Plan Disposition Patient Disposition: Home Condition: Stable Discharge Details Clinical Impression: Shortness of breath, COPD exacerbation Primary Care Provider: Destiney Motley ED Provider: Abdi Sagastume Home Meds and New Rx's Prescriptions: New prednisone 20 mg tablet 60 mg PO DAILY 4 Days Qty: 12 0RF levofloxacin 750 mg tablet 750 mg PO Q OTHER DAY Qty: 4 0RF prednisone 20 mg tablet 60 mg PO DAILY 4 Days Qty: 12 0RF levofloxacin 750 mg tablet 750 mg PO Q OTHER DAY Qty: 4 0RF Continued (DME) Oxygen Tank See Rx Instructions .Route Rx Instructions: As directed, Restore Eye Supplement 1 cap PO DAILY hydrochlorothiazide 25 mg tablet 25 mg PO DAILY Qty: 90 3RF lisinopril 40 mg tablet 40 mg PO DAILY Qty: 90 3RF albuterol sulfate [ProAir HFA] 90 mcg/actuation HFA aerosol inhaler 2 puff Inhalation Q4H PRN Qty: 54 4RF triamcinolone acetonide 0.5 % ointment 1 applic TP DAILY PRN (Reason: dermatitis) Qty: 80 2RF Rx Instructions: Apply to bilateral legs once a day as needed for dermatitis potassium chloride 20 mEq tablet extended release 20 meq PO DAILY Qty: 90 3RF clotrimazole 1 % cream 1 applic topical BID PRN (Reason: foot rash) Qty: 45 3RF Rx Instructions: Apply to affected areas twice a day for 2-4wks cholecalciferol (vitamin D3) 5,000 UNIT capsule 5,000 unit PO DAILY Qty: 100 Rx Instructions: note dose increase tiotropium bromide 2.5 mcg/actuation mist 2 inh inhalation DAILY Qty: 4 4RF hhodlmpwllz-eygofbgoz-qtcejciv 100-62.5-25 mcg blister with device 1 inh inhalation DAILY Qty: 60 4RF ipratropium-albuterol 0.5 mg-3 mg(2.5 mg base)/3 mL solution for nebulization 3 ml inhalation Q6H PRN (Reason: wheezing) Qty: 180 3RF magnesium 500 mg Tablet 500 mg PO DAILY Discharge Instructions Additional Instructions: Your blood work did not show any concerning findings at this time, you are being treated for a COPD exacerbation and a lung infection Follow-up with your primary care provider within 1 week Continue to use your home nebulizers as needed and continue your other prescription medications If you feel more ill, have worsening shortness of breath or severe chest pain return to the emergency department for reevaluation HPI General Mode of arrival: wheelchair. Date/Time Provider Initiated Documentation: 07/30/23 20:28. Limitations to Documentation: no limitations. Information obtained by: patient. History of Present Illness 77 year old F presents to the emergency department with the chief complaint of shortness of breath, described as mild, Patient started experiencing this hour(s) (12) and it has been constant. No relieving factors improve symptom(s), No exacerbating factors reported . Patient notes cough; denies chest pain and fever/chills. Related Data Home Medications Medication Instructions Recorded Confirmed cholecalciferol (vitamin D3) 125 5,000 unit PO DAILY #100 tab-caps 07/06/15 05/08/23 mcg (5,000 unit) capsule Restore Eye Supplement 1 cap PO DAILY 01/27/19 05/08/23 magnesium 500 mg tablet 500 mg PO DAILY 11/08/20 05/08/23 tiotropium bromide 2.5 2 inh inhalation DAILY #4 grams 09/30/22 04/25/23 mcg/actuation mist for inhalation albuterol sulfate 90 mcg/actuation 2 puff inhalation Q4H PRN #54 grams 02/24/23 05/08/23 aerosol inhaler (ProAir HFA) clotrimazole 1 % topical cream 1 applic topical BID PRN foot rash 02/24/23 05/08/23 #45 grams hydrochlorothiazide 25 mg tablet 25 mg PO DAILY #90 tabs 02/24/23 05/08/23 lisinopril 40 mg tablet 40 mg PO DAILY #90 tab-caps 02/24/23 05/08/23 potassium chloride 20 mEq 20 meq PO DAILY #90 tabs 02/24/23 05/08/23 tablet,extended release triamcinolone acetonide 0.5 % 1 applic topical DAILY PRN 02/24/23 05/08/23 topical ointment dermatitis #80 grams Oxygen 05/08/23 05/08/23 fluticasone fur. 100 mcg-umeclid 1 inh inhalation DAILY #60 ea 05/14/23 62.5 mcg-vilant 25 mcg inhalat.powder ipratropium 0.5 mg-albuterol 3 mg 3 ml inhalation Q6H PRN wheezing 07/09/23 (2.5 mg base)/3 mL nebulization #180 mL soln levofloxacin 750 mg tablet 750 mg PO Q OTHER DAY #4 tabs 07/30/23 levofloxacin 750 mg tablet 750 mg PO Q OTHER DAY #4 tabs 07/30/23 prednisone 20 mg tablet 60 mg (3 x 20 mg) PO DAILY 4 days 07/30/23 #12 tabs prednisone 20 mg tablet 60 mg (3 x 20 mg) PO DAILY 4 days 07/30/23 #12 tabs Previous Rx's Medication Instructions Recorded tiotropium bromide 2.5 2 inh inhalation DAILY #4 grams 09/30/22 mcg/actuation mist for inhalation albuterol sulfate 90 mcg/actuation 2 puff inhalation Q4H PRN #54 grams 02/24/23 aerosol inhaler (ProAir HFA) clotrimazole 1 % topical cream 1 applic topical BID PRN foot rash 02/24/23 #45 grams hydrochlorothiazide 25 mg tablet 25 mg PO DAILY #90 tabs 02/24/23 lisinopril 40 mg tablet 40 mg PO DAILY #90 tab-caps 02/24/23 potassium chloride 20 mEq 20 meq PO DAILY #90 tabs 02/24/23 tablet,extended release triamcinolone acetonide 0.5 % 1 applic topical DAILY PRN 02/24/23 topical ointment dermatitis #80 grams fluticasone fur. 100 mcg-umeclid 1 inh inhalation DAILY #60 ea 05/14/23 62.5 mcg-vilant 25 mcg inhalat.powder ipratropium 0.5 mg-albuterol 3 mg 3 ml inhalation Q6H PRN wheezing 07/09/23 (2.5 mg base)/3 mL nebulization #180 mL soln levofloxacin 750 mg tablet 750 mg PO Q OTHER DAY #4 tabs 07/30/23 levofloxacin 750 mg tablet 750 mg PO Q OTHER DAY #4 tabs 07/30/23 prednisone 20 mg tablet 60 mg (3 x 20 mg) PO DAILY 4 days 07/30/23 #12 tabs prednisone 20 mg tablet 60 mg (3 x 20 mg) PO DAILY 4 days 07/30/23 #12 tabs Allergies Allergy/AdvReac Type Severity Reaction Status Date / Time ibuprofen AdvReac Mild RECTAL Verified 05/08/23 13:42 BLEEDING levothyroxine sodium AdvReac Unknown Verified 05/08/23 13:42 General Stated Complaint: RespSymp NEELAM: 3 Review of Systems All systems reviewed & are unremarkable except as noted in HPI and below Constitutional Constitutional: Denies chills, Denies fever(s) and Denies weakness Cardiovascular Cardiovascular: Denies chest pain and Reports dyspnea Respiratory Respiratory: Reports cough and Reports dyspnea Gastrointestinal Gastrointestinal: Denies abdominal pain, Denies nausea and Denies vomiting Musculoskeletal Musculoskeletal: Denies joint swelling Neurologic Neurologic: Denies weakness Exam Const General: no acute distress Orientation: alert HENMT Head: normal to inspection Ears: external ears normal General nose exam: external nose normal Mouth: moist mucous membranes Eyes General: appearance normal, both eyes and all related structures Neck Neck: normal visual inspection Resp Effort & Inspection: normal respiratory effort and able to speak in complete sentences Auscultation: wheezes Cardio Rate: regular rate Heart Sounds: no murmurs Skin General skin exam: no rashes or lesions noted Neuro General: patient alert and patient oriented x3 Extrem General: normal to inspection Psych Mental Status: mental status grossly normal Course Vital Signs Vital signs: Vital Signs Temperature 36.2 C L 07/30/23 20:31 Pulse 101 H 07/30/23 20:31 Respiratory Rate 29 H 07/30/23 20:31 Blood Pressure 175/85 H 07/30/23 20:31 Pulse Oximetry 94 07/30/23 20:31 Temperature 36.2 C L 07/30/23 20:31 Temperature Source Tympanic 07/30/23 20:31 Pulse 101 H 07/30/23 20:31 Respiratory Rate 29 H 07/30/23 20:31 Blood Pressure 175/85 H 07/30/23 20:31 Pulse Oximetry 94 07/30/23 20:31 Oxygen Delivery Method Nasal Cannula 07/30/23 20:31 Oxygen Flow Rate 2 07/30/23 20:31 Medical Decision Making 7-year-old female with a history of oxygen dependent COPD, obstructive sleep apnea, hypertension who comes in with slowly worsening shortness of breath throughout the day along with an increased cough from baseline. She denies any chest pain, fevers, abdominal pain, nausea vomiting or diaphoresis. She states she checked her oxygen level at home and it was 90% which is lower than the 95% she usually is when she is on 2 L nasal cannula so she came here for evaluation. She is alert and oriented x 4 and pleasant on exam, speaking in full sentences, she has wheezing at the bases bilaterally and rhonchi at the bases. She has no calf tenderness, no JVD, no murmur. Bedside ultrasound her EF appears normal exam and history consistent with likely COPD exacerbation will treat with a DuoNeb and Solu-Medrol, given her age and complaints of shortness of breath also check a CBC a, CMP, troponin, and portable chest x-ray. She has no pleuritic chest pain, her O2 saturation on her baseline 2 L nasal cannula is 98%, and has no evidence of DVT on exam so doubt PE. Patient's lab work shows no significant change from baseline is chronic kidney disease, x-ray shows left lung base infiltrate versus atelectasis and a small pleural effusion. Patient states she feels significantly better after neb and requesting discharge, discussed observation admission but given her reassuring workup, and stable vital signs with a 98% saturation or her chronic 2 L of oxygen feel this is reasonable. Her calculated creatinine clearance is 29 so we will initiate 750 mg levofloxacin every 48 hours. She is also positive for COVID, has no increased oxygen requirement, she states she has had 3 total vaccines, declines oral COVID treatment after discussing the chance of becoming significantly ill from COVID with her being vaccinated is very very low. She is stable for discharge and advised to follow-up with her primary care provider and return precautions given Differential Diagnosis Differential Diagnosis: COPD, pneumonia, COVID Medical Records Medical records reviewed: Yes I reviewed the patient's medical records. Imaging Data Radiologic Study: Attestation: I personally reviewed and interpreted this imaging study as follows: Imaging: X-Ray Radiologist's impression: IMPRESSION: 1. Patches of infiltrate and/or atelectasis within the left lung base. 2. Pulmonary venous hypertension. 3. Small left pleural fluid collection. Lab Data Lab results reviewed: Yes I reviewed the patient's lab results. ECG Data Attestation: I personally reviewed and interpreted this ECG (s) as follows: Prior ECG tracings: not available for review Interpretation: Sinus rhythm, rate of 94 no STEMI Quality:SDOH Health Related Social Needs: No Data to Display PFSH All Active Problems (Updated 07/30/23 @ 21:22 by Abdi Sagastume MD) COPD exacerbation (Acute) Shortness of breath (Acute) Chronic hypoxic respiratory failure (Acute) CKD (chronic kidney disease) stage 3, GFR 30-59 ml/min (Chronic) Obstructive sleep apnea (Chronic) Declines CPAP therapy and further sleep study consults COPD (chronic obstructive pulmonary disease) (Chronic) PFTs 2022 Essential hypertension (Chronic) Varicose veins of lower extremity (Chronic) Bilateral age-related macular degeneration (Chronic) Bilateral lower extremity edema (Chronic) Osteopenia (Chronic) Dexa 2018. Fosamax 2013 to 2020 Obesity (Chronic) Hyperbilirubinemia (Chronic) Unclear etiology, ongoing for decades, Gilbert's syndrome? S/p mitch 1994. Negative ERCP 2011. No hemolytic anemia or jaundice episodes Medical History (Updated 07/30/23 @ 21:22 by Abdi Sagastume MD) Prediabetes Subclinical hypothyroidism Hyperparathyroidism S/p left upper parathyroidectomy Tubular adenoma of colon Herpes zoster ophthalmicus of right eye (~01/2018) Vitamin D deficiency (03/30/15) Osteoporosis Fosamax 2013 -2020 Surgical History S/P ERCP (10/14/11) S/P parathyroidectomy (03/20/20) Left upper parathyroidectomy S/P cholecystectomy (~1994) Status post left breast lumpectomy (~09/2012) S/P ORIF (open reduction internal fixation) fracture (~05/2005) Right wrist Status post cataract extraction and insertion of intraocular lens of right eye (07/17/18) Status post cataract extraction and insertion of intraocular lens of left eye (07/03/18) Family History Mother , At 88 Diabetes Essential hypertension Asthma Uterine cancer In her 80s Father , of 56 of MVA MVA (motor vehicle accident) Sister , at 54 of uterine cancer Uterine cancer Sister Essential hypertension Skin cancer Atrial fibrillation Son No problems noted. Daughter No problems noted. Maternal Grandfather Essential hypertension Heart disease Diabetes Asthma Stroke Maternal Grandmother Heart disease Asthma Paternal Grandfather , at 65 Heart disease Stroke Paternal Grandmother Breast cancer Social History Smoking/Tobacco Use Status: Former Tobacco Use Quit Date: 04/28/99 Tobacco: How many years used: 40 Smoking risk assessment performed?: Yes Alcohol Intake: never Drug use: Never Substance use type: does not use Caregiver/Support person: No Household members: spouse Housing: house Communication Needs: None Do you need help understanding health information?: Rarely Pets and animals: No Sexually active: No Do you think of yourself as: straight/heterosexual Current gender identity: female What is your relationship status?: How often do you talk on the phone with friends or family?: decline to answer How often do you get together with friends or relatives?: decline to answer How often do you attend nondenominational or mormonism services?: decline to answer Do you belong to any clubs or organized social groups?: no Panel score (0-1 are the most socially isolated patients): 1 What type of physical activity do you participate in: none Frequency: does not exercise Luz/Anabaptism: Nondenominational Special luz needs: No Seatbelt use: always Helmet use: No Drive intox or ride w/intox truck driver: No Do you feel safe in your relationship?: Yes Female Reproductive History Menstrual Menopause type: natural Date of menopause: 04/28/93 History History 3 Para Hx # Term Pregnancies Multiple births Hx # Pregnancies Ectopic pregnancies AB induced Hx Number of Living Children 2 AB spontaneous 1 POCUS Exam (ED) Limited Cardiac Exam DATE OF EXAM: 07/30/23 TIME OF EXAM: 20:47 PROVIDER THAT PERFORMED THE STUDY: Abdi Sagastume IS THIS A REPEAT EXAM DURING THIS ENCOUNTER: no REASON FOR EXAM: Dyspnea VISUALIZED STRUCTURES: Left ventricle and Right ventricle VIEW OBTAINED: Parasternal long-axis and Subxiphoid PERTINENT FINDINGS/IMPRESSION: No LV dysfunction Exam complete
[2023-07-30 20:48] LABS: Abs Immature Grans 0.02 10^3/uL (0.0-0.06); Absolute Basophil Count 0.08 10^3/uL (0.0-0.2); Absolute Eosinophil Count 0.66 10^3/uL (0.0-0.7); Absolute Lymphocyte Count 2.29 10^3/uL (1.2-3.4); Absolute Monocyte Count 0.78 10^3/uL (0.1-0.8); Absolute Neutrophil Count 4.33 10^3/uL (1.2-6.7); BE (Venous) 9 mmol/L (-2-3); Eosinophils % 8.1; HCO3 (Venous) 34 mmol/L (23-28); HCT 49.7 % (36.0-46.0); HGB 16.9 g/dL (11.2-15.7); Immature Grans % 0.2; Lymphocytes % 28.1; MCH 32.9 pg (27.0-33.0); MCV 97 fL (80-95); MPV 8.5 fL (8.0-11.0); Monocytes % 9.6; O2 Sat (Venous) 77 %; Platelet Count 287 10^3/uL (130-400); RBC 5.14 10^6/uL (3.93-5.22); RDW 12.5 % (11.7-14.6); RDW-SD 45.7 fL; TCO2 (Venous) 29 mmol/L (24-29); WBC 8.16 10^3/uL (4.4-10.8); pCO2 (Venous) 55 mmHg (41-51); pH (Venous) 7.39 (7.31-7.41); pO2 (Venous) 39 mmHg
[2023-07-30 20:49] VITALS: PULSE 88; RESP 17; O2SAT 98
[2023-07-30] MEDS: Albuterol/Ipratropium 3 ML UPD VIAL UPD (20:49)
[2023-07-30] MEDS: methylPREDNISolone SUCC 125 MG VIAL IVP (20:51)
[2023-07-30 20:53] VITALS: PULSE 83; RESP 18; O2SAT 95
[2023-07-30 21:01] VITALS: BP 151/60; PULSE 83; RESP 18; O2SAT 99
[2023-07-30 21:02] LABS: INR 1.1 (0.9-1.1); PTT Activated 23.3 sec (23.6-32.8); Prothrombin Time 11.4 sec (9.1-11.1)
[2023-07-30 21:12] LABS: ALT 61 U/L (14-59); AST 56 U/L (15-37); Albumin 3.7 g/dL (3.4-5.0); Alkaline Phosphatase 63 U/L (46-116); Anion Gap 9.1 mmol/L (3-11); BUN 20 mg/dL (7-18); CO2 31.9 mmol/L (21.0-32.0); CREATININE 1.3 mg/dL (0.55-1.02); Chloride 105 mmol/L (98-107); Estimated GFR 41.83 (mL/min/1.73m2); Glucose 120 mg/dL (74-106); Magnesium 1.8 mg/dL (1.8-2.4); NT-proBNP 167 pg/mL (<300); Potassium 3.7 mmol/L (3.5-5.1); Sodium 146 mmol/L (136-145); Troponin I < 50 ng/L (< or =60)
--- NOTE | 2023-07-30 21:14 | DI.VRAD_ITS ---
PROCEDURE INFORMATION: Exam: XR Chest Exam date and time: 07/30/2023 8:51 PM Age: 77 years old Clinical indication: Cough and dyspnea TECHNIQUE: Imaging protocol: Radiologic exam of the chest. Views: 1 view. COMPARISON: CR XR CHEST 2V PA LATERAL 02/27/2023 9:04 AM FINDINGS: Lungs: Patches of infiltrate and/or atelectasis within the left lung base. Pulmonary venous hypertension. Pleural spaces: No right pleural fluid collection. Small left pleural fluid collection. No pneumothorax. Heart/Mediastinum: Stable cardiac silhouette. Bones/joints: Thoracic spine dextroscoliosis. IMPRESSION: 1. Patches of infiltrate and/or atelectasis within the left lung base. 2. Pulmonary venous hypertension. 3. Small left pleural fluid collection. Dictated and Authenticated by: Govind Camilo MD. Ordering:NASRIN Patton MD
[2023-07-30 21:24] LABS: Procalcitonin < 0.1 ng/mL
[2023-07-30 21:27] LABS: Influenza A PCR Negative (Negative); Influenza B PCR Negative (Negative); RSV PCR Negative (Negative)
[2023-07-30 21:33] LABS: COVID-19 PCR Positive (Negative); Source Nasopharynx
[2023-07-30] MEDS: levoFLOXacin 500 MG, levoFLOXacin 250 MG 750 MG PO (21:47)
[2023-07-30 21:48] VITALS: BP 163/54; PULSE 79; RESP 18; TEMP 36.4; O2SAT 97
== END 2023-07-30 21:48 | disposition home or self-care (01) ==
LOC: ER 21:40
PROVIDERS: Emergency Provider Emergency Medicine; PCP Nurse Practitioner Family
DX: J44.1 Chronic obstructive pulmonary disease with (acute) exacerbation; Z99.81 Dependence on supplemental oxygen; G47.33 Obstructive sleep apnea (adult) (pediatric); I12.9 Hypertensive chronic kidney disease with stage 1 through stage 4 chronic kidney disease, or unspecified chronic kidney disease; U07.1 COVID-19; N18.30 Chronic kidney disease, stage 3 unspecified
CPT/HCPCS: 36415; 80053; 82805; 84145; 87637; 93005; 93308; 94640; 96374; 99285; 71045; 83735; 83880; 84484; 85025; 85610; 85730; 93010; 99284; J2919; J7620

== ENCOUNTER → 2023-08-12 01:25 | Outpatient (CLI) | payer OTHER, SELFPAY ==
--- NOTE | 2023-08-12 08:00 | DI.RAD_ITS ---
Exam(s) XR CHEST 2V PA LATERAL EXAM: XR CHEST 2V PA LATERAL CLINICAL HISTORY: assess resolution of infiltrate,pneumonia,j18.9 TECHNIQUE: 2D digital imaging was performed. Two views. COMPARISON: CR XR CHEST 2V PA LATERAL from 02/27/2023 CR,XR XR PORTABLE CHEST AP from 07/30/2023 FINDINGS: HEART: Mildly enlarged. Aorta: Tortuous. PULMONARY VASCULATURE: Normal. LUNGS: Linear densities noted above left diaphragm. No infiltrate seen. PLEURAL SPACE: Minimal blunting at the right costophrenic angle. No pleural effusion or pneumothorax . BONE:Unremarkable for age. Soft tissues: Unremarkable. IMPRESSION: No acute abnormality. DATA REPOSITORY: RADIATION DOSE DELIVERED:
== END ==
PROVIDERS: PCP Nurse Practitioner Family; Visit Provider Student in an Organized Health Care Education/Training Program
DX: J18.9 Pneumonia, unspecified organism (principal)
CPT/HCPCS: 71046

== ENCOUNTER → 2023-09-18 02:50 | Outpatient (CLI) | payer OTHER, SELFPAY ==
--- NOTE | 2023-09-18 07:45 | DI.RAD_ITS ---
Exam(s) XR CHEST 2V PA LATERAL EXAM: XR CHEST 2V PA LATERAL CLINICAL HISTORY: decreased left lung sounds,COPD,CHRONIC HYPOXIC RESP FAILURE. TECHNIQUE: 2D digital imaging was performed. COMPARISON: CR XR CHEST 2V PA LATERAL from 08/12/2023 FINDINGS: 2 views: Heart size upper normal, unchanged. Mediastinum not widened. No new infiltrates. Mild blunting of the costophrenic angles again noted which probably indicate sma ll pleural effusions. IMPRESSION: As above. However, minimal if any significant change when compared to prior chest x-ray 08/12/2023. DATA REPOSITORY: RADIATION DOSE DELIVERED:
== END ==
PROVIDERS: PCP Nurse Practitioner Family; Visit Provider Physician Assistant Surgical
DX: J96.11 Chronic respiratory failure with hypoxia (principal); J44.9 Chronic obstructive pulmonary disease, unspecified
CPT/HCPCS: 71046

== ENCOUNTER 2023-10-10 03:01 | Outpatient (CLI) | payer OTHER, SELFPAY ==
--- NOTE | 2023-10-10 09:26 | W.6MWT ---
Date of service: 10/10/23 Time of Service: 07:59 6 Minute Walk Test Note: 6 Minute Walk Test Distance walked:200 ft Desaturations: 2LPM at rest, increased to 4LPM with exertion to achieve saturations >88% Heart rate changes: Increases and decreases in HR during walk but no history of A. fib. Unclear significance Recommendation: 2LPM at rest and 4LPM with exertion required Shayna Baum MD Pulmonary & Critical Care Medicine
== END 2023-10-10 03:02 | disposition home or self-care (01) ==
LOC: RT 03:01
PROVIDERS: PCP Nurse Practitioner Family; Visit Provider Physician Assistant Surgical
DX: J44.9 Chronic obstructive pulmonary disease, unspecified (principal)
CPT/HCPCS: 94618

== ENCOUNTER 2023-10-10 09:27 | Outpatient (CLI) | payer OTHER, SELFPAY ==
[2023-10-10 08:57] LABS: BE (Venous) 10 mmol/L (-2-3); HCO3 (Venous) 34 mmol/L (23-28); O2 Sat (Venous) 72 %; TCO2 (Venous) 30 mmol/L (24-29); pCO2 (Venous) 49 mmHg (41-51); pH (Venous) 7.45 (7.31-7.41); pO2 (Venous) 35 mmHg
== END 2023-10-10 09:28 | disposition home or self-care (01) ==
LOC: LBO 09:27
PROVIDERS: PCP Nurse Practitioner Family; Visit Provider Physician Assistant Surgical
DX: J44.9 Chronic obstructive pulmonary disease, unspecified (principal); G47.33 Obstructive sleep apnea (adult) (pediatric)
CPT/HCPCS: 36415; 82805

== ENCOUNTER 2024-02-27 21:27 | Outpatient (REF) | payer OTHER, SELFPAY ==
[2024-02-27 21:43] LABS: Abs Immature Grans 0.03 10^3/uL (0.0-0.06); Absolute Basophil Count 0.07 10^3/uL (0.0-0.2); Absolute Eosinophil Count 0.57 10^3/uL (0.0-0.7); Absolute Lymphocyte Count 1.73 10^3/uL (1.2-3.4); Absolute Neutrophil Count 6.21 10^3/uL (1.2-6.7); Basophils % 0.7 %; Eosinophils % 6.1 %; HGB 13.1 g/dL (11.2-15.7); Immature Grans % 0.3 %; Lymphocytes % 18.4 %; MCH 32.7 pg (27.0-33.0); MCHC 33.6 % (32.0-36.0); MCV 97 fL (80-95); MPV 9.2 fL (8.0-11.0); Monocytes % 8.5 %; Platelet Count 283 10^3/uL (130-400); RBC 4.01 10^6/uL (3.93-5.22); RDW 13.9 % (11.7-14.6); RDW-SD 49.7 fL; WBC 9.41 10^3/uL (4.4-10.8)
[2024-02-27 21:46] LABS: ESR 16 mm/hr (0-30)
[2024-02-27 21:51] LABS: Hemoglobin A1C 4.9 % (<5.7)
[2024-02-27 21:57] LABS: ALT 50 U/L (14-59); AST 68 U/L (15-37); Albumin 3.5 g/dL (3.4-5.0); Alkaline Phosphatase 55 U/L (46-116); Anion Gap 11.4 mmol/L (3-11); BUN 21 mg/dL (7-18); Bilirubin, Total 1.95 mg/dL (0.2-1.0); CO2 29.6 mmol/L (21.0-32.0); CREATININE 1.3 mg/dL (0.55-1.02); Calcium 9.3 mg/dL (8.5-10.1); Chloride 104 mmol/L (98-107); Estimated GFR 41.57 (mL/min/1.73m2); Glucose 79 mg/dL (74-106); Potassium 3.9 mmol/L (3.5-5.1); Sodium 145 mmol/L (136-145); TSH (W/Ref FT4) 2.48 uIU/mL (0.36-3.74); Total Protein 6.7 g/dL (6.4-8.2)
[2024-02-27 21:58] LABS: C-Reactive Protein < 0.50 mg/dL (<or=0.5)
[2024-02-29 09:20] LABS: HIV-1/2 Ag & Ab Screen Negative (Negative)
[2024-03-01 09:52] LABS: Parathyroid Hormone,Intact 43 pg/mL (19-88)
[2024-03-01 09:56] LABS: HBs Antibody, Quant 12.6 mIU/mL (See Note); Hep B Surface Ab Positive (See Note); Hepatitis B Core Antibody Negative (Negative); Hepatitis B Surface Antigen Negative (Negative)
[2024-03-01 10:00] LABS: Hepatitis C Ab w Rflx HCV PCR Negative (Negative)
== END 2024-02-27 21:28 | disposition home or self-care (01) ==
LOC: LBN 21:27
PROVIDERS: PCP Nurse Practitioner Family; Visit Provider Nurse Practitioner Family
DX: R63.4 Abnormal weight loss (principal); Z11.59 Encounter for screening for other viral diseases; Z11.4 Encounter for screening for human immunodeficiency virus [HIV]; Z23 Encounter for immunization; Z12.11 Encounter for screening for malignant neoplasm of colon
CPT/HCPCS: 80053; 85652; 86704; 86706; 86803; 87340; 87389; 83036; 83970; 84443; 85025; 86140

== ENCOUNTER 2024-04-22 00:13 | Outpatient (CLI) | payer OTHER, SELFPAY ==
--- NOTE | 2024-04-22 07:45 | DI.CT_ITS ---
Exam(s) CT CHEST/ABD/PEL W EXAM: CT CHEST/ABD/PEL W CLINICAL HISTORY: worsening RAM, elevated LFTs, COPD, abnl findings blood chemistry TECHNIQUE: Imaging Protocol: Axial computed tomography images with coronal and sagittal reformatted images were created and reviewed. Lung Computer Aided Detection (CAD) was utilized. CONTRAST MATERIAL: Intravenous: Omnipaque 350 contrast volume:75 mL Oral: No COMPARISON: CT CT Abdomen With Contra from 08/26/2011 CR XR CHEST 2V PA LATERAL from 02/27/2023 CR XR CHEST 2V PA LATERAL from 09/18/2023 FINDINGS: CHEST: Tracheobronchial tree: Patent where visualized. No evidence of bronchiectasis. Pulmonary parenchyma: Mild centrilobular emphysematous changes are present. No focal consolidating i nfiltrates are seen. No pulmonary nodules are present. There is a calcified granuloma in the right middle lobe. Visualized thyroid gland: There is a question of a 1.5 cm subtle hypodense nodule in the right lobe o f the thyroid gland (series 11, image 7). Nonemergent thyroid ultrasound is recommended for further evaluation. Mediastinum and Izabella: No dominant adenopathy or fluid collection. The esophagus is unremarkable. Pleura: There does appear to be a tiny left pleural effusion. No right pleural effusion. No pneumot horax. Heart: The heart is not dilated. Coronary artery calcification is present. No pericardial effusion. Pulmonary arteries: Due to the timing of the bolus, there is suboptimal opacification of pulmonary ar teries. Evaluation for pulmonary emboli cannot adequately be performed. Aorta: Thoracic aorta non-dilated. Atherosclerotic calcification is present. Lymph nodes: Within normal limits. Soft tissues: Unremarkable. Bones:Within normal limits for the patient's age. There is a stable L1 compression fracture deformit y. There is a bone island seen in the T11 vertebral body which was present on the prior examination from 2011. No aggressive osseous lesions are identified. ABDOMEN: Liver: Normal density. There are multiple hepatic cysts present. The largest is in the right lobe an d measures 2.8 x 2.5 cm. Portal, Superior Mesenteric, and Splenic Veins: Unremarkable. Gallbladder and Biliary Tract: The extrahepatic bile duct measures up to 2.3 cm. This compares to 2. 1 cm on the prior examination. Pancreas: Normal density, no abnormal calcifications or inflammatory process. Spleen: Normal. Adrenals: There are stable left adrenal nodules. These likely reflect adenomas. The right adrenal g land is unremarkable. Kidneys: Normal size, contour and axis. There are bilateral simple renal cysts. No follow-up is jamila mmended. There is bilateral nephrolithiasis. There is a 1.4 cm stone in the left renal hilum. Ther e is no hydronephrosis. Abdominal Aorta: Abdominal portion non-dilated. Atherosclerotic calcification is present. Bowel: There is diverticulosis of the colon without evidence of acute diverticulitis. There is no ev idence of bowel obstruction. Fluid collection seen within the wall of or adjacent to the junction of the descending and sigmoid colon measuring 2.0 x 1.6 cm. No adjacent inflammatory changes are seen. (Series 11, image 213). Appendix is unremarkable. Peritoneal Cavity: No ascites, collection or mesenteric inflammatory response. No free air. Lymph Nodes: Within normal limits. Bones: Within normal limits for the patient's age. Soft Tissues: Unremarkable. PELVIS: Bladder: Symmetric distention, no gross wall thickening. Reproductive Organs: Unremarkable as visualized. Lymph Nodes: Within normal limits. Bones: Within normal limits. IMPRESSION: 1. Mild centrilobular emphysema. 2. No acute pulmonary process. 3. 1.5 cm hypodense right thyroid lesion. Nonemergent thyroid ultrasound is recommended for further evaluation. 4. Nonspecific 2.0 x 1.6 cm fluid collection within the wall of or adjacent to the colon at the junct ion of the the descending colon and sigmoid colon. Differential considerations include diverticula, abscess or mass. Clinical correlation is recommended. A follow-up examination, barium enema or colo noscopy should be considered. 5. No evidence of abdominal or pelvic metastatic disease. 6. Renal and hepatic cysts. 7. Colonic diverticulosis without evidence of acute diverticulitis. 8. Nephrolithiasis without evidence of hydronephrosis. Unexpected findings RADIATION DOSE DELIVERED: 909.85mGy.cm Total DLP DATA REPOSITORY: All CT scans at this facility are submitted to the National Radiology Data Registry (NRDR) Dose Index Registry (DIR) with the [employer] (ACR). RADIATION OPTIMIZATION: All CT scans at this facility use at least one of these dose optimization te chniques: automated exposure control; mA and/or kV adjustment per patient size (includes targeted exa ms where dose is matched to clinical indication); or iterative reconstruction.
[2024-04-22 13:10] LABS: CREATININE 1.5 mg/dL (0.55-1.02); Estimated GFR 35.01 (mL/min/1.73m2)
[2024-04-22] MEDS: Normal Saline - Diluent 50 ML VIAL IJ (14:09)
[2024-04-22] MEDS: Omnipaque 350 MG/ML 100 ML BTL IJ (14:12)
== END 2024-04-22 00:33 ==
PROVIDERS: PCP Nurse Practitioner Family; Visit Provider Nurse Practitioner Family
DX: R63.4 Abnormal weight loss (principal); J44.9 Chronic obstructive pulmonary disease, unspecified; R79.89 Other specified abnormal findings of blood chemistry
CPT/HCPCS: 74177; 71260; 82565; J3490

== ENCOUNTER 2025-01-31 15:18 | Emergency (ER) | payer OTHER, SELFPAY ==
--- NOTE | 2025-01-31 15:15 | DI.RAD_ITS ---
Exam(s) XR WRIST RT COMPLETE EXAM: XR WRIST RT COMPLETE CLINICAL HISTORY: Right wrist pain fall. TECHNIQUE: 2D digital imaging was performed. COMPARISON: No exams were available for comparison FINDINGS: 3 views There is a volar fixation plate in the distal radius. No evidence of fracture or hardware loosening. There are degenerative changes in the radiocarpal joint. There is no widening of the scapholunate distance nor evidence of scaphoid- navicular fracture. There is an old nonunion fracture of the ulnar styloid. There is also age- related degenerative calcification in the triangular fibrocartilage on the medial aspect of the wrist. Other carpal bones unremarkable. IMPRESSION: No acute right wrist fracture. Hardware appears intact DATA REPOSITORY: RADIATION DOSE DELIVERED:
--- NOTE | 2025-01-31 15:21 | ED.GENADUL_ITS ---
Discharge Plan Disposition Patient Disposition: Home Discharge Details Clinical Impression: Hx of falling, Elevated blood pressure reading with diagnosis of hypertension, Hematoma of frontal scalp Primary Care Provider: Destiney Motley ED Provider: Fabrizio Nash Pinon Meds and New Rx's Prescriptions: Continued (DME) Oxygen Tank See Rx Instructions .Route Rx Instructions: As directed, Restore Eye Supplement 1 cap PO DAILY triamcinolone acetonide 0.5 % ointment 1 applic TP DAILY PRN (Reason: dermatitis) Qty: 80 2RF Rx Instructions: Apply to bilateral legs once a day as needed for dermatitis clotrimazole 1 % cream 1 applic topical BID PRN (Reason: foot rash) Qty: 45 3RF Rx Instructions: Apply to affected areas twice a day for 2-4wks cholecalciferol (vitamin D3) 5,000 UNIT capsule 5,000 unit PO DAILY Qty: 100 Rx Instructions: note dose increase albuterol sulfate 90 mcg/actuation HFA aerosol inhaler 2 puff Inhalation Q4H PRN Qty: 54 4RF hydrochlorothiazide 25 mg tablet 25 mg PO DAILY Qty: 90 3RF lisinopril 40 mg tablet 40 mg PO DAILY Qty: 90 3RF potassium chloride 20 mEq tablet extended release 20 meq PO DAILY Qty: 90 3RF Breztri Aerosphere 160-9-4.8 mcg/actuation HFA aerosol inhaler 2 inh inhalation BID Qty: 10.7 0RF Breztri Aerosphere 160-9-4.8 mcg/actuation HFA aerosol inhaler 2 inh inhalation BID Qty: 10.7 12RF ipratropium-albuterol 0.5 mg-3 mg(2.5 mg base)/3 mL solution for nebulization 3 ml inhalation Q6H PRN (Reason: wheezing) Qty: 240 2RF magnesium 500 mg Tablet 500 mg PO DAILY Discharge Instructions Additional Instructions: You were seen in the emergency department following your fall. Your CAT scan showed no sign of any bleeding in your head. Your x-ray showed no sign of any fractures in your wrist. As we discussed the radiologist was concerned that you may have signs of a pneumonia on your chest x-ray. Given that you are not having any cough and increased shortness of breath or any fevers we elected to observe you off of antibiotics. If you develop any cough fevers or shortness of breath beyond her baseline please return to the emergency department. Otherwise please follow-up as needed next week with your primary care provider. HPI General Date/Time Provider Initiated Documentation: 01/31/25 15:21 . HPI Narrative: MDM This is an elderly appearing normothermic and not tachycardic 79-year-old female with fall from reportedly tripping on oxygen tubing for which she will undergo x -ray of her wrist chest and CT scan of her head. No preceding chest pain to suggest ACS so I did not obtain an ECG. She has no midface instability to suggest [place] fracture so I did not feel that she required cross-sectional imaging of her face. No midline cervical spinal tenderness so we will defer CT scan of her neck. Per Nexus criteria, cervical CT not obtained. The patient had no c-spine midline tenderness, no evidence of intoxication, was AAOx3, had no focal neurological deficits, and no painful distracting injuries. She has no afferent pupillary defect to suggest increased risk for retrobulbar hematoma. No trauma to her mandible so I was not suspicious for mandibular fracture so I did not feel that she required a o shortness of breath that preceded the patient's fall to suggest PE so I did not obtain a D-dimer. I considered sepsis however patient has reassuring vitals and denies any preceding fevers. Patient does have what she reports is chronic swelling of her right wrist secondary to a remotely placed plate. She is moving her right wrist well so my suspicion is relatively low for fracture. Nonetheless given ecchymosis will obtain radiographs. No pain out of proportion to suggest necrotizing soft tissue infection. Will monitor patient on telemetry. Will ensure that she can pass an ambulatory trial. In the absence of syncope I did not feel the patient required a CBC as I was not suspicious for anemia. She has not been vomiting to suggest increased risk for any acute electrolyte abnormalities. 5:11 PM Patient passed an ambulatory trial in the emergency department. She was not hypoxic. Her x-ray was read as concern for mild increased markings in her left lower lobe. She had had no cough nor fevers and no respiratory complaints. As result my suspicion for pneumonia and COPD exacerbation were low so I did not feel that the patient required steroids nor antibiotics. I did advise her however that if she developed any cough fevers shortness of breath or chest pain that she return to emergency department. Otherwise I advised PCP follow-up next week. Patient's vitals were notable for elevated blood pressure on arrival and throughout her ED stay. She noted that she had not yet taken her home hydrochlorothiazide today. She had no headache to suggest acute CVA nor any chest pain to suggest ACS. I was not suspicious for endorgan damage so did not feel patient required any laboratory evaluation in the emergency department. HPI This is an oxygen dependent 79-year-old female arrived to the emergency department via EMS following a fall. Patient was reportedly in her usual state of health earlier today. Approximately 1 hour ago she tripped on her oxygen tubing and fell forward landing on the right side of her face. She had no prece ding chest pain nausea vomiting or dizziness. She does not feel short of breath. She has not had any recent fevers. She denies any cough recently. She denies dysuria or frequency. She had difficult time getting up and so EMS was called. Exam General: Well-appearing in no acute distress speaking in complete sentences. Nasal cannula in place. Head: Normocephalic. On the right side of the patient's forehead there is an approximately 3 x 3 cm frontal hematoma. Eye:[Pupils equal, round reactive to light.] Extraocular eye movements intact. No conjunctival injection. No scleral icterus. Ear, nose, mouth, throat: Grossly normal inspection. Normal voice, handling secretions normally. Neck: Trachea midline. No midline cervical spinal tenderness. Cardiovascular: Well-perfused distal extremities. Regular rate and rhythm Respiratory: Nonlabored respiration. Clear lungs bilaterally. Gastrointestinal: Nondistended abdomen. Musculoskeletal: Bilateral 1+ lower extremity edema. Moving all 4 extremities spontaneously. Right wrist with swelling and ecchymosis primarily over the dorsal and radial aspect of the wrist. Patient is full range of motion in her wrist. She has intact sensation motor function in the right hand across the radial, radial, and ulnar nerve distributions. Cap refill less than 2 seconds right hand. Skin: Normal for age and race, grossly normal temperature and turgor. No acute rash. Neurologic: Alert and appropriate, no apparent acute deficits. GCS 15. Psychiatric: Mood and manner are appropriate. Grooming and personal hygiene are appropriate. Related Data Home Medications ?Medication ?Instructions ?Recorded ?Confirmed cholecalciferol (vitamin D3) 125 5,000 unit PO DAILY # 100 tab-caps 07/06/15 01/31/25 mcg (5,000 unit) capsule Restore Eye Supplement 1 cap PO DAILY 01/27/1910/20 magnesium 500 mg tablet 500 mg PO DAILY 11/08/2010/20 clotrimazole 1 % topical cream 1 applic topical BID CA N foot rash 02/24/23 01/31/25 #45 grams triamcinolone acetonide 0.5 % 1 applic topical DAILY P RN 02/24/23 01/31/25 topical ointment dermatitis #80 grams Oxygen 05/08/23 01/31/25 albuterol sulfate 90 mcg/actuation 2 puff inhalation Q 4H PRN #54 grams 02/12/24 01/31/25 aerosol inhaler hydrochlorothiazide 25 mg tablet 25 mg PO DAILY #90 ta bs 02/12/24 01/31/25 lisinopril 40 mg tablet 40 mg PO DAILY #90 tab-caps 02/12/24 01/31/25 potassium chloride 20 mEq 20 meq PO DAILY #90 tabs 01/31/25 tablet,extended release budesonide 160 mcg-glycopyr 9 2 inh inhalation BID #10 .7 grams 07/13/24 01/31/25 mcg-formot 4.8 mcg/actuation HFA inhaler (Breztri Aerosphere) budesonide 160 mcg-glycopyr 9 2 inh inhalation BID #10 .7 grams 07/13/24 01/31/25 mcg-formot 4.8 mcg/actuation HFA inhaler (Breztri Aerosphere) ipratropium 0.5 mg-albuterol 3 mg 3 ml inhalation Q6H PRN wheezing 09/21/24 01/31/25 (2.5 mg base)/3 mL nebulization #240 vials soln Previous Rx's ?Medication ?Instructions ?Recorded clotrimazole 1 % topical cream 1 applic topical BID CA N foot rash 02/24/23 #45 grams triamcinolone acetonide 0.5 % 1 applic topical DAILY P RN 02/24/23 topical ointment dermatitis #80 grams albuterol sulfate 90 mcg/actuation 2 puff inhalation Q 4H PRN #54 grams 02/12/24 aerosol inhaler hydrochlorothiazide 25 mg tablet 25 mg PO DAILY #90 ta bs 02/12/24 lisinopril 40 mg tablet 40 mg PO DAILY #90 tab-caps 02/12/24 potassium chloride 20 mEq 20 meq PO DAILY #90 tabs tablet,extended release budesonide 160 mcg-glycopyr 9 2 inh inhalation BID #10 .7 grams 07/13/24 mcg-formot 4.8 mcg/actuation HFA inhaler (Breztri Aerosphere) budesonide 160 mcg-glycopyr 9 2 inh inhalation BID #10 .7 grams 07/13/24 mcg-formot 4.8 mcg/actuation HFA inhaler (Breztri Aerosphere) ipratropium 0.5 mg-albuterol 3 mg 3 ml inhalation Q6H PRN wheezing 09/21/24 (2.5 mg base)/3 mL nebulization #240 vials soln Allergies Allergy/AdvReac Type Severity Reaction Status Date / Time ibuprofen AdvReac Mild RECTAL Verified 01/31/25 15:25 BLEEDING levothyroxine sodium AdvReac Unknown Other (See Verified 01/31/25 15:25 Comment) General NEELAM: 3 PFSH All Active Problems (Updated 01/31/25 @ 17:18 by Fabrizio Nash MD) Hematoma of frontal scalp (Acute) Elevated blood pressure reading with diagnosis of hypertension (Acute) Hx of falling (Acute) Unintentional weight loss (Chronic ~07/2023) Since COVID 19 illness july 2023. No acute lab findings, no hypercalcemia. Chest/abd/pelvic CT showed nonspecific colon fluid collection that she does not wish to investigate Chronic hypoxic respiratory failure (Acute) CKD (chronic kidney disease) stage 3, GFR 30-59 ml/min (Chronic) Obstructive sleep apnea (Chronic) Declines CPAP therapy and further sleep study consults COPD (chronic obstructive pulmonary disease) (Chronic) PFTs 2022 Essential hypertension (Chronic) Varicose veins of lower extremity (Chronic) Bilateral age-related macular degeneration (Chronic) Bilateral lower extremity edema (Chronic) Osteopenia (Chronic) Dexa 2018. Fosamax 2013 to 2020 Obesity (Chronic) Hyperbilirubinemia (Chronic) Unclear etiology, ongoing for decades, Gilbert's syndrome? S/p mitch 1994. Negative ERCP 2011. No hemolytic anemia or jaundice episodes Medical History (Updated 01/31/25 @ 17:18 by Fabrizio Nash MD) Former cigarette smoker Pneumonia Prediabetes Subclinical hypothyroidism Hyperparathyroidism S/p left upper parathyroidectomy Tubular adenoma of colon Herpes zoster ophthalmicus of right eye (~01/2018) Vitamin D deficiency (03/30/15) Osteoporosis Fosamax 2013 -2020 Surgical History S/P ERCP (10/14/11) S/P parathyroidectomy (03/20/20) Left upper parathyroidectomy S/P cholecystectomy (~1994) Status post left breast lumpectomy (~09/2012) S/P ORIF (open reduction internal fixation) fracture (~05/2005) Right wrist Status post cataract extraction and insertion of intraocular lens of right eye (07/17/18) Status post cataract extraction and insertion of intraocular lens of left eye (07/03/18) Family History Mother , At 88 Diabetes Essential hypertension Asthma Uterine cancer In her 80s Father , of 56 of MVA MVA (motor vehicle accident) Sister , at 54 of uterine cancer Uterine cancer Sister Essential hypertension Skin cancer Atrial fibrillation Son No problems noted. Daughter No problems noted. Maternal Grandfather Essential hypertension Heart disease Diabetes Asthma Stroke Maternal Grandmother Heart disease Asthma Paternal Grandfather , at 65 Heart disease Stroke Paternal Grandmother Breast cancer Social History Smoking/Tobacco Use Status: Former Tobacco Use Quit Date: 04/28/99 Tobacco: How many years used: 40 Smoking risk assessment performed?: Yes Alcohol Intake: never Drug use: Never Substance use type: does not use Caregiver/Support person: No Household members: spouse Housing: house Communication Needs: None Do you need help understanding health information?: Rarely Pets and animals: No Sexually active: No Do you think of yourself as: straight/heterosexual Current gender identity: female What is your relationship status?: How often do you talk on the phone with friends or family?: decline to answer How often do you get together with friends or relatives?: decline to answer How often do you attend pentecostalism or jainism services?: decline to answer Do you belong to any clubs or organized social groups?: no Panel score (0-1 are the most socially isolated patients): 1 What type of physical activity do you participate in: none Frequency: does not exercise Luz/Yarsanism: Anabaptist Special luz needs: No Seatbelt use: always Helmet use: No Drive intox or ride 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
[2025-01-31 15:22] VITALS: BP 176/83; PULSE 86; RESP 20; O2SAT 96
--- NOTE | 2025-01-31 16:00 | DI.RAD_ITS ---
Exam(s) XR CHEST 2V PA LATERAL EXAM: XR CHEST 2V PA LATERAL CLINICAL HISTORY: History of falling. TECHNIQUE: 2D digital imaging was performed. COMPARISON: CR XR CHEST 2V PA LATERAL from 09/18/2023 FINDINGS: 2 views: Heart size is upper normal. The mediastinum is not widened. Right lung remains clear. However, there are some minimal increased markings in the left lower lobe. No obvious pleural effusions. No pulmonary edema. IMPRESSION: Mild increased markings in left lower lobe laterally. Suspicious for an element of mild infiltrate at this level. DATA REPOSITORY: RADIATION DOSE DELIVERED:
[2025-01-31 16:08] VITALS: TEMP 36.7
--- NOTE | 2025-01-31 16:29 | DI.CT_ITS ---
Exam(s) CT HEAD WO EXAM: CT HEAD WO CLINICAL HISTORY: History of fall. TECHNIQUE: Imaging Protocol: Axial computed tomography images with coronal and sagittal reformatted images were created and reviewed COMPARISON: No exams were available for comparison FINDINGS: There is soft tissue hematoma above and medial to the right orbit.. There is a small focus of osseous discontinuity in the skull in this region in the lateral aspect of the right frontal sinus. This, however, does not have the appearance of obvious acute fracture. There is also no fluid in the frontal sinus. There are no skull fractures. There is no fluid in the visualized paranasal sinuses. There is evidence of bilateral cataract surgery. There is no evidence of intracranial hemorrhage, mass effect, or shift of midline structures. There are no extra-axial fluid collections. The ventricles are not enlarged or shifted and there is no blood within the ventricular system nor within the basal cisterns. IMPRESSION: Right frontal scalp hematoma. No acute fractures. No acute intracranial findings. Report called by myself to ER physician on 01/31/2025 at 4:35 p.m. RADIATION DOSE DELIVERED: 800.68mGy.cm Total DLP DATA REPOSITORY: All CT scans at this facility are submitted to the National Radiology Data Registry (NRDR) Dose Index Registry (DIR) with the [employer] (ACR). RADIATION OPTIMIZATION: All CT scans at this facility use at least one of these dose optimization techniques: automated exposure control; mA and/or kV adjustment per patient size (includes targeted exams where dose is matched to clinical indication); or iterative reconstruction.
[2025-01-31 17:41] VITALS: BP 169/67; PULSE 71; RESP 16; O2SAT 97
== END 2025-01-31 18:53 | disposition home or self-care (01) ==
PROVIDERS: Emergency Provider Emergency Medicine; PCP Nurse Practitioner Family
DX: R03.0 Elevated blood-pressure reading, without diagnosis of hypertension (principal); S00.03XA Contusion of scalp, initial encounter; W19.XXXA Unspecified fall, initial encounter
CPT/HCPCS: 99284; 99283; 70450; 71046; 73110

== ENCOUNTER 2025-02-07 18:46 | Emergency (ER) | payer OTHER, SELFPAY ==
[2025-02-07] VITALS (34 sets, daily range): BP systolic 165; BP diastolic 72; PULSE 70–98; RESP 16–27; TEMP 36.9; O2SAT 96–100
--- NOTE | 2025-02-07 18:45 | RT.EKG_ITS ---
APPROVED REPORT Exam: Resting ECG Reason for Exam: SOB Patient Location: E HR:80 bpm ECG Measurements Heart Rate 80 AXIS MA 204 P 2 QRSd 89 QRS -18 QT 387 T 18 QTc 446 Conclusion Sinus rhythm...normal P axis, V-rate 60- [address] segment or T wave abnormalities to suggest occlusive [place]
--- NOTE | 2025-02-07 19:12 | W.ED.GENAD ---
Discharge Plan Disposition Patient Disposition: Home Condition: Good Discharge Details Clinical Impression: Dyspnea on exertion, COPD (chronic obstructive pulmonary disease) Primary Care Provider: Destiney Motley ED Provider: Nargis Cortes Home Meds and New Rx's Prescriptions: Continued (DME) Oxygen Tank See Rx Instructions .Route Rx Instructions: As directed, Restore Eye Supplement 1 cap PO DAILY triamcinolone acetonide 0.5 % ointment 1 applic TP DAILY PRN (Reason: dermatitis) Qty: 80 2RF Rx Instructions: Apply to bilateral legs once a day as needed for dermatitis clotrimazole 1 % cream 1 applic topical BID PRN (Reason: foot rash) Qty: 45 3RF Rx Instructions: Apply to affected areas twice a day for 2-4wks cholecalciferol (vitamin D3) 5,000 UNIT capsule 5,000 unit PO DAILY Qty: 100 Rx Instructions: note dose increase albuterol sulfate 90 mcg/actuation HFA aerosol inhaler 2 puff Inhalation Q4H PRN Qty: 54 4RF hydrochlorothiazide 25 mg tablet 25 mg PO DAILY Qty: 90 3RF lisinopril 40 mg tablet 40 mg PO DAILY Qty: 90 3RF potassium chloride 20 mEq tablet extended release 20 meq PO DAILY Qty: 90 3RF Breztri Aerosphere 160-9-4.8 mcg/actuation HFA aerosol inhaler 2 inh inhalation BID Qty: 10.7 0RF Breztri Aerosphere 160-9-4.8 mcg/actuation HFA aerosol inhaler 2 inh inhalation BID Qty: 10.7 12RF ipratropium-albuterol 0.5 mg-3 mg(2.5 mg base)/3 mL solution for nebulization 3 ml inhalation Q6H PRN (Reason: wheezing) Qty: 240 2RF magnesium 500 mg Tablet 500 mg PO DAILY Discharge Instructions Instructions: Chronic obstructive pulmonary disease (COPD), Shortness of Breath, Adult ED Additional Instructions: Continue to use your breathing treatments at home as prescribed. Call your primary care doctor in the morning to schedule an appointment for within the next 72 hours to followup on your visit here. At that visit discuss your shortness of breath as well as your blood pressure which is high here today. Return to the emergency department for new or worsening symptoms including fever, worsening cough, chest pain, swelling in your legs, difficulty breathing that does not respond to home breathing treatments, or if you have any other concerns. HPI General Date/Time Provider Initiated Documentation: 02/07/25 18:56. Limitations to Documentation: no limitations. Information obtained by: patient and old records reviewed (ED visit 01/31). HPI Narrative: 79yo F with hx of COPD, HTN, CKD, hyperbili, presenting for shortness of breath on exertion. Wears 3L O2 at home at baseline. For the last two days has felt increasingly short of breath with ambulation and noted that her O2 sat dropped to 88-89% when she was up and moving around (typically is >92% on her home settings). No chest pain, LE edema, wheezing, or palpitations. Has a chronic cough, not worse in the past few days. Did fall last week and was seen in this ED at that time, had head CT with no acute findings. Otherwise in her usual state of health with no fevers, chills (triage note states chills however pt denies to me), rash, nausea, vomiting, abdominal pain, numbness, weakness, or other concerns. Related Data Home Medications ?Medication ?Instructions ?Recorded ?Confirmed cholecalciferol (vitamin D3) 125 5,000 unit PO DAILY #100 tab-caps 07/06/15 02/07/25 mcg (5,000 unit) capsule Restore Eye Supplement 1 cap PO DAILY 01/27/19 02/07/25 magnesium 500 mg tablet 500 mg PO DAILY 11/08/20 02/07/25 clotrimazole 1 % topical cream 1 applic topical BID PRN foot rash 02/24/23 02/07/25 #45 grams triamcinolone acetonide 0.5 % 1 applic topical DAILY PRN 02/24/23 02/07/25 topical ointment dermatitis #80 grams Oxygen 05/08/23 02/07/25 albuterol sulfate 90 mcg/actuation 2 puff inhalation Q4H PRN #54 grams 02/12/24 02/07/25 aerosol inhaler hydrochlorothiazide 25 mg tablet 25 mg PO DAILY #90 tabs 02/12/24 02/07/25 lisinopril 40 mg tablet 40 mg PO DAILY #90 tab-caps 02/12/24 02/07/25 potassium chloride 20 mEq 20 meq PO DAILY #90 tabs 02/12/24 02/07/25 tablet,extended release budesonide 160 mcg-glycopyr 9 2 inh inhalation BID #10.7 grams 07/13/24 02/07/25 mcg-formot 4.8 mcg/actuation HFA inhaler (Breztri Aerosphere) budesonide 160 mcg-glycopyr 9 2 inh inhalation BID #10.7 grams 07/13/24 02/07/25 mcg-formot 4.8 mcg/actuation HFA inhaler (Breztri Aerosphere) ipratropium 0.5 mg-albuterol 3 mg 3 ml inhalation Q6H PRN wheezing 09/21/24 02/07/25 (2.5 mg base)/3 mL nebulization #240 vials soln Previous Rx's ?Medication ?Instructions ?Recorded clotrimazole 1 % topical cream 1 applic topical BID PRN foot rash 02/24/23 #45 grams triamcinolone acetonide 0.5 % 1 applic topical DAILY PRN 02/24/23 topical ointment dermatitis #80 grams albuterol sulfate 90 mcg/actuation 2 puff inhalation Q4H PRN #54 grams 02/12/24 aerosol inhaler hydrochlorothiazide 25 mg tablet 25 mg PO DAILY #90 tabs 02/12/24 lisinopril 40 mg tablet 40 mg PO DAILY #90 tab-caps 02/12/24 potassium chloride 20 mEq 20 meq PO DAILY #90 tabs 02/12/24 tablet,extended release budesonide 160 mcg-glycopyr 9 2 inh inhalation BID #10.7 grams 07/13/24 mcg-formot 4.8 mcg/actuation HFA inhaler (Breztri Aerosphere) budesonide 160 mcg-glycopyr 9 2 inh inhalation BID #10.7 grams 07/13/24 mcg-formot 4.8 mcg/actuation HFA inhaler (Breztri Aerosphere) ipratropium 0.5 mg-albuterol 3 mg 3 ml inhalation Q6H PRN wheezing 09/21/24 (2.5 mg base)/3 mL nebulization #240 vials soln Allergies Allergy/AdvReac Type Severity Reaction Status Date / Time ibuprofen AdvReac Mild RECTAL Verified 02/07/25 18:51 BLEEDING levothyroxine sodium AdvReac Unknown Other (See Verified 02/07/25 18:51 Comment) General Stated Complaint: SOB NEELAM: 3 Review of Systems Narrative: see HPI Exam Narrative Exam Narrative: General: Alert, well appearing, well nourished, in no acute distress. Extensive fading echymosis to face. No bony tenderness. Head: Normocephalic, atraumatic Neck: Trachea midline, ?Neck supple. ENT: ?MMM.? No oropharygeal lesions or exudate. Cardiac: ?RRR, no murmurs appreciated Resp: No respiratory distress. CTAB. Abd: ?Soft, non-distended, nontender : ?No suprapubic tenderness. No CVA tenderness. Extremities: ?No deformities.? No peripheral edema. Neurologic: GCS 15. ? Moves all extremities freely against gravity Course Vital Signs Vital signs: Vital Signs Temperature 36.9 C 02/07/25 18:49 Pulse 79 02/07/25 18:49 Respiratory Rate 16 02/07/25 18:49 Blood Pressure 165/72 H 02/07/25 18:49 Pulse Oximetry 96 02/07/25 18:49 Temperature 36.9 C 02/07/25 18:51 Pulse 79 02/07/25 18:51 Respiratory Rate 16 02/07/25 18:51 Blood Pressure 165/72 H 02/07/25 18:51 Pulse Oximetry 96 02/07/25 18:51 Medical Decision Making 79yo F with hx of COPD on 3L baseline home O2, HTN, CKD, hyperbili, presenting for shortness of breath on exertion x 2 days, checked her pulse ox at home and desats to 88-89% after ambualting though rapidly returns to baseline (typically remains above 92% on home settings). No increase in cough, no wheezing or chest pain, otherwise in her usual state of health. Hypertensive on arrival, vital signs otherwise reassuring. Facial bruising noted (fall last week; ED visit note reviewed with reassuring head CT). No respiratory distress on exam, lungs CTAB, O2 sat 96-100% on home O2 settings at rest. Not septic. Given known COPD and subjectively worsened shortness of breath, will treat with duoneb while awaiting results of workup. Would not do steroids at this time given her reassuring exam. No hypxoia or tachycardia to suggest pulmonary embolism, less likely ACS or CHF based on exam will evaluate with labs and EKG. -EKG SR, 1st degree block, no ST segment or T wave abnormalities to suggest occlusive [place] -CXR independently reviewed; no focal pneumonia or pneumothorax or pulmonary edema on my view; radiology read with no acute findings -Labs reviewed as below, CBC reassuring with no leukocytosis or anemia, CMP with no actionable abnormalities (Cr and bilirubin at baseline on [facility] record review), Mg slightly low at 1.6 (oral replacement given), VBG with compensated respiratory acidosis consistent with COPD, BNP not suggestive of heart failure, troponin normal x 3 (would not further pursue ACS). On reassessment she reports her symptoms improved after neb. Ambulated in department and maintained O2 sat >98% on home O2 settings. Repeat vital signs remain reassuring. She requests discharge home which with her improving symptoms and reassuring workup is reasonable. Advised to followup with PCP. Discharged home; discharge instructions and return precautions were reviewed with patient who verbalized understanding. All questions were answered and she is in full agreement with the plan. Medical Records Medical records reviewed: Yes I reviewed the patient's medical records. Lab Data Lab results reviewed: Yes I reviewed the patient's lab results. Labs: Laboratory Tests Range/Units 02/07/25 02/07/25 02/07/25 20:00 21:01 23:05 WBC (4.4-10.8) 10^3/uL 10.52 RBC (3.93-5.22) 10^6/uL 4.05 Hgb (11.2-15.7) g/dL 13.0 Hct (36.0-46.0) % 39.3 MCV (80-95) fL 97 H MCH (27.0-33.0) pg 32.1 MCHC (32.0-36.0) % 33.1 RDW (11.7-14.6) % 12.2 Plt Count (130-400) 10^3/uL 250 MPV (8.0-11.0) fL 8.2 Immature Gran % % 0.5 Neutrophils % % 72.2 Lymphocytes % % 14.9 Monocytes % % 8.6 Eosinophils % % 3.2 Basophils % % 0.6 Nucleated RBC % (0.0-0.3) % 0.0 Absolute Neutrophils (1.2-6.7) 10^3/uL 7.60 H Absolute Lymphocytes (1.2-3.4) 10^3/uL 1.57 Absolute Monocytes (0.1-0.8) 10^3/uL 0.90 H Absolute Eosinophils (0.0-0.7) 10^3/uL 0.34 Absolute Basophils (0.0-0.2) 10^3/uL 0.06 VBG pH (7.31-7.41) 7.39 VBG pCO2 (41-51) mmHg 55 H VBG pO2 mmHg 35 VBG HCO3 (23-28) mmol/L 33 H VBG Total CO2 (24-29) mmol/L 30 H VBG O2 Saturation % 65 VBG Base Excess (-2-3) mmol/L 8 H Sodium (136-145) mmol/L 144 Potassium (3.5-5.1) mmol/L 3.8 Chloride (98-107) mmol/L 103 Carbon Dioxide (21.0-32.0) mmol/L 35.1 H Anion Gap (3-11) mmol/L 5.9 BUN (7-18) mg/dL 26 H Creatinine (0.55-1.02) mg/dL 1.6 H Est GFR (CKD-EPI 2020) (mL/min/1.73m2) 32.20 Glucose (74-106) mg/dL 110 H Calcium (8.5-10.1) mg/dL 9.2 Magnesium (1.8-2.4) mg/dL 1.6 L Total Bilirubin (0.2-1.0) mg/dL 1.8 H AST (15-37) U/L 21 ALT (14-59) U/L 22 Alkaline Phosphatase (46-116) U/L 77 Troponin I (<or=51) ng/L 12 12 11 NT-Pro-B Natriuret Pep (<300) pg/mL 415 H Total Protein (6.4-8.2) g/dL 7.3 Albumin (3.4-5.0) g/dL 3.4 PFSH All Active Problems (Updated 02/08/25 @ 00:06 by Nargis Cortes MD) COPD (chronic obstructive pulmonary disease) (Chronic) Dyspnea on exertion (Acute) Hematoma of frontal scalp (Acute) Elevated blood pressure reading with diagnosis of hypertension (Acute) Hx of falling (Acute) Unintentional weight loss (Chronic ~07/2023) Since COVID 19 illness july 2023. No acute lab findings, no hypercalcemia. Chest/abd/pelvic CT showed nonspecific colon fluid collection that she does not wish to investigate Chronic hypoxic respiratory failure (Acute) CKD (chronic kidney disease) stage 3, GFR 30-59 ml/min (Chronic) Obstructive sleep apnea (Chronic) Declines CPAP therapy and further sleep study consults COPD (chronic obstructive pulmonary disease) (Chronic) PFTs 2022 Essential hypertension (Chronic) Varicose veins of lower extremity (Chronic) Bilateral age-related macular degeneration (Chronic) Bilateral lower extremity edema (Chronic) Osteopenia (Chronic) Dexa 2018. Fosamax 2013 to 2020 Obesity (Chronic) Hyperbilirubinemia (Chronic) Unclear etiology, ongoing for decades, Gilbert's syndrome? S/p mitch 1994. Negative ERCP 2011. No hemolytic anemia or jaundice episodes Medical History (Updated 02/08/25 @ 00:06 by Nargis Cortes MD) Former cigarette smoker Pneumonia Prediabetes Subclinical hypothyroidism Hyperparathyroidism S/p left upper parathyroidectomy Tubular adenoma of colon Herpes zoster ophthalmicus of right eye (~01/2018) Vitamin D deficiency (03/30/15) Osteoporosis Fosamax 2013 -2020 Surgical History S/P ERCP (10/14/11) S/P parathyroidectomy (03/20/20) Left upper parathyroidectomy S/P cholecystectomy (~1994) Status post left breast lumpectomy (~09/2012) S/P ORIF (open reduction internal fixation) fracture (~05/2005) Right wrist Status post cataract extraction and insertion of intraocular lens of right eye (07/17/18) Status post cataract extraction and insertion of intraocular lens of left eye (07/03/18) Family History Mother , At 88 Diabetes Essential hypertension Asthma Uterine cancer In her 80s Father , of 56 of MVA MVA (motor vehicle accident) Sister , at 54 of uterine cancer Uterine cancer Sister Essential hypertension Skin cancer Atrial fibrillation Son No problems noted. Daughter No problems noted. Maternal Grandfather Essential hypertension Heart disease Diabetes Asthma Stroke Maternal Grandmother Heart disease Asthma Paternal Grandfather , at 65 Heart disease Stroke Paternal Grandmother Breast cancer Social History Smoking/Tobacco Use Status: Former Tobacco Use Quit Date: 04/28/99 Tobacco: How many years used: 40 Smoking risk assessment performed?: Yes Alcohol Intake: never Drug use: Never Substance use type: does not use Caregiver/Support person: No Household members: spouse Housing: house Communication Needs: None Do you need help understanding health information?: Rarely Pets and animals: No Sexually active: No Do you think of yourself as: straight/heterosexual Current gender identity: female What is your relationship status?: How often do you talk on the phone with friends or family?: decline to answer How often do you get together with friends or relatives?: decline to answer How often do you attend orthodoxy or gnosticism services?: decline to answer Do you belong to any clubs or organized social groups?: no Panel score (0-1 are the most socially isolated patients): 1 What type of physical activity do you participate in: none Frequency: does not exercise Luz/Congregational: Nondenominational Special luz needs: No Seatbelt use: always Helmet use: No Drive intox or ride w/intox bus driver school: No Do you feel safe in your relationship?: Yes Female Reproductive History Menstrual Menopause type: natural Date of menopause: 04/28/93 History History 3 Para Hx # Term Pregnancies Multiple births Hx # Pregnancies Ectopic pregnancies AB induced Hx Number of Living Children 2 AB spontaneous 1
--- NOTE | 2025-02-07 19:30 | DI.RAD_ITS ---
Exam(s) XR CHEST 2V PA LATERAL EXAM: XR CHEST 2V PA LATERAL CLINICAL HISTORY: sob TECHNIQUE: 2D digital imaging was performed. Two views. COMPARISON: CR XR CHEST 2V PA LATERAL from 09/18/[address] CHEST/ABD/PEL W from 04/22/2024 CR XR CHEST 2V PA LATERAL from 01/31/2025 FINDINGS: the exam is limited by poor penetration at the lung bases. HEART: enlarged, unchanged. Aorta: Not dilated. PULMONARY VASCULATURE: Normal. MEDIASTINUM: Unremarkable. LUNGS: Clear. PLEURAL SPACE: No pleural effusion or pneumothorax. BONE:Unremarkable for age. SOFT TISSUES: Unremarkable. IMPRESSION: No acute abnormality. The preliminary [facility] report was reviewed. DATA REPOSITORY: RADIATION DOSE DELIVERED:
[2025-02-07 20:07] LABS: BE (Venous) 8 mmol/L (-2-3); HCO3 (Venous) 33 mmol/L (23-28); O2 Sat (Venous) 65 %; TCO2 (Venous) 30 mmol/L (24-29); pCO2 (Venous) 55 mmHg (41-51); pO2 (Venous) 35 mmHg
[2025-02-07 20:08] LABS: Abs Immature Grans 0.05 10^3/uL (0.0-0.06); HCT 39.3 % (36.0-46.0); HGB 13.0 g/dL (11.2-15.7); Immature Grans % 0.5 %; MCH 32.1 pg (27.0-33.0); MCHC 33.1 % (32.0-36.0); MCV 97 fL (80-95); MPV 8.2 fL (8.0-11.0); Platelet Count 250 10^3/uL (130-400); RBC 4.05 10^6/uL (3.93-5.22); RDW 12.2 % (11.7-14.6); RDW-SD 43.8 fL; WBC 10.52 10^3/uL (4.4-10.8)
[2025-02-07 20:35] LABS: ALT 22 U/L (14-59); AST 21 U/L (15-37); Albumin 3.4 g/dL (3.4-5.0); Alkaline Phosphatase 77 U/L (46-116); Anion Gap 5.9 mmol/L (3-11); BUN 26 mg/dL (7-18); Bilirubin, Total 1.8 mg/dL (0.2-1.0); CO2 35.1 mmol/L (21.0-32.0); Calcium 9.2 mg/dL (8.5-10.1); Chloride 103 mmol/L (98-107); Estimated GFR 32.20 (mL/min/1.73m2); Glucose 110 mg/dL (74-106); Magnesium 1.6 mg/dL (1.8-2.4); NT-proBNP 415 pg/mL (<300); Potassium 3.8 mmol/L (3.5-5.1); Sodium 144 mmol/L (136-145); Total Protein 7.3 g/dL (6.4-8.2); Troponin I 12 ng/L (<or=51)
[2025-02-07] MEDS: Magnesium Gluconate 500 MG TAB 1000 MG PO (20:53)
[2025-02-07 21:27] LABS: Troponin I 12 ng/L (<or=51)
[2025-02-07] MEDS: Albuterol/Ipratropium 3 ML UPD VIAL UPD (21:27)
--- NOTE | 2025-02-07 21:40 | DI.[facility]_ITS ---
PROCEDURE INFORMATION: Exam: XR Chest Exam date and time: 02/07/2025 8:13 PM Age: 79 years old Clinical indication: Shortness of breath TECHNIQUE: Imaging protocol: Radiologic exam of the chest. Views: 2 views. COMPARISON: CR XR CHEST 2V PA LATERAL 01/31/2025 4:35 PM FINDINGS: Lungs: The lungs are hyperinflated with changes of COPD. No consolidation. Pleural spaces: Unremarkable. No pleural effusion. No pneumothorax. Heart/Mediastinum: Unremarkable. No cardiomegaly. Bones/joints: Unremarkable. IMPRESSION: No acute findings. Dictated and Authenticated by: Janie Haney MD. Orderin Sebastian Barillas MD
[2025-02-07 23:29] LABS: Troponin I 11 ng/L (<or=51)
[2025-02-08] VITALS: PULSE 76; PULSE 77; RESP 22; O2SAT 100
[2025-02-08 00:11] VITALS: BP 165/56; PULSE 76; RESP 22; O2SAT 99
== END 2025-02-08 00:49 | disposition home or self-care (01) ==
PROVIDERS: Emergency Provider Student in an Organized Health Care Education/Training Program; PCP Nurse Practitioner Family
DX: R06.09 Other forms of dyspnea (principal); J44.9 Chronic obstructive pulmonary disease, unspecified
CPT/HCPCS: 99284 ×2; 94640; 36415; 80053; 82805; 93005; 71046; 83735; 83880; 84484; 85025; 93010; J7620

== ENCOUNTER 2025-03-02 11:30 | Outpatient (CLI) | payer OTHER, SELFPAY ==
[2025-03-02 13:24] LABS: Total Iron Binding Capacity 201 ug/dL (250-450)
[2025-03-02 13:33] LABS: ALT 23 U/L (14-59); AST 21 U/L (15-37); Albumin 3.3 g/dL (3.4-5.0); Alkaline Phosphatase 59 U/L (46-116); Anion Gap 7.4 mmol/L (3-11); BUN 34 mg/dL (7-18); Bilirubin, Total 2.2 mg/dL (0.2-1.0); CO2 31.6 mmol/L (21.0-32.0); Calcium 9.4 mg/dL (8.5-10.1); Chloride 102 mmol/L (98-107); Ferritin 565 ng/mL (8-252); Glucose 103 mg/dL (74-106); Magnesium 1.7 mg/dL (1.8-2.4); Potassium 3.8 mmol/L (3.5-5.1); Sodium 141 mmol/L (136-145); Total Protein 7.2 g/dL (6.4-8.2); Vitamin D 25 Total 68 ng/mL (30-100)
[2025-03-02 13:43] LABS: Uric Acid 8.2 mg/dL (2.6-6.0)
[2025-03-03 13:10] LABS: Albumin 55.0 % (55.8-66.1); Albumin g/dL 3.7 g/dL (3.6-5.2); Alpha 1 g/dL 0.30 g/dL (0.15-0.40); Alpha 2 g/dL 0.80 g/dL (0.50-1.00); Beta g/dL 0.90 g/dL (0.60-1.20); Gamma g/dL 1.10 g/dL (0.60-1.60); Total Protein 6.7 g/dL (6.3-8.2)
[2025-03-04 08:59] LABS: Cystatin C, S 2.32 mg/L
== END 2025-03-02 11:31 | disposition home or self-care (01) ==
LOC: LOS 11:31
PROVIDERS: PCP Nurse Practitioner Family; Visit Provider Nurse Practitioner Family
DX: N18.30 Chronic kidney disease, stage 3 unspecified (principal)
CPT/HCPCS: 36415; 80053; 82306; 82610; 82728; 83550; 83735; 83970; 84165; 84550